=== PATIENT | male | born 1945 | race Caucasian/White ===

== ENCOUNTER 2020-09-27 09:02 | Outpatient (REF) | payer MEDICARE, SELFPAY ==
--- NOTE | 2020-09-27 09:57 | XR_ITS ---
EXAMINATION: XR SHOULDER, BILATERAL CLINICAL INFORMATION: Polymyalgia rheumatica COMPARISON: None TECHNIQUE: Four views each shoulder FINDINGS: RIGHT SHOULDER: There is no visible acute fracture, dislocation, or subluxation seen. There is mild reduction in the right AC joint with lateral acromial spurring. No loose bodies or joint effusion seen. There is calcific density seen lateral to the right greater tuberosity, ? calcific tendinitis. LEFT SHOULDER: There is no visible acute fracture, dislocation, or subluxation. There is loss of left AC joint space with lateral acetabular spurring. Small loose bodies are seen along the inferior glenohumeral joint likely degenerative changes. Soft tissue calcification also seen adjacent to the greater tuberosity. The soft tissues are unremarkable. XR/XR shoulder LT min 2V IMPRESSION: 1. Mild degenerative changes bilateral AC joints with lateral acetabular spurring. No acute fracture or dislocation seen. 2. There is soft tissue calcification lateral to bilateral greater tuberosity likely calcific tendinitis. 3. Small bone fragments inferior to left glenohumeral joint likely degenerative changes or spurring.
--- NOTE | 2020-09-27 09:57 | XR_ITS ---
EXAMINATION: XR SHOULDER, BILATERAL CLINICAL INFORMATION: Polymyalgia rheumatica COMPARISON: None TECHNIQUE: Four views each shoulder FINDINGS: RIGHT SHOULDER: There is no visible acute fracture, dislocation, or subluxation seen. There is mild reduction in the right AC joint with lateral acromial spurring. No loose bodies or joint effusion seen. There is calcific density seen lateral to the right greater tuberosity, ? calcific tendinitis. LEFT SHOULDER: There is no visible acute fracture, dislocation, or subluxation. There is loss of left AC joint space with lateral acetabular spurring. Small loose bodies are seen along the inferior glenohumeral joint likely degenerative changes. Soft tissue calcification also seen adjacent to the greater tuberosity. The soft tissues are unremarkable. XR/XR shoulder RT min 2V IMPRESSION: 1. Mild degenerative changes bilateral AC joints with lateral acetabular spurring. No acute fracture or dislocation seen. 2. There is soft tissue calcification lateral to bilateral greater tuberosity likely calcific tendinitis. 3. Small bone fragments inferior to left glenohumeral joint likely degenerative changes or spurring.
[2020-09-27 11:04] LABS: C Reactive Protein 1.74 mg/dL (< or = 0.50)
[2020-09-27 11:18] LABS: Erythrocyte Sedimentation Rate 19 MM/HR (0-15)
== END 2020-09-27 09:03 | disposition home or self-care (01) ==
LOC: HO.LAB 09:02
PROVIDERS: PCP Family Medicine; Referring Provider Family Medicine; Visit Provider Student in an Organized Health Care Education/Training Program
DX: M35.3 Polymyalgia rheumatica (principal); Z79.52 Long term (current) use of systemic steroids
CPT/HCPCS: 36415; 73030; 85652; 86140; 99212

== ENCOUNTER → 2020-12-07 11:07 | Outpatient (BNVA) | payer MEDICARE, SELFPAY | PROVIDERS: PCP Family Medicine; Referring Provider Family Medicine; Visit Provider Student in an Organized Health Care Education/Training Program | DX: M35.3 Polymyalgia rheumatica (principal); Z79.52 Long term (current) use of systemic steroids | CPT/HCPCS: 99212 ==

== ENCOUNTER 2021-02-16 09:05 | Outpatient (REF) | payer MEDICARE, MEDICAID, SELFPAY ==
[2021-02-16 10:11] LABS: MANUAL DIFF FLAG NO
[2021-02-16 10:20] LABS: Basophils Percent Auto 0.6 % (0-2); Eosinophils Absolute Auto 0.2 X10*3/uL (0.0-0.4); Eosinophils Percent Auto 2.4 % (0-4); Hematocrit 40.8 % (42-52); Hemoglobin 13.5 g/dl (14.0-18.0); Imm Gran Abs Auto 0.02 X10*3/uL (0.00-0.03); Imm Gran Pct Auto 0.3 % (0.0-0.4); Lymphocytes Absolute Auto 1.8 X10*3/uL (1.2-4.9); Lymphocytes Percent Auto 26.7 % (20-40); Mean Corpuscular HGB Conc 33.1 g/dl (31.0-36.0); Mean Corpuscular Hemoglobin 29.2 pg (27.0-33.0); Mean Corpuscular Volume 88.3 fL (80-98); Mean Platelet Volume 9.6 fL (9.4-12.4); Monocytes Absolute Auto 0.5 X10*3/uL (0.1-1.2); Monocytes Percent Auto 7.7 % (2-11); Neutrophils Absolute Auto 4.1 X10*3/uL (2.0-8.3); Neutrophils Percent Auto 62.3 % (45-73); Platelet Count 281 X10*3/uL (160-400); Red Blood Count 4.62 X10*6/uL (4.60-5.80); Red Cell Distribution Width 11.9 % (11.0-16.0); White Blood Count 6.6 X10*3/uL (4.8-10.8)
[2021-02-16 10:45] LABS: Alanine Aminotransferase 11 U/L (0-40); Albumin Level 3.8 g/dL (3.5-5.0); Alkaline Phosphatase 71 U/L (39-117); Anion Gap 11 (12-20); Aspartate Amino Transferase 14 U/L (5-37); Bilirubin Total 0.5 mg/dL (0.0-1.0); Blood Urea Nitrogen 10 mg/dL (9-16); C Reactive Protein 0.56 mg/dL (< or = 0.50); Calcium 8.8 mg/dL (8.4-10.2); Carbon Dioxide 28 mmol/L (22-29); Chloride 105 mmol/L (96-108); Estimated Glomerular Filt Rate > 60; Glucose Random 112 mg/dL (60-115); Potassium 3.7 mmol/L (3.3-5.1); Sodium 140 mmol/L (135-145); Total Protein 6.5 g/dL (6.5-8.0)
[2021-02-16 11:12] LABS: Erythrocyte Sedimentation Rate 18 MM/HR (0-15)
== END 2021-02-16 09:06 | disposition home or self-care (01) ==
LOC: HO.LAB 09:05
PROVIDERS: PCP Family Medicine; Visit Provider Student in an Organized Health Care Education/Training Program
DX: M35.3 Polymyalgia rheumatica (principal); Z79.52 Long term (current) use of systemic steroids
CPT/HCPCS: 36415; 80053; 85025; 85652; 86140; 99212

== ENCOUNTER 2021-03-29 10:47 | Observation (INO) | payer MEDICARE, MEDICAID, SELFPAY ==
[2021-03-29] VITALS (7 sets, daily range): BP systolic 161–182; BP diastolic 85–106; PULSE 70–100; RESP 16–20; TEMP 37–37.1; O2SAT 97–100; BMI 25.8
--- NOTE | ~2021-03-29 | MR_ITS ---
EXAMINATION: MR BRAIN WITHOUT CONTRAST CLINICAL INFORMATION: Episode of amnesia. Right vertebral artery stenosis. COMPARISON: CTA head and neck 03/29/2021. TECHNIQUE: Multiplanar, multisequence imaging of the brain was performed without intravenous contrast. FINDINGS: No definite infarct is seen. A small focus of elevated diffusivity is seen within the left anabell without corresponding ADC signal deficit, likely representing T2 shine through. There is no mass or extra-axial fluid collection. Mild scattered foci of T2/FLAIR hyperintensity are seen in the cerebral white matter presumably reflecting sequela of chronic microangiopathy. The ventricles are normal in size without hydrocephalus. The major arterial flow voids appear grossly preserved. There are bilateral lens replacements. The orbital contents appear normal. MR/MR head/brain wo con IMPRESSION: No acute infarct, mass lesion, intracranial hemorrhage, or evidence of hydrocephalus. Background changes of chronic microangiopathy. Small focus of T2 shine through seen within the left anabell likely representing sequela of chronic microangiopathy at this locale.
--- NOTE | ~2021-03-29 | CT_ITS ---
EXAMINATION: CT ANGIOGRAM NECK WITH CONTRAST CT ANGIOGRAM BRAIN WITH CONTRAST CLINICAL INFORMATION: 5 to 6 minutes of confusion. COMPARISON: None. TECHNIQUE: Test bolus sequences followed by intravenous administration 70 mL of Omnipaque 350. Helical imaging was performed in the axial plane from the thoracic inlet to the skull vertex. Delayed postcontrast imaging of the head was also performed. The data was processed at the mechatronics technologist workstation for generation of MIP sequences. Angled MIPs and volume rendered reformatted images were also generated at an offline 3D workstation. Stenoses are assessed in accordance with NASCET criteria unless otherwise indicated. This CT examination was performed using dose optimization techniques as appropriate, variously including the following: *Automated exposure control *Adjustment of mA and/or kV according to patient size (this includes techniques or standardized protocols for targeted exams where dose is matched to indication/reason for exam; i.e. extremities or head) *Use of iterative reconstruction technique DLP: 2195 mGy-cm FINDINGS: Head CT: There is no intracranial hemorrhage, large acute infarction, or mass lesion. The ventricles are normal in size and configuration without evidence of hydrocephalus. Mild hypoattenuation is seen in the cerebral white matter likely reflecting chronic microangiopathy. The ventricles and sulci appear commensurate. On the postcontrast images, no abnormal enhancement is seen. There is mild paranasal sinus mucosal thickening with layering fluid in the left maxillary sinus. Maxillary sinus fields appear hyperostotic likely reflecting sequela of chronic inflammation. Neck CTA: Atheromatous changes are seen within the aortic arch. The great vessel origins are patent. Mild atheromatous changes are seen at the left more than right carotid bifurcations resulting in less than 50% stenosis. Mild beaded morphology of the bilateral cervical internal carotid arteries likely represents fibromuscular dysplasia type changes. There is focal severe stenosis of the right vertebral artery origin with an additional tandem stenosis seen just distally. No additional significant stenosis is seen involving the cervical segment of the right vertebral artery. Mild amount of beading/dysplasia is seen in the distal V2 segment. The left vertebral artery originates directly from the aortic arch and is nondominant. The cervical segment of the left vertebral artery appears patent throughout the neck. Head CTA: No proximal vessel occlusion is seen. The anterior and posterior circulations appear patent. No significant arterial stenosis is seen. There is a small but tortuous left posterior communicating artery with an infundibular origin. There is no discrete aneurysm. Non-vascular findings: Background changes of emphysema are noted within the lungs. There is no consolidation. Multilevel degenerative changes are seen within the spine. There are bilateral palatine tonsilloliths. There is nonspecific asymmetric effacement of the right vallecula. No gross base of tongue lesion is seen. No enlarged lymph nodes are seen. CT/CT angio head neck IMPRESSION: CT head: No intracranial hemorrhage or large acute infarction. Changes of chronic microangiopathy. Layering fluid in the left maxillary sinus. CTA neck: Severe stenosis of the right vertebral artery origin. No significant stenosis at the carotid bifurcations. Beaded morphology seen involving the cervical segments of both internal carotid arteries and to lesser extent vertebral arteries likely reflecting fibromuscular dysplasia. CTA head: No large vessel occlusion or significant stenosis within the intracranial circulation.
--- NOTE | 2021-03-29 11:09 | ED_ITS ---
HPI - Altered Mental Status General Chief Complaint: Altered Mental Status Stated Complaint: AMS Time Seen by Provider: 03/29/21 11:08 Source: family Mode of arrival: ambulatory Limitations: no limitations History of Present Illness HPI narrative: Patient states that he started to forget events of this morning. He did not know members of his family. Lasted 5-6 minutes complaint: confusion Onset (ago): hour(s) Timing confirmed by: family member Severity: severe Associated symptoms: denies other symptoms Related Data Home Medications Medication Instructions Recorded Confirmed amlodipine 10 mg tablet 10 mg PO DAILY 09/27/20 03/29/21 aspirin 81 mg tablet,delayed 81 mg PO DAILY 09/27/20 03/29/21 release hydrochlorothiazide 25 mg tablet 25 mg PO DAILY 09/27/20 03/29/21 lisinopril 40 mg tablet 40 mg PO DAILY 09/27/20 03/29/21 omeprazole 20 mg capsule,delayed 20 mg PO DAILY 09/27/20 03/29/21 release brimonidine 1 drp OPHTHALMIC (EYE) Q12H 03/29/21 03/29/21 doxazosin 1 tab PO BEDTIME 03/29/21 03/29/21 Previous Rx's Medication Instructions Recorded prednisone 1 mg tablet 4 mg PO QAM #120 tab 12/27/20 prednisone 5 mg tablet 5 mg PO QAM #30 tab 03/27/21 atorvastatin [Lipitor] 40 mg PO BEDTIME 30 Days #30 tab 03/30/21 Allergies Allergy/AdvReac Type Severity Reaction Status Date / Time No Known Allergies Allergy Verified 02/16/21 09:09 [No Known Allergies*] Review of Systems Constitutional: Constitutional: Reports no additional constitutional complaints Eyes: Eyes: Reports no additional eye complaints ENT: Denies dizziness Cardiovascular: Cardiovascular: Reports no additional cardiovascular complaints Respiratory: Respiratory: Reports as per HPI Gastrointestinal: Gastrointestinal: Reports no additional gastrointestinal complaints Musculoskeletal: Musculoskeletal: Reports no additional musculoskeletal complaints Integumentary/Breasts: Skin/Breast: Denies rash Neurologic: Reports system reviewed and no additional complaints, except as documented, Denies dizziness and Denies Sensory deficit (Neuro) Psychiatric: Psychiatric: Denies anxiety PMFSH Past Medical History Medical History Family history of GERD History of pernicious anemia History of vitamin D deficiency Hx of essential hypertension Hx of polymyalgia rheumatica Polymyalgia rheumatica Family History Family History Father HTN (hypertension) Mother HTN (hypertension) Social History Social History (Updated 03/29/21 @ 17:59 by PHILLIP Lagos) Household Members: Spouse Alcohol intake: never Smoking Status: Never smoker Second Hand Smoke Exposure: No Use of substances other than those prescribed or required for medical reasons: No Advance Directives: Yes Advance Directives Information Provided: No Advance Directives on File: Yes Advance Directives Date on File: 03/29/21 service: No Physical Exam Vital Signs: Vital Signs: Last Vital Signs Temp 97.8 F 03/30/21 07:18 Pulse 87 03/30/21 07:18 Resp 20 03/30/21 07:18 BP 126/76 03/30/21 07:18 Pulse Ox 97 03/30/21 07:18 Body Mass Index 25.8 Const: General: healthy appearing Nutritional Appearance: average body habitus Orientation/consciousness: oriented to person and patient oriented x3 Limitations: no limitations HENMT: Head: Yes normal to inspection Ears: external ears normal General nose exam: Normal external nose present Mouth: Normal oral and palatal mucosa present and oropharynx normal Throat: Yes posterior oropharynx normal Eyes: General: appearance normal, both eyes and all related structures Neck: Other: supple Neck: Yes normal visual inspection Chest: Chest palpation & inspection: normal inspection of the chest Resp: Auscultation: clear to auscultation bilaterally Cardio: Jugular venous distension: no JVD Rate: regular rate Rhythm: regular rhythm Heart sounds: S1 normal heart sound present and S2 normal heart sound present GI: Inspection: Yes normal to inspection Palpation (GI): Soft to palpation, nontender and No hepatosplenomegaly present Auscultation: normal bowel sounds : General: Yes no CVA tenderness Back/Spine/Pelvis: Back: no CVA tenderness Skin: General skin exam: no rashes or lesions noted Neuro: General: oriented to person and patient oriented x3 Cranial nerves: Yes CN's II-XII intact bilaterally Motor exam (neuro): 5/5 motor strength present throughout Sensory Exam: No Sensory deficit (Neuro) Extrem: General: Yes normal to inspection Psych: Appearance: grossly normal NIH Stroke Scale Internal: Initial- Upon Arrival Level of Consciousness: Alert Level of Consciousness Questions: Answers both questions correctly Level of Consciousness Commands: Performs both tasks correctly Best Gaze: Normal Visual: No visual loss Facial Palsy: Normal Motor Arm (Right): No drift Motor Arm (Left): No drift Motor Leg (Right): No drift Motor Leg (Left): No drift Limb Ataxia: Absent Sensory: Normal Best Language: No aphasia Dysarthia: Normal Extinction and Inattention: No abnormality Score: 0 Course Course Course Narrative: Discussed case with Dr. Cerda, based on tight lesion in vertebral artery patient should treated as TIA vs seizure MDM - Altered Mental Status MDM Narrative Medical decision making narrative: TGA vs TIA Differential Diagnosis Differential diagnosis: Likely altered mental status, encephalopathy and seizures Lab Data Result diagrams: 03/29/21 12:13 03/29/21 12:13 Labs: Lab Results 03/29/21 03/29/21 03/29/21 Range/Units 12:13 12:13 12:13 WBC 7.0 (4.8-10.8) X10*3/uL RBC 4.68 (4.60-5.80) X10*6/uL Hgb 13.7 L (14.0-18.0) g/dl Hct 41.6 L (42-52) % MCV 88.9 (80-98) fL MCH 29.3 (27.0-33.0) pg MCHC 32.9 (31.0-36.0) g/dl RDW 12.3 (11.0-16.0) % Plt Count 273 (160-400) X10*3/uL MPV 9.4 (9.4-12.4) fL Immature Gran % (Auto) 0.3 (0.0-0.4) % Neut % (Auto) 62.8 (45-73) % Lymph % (Auto) 21.6 (20-40) % [place] % (Auto) 12.9 H (2-11) % Eos % (Auto) 2.0 (0-4) % Baso % (Auto) 0.4 (0-2) % Lymph # (Auto) 1.5 (1.2-4.9) X10*3/uL [place] # (Auto) 0.9 (0.1-1.2) X10*3/uL Eos # (Auto) 0.1 (0.0-0.4) X10*3/uL Baso # (Auto) 0.0 (0.0-0.2) X10*3/uL Abs Immat Gran (auto) 0.02 (0.00-0.03) X10*3/uL Absolute Neuts (auto) 4.4 (2.0-8.3) X10*3/uL Absolute Nucleated RBC 0.000 (0.0-0.012) X10*3/uL Nucleated RBC % (auto) 0.0 (0.0-0.2) /100WBC Sodium 142 (135-145) mmol/L Potassium 4.6 D (3.3-5.1) mmol/L Chloride 106 (96-108) mmol/L Carbon Dioxide 29 (22-29) mmol/L Anion Gap 12 (12-20) BUN 12 (9-16) mg/dL Creatinine 0.77 (0.5-1.4) mg/dL Estim Creat Clear Calc 77.7 Estimated GFR > 60 Random Glucose 102 (60-115) mg/dL Calcium 9.6 D (8.4-10.2) mg/dL Troponin I High Sens 10.6 (<3.5-35.0) ng/L Imaging Data CT scan - head: Radiologist's impression: CT Scan ReportSigned Patient: Rowdy Romero [facility]#: [id number]: 3Acct:[id number]/Sex: 75 / MADM Date: 03/29/21Loc: [email or web address] Dr: Ordering Physician: Jin Garcia MD Date of Service: 03/29/21 Procedure(s): CT angio head neck Accession Number(s): [id number] cc: Jin Garcia MD~ EXAMINATION: CT ANGIOGRAM NECK WITH CONTRAST CT ANGIOGRAM BRAIN WITH CONTRAST CLINICAL INFORMATION: 5 to 6 minutes of confusion. COMPARISON: None. TECHNIQUE: Test bolus sequences followed by intravenous administration 70 mL of Omnipaque 350. Helical imaging was performed in the axial plane from the thoracic inlet to the skull vertex. Delayed postcontrast imaging of the head was also performed. The data was processed at the special procedures technologist workstation for generation of MIP sequences. Angled MIPs and volume rendered reformatted images were also generated at an offline 3D workstation. Stenoses are assessed in accordance with NASCET criteria unless otherwise indicated. This CT examination was performed using dose optimization techniques as appropriate, variously including the following: *Automated exposure control *Adjustment of mA and/or kV according to patient size (this includes techniques or standardized protocols for targeted exams where dose is matched to indication/reason for exam; i.e. extremities or head) *Use of iterative reconstruction technique DLP: 2195 mGy-cm FINDINGS: Head CT: There is no intracranial hemorrhage, large acute infarction, or mass lesion. The ventricles are normal in size and configuration without evidence of hydrocephalus. Mild hypoattenuation is seen in the cerebral white matter likely reflecting chronic microangiopathy. The ventricles and sulci appear commensurate. On the postcontrast images, no abnormal enhancement is seen. There is mild paranasal sinus mucosal thickening with layering fluid in the left maxillary sinus. Maxillary sinus fields appear hyperostotic likely reflecting sequela of chronic inflammation. Neck CTA: Atheromatous changes are seen within the aortic arch. The great vessel origins are patent. Mild atheromatous changes are seen at the left more than right carotid bifurcations resulting in less than 50% stenosis. Mild beaded morphology of the bilateral cervical internal carotid arteries likely represents fibromuscular dysplasia type changes. There is focal severe stenosis of the right vertebral artery origin with an additional tandem stenosis seen just distally. No additional significant stenosis is seen involving the cervical segment of the right vertebral artery. Mild amount of beading/dysplasia is seen in the distal V2 segment. The left vertebral artery originates directly from the aortic arch and is nondominant. The cervical segment of the left vertebral artery appears patent throughout the neck. Head CTA: No proximal vessel occlusion is seen. The anterior and posterior circulations appear patent. No significant arterial stenosis is seen. There is a small but tortuous left posterior communicating artery with an infundibular origin. There is no discrete aneurysm. Non-vascular findings: Background changes of emphysema are noted within the lungs. There is no consolidation. Multilevel degenerative changes are seen within the spine. There are bilateral palatine tonsilloliths. There is nonspecific asymmetric effacement of the right vallecula. No gross base of tongue lesion is seen. No enlarged lymph nodes are seen. CT/CT angio head neck IMPRESSION: CT head: No intracranial hemorrhage or large acute infarction. Changes of chronic microangiopathy. Layering fluid in the left maxillary sinus. CTA neck: Severe stenosis of the right vertebral artery origin. No significant stenosis at the carotid bifurcations. Beaded morphology seen involving the cervical segments of both internal carotid arteries and to lesser extent vertebral arteries likely reflecting fibromuscular dysplasia. CTA head: No large vessel occlusion or significant stenosis within the intracranial circulation. ECG Data ECG #1: Attestation: I personally reviewed and interpreted this ECG as follows: Interpretation: normal sinus rate 77, no st or twave changes Discharge Plan Discharge Clinical Impression: Altered mental status, Transient ischemic attack (TIA), Transient global amnesia Patient Disposition: Admitted As Inpatient Interventions: Admission Worksheet (ED) Last Done: 03/29/21 23:10 Discharge Date/Time: 03/29/21 23:10
--- NOTE | 2021-03-29 11:14 | ECG_ITS ---
Test Reason : ALTERED MENTAL STATE Blood Pressure : / mmHG Vent. Rate : 077 BPM Atrial Rate : 077 BPM P-R Int : 146 ms QRS Dur : 078 ms QT Int : 382 ms P-R-T Axes : 069 -56 -03 degrees QTc Int : 432 ms Normal sinus rhythm Left axis deviation Minimal voltage criteria for LVH, may be normal variant Abnormal ECG When compared with ECG of 05-JUN-2019 09:49, Premature supraventricular complexes are no longer Present Referred By: Jin Garcia Electronically Signed By:TRACY BANDA MD
[2021-03-29 12:17] LABS: MANUAL DIFF FLAG NO
[2021-03-29 12:21] LABS: Basophils Percent Auto 0.4 % (0-2); Eosinophils Absolute Auto 0.1 X10*3/uL (0.0-0.4); Hematocrit 41.6 % (42-52); Hemoglobin 13.7 g/dl (14.0-18.0); Imm Gran Abs Auto 0.02 X10*3/uL (0.00-0.03); Imm Gran Pct Auto 0.3 % (0.0-0.4); Lymphocytes Absolute Auto 1.5 X10*3/uL (1.2-4.9); Lymphocytes Percent Auto 21.6 % (20-40); Mean Corpuscular HGB Conc 32.9 g/dl (31.0-36.0); Mean Corpuscular Hemoglobin 29.3 pg (27.0-33.0); Mean Corpuscular Volume 88.9 fL (80-98); Mean Platelet Volume 9.4 fL (9.4-12.4); Monocytes Absolute Auto 0.9 X10*3/uL (0.1-1.2); Monocytes Percent Auto 12.9 % (2-11); Neutrophils Absolute Auto 4.4 X10*3/uL (2.0-8.3); Neutrophils Percent Auto 62.8 % (45-73); Platelet Count 273 X10*3/uL (160-400); Red Blood Count 4.68 X10*6/uL (4.60-5.80); Red Cell Distribution Width 12.3 % (11.0-16.0)
[2021-03-29 12:47] LABS: Anion Gap 12 (12-20); Blood Urea Nitrogen 12 mg/dL (9-16); Calcium 9.6 mg/dL (8.4-10.2); Carbon Dioxide 29 mmol/L (22-29); Chloride 106 mmol/L (96-108); Creatinine Clr Calc Pharmacy 77.7; Estimated Glomerular Filt Rate > 60; Glucose Random 102 mg/dL (60-115); Potassium 4.6 mmol/L (3.3-5.1); Sodium 142 mmol/L (135-145)
[2021-03-29 12:53] LABS: Troponin-I High Sensitivity 10.6 ng/L (<3.5-35.0)
[2021-03-29] MEDS: iohexoL 350 MG/ML 100 ML INFUS..BTL IV (14:23)
--- NOTE | 2021-03-29 16:23 | P.CNNE_ITS ---
History of Present Illness Data of Consult Service Date: 03/29/21 Primary Care Provider: Alma Delia Altamirano MD 75 years old man with underlying history of hypertension came to hospital with few minutes episode of forgetfulness. Apparently he did not know where he was or forgot about everything for few minutes and then he was fine again. There was no associated discomfort. There was no focal weakness. In emergency room he was noted to be hypertensive. CTA was done that revealed some finding prompting this consultation. Review of Systems Review of Systems: No recent cold or flu-like illness or trauma. No seizure- like episode PMFSH Past Medical History Medical History Family history of GERD History of pernicious anemia History of vitamin D deficiency Hx of essential hypertension Hx of polymyalgia rheumatica Polymyalgia rheumatica Family History Family History Father HTN (hypertension) Mother HTN (hypertension) Social History Social History Alcohol intake: never Smoking Status: Former smoker Advance Directives: Yes Advance Directives Information Provided: No Advance Directives on File: No Meds Allergies Allergy/AdvReac Type Severity Reaction Status Date / Time No Known Allergies Allergy Verified 02/16/21 09:09 [No Known Allergies*] Home Medications Medication Instructions Recorded Confirmed Last Taken Type amlodipine 10 mg tablet 10 mg PO DAILY 09/27/20 03/29/21 Unknown History aspirin 81 mg tablet,delayed 81 mg PO DAILY 09/27/20 03/29/21 Unknown History release hydrochlorothiazide 25 mg tablet 25 mg PO DAILY 09/27/20 03/29/21 Unknown History lisinopril 40 mg tablet 40 mg PO DAILY 09/27/20 03/29/21 Unknown History omeprazole 20 mg capsule,delayed 20 mg PO DAILY 09/27/20 03/29/21 Unknown History release brimonidine 1 drp OPHTHALMIC (EYE) Q12H 03/29/21 03/29/21 Unknown History doxazosin 1 tab PO BEDTIME 03/29/21 03/29/21 Unknown History Physical Exam Vital Signs: Vital Signs: Last Vital Signs Temp 98.7 F 03/29/21 11:04 Pulse 72 03/29/21 14:11 Resp 17 03/29/21 14:11 BP 182/99 H 03/29/21 14:11 Pulse Ox 98 03/29/21 14:11 Body Mass Index 25.8 He was alert and awake with normal spontaneity of speech fluency comprehension and affect. He was able to name and repeat. Affect was normal. Face was symmetrical. There was no focal weakness. Deep tendon reflexes were trace to absent with flexor plantars. Results Labs CBC & Chem 7: 03/29/21 12:13 03/29/21 12:13 Labs: Short CBC 03/29/21 Range/Units 12:13 WBC 7.0 (4.8-10.8) X10*3/uL Hgb 13.7 L (14.0-18.0) g/dl Hct 41.6 L (42-52) % Plt Count 273 (160-400) X10*3/uL BMP 03/29/21 12:13 Sodium 142 Potassium 4.6 D Chloride 106 Carbon Dioxide 29 BUN 12 Creatinine 0.[address] head: No intracranial hemorrhage or large acute infarction. Changes of chronic microangiopathy. Layering fluid in the left maxillary sinus. CTA neck: Severe stenosis of the right vertebral artery origin. No significant stenosis at the carotid bifurcations. Beaded morphology seen involving the cervical segments of both internal carotid arteries and to lesser extent vertebral arteries likely reflecting fibromuscular dysplasia. CTA head: No large vessel occlusion or significant stenosis within the intracranial circulation. Assessment and Plan (1) Transient ischemic attack (TIA): Problem details: 75 years old man with underlying history of hypertension that was not well controlled presented with few minutes episode of forgetfulness. Examination at this time was nonfocal. His imaging revealed mild microvascular ischemic change s but no obvious acute lesion, right vertebrals artery stenosis and suggestion of fibromuscular dysplasia. Status: Acute My recommendation at this time is to obtain a noncontrast MRI of brain. Also his blood pressure should be better controlled, he should be treated with anti-platelet agent and statins. I would also recommend obtaining sed rate, antinuclear antibody titer, rheumatoid factor, and C ANCA and p-ANCA titers. (2) Vertebral artery stenosis: Status: Acute (3) Fibromuscular dysplasia: Status: Acute
[2021-03-29] MEDS: lisinopriL 40 MG TABLET PO (16:38)
[2021-03-29] MEDS: amLODIPine Besylate 10 MG TABLET PO (16:38)
--- NOTE | 2021-03-29 17:02 | PM.EVENT ---
Event Note Date of Service: 03/29/21 Event Note: Patient seen and examined independently and was present during zamudio portion of E/M service. Agree with midlevel's history, physical, assessment, and plan. 75M presented with amnesia tia mri neuro eval asa, statin
--- NOTE | 2021-03-29 17:52 | PM.IMHP ---
History of Present Illness Date of Service: 03/29/21 Chief Complaint: Memory loss This is a 75 year male who presents to the emergency department after an episode of memory loss. Patient was in his usual state of health this morning when he suddenly could not remember who he was, where he was or any other details. This episode lasted approximately 25 minutes. During this time he had no difficulty with vision, speech, ambulation. He had no focal weakness. He was brought to the emergency department for evaluation and gradually his memory returned. According to the patient and his family at the bedside he is back to his baseline. He underwent a brain CT which showed chronic microangiopathy. CTA of the head and neck showed severe stenosis of the right vertebral artery and beaded morphology involving cervical segments of both internal carotid arteries and to lesser extent vertebral arteries likely reflecting fibromuscular dysplasia. He was evaluated by the neurologist and the decision was made to keep him overnight for observation and further workup. Of note patient's states that he had a similar episode several months ago at with shorter in duration. He did not seek medical evaluation at that time. Lab work done in the emergency department was unremarkable. Review of Systems Review of Systems: Yes all other systems are reviewed and are negative Constitutional: Constitutional: Denies chills and Denies fever(s) Cardiovascular: Cardiovascular: Denies chest pain Respiratory: Respiratory: Denies cough Gastrointestinal: Gastrointestinal: Denies abdominal pain [facility] Medical History Family history of GERD History of pernicious anemia History of vitamin D deficiency Hx of essential hypertension Hx of polymyalgia rheumatica Polymyalgia rheumatica Functional capacity: independent ambulation Family History Father HTN (hypertension) Mother HTN (hypertension) Family history: reviewed and not pertinent Social History (Updated 03/29/21 @ 17:59 by PHILLIP Lagos) Household Members: Spouse Alcohol intake: never Smoking Status: Never smoker Use of substances other than those prescribed or required for medical reasons: No Advance Directives: Yes Advance Directives Information Provided: No Advance Directives on File: No Meds Allergies Allergy/AdvReac Type Severity Reaction Status Date / Time No Known Allergies Allergy Verified 02/16/21 09:09 [No Known Allergies*] Home Medications Medication Instructions Recorded Confirmed Last Taken Type amlodipine 10 mg tablet 10 mg PO DAILY 09/27/20 03/29/21 Unknown History aspirin 81 mg tablet,delayed 81 mg PO DAILY 09/27/20 03/29/21 Unknown History release hydrochlorothiazide 25 mg tablet 25 mg PO DAILY 09/27/20 03/29/21 Unknown History lisinopril 40 mg tablet 40 mg PO DAILY 09/27/20 03/29/21 Unknown History omeprazole 20 mg capsule,delayed 20 mg PO DAILY 09/27/20 03/29/21 Unknown History release brimonidine 1 drp OPHTHALMIC (EYE) Q12H 03/29/21 03/29/21 Unknown History doxazosin 1 tab PO BEDTIME 03/29/21 03/29/21 Unknown History Physical Exam Vital Signs and Narrative: Vital Signs: Last Vital Signs Temp 98.7 F 03/29/21 11:04 Pulse 70 03/29/21 16:38 Resp 16 03/29/21 16:35 BP 171/97 H 03/29/21 16:38 Pulse Ox 98 03/29/21 16:35 Body Mass Index 25.8 Const: General: comfortable, no acute distress, alert and awake Nutritional Appearance: well nourished Orientation/consciousness: patient oriented x3 HENMT: Head: Yes normocephalic and Yes atraumatic Eyes: Sclerae: sclerae normal Pupils: Equal, round and reactive pupils present Chest: Chest palpation & inspection: normal inspection of the chest Resp: Effort & Inspection: normal respiratory effort and no respiratory distress Auscultation: clear to auscultation bilaterally Cardio: Rate: regular rate Rhythm: regular rhythm GI: Palpation (GI): Soft to palpation and nontender Neuro: Other: hand grasp equal bilaterally, strength equal bilaterally General: patient oriented x3 Cranial nerves: Yes CN's II-XII intact bilaterally, Yes Equal, round and reactive pupils present, Yes Bilaterally intact EOM present, Yes Midline tongue present and Yes Ability to bilaterally elevate shoulders present Motor exam (neuro): Pronator motor function not present Results Labs CBC and Chem 7: 03/29/21 12:13 03/29/21 12:13 Labs: Laboratory Results - last 24 hr 03/29/21 03/29/21 03/29/21 12:13 12:13 12:13 MCV 88.9 MCH 29.3 MCHC 32.9 RDW 12.3 Plt Count 273 MPV 9.4 Immature Gran % (Auto) 0.3 Neut % (Auto) 62.8 Lymph % (Auto) 21.6 [place] % (Auto) 12.9 H Eos % (Auto) 2.0 Baso % (Auto) 0.4 Lymph # (Auto) 1.5 [place] # (Auto) 0.9 Eos # (Auto) 0.1 Baso # (Auto) 0.0 Abs Immat Gran (auto) 0.02 Absolute Neuts (auto) 4.4 Absolute Nucleated RBC 0.000 Nucleated RBC % (auto) 0.0 Anion Gap 12 Estim Creat Clear Calc 77.7 Estimated GFR > 60 Random Glucose 102 Calcium 9.6 D Troponin I High Sens 10.6 Imaging Radiologist's Impressions: Impressions Head/Neck CTA 03/29/21 11:14 IMPRESSION: CT head: No intracranial hemorrhage or large acute infarction. Changes of chronic microangiopathy. Layering fluid in the left maxillary sinus. CTA neck: Severe stenosis of the right vertebral artery origin. No significant stenosis at the carotid bifurcations. Beaded morphology seen involving the cervical segments of both internal carotid arteries and to lesser extent vertebral arteries likely reflecting fibromuscular dysplasia. CTA head: No large vessel occlusion or significant stenosis within the intracranial circulation. Assessment and Plan (1) Vertebral artery stenosis: Status: Acute This is a 75-year-old male with a history of polymyalgia rheumatica, hypertension who presents to the emergency department with 25 minutes episode of memory loss found to have right vertebral artery stenosis, now back to baseline. Episode of memory loss ? tia. Now back to baseline. no focal neuro deficits Brain with chronic microangiopathy. CTA with severe right vertebral artery stenosis -seen by Neurology, recommends checking ESR, ISAMAR, RF, C ANCA, p-ANCA -brain MRI -ASA, statin -neuro checks -no deficits, will hold off on PT/OT eval HTN. Continue home dose of Norvasc, HCTZ, lisinopril Polymyalgia rheumatica Continue home dose of prednisone DVT prophylaxis-Lovenox Code status-full code Attending-Dr. Ye
[2021-03-29 18:57] LABS: COVID-19 Test Negative (Negative)
--- NOTE | 2021-03-29 20:22 | PC.NURSE ---
PT RETURNED FROM MRI. PT IN NAD AT THIS TIME.
[2021-03-29] MEDS: diphenhydrAMINE HCL 50 MG/ML VIAL 25 MG IVPUSH (20:29)
--- NOTE | 2021-03-29 20:30 | PC.NURSE ---
FLOOR UNABLE TO TAKE REPORT.
--- NOTE | 2021-03-29 21:35 | PC.NURSE ---
FLOOR UNABLE TO TAKE REPORT.
[2021-03-29] MEDS: Enoxaparin Sodium 40 MG/0.4 ML SYRINGE SUBCUT (23:36)
[2021-03-29] MEDS: Atorvastatin Calcium 40 MG TABLET PO (23:37)
[2021-03-30 00:32] VITALS: BP 132/80; PULSE 70
[2021-03-30] MEDS: Doxazosin Mesylate 1 MG TABLET PO (00:32)
[2021-03-30] MEDS: 0.9 % Sodium Chloride Flush 3 ML SYRINGE IVFLUSH ×2 (01:22→07:59)
[2021-03-30 03:44] VITALS: BP 119/75; PULSE 101; RESP 18; TEMP 36.7; O2SAT 96
[2021-03-30 07:17] LABS: Rheumatoid Factor < 15.0 IU/mL (<15.0)
[2021-03-30 07:18] VITALS: BP 126/76; PULSE 87; RESP 20; TEMP 36.6; O2SAT 97
[2021-03-30 07:25] LABS: Cholesterol 167 mg/dL; HDL Cholesterol 40 mg/dL; LDL Cholesterol Calculated 107 mg/dl; Triglycerides 103 mg/dL
[2021-03-30] MEDS: amLODIPine Besylate 10 MG TABLET PO (07:59)
[2021-03-30] MEDS: predniSONE 1 MG TABLET 4 MG PO (07:59)
[2021-03-30] MEDS: Aspirin Enteric Coated 81 MG TABLET.DR PO (07:59)
[2021-03-30] MEDS: predniSONE 5 MG TABLET PO (07:59)
[2021-03-30] MEDS: hydroCHLOROthiazide 25 MG TABLET PO (07:59)
[2021-03-30] MEDS: lisinopriL 40 MG TABLET PO (07:59)
[2021-03-30] MEDS: Omeprazole 20 MG CAPSULE.DR PO (08:00)
[2021-03-30 08:41] LABS: Erythrocyte Sedimentation Rate 14 MM/HR (0-15)
--- NOTE | 2021-03-30 08:57 | PM.DS ---
DS: Providers Provider Date of Service: 03/30/21 Date of admission: 03/29/21 17:49 Primary care physician: Alma Delia Altamirano MD DS: Diagnosis Discharge Diagnosis (1) Vertebral artery stenosis: Status: Acute (2) Fibromuscular dysplasia: Status: Acute (3) Transient amnesia: Status: Acute DS: Medications Discharge Medications Home Medications: Home Medications Medication Instructions Recorded Confirmed amlodipine 10 mg tablet 10 mg PO DAILY 09/27/20 03/29/21 aspirin 81 mg tablet,delayed 81 mg PO DAILY 09/27/20 03/29/21 release hydrochlorothiazide 25 mg tablet 25 mg PO DAILY 09/27/20 03/29/21 lisinopril 40 mg tablet 40 mg PO DAILY 09/27/20 03/29/21 omeprazole 20 mg capsule,delayed 20 mg PO DAILY 09/27/20 03/29/21 release brimonidine 1 drp OPHTHALMIC (EYE) Q12H 03/29/21 03/29/21 doxazosin 1 tab PO BEDTIME 03/29/21 03/29/21 Previous Rx's Medication Instructions Recorded prednisone 1 mg tablet 4 mg PO QAM #120 tab 12/27/20 prednisone 5 mg tablet 5 mg PO QAM #30 tab 03/27/21 DS: Summary Hospital Course Hospital Course: This is a 75-year-old male who presented to the emergency department after an episode of memory loss. Patient had approximately 25 minutes where he could remember who he was or details it is about himself or his life. The symptoms resolved and he returned back to his baseline in the emergency department. He was not noted to have any focal neurological deficits. He underwent brain CT which showed no acute abnormalities but underlying chronic microangiopathy. Head and neck CTA was done and showed right vertebral artery stenosis and fibromuscular dysplasia of both internal carotid arteries and to a lesser extent vertebral arteries. He was seen in consultation by Neurology who recommended brain MRI as well as sed rate, ISAMAR, RF, C ANCA, p-ANCA titers as well as aspirin, statin. He underwent MRI of the brain which showed no acute infarct, mass lesion, intracranial hemorrhage or evidence of hydrocephalus. Rheumatoid factor was less than 15, ESR 14, ISAMAR, C Anca, p-ANCA titers pending the time of discharge. He was started on statin and continued on home aspirin. Neurology recommends outpatient follow-up. The patient is currently at his baseline and is eager to return home. Time Spent with Patient Time attestation: Total time spent providing and/or coordinating discharge services: Discharge coordination time: Greater than 30 minutes Physical Exam Vital Signs: Vital Signs: Last Vital Signs Temp 97.8 F 03/30/21 07:18 Pulse 87 03/30/21 07:18 Resp 20 03/30/21 07:18 BP 126/76 03/30/21 07:18 Pulse Ox 97 03/30/21 07:18 Body Mass Index 25.8 Const: General: comfortable, no acute distress, alert and awake Nutritional Appearance: well nourished Orientation/consciousness: patient oriented x3 HENMT: Head: Yes normocephalic and Yes atraumatic Eyes: Sclerae: sclerae normal Pupils: Equal, round and reactive pupils present Chest: Chest palpation & inspection: normal inspection of the chest Resp: Effort & Inspection: normal respiratory effort and no respiratory distress Auscultation: clear to auscultation bilaterally Cardio: Rate: regular rate Rhythm: regular rhythm GI: Palpation (GI): Soft to palpation and nontender Neuro: Other: hand grasp equal bilaterally, strength equal bilaterally General: patient oriented x3 Cranial nerves: Yes CN's II-XII intact bilaterally, Yes Equal, round and reactive pupils present, Yes Bilaterally intact EOM present, Yes Midline tongue present and Yes Ability to bilaterally elevate shoulders present Motor exam (neuro): Pronator motor function not present DS: Data Data Completed and Pending Labs on day of discharge: Laboratory Results - last 24 hr 03/29/21 03/29/21 03/29/21 12:13 12:13 12:13 WBC 7.0 RBC 4.68 Hgb 13.7 L Hct 41.6 L MCV 88.9 MCH 29.3 MCHC 32.9 RDW 12.3 Plt Count 273 MPV 9.4 Immature Gran % (Auto) 0.3 Neut % (Auto) 62.8 Lymph % (Auto) 21.6 Christian % (Auto) 12.9 H Eos % (Auto) 2.0 Baso % (Auto) 0.4 Lymph # (Auto) 1.5 Christian # (Auto) 0.9 Eos # (Auto) 0.1 Baso # (Auto) 0.0 Abs Immat Gran (auto) 0.02 Absolute Neuts (auto) 4.4 Absolute Nucleated RBC 0.000 Nucleated RBC % (auto) 0.0 ESR Sodium 142 Potassium 4.6 D Chloride 106 Carbon Dioxide 29 Anion Gap 12 BUN 12 Creatinine 0.77 Estim Creat Clear Calc 77.7 Estimated GFR > 60 Random Glucose 102 Calcium 9.6 D Troponin I High Sens 10.6 Triglycerides Cholesterol LDL Cholesterol, Calc HDL Cholesterol Rheumatoid Factor COVID-19 ([facility]) COVID-19 Clin Com 03/29/21 03/30/21 03/30/21 18:35 05:50 07:44 WBC RBC Hgb Hct MCV MCH MCHC RDW Plt Count MPV Immature Gran % (Auto) Neut % (Auto) Lymph % (Auto) Christian % (Auto) Eos % (Auto) Baso % (Auto) Lymph # (Auto) Christian # (Auto) Eos # (Auto) Baso # (Auto) Abs Immat Gran (auto) Absolute Neuts (auto) Absolute Nucleated RBC Nucleated RBC % (auto) ESR 14 Sodium Potassium Chloride Carbon Dioxide Anion Gap BUN Creatinine Estim Creat Clear Calc Estimated GFR Random Glucose Calcium Troponin I High Sens Triglycerides 103 Cholesterol 167 LDL Cholesterol, Calc 107 HDL Cholesterol 40 Rheumatoid Factor < 15.0 COVID-19 ([facility]) Negative COVID-19 Clin Com See Note Discharge Plan Discharge Patient Disposition: Home, Self-Care Discharge Diagnosis: Transient memory loss Stroke Ruled out Referrals: Jerson Cerda MD [Physician] - 1 Week Alma Delia Altamirano MD [Primary Care Provider] - 1 Week Discharge Medications: New atorvastatin [Lipitor] 40 mg tablet 40 mg PO BEDTIME 30 Days Qty: 30 RF: 0 Continued prednisone 1 mg tablet 4 mg PO QAM Qty: 120 RF: 3 prednisone 5 mg tablet 5 mg PO QAM Qty: 30 RF: 3 doxazosin 1 mg tablet 1 tab PO BEDTIME RF: 0 brimonidine 0.2 % drops 1 drp ophthalmic (eye) Q12H RF: 0 amlodipine 10 mg tablet 10 mg PO DAILY RF: 0 omeprazole 20 mg capsule,delayed release(DR/EC) 20 mg PO DAILY RF: 0 lisinopril 40 mg tablet 40 mg PO DAILY RF: 0 hydrochlorothiazide 25 mg tablet 25 mg PO DAILY RF: 0 aspirin 81 mg tablet,delayed release (DR/EC) 81 mg PO DAILY RF: 0 Discharge Orders: Discharge Order (Routine); Ordered 03/30/21 Ordered By: Alejandra Pinedo Activity on Discharge: As tolerated Stand Alone Forms: Patient Portal Discharge page Care Plan Goals: See below Health Concerns: Episode of memory loss, resolved. Stroke ruled out Vertebral Artery Stenosis Plan of Treatment: You have been started on a statin. Please call your PCP to schedule a follow up appointment Please call the neurologist and schedule an appointment for follow up Assessment: See discharge summary
--- NOTE | 2021-03-30 09:59 | MHC.CM.PN ---
with yessir met with pt who reports having a dialysis social worker nd a rn thru his ins who sees him every 3 months he says he has his won ride home kaiden garcia..filed hcp with pt naming his son rula as his agen t [phone]
--- NOTE | 2021-03-30 10:21 | MHC.CM.PN ---
pt home no sercveis no skilled aleena ordered by
[2021-03-31 12:46] LABS: Anti Nuclear Antibody Screen NEGATIVE (NEGATIVE)
[2021-04-02 13:12] LABS: Myeloperoxidase Antibody <1.0 AI; Proteinase 3 PR3 Antibodies <1.0 AI
== END 2021-03-30 11:03 | disposition home or self-care (01) ==
LOC: HO.ED 15:56 → HO.EDOVER 18:19 → HO.IMC 19:18
PROVIDERS: Admitting Provider Physician Assistant Medical; Emergency Provider Emergency Medicine; PCP Family Medicine; Visit Provider Physician Assistant Medical
DX: I65.01 Occlusion and stenosis of right vertebral artery (principal); I77.3 Arterial fibromuscular dysplasia; I77.1 Stricture of artery; I10 Essential (primary) hypertension; E55.9 Vitamin D deficiency, unspecified; M35.3 Polymyalgia rheumatica; R94.31 Abnormal electrocardiogram [ECG] [EKG]; Z87.891 Personal history of nicotine dependence; Z20.822 Contact with and (suspected) exposure to COVID-19; Z79.82 Long term (current) use of aspirin; Z79.52 Long term (current) use of systemic steroids; Z79.899 Other long term (current) drug therapy
CPT/HCPCS: 36415; 70496; 70498; 70551; 80048; 80061; 84484; 85025; 85652; 86021; 86038; 86039; 86431; 87635; 93005; 96372; 96374; 96375; 99219; 99285; J1200; J1650; Q9967

== ENCOUNTER 2021-08-10 08:11 | Outpatient (REF) | payer MEDICARE, MEDICAID, SELFPAY | END 2021-08-10 08:12 | disposition home or self-care (01) | LOC: HO.LAB 08:11 | PROVIDERS: Visit Provider Internal Medicine | DX: Z20.822 Contact with and (suspected) exposure to COVID-19 (principal) | CPT/HCPCS: C9803; U0003; U0005 ==

== ENCOUNTER 2021-08-13 11:02 | Outpatient (REF) | payer MEDICARE, MEDICAID, SELFPAY ==
[2021-08-13 14:01] LABS: Erythrocyte Sedimentation Rate 16 MM/HR (0-15)
== END 2021-08-13 11:03 | disposition home or self-care (01) ==
LOC: HO.LAB 11:02
PROVIDERS: PCP Family Medicine; Visit Provider Nurse Practitioner Family
DX: M35.3 Polymyalgia rheumatica (principal); Z79.899 Other long term (current) drug therapy; Z79.52 Long term (current) use of systemic steroids; Z87.891 Personal history of nicotine dependence
CPT/HCPCS: 36415; 85652; 86140; 99212

== ENCOUNTER 2021-08-21 11:04 | Observation (INO) | payer MEDICARE, MEDICAID, SELFPAY ==
--- NOTE | ~2021-08-21 | CT_ITS ---
EXAMINATION: CT ABDOMEN AND PELVIS WITH CONTRAST CLINICAL INFORMATION: Right-sided abdominal pain and constipation COMPARISON: None TECHNIQUE: Multidetector volumetric images were obtained from the superior aspect of the liver through the pubic symphysis following administration 85 mL of Omnipaque 350 intravenous contrast. Sagittal and coronal reformatted images were obtained on the technologist's workstation. Oral contrast: Yes This CT examination was performed using dose optimization techniques as appropriate, variously including the following: *Automated exposure control *Adjustment of mA and/or kV according to patient size (this includes techniques or standardized protocols for targeted exams where dose is matched to indication/reason for exam; i.e. extremities or head) *Use of iterative reconstruction technique DLP: 402 mGy-cm FINDINGS: LUNG BASES: There is atelectasis at the lung bases. LIVER, GALLBLADDER, AND BILIARY TREE: There are multiple low-attenuation liver lesions suggestive of cysts. Largest cysts measure 2 cm and the caudate lobe and 2.5 cm in the medial segment of the left lobe. The gallbladder is upper normal in size. No gallstones are seen. There is no intrahepatic or extrahepatic biliary duct dilatation. PANCREAS: The pancreas is abnormal appearing. There is low-attenuation mass seen in the body and tail of the pancreas. This is irregularly-shaped and extends into the peripancreatic fat and adjacent soft tissues. This involves the left adrenal gland, the left retroperitoneum the the left renal hilum involving the left renal artery and left renal vein and the splenic vein. The splenic vein appears occluded. This abuts the greater curvature of the stomach as well. More superiorly and laterally this is cystic appearing. There may be a thin rim of pancreatic tissue for example axial image 19 series 3 and this may represent dilatation of the main pancreatic duct in the tail of the pancreas. There is a separate 2 x 2.5 cm cyst or cystic lesion that abuts the greater curvature of the stomach axial image 18 series 3. This abuts the SMV. The celiac axis and SMA are patent. There is a low-attenuation peritoneal soft tissue mass in the left upper anterior abdomen measuring 3 x 6 cm axial image 25 series 3. There is a smaller 1 cm peritoneal mass in the right upper anterior abdomen axial image 43 series 3. There is a small amount of ascites seen in the pelvis. SPLEEN: Unremarkable. ADRENAL GLANDS: There is involvement of the left adrenal gland by the mass involving the body and tail of the pancreas. The right adrenal gland is normal-appearing. KIDNEYS AND URETERS: There are small bilateral renal cysts. There are varices in the left renal hilum. The left renal artery and left renal vein may be compromised by the pancreatic mass. BLADDER: There is focal thickening of the left superior lateral wall of the bladder axial image 71 series 3 and coronal reconstructed image 40. This is probably outside the bladder/peritoneal involvement as opposed to primary bladder wall thickening. GASTROINTESTINAL TRACT: There is stool in the colon. There is question of involvement of the proximal small bowel/jejunum by the mass centered in the body and tail the pancreas for example axial image 28 series 3. There is question of a peritoneal implant in the left pelvis near the sigmoid colon axial image 69 series 3. Small and large bowel is otherwise unremarkable. There is involvement of the greater curvature of the stomach by the mass as described above. There also appears to be focal wall thickening of the antrum of the stomach worrisome for neoplasm. ABDOMINAL WALL: No LYMPH NODES: There are small periportal lymph nodes. Large of the left upper abdominal retroperitoneal mass present adenopathy is uncertain. VASCULAR: There is evidence of atherosclerotic disease. There is compromise of the left renal artery and left renal vein as described above. There is occlusion and likely tumor thrombus in the splenic vein. There are left upper quadrant varices. PELVIC VISCERA: The prostate gland is enlarged. OSSEOUS STRUCTURES: There are degenerative changes of the spine. CT/CT abdomen pelvis w con IMPRESSION: Retroperitoneal soft tissue mass involving the body and tail the pancreas, left adrenal gland, left renal hilum including the left renal artery and left renal vein and greater curvature of the stomach. There is also questionable involvement of the antrum of the stomach. Peritoneal masses suggestive of peritoneal spread. Occluded splenic vein. Differential would include a primary pancreatic adenocarcinoma and lymphoma. Multiple low-attenuation liver lesions probably representing cysts. Upper normal-size gallbladder.
--- NOTE | ~2021-08-21 | XR_ITS ---
EXAMINATION: XR CHEST CLINICAL INFORMATION: Shortness of breath with exertion COMPARISON: Previous chest x-rays most recent October 2014 TECHNIQUE: Frontal view of the chest was obtained. FINDINGS: The cardiac and mediastinal contours are stable. The lungs are clear. There is no pleural effusion or pneumothorax. There are degenerative changes of the spine and at the shoulder joints. XR/XR chest 1V IMPRESSION: No evidence for acute disease in the chest.
--- NOTE | ~2021-08-21 | CT_ITS ---
PROCEDURE: CT GUIDED BIOPSY, ABDOMINAL MASS CLINICAL INFORMATION: Abdominal mass COMPARISON: Previous CT of the abdomen and pelvis from yesterday TECHNIQUE: Procedure and risks and benefits including bleeding, infection and injury to the bowel or adjacent organs were discussed with the patient through an american sign language interpreter and informed consent was obtained. The left upper quadrant was prepped and draped in the usual sterile fashion. The skin and soft tissues were anesthetized with 1% lidocaine plain. Using CT guidance and a coaxial system, access to the left-sided peritoneal mass was obtained. 4 20-gauge core biopsies were obtained. There is no complication. Patient received Versed 1.5 mg and fentanyl 25 mcg intravenously during the procedure. Total sedation time was [address] examination was performed using dose optimization techniques as appropriate, variously including the following: *Automated exposure control *Adjustment of mA and/or kV according to patient size (this includes techniques or standardized protocols for targeted exams where dose is matched to indication/reason for exam; i.e. extremities or head) *Use of iterative reconstruction technique DLP: 271 mGy-cm FINDINGS: There is a 3 x 6 cm soft tissue mass that was targeted for core biopsy. CT/CT biopsy abdomen percutaneous IMPRESSION: CT-guided left abdominal mass biopsy.
--- NOTE | ~2021-08-21 | US_ITS ---
EXAMINATION: US ABDOMEN LIMITED CLINICAL INFORMATION: Right upper quadrant pain. COMPARISON: None TECHNIQUE: Real-time imaging of the right upper quadrant abdominal viscera. FINDINGS: PANCREAS: There is a hypoechoic ill-defined mass involving the body and tail of the pancreas. The head of the pancreas is normal. LIVER: There are multiple liver cysts. The largest measures 3 cm in the right lobe of the liver. There is no biliary duct dilatation. GALLBLADDER: The gallbladder is upper normal in size. The gallbladder wall is normal. There are no gallstones. COMMON BILE DUCT: Normal in caliber measuring 0.7 cm in diameter. RIGHT KIDNEY: Normal. No hydronephrosis. No renal calculi or focal parenchymal lesions. The kidney measures 12.5 cm in maximum dimension. FREE FLUID: None. US/US abdomen limited IMPRESSION: Hypoechoic soft tissue mass in the body and tail of the pancreas. Multiple liver cysts. Upper normal-size gallbladder.
[2021-08-21 11:11] VITALS: BP 140/88; PULSE 99; RESP 18; TEMP 36.9; O2SAT 98; BMI 19.6
[2021-08-21 11:34] VITALS: BP 142/85; PULSE 84; RESP 18; TEMP 36.6; O2SAT 98
--- NOTE | 2021-08-21 11:36 | PC.NURSE ---
Patient and family Kinyarwanda speaking only. Party Host used. patient c/o abdominal pain. NO BM for 4 days. States he tried using Miralax and it did not help. States having increased abdominal pain. States he has lost 7 pounds since Friday. 6/10 pain. Resting safely.
--- NOTE | 2021-08-21 11:41 | ECG_ITS ---
Test Reason : ABD PAIN Blood Pressure : / mmHG Vent. Rate : 062 BPM Atrial Rate : 062 BPM P-R Int : 152 ms QRS Dur : 082 ms QT Int : 446 ms P-R-T Axes : 064 -52 -27 degrees QTc Int : 452 ms Normal sinus rhythm Left axis deviation Abnormal ECG When compared with ECG of 29-MAR-2021 12:00, No significant change was found Referred By: Karthik Shields Electronically Signed By:CA BENÍTEZ
--- NOTE | 2021-08-21 11:45 | ED.ABDPAIN ---
HPI - Abdominal Pain General Chief Complaint: Abdominal Pain Stated Complaint: upper abd pain, nausea, weight loss Time Seen by Provider: 08/21/21 11:41 Source: patient Limitations: no limitations History of Present Illness HPI narrative: This is a 75-year-old male who complains of pain in his right abdomen when he eats for about a month. The patient has been worse recently and has felt somewhat weak, not taking much in the way of p.o. food or fluids for the last few days. He has been urinating normally. He has been constipated, with the last bowel movement 4 days ago. He has tried MiraLax without relief. He denies any chest pain or cough. He does feel short of breath with exertion. Denies any prior abdominal surgery. Denies abdominal distension. He does have history of hypertension, hypercholesterolemia, hyperglycemia-prediabetic Related Data Home Medications Medication Instructions Recorded Confirmed amlodipine 10 mg tablet 10 mg PO DAILY 09/27/20 08/21/21 aspirin 81 mg tablet,delayed 81 mg PO DAILY 09/27/20 08/21/21 release hydrochlorothiazide 25 mg tablet 25 mg PO DAILY 09/27/20 08/21/21 lisinopril 40 mg tablet 40 mg PO DAILY 09/27/20 08/21/21 omeprazole 20 mg capsule,delayed 20 mg PO DAILY 09/27/20 08/21/21 release brimonidine 0.2 % eye drops 1 drp OPHTHALMIC (EYE) Q12H 03/29/21 08/21/21 cyanocobalamin (vitamin B-12) 1,000 mcg IM Q30D 08/21/21 08/21/21 1,000 mcg/mL injection solution loratadine 10 mg tablet 1 tab PO DAILY 08/21/21 08/21/21 prednisone 5 mg tablet 1 tab PO QAM 08/21/21 08/21/21 Previous Rx's Medication Instructions Recorded atorvastatin 40 mg tablet (Lipitor) 40 mg PO BEDTIME 30 Days #30 tab 03/30/21 Allergies Allergy/AdvReac Type Severity Reaction Status Date / Time No Known Allergies Allergy Verified 08/13/21 11:06 [No Known Allergies*] Review of Systems Review of Systems Yes all other systems are reviewed and are negative Constitutional: Reports as per HPI, Denies fever(s) and Reports weakness Eyes: Reports as per HPI and Reports no additional eye complaints Reports system reviewed and no additional complaints, except as documented, Reports as per HPI, Reports dizziness, Denies nasal congestion, Denies nasal discharge and Denies sore throat Cardiovascular: Reports as per HPI, Denies chest pain and Reports dyspnea (With exertion) Respiratory: Reports as per HPI, Denies cough and Reports dyspnea (With exertion) Gastrointestinal: Reports as per HPI, Reports abdominal pain, Reports constipation, Denies diarrhea, Reports nausea and Reports vomiting Genitourinary: Reports as per HPI, Denies hematuria, Denies dysuria and Denies urinary frequency Musculoskeletal: Reports no additional musculoskeletal complaints and Denies numbness Skin/Breast: Reports as per HPI and Denies rash Reports as per HPI, Reports dizziness, Denies focal weakness, Denies numbness, Denies Sensory deficit (Neuro) and Reports weakness Psychiatric: Reports no additional psychiatric complaints and Reports as per HPI Endocrine: Reports no additional endocrine complaints and Reports as per HPI Hematologic/Lymphatic: Reports no additional hematologic/lymphatic complaints, Reports as per HPI and Reports other (No peripheral edema) Physical Exam Vital Signs: Vital Signs: Last Vital Signs Temp 98 F 08/21/21 13:45 Pulse 65 08/21/21 13:45 Resp 18 08/21/21 13:45 BP 133/70 08/21/21 13:45 Pulse Ox 98 08/21/21 13:45 Body Mass Index 19.6 Const: General: cooperative, no acute distress and alert Orientation/consciousness: patient oriented x3 HENMT: Head: Yes normal to inspection Eyes: General: appearance normal, both eyes and all related structures Eyelids: Yes eyelids normal Conjunctivae: conjunctivae normal Pupils: Equal, round and reactive pupils present Neck: Neck: Yes normal visual inspection and Yes supple Chest: Chest palpation & inspection: normal inspection of the chest Resp: Effort & Inspection: normal respiratory effort Auscultation: clear to auscultation bilaterally Cardio: Rate: regular rate Rhythm: regular rhythm Heart sounds: S1 normal heart sound present, S2 normal heart sound present, no gallops, no murmurs and no rubs GI: Inspection: Yes normal to inspection Palpation (GI): Soft to palpation, Tenderness to palpation present (GI) (No lower quadrant tenderness) in the RUQ and Other GI palpation findings present (Non-distended) Skin: General skin exam: no rashes or lesions noted Neuro: General: patient oriented x3, no focal motor deficits and CN's II-XI intact bilaterally Cranial nerves: Yes Equal, round and reactive pupils present Cognition (Neuro): normal cognition Motor exam (neuro): 5/5 motor strength present throughout Sensory Exam: No Sensory deficit (Neuro) Extrem: General: Yes normal to inspection and Yes no pedal edema Psych: Appearance: grossly normal Affect: normal affect MDM - Abdominal Pain MDM Narrative Medical decision making narrative: Patient with progressive upper abdominal pain, pain with eating, vomiting, constipation. Patient had some tenderness to his right upper abdomen. Mildly elevated BUN to creatinine ratio suggesting dehydration. Ultrasound and CT did show concerning mass in the area of the pancreas, compressing the sphenoid vein also adrenal gland and stomach. Patient warrants admission for further evaluation, biopsy, rehydration, oncology consultation Lab Data Attestation: I reviewed the patient's lab results. Result diagrams: 08/21/21 11:56 08/21/21 11:56 Labs: Lab Results 08/21/21 08/21/21 08/21/21 Range/Units 11:56 11:56 12:02 WBC 7.4 (4.8-10.8) X10*3/uL RBC 4.74 (4.60-5.80) X10*6/uL Hgb 13.8 L (14.0-18.0) g/dl Hct 41.9 L (42-52) % MCV 88.4 (80-98) fL MCH 29.1 (27.0-33.0) pg MCHC 32.9 (31.0-36.0) g/dl RDW 12.2 (11.0-16.0) % Plt Count 355 D (160-400) X10*3/uL MPV 9.3 L (9.4-12.4) fL Immature Gran % (Auto) 0.4 (0.0-0.4) % Neut % (Auto) 57.2 (45-73) % Lymph % (Auto) 17.1 L (20-40) % [place] % (Auto) 15.4 H (2-11) % Eos % (Auto) 9.5 H (0-4) % Baso % (Auto) 0.4 (0-2) % Lymph # (Auto) 1.3 (1.2-4.9) X10*3/uL [place] # (Auto) 1.1 (0.1-1.2) X10*3/uL Eos # (Auto) 0.7 H (0.0-0.4) X10*3/uL Baso # (Auto) 0.0 (0.0-0.2) X10*3/uL Abs Immat Gran (auto) 0.03 (0.00-0.03) X10*3/uL Absolute Neuts (auto) 4.2 (2.0-8.3) X10*3/uL Absolute Nucleated RBC 0.000 (0.0-0.012) X10*3/uL Nucleated RBC % (auto) 0.0 (0.0-0.2) /100WBC Sodium 140 (135-145) mmol/L Potassium 4.4 (3.3-5.1) mmol/L Chloride 100 (96-108) mmol/L Carbon Dioxide 30 H (22-29) mmol/L Anion Gap 14 (12-20) BUN 32 H D (9-16) mg/dL Creatinine 0.99 (0.5-1.4) mg/dL Estim Creat Clear Calc 56.5 Estimated GFR > 60 Random Glucose 109 (60-115) mg/dL Calcium 9.9 (8.4-10.2) mg/dL Total Bilirubin 0.7 (0.0-1.0) mg/dL AST 64 H (5-37) U/L ALT 102 H (0-40) U/L Alkaline Phosphatase 268 H D (39-117) U/L Total Protein 7.4 (6.5-8.0) g/dL Albumin 3.8 (3.5-5.0) g/dL Lipase 21 (8-78) U/L Urine Color YELLOW Urine Appearance CLEAR Urine pH 6.0 (5.0-8.0) Ur Specific [place] 1.020 (1.005-1.025) Urine Protein 1+ H (NEG-TRACE) MG/DL Urine Glucose (UA) NEG (NEG) MG/DL Urine Ketones NEG (NEG) MG/DL Urine Blood TRACE (NEG) Urine Nitrite NEG (NEG) Ur Leukocyte Esterase NEG (NEG) Urine RBC 1-4 (0) /HPF Urine WBC 0 (0-4) /HPF Ur Squamous Epith Cells TRACE /LPF Urine Bacteria NONE /LPF Urine Mucus 2+ /LPF Imaging Data Chest x-ray: Radiologist's impression: IMPRESSION: No evidence for acute disease in the chest. ? CT scan of the abdomen and pelvis without contrast: Radiologist's impression: IMPRESSION: Retroperitoneal soft tissue mass involving the body and tail the pancreas, left adrenal gland, left renal hilum including the left renal artery and left renal vein and greater curvature of the stomach. There is also questionable involvement of the antrum of the stomach. Peritoneal masses suggestive of peritoneal spread. Occluded splenic vein. Differential would include a primary pancreatic adenocarcinoma and lymphoma. Multiple low-attenuation liver lesions probably representing cysts. Upper normal-size gallbladder. Right upper quadrant ultrasound: Radiologist's impression: IMPRESSION: Hypoechoic soft tissue mass in the body and tail of the pancreas. Multiple liver cysts. Upper normal-size gallbladder. Discharge Plan Discharge Clinical Impression: Pancreatic mass, Acute dehydration, Vomiting PMFSH Past Medical History Medical History (Updated 08/21/21 @ 17:14 by Karthik Shields MD) Family history of GERD Fibromuscular dysplasia High blood sugar History of pernicious anemia History of vitamin D deficiency Hx of essential hypertension Hx of polymyalgia rheumatica Hypertension Polymyalgia rheumatica Vertebral artery stenosis Family History Family History (Updated 08/21/21 @ 16:01 by Kira Alvarez NP) Father HTN (hypertension) Mother HTN (hypertension) Myocardial infarction Social History Social History Household Members: Spouse Alcohol intake: never Patient Tobacco Use Status: Former Tobacco user Tobacco use type: Cigarette Years Smoked: 30 Second Hand Smoke Exposure: No Advance Directives: Yes Advance Directives on File: Yes Advance Directives Date on File: 03/29/21 service: No
[2021-08-21 12:02] LABS: MANUAL DIFF FLAG NO
[2021-08-21] MEDS: 0.9 % Sodium Chloride 1,000 ML 999 ML IV ×2 (12:03→13:44)
[2021-08-21 12:05] LABS: Basophils Percent Auto 0.4 % (0-2); Eosinophils Absolute Auto 0.7 X10*3/uL (0.0-0.4); Eosinophils Percent Auto 9.5 % (0-4); Hematocrit 41.9 % (42-52); Hemoglobin 13.8 g/dl (14.0-18.0); Imm Gran Abs Auto 0.03 X10*3/uL (0.00-0.03); Imm Gran Pct Auto 0.4 % (0.0-0.4); Lymphocytes Absolute Auto 1.3 X10*3/uL (1.2-4.9); Lymphocytes Percent Auto 17.1 % (20-40); Mean Corpuscular HGB Conc 32.9 g/dl (31.0-36.0); Mean Corpuscular Hemoglobin 29.1 pg (27.0-33.0); Mean Corpuscular Volume 88.4 fL (80-98); Mean Platelet Volume 9.3 fL (9.4-12.4); Monocytes Absolute Auto 1.1 X10*3/uL (0.1-1.2); Monocytes Percent Auto 15.4 % (2-11); Neutrophils Absolute Auto 4.2 X10*3/uL (2.0-8.3); Neutrophils Percent Auto 57.2 % (45-73); Platelet Count 355 X10*3/uL (160-400); Red Blood Count 4.74 X10*6/uL (4.60-5.80); Red Cell Distribution Width 12.2 % (11.0-16.0); White Blood Count 7.4 X10*3/uL (4.8-10.8)
[2021-08-21 12:18] LABS: Appearance Urine CLEAR; Color Urine YELLOW; Glucose Urine UA NEG (NEG); Leukocyte Esterase Urine NEG (NEG); Nitrite Urine NEG (NEG); UACC Culture Trigger NO; Urine Blood TRACE (NEG); Urine Ketones NEG (NEG); Urine Protein 1+ MG/DL (NEG-TRACE)
[2021-08-21 12:23] LABS: Alanine Aminotransferase 102 U/L (0-40); Albumin Level 3.8 g/dL (3.5-5.0); Alkaline Phosphatase 268 U/L (39-117); Anion Gap 14 (12-20); Aspartate Amino Transferase 64 U/L (5-37); Bilirubin Total 0.7 mg/dL (0.0-1.0); Blood Urea Nitrogen 32 mg/dL (9-16); Calcium 9.9 mg/dL (8.4-10.2); Carbon Dioxide 30 mmol/L (22-29); Chloride 100 mmol/L (96-108); Creatinine Clr Calc Pharmacy 56.5; Estimated Glomerular Filt Rate > 60; Glucose Random 109 mg/dL (60-115); Lipase 21 U/L (8-78); Potassium 4.4 mmol/L (3.3-5.1); Sodium 140 mmol/L (135-145); Total Protein 7.4 g/dL (6.5-8.0)
[2021-08-21 12:49] LABS: Mucus Urine 2+ /LPF; Squamous Epithelial Cell Urine TRACE /LPF; WBC Urine 0 /HPF (0-4)
[2021-08-21] MEDS: iohexoL 350 MG/ML 100 ML INFUS..BTL IV (13:42)
[2021-08-21 13:45] VITALS: BP 133/70; PULSE 65; RESP 18; TEMP 36.6; O2SAT 98
--- NOTE | 2021-08-21 15:54 | PM.IMHP ---
History of Present Illness Date of Service: 08/21/21 Chief Complaint: Abdominal pain 75-year-old Lao-speaking male presented to the ER with complaints of diffuse abdominal pain and nausea especially after meals over the last month. He denies chest pain, shortness of breath, vomiting, diarrhea. He reports being in his usual state of health approximately 1 month ago. During the interview and examination he denied any pain. He was walking up to the bathroom with no assistance. His liver enzymes are noted to be elevated at 664 AST, 102 AST, 268 alkaline phosphatase. Unfortunately abdominal CT showed retroperitoneal soft tissue mass involving the body and tail of the pancreas, left adrenal gland, left renal hilum including the left renal artery and left renal vein and greater curvature of the stomach. There was also question for involvement of the antrum of the stomach with peritoneal masses suggestive of malignancy. Also noted was an occluded splenic vein. It appears that he may have some sort of malignancy which is new for him. In the ER he was given IV fluids. He will be placed on observation for intractable abdominal pain and nausea. Review of Systems Review of Systems: Denies any recent fever chills or decrease in appetite respiratory denies any shortness of breath coverage production cardiovascular denies chest pain gastrointestinal report diffuse abd pain with eating genitourinary denies any dysuria frequency or hematuria musculoskeletal denies any joint pain or swelling neuropsych denies any weakness or seizures all other systems reviewed are negative [facility] Medical History (Updated 08/21/21 @ 16:02 by Kira Alvarez NP) Family history of GERD Fibromuscular dysplasia High blood sugar History of pernicious anemia History of vitamin D deficiency Hx of essential hypertension Hx of polymyalgia rheumatica Hypertension Polymyalgia rheumatica Vertebral artery stenosis Family History (Updated 08/21/21 @ 16:01 by Kira Alvarez NP) Father HTN (hypertension) Mother HTN (hypertension) Myocardial infarction Pertinent family history: . Social History Household Members: Spouse Alcohol intake: never Patient Tobacco Use Status: Former Tobacco user Tobacco use type: Cigarette Years Smoked: 30 Second Hand Smoke Exposure: No Advance Directives: Yes Advance Directives on File: Yes Advance Directives Date on File: 03/29/21 service: No Meds Allergies Allergy/AdvReac Type Severity Reaction Status Date / Time No Known Allergies Allergy Verified 08/13/21 11:06 [No Known Allergies*] Active Medications: Current Medications Acetaminophen (Acetaminophen 325 Mg Tablet) 650 mg PO Q6H PRN PRN Reason: Pain, Mild (Pain Scale 1-3) Amlodipine Besylate (Amlodipine Besylate 10 Mg Tablet) 10 mg PO DAILY [facility]; Protocol Aspirin (Aspirin Enteric Coated 81 Mg Tablet.) 81 mg PO DAILY [facility] Atorvastatin Calcium (Atorvastatin Calcium 40 Mg Tablet) 40 mg PO BEDTIME [facility] Brimonidine Tartrate (Brimonidine Tartrate 0.2% Oph 5 Ml Bottle) 1 drop EYE-BOTH Q12H [facility] Cyanocobalamin (Cyanocobalamin (Vitamin B-12) 1,000 Mcg/Ml Vial) 1,000 mcg IM Q30D [facility] Hydrochlorothiazide (Hydrochlorothiazide 25 Mg Tablet) 25 mg PO DAILY [facility]; Protocol Lisinopril (Lisinopril 40 Mg Tablet) 40 mg PO DAILY [facility]; Protocol Loratadine (Loratadine 10 Mg Tablet) 10 mg PO DAILY [facility] Morphine Sulfate (Morphine Sulfate 4 Mg/Ml Cartridge) 2 mg IVPUSH Q4H PRN; Protocol PRN Reason: Pain, Severe (Pain Scale 7-10) Omeprazole (Omeprazole 20 Mg Capsule.) 20 mg PO DAILY [facility] Ondansetron HCl (Ondansetron Hcl 4 Mg/2 Ml Vial) 4 mg IVPUSH Q8H PRN PRN Reason: Nausea and Vomiting Oxycodone HCl (Oxycodone Hcl Immed Release 5 Mg Tablet) 5 mg PO Q6H PRN PRN Reason: Pain, Severe (Pain Scale 7-10) Pharmacy Consult (Consult Rx Perform Med Rec) 1 each MISCELLANE ONCE PRN PRN Reason: Consult order Prednisone (Prednisone 5 Mg Tablet) 5 mg PO QAM [facility] Sodium Chloride (0.9 % Sodium Chloride Flush 3 Ml Syringe) 3 ml IVFLUSH QSHIFT [facility] Home Medications Medication Instructions Recorded Confirmed Last Taken Type amlodipine 10 mg tablet 10 mg PO DAILY 09/27/20 08/21/21 Unknown History aspirin 81 mg tablet,delayed 81 mg PO DAILY 09/27/20 08/21/21 Unknown History release hydrochlorothiazide 25 mg tablet 25 mg PO DAILY 09/27/20 08/21/21 Unknown History lisinopril 40 mg tablet 40 mg PO DAILY 09/27/20 08/21/21 Unknown History omeprazole 20 mg capsule,delayed 20 mg PO DAILY 09/27/20 08/21/21 Unknown History release brimonidine 0.2 % eye drops 1 drp OPHTHALMIC (EYE) Q12H 03/29/21 08/21/21 Unknown History cyanocobalamin (vitamin B-12) 1,000 mcg IM Q30D 08/21/21 08/21/21 Unknown History 1,000 mcg/mL injection solution loratadine 10 mg tablet 1 tab PO DAILY 08/21/21 08/21/21 Unknown History prednisone 5 mg tablet 1 tab PO QAM 08/21/21 08/21/21 Unknown History Physical Exam Vital Signs and Narrative: Vital Signs: Last Vital Signs Temp 98 F 08/21/21 13:45 Pulse 65 08/21/21 13:45 Resp 18 08/21/21 13:45 BP 133/70 08/21/21 13:45 Pulse Ox 98 08/21/21 13:45 Body Mass Index 19.6 Appearing in no acute distress head is normocephalic atraumatic eyes pupils are PERRLA sclera is anicteric mouth throat mucous membranes are intact and moist neck is supple no lymphadenopathy, no JVD noted lung sounds are clear to auscultation heart regular rate rhythm, clear S1, S2 positive bowel sounds, abdomen is soft, nontender neuro patient is alert x3, no focal deficits Results Labs CBC and Chem 7: 08/21/21 11:56 08/21/21 11:56 Labs: Laboratory Results - last 24 hr 08/21/21 08/21/21 08/21/21 11:56 11:56 12:02 MCV 88.4 MCH 29.1 MCHC 32.9 RDW 12.2 Plt Count 355 D MPV 9.3 L Immature Gran % (Auto) 0.4 Neut % (Auto) 57.2 Lymph % (Auto) 17.1 L [place] % (Auto) 15.4 H Eos % (Auto) 9.5 H Baso % (Auto) 0.4 Lymph # (Auto) 1.3 [place] # (Auto) 1.1 Eos # (Auto) 0.7 H Baso # (Auto) 0.0 Abs Immat Gran (auto) 0.03 Absolute Neuts (auto) 4.2 Absolute Nucleated RBC 0.000 Nucleated RBC % (auto) 0.0 Anion Gap 14 Estim Creat Clear Calc 56.5 Estimated GFR > 60 Random Glucose 109 Calcium 9.9 Total Bilirubin 0.7 AST 64 H ALT 102 H Alkaline Phosphatase 268 H D Total Protein 7.4 Albumin 3.8 Lipase 21 Urine Color YELLOW Urine Appearance CLEAR Urine pH 6.0 Ur Specific [place] 1.020 Urine Protein 1+ H Urine Glucose (UA) NEG Urine Ketones NEG Urine Blood TRACE Urine Nitrite NEG Ur Leukocyte Esterase NEG Urine RBC 1-4 Urine WBC 0 Ur Squamous Epith Cells TRACE Urine Bacteria NONE Urine Mucus 2+ Imaging Radiologist's Impressions: Impressions Abdomen Ultrasound 08/21/21 11:41 IMPRESSION: Hypoechoic soft tissue mass in the body and tail of the pancreas. Multiple liver cysts. Upper normal-size gallbladder. Abdomen/Pelvis CT 08/21/21 11:41 IMPRESSION: Retroperitoneal soft tissue mass involving the body and tail the pancreas, left adrenal gland, left renal hilum including the left renal artery and left renal vein and greater curvature of the stomach. There is also questionable involvement of the antrum of the stomach. Peritoneal masses suggestive of peritoneal spread. Occluded splenic vein. Differential would include a primary pancreatic adenocarcinoma and lymphoma. Multiple low-attenuation liver lesions probably representing cysts. Upper normal-size gallbladder. Chest X-Ray 08/21/21 11:41 IMPRESSION: No evidence for acute disease in the chest. Assessment and Plan (1) Abdominal pain: Status: Acute 75 ugandan speaking man admitted to obs with abdominal pain and nausea possibly secondary to malignancy. Abdominal pain and nausea abd CT showing retroperitoneal soft tissue mass involving the body and tail the pancreas, left adrenal gland, left renal hilum including the left renal artery and left renal vein and greater curvature of the stomach. ? Lymphoma vs pancreatic cancer vs primary peritoneal malignancy pain management IR for ct guided biopsy NPO after midnight, PT/INR in the am zofran for nausea oncology consult Hypertension continue home medications HLD asa, statin DVT prophyalxis with with scd boots Attending Dr. Rahman Quality Stroke Does the patient have a stroke diagnosis?: No VTE Prior VTE?: No VTE Risk Level:: Medical - moderate - high VTE Device Contraindication: N/A - Device Ordered VTE Drug Contraindication: Treatment Not Indicated
--- NOTE | 2021-08-21 16:05 | PHA.MEDREC ---
Pharmacy Consult ? Medication Reconciliation Pharmacy has completed the medication reconciliation.
--- NOTE | 2021-08-21 16:12 | PM.EVENT ---
Event Note Date of Service: 08/21/21 Event Note: Attending Attestation: Patient seen and examined independently and I was present during zamudio portion of E/M service. Agree with Ana Alvarez NP's history, physical, assessment, and plan. 75 yo M presenting with worsening abodminal pain, nausea with oral intake. CT worrisome of malignancy. Will admit for pain control and further work up.
[2021-08-21 16:31] LABS: IDNOW Serial# 08D9AD1C
[2021-08-21 16:32] LABS: COVID-19 Test Negative (Negative)
[2021-08-21 20:00] VITALS: BP 135/75; PULSE 88; RESP 14; TEMP 36.5; O2SAT 97
[2021-08-21] MEDS: Atorvastatin Calcium 40 MG TABLET PO (22:07)
[2021-08-21] MEDS: 0.9 % Sodium Chloride Flush 3 ML SYRINGE IVFLUSH (22:08)
--- NOTE | 2021-08-21 22:22 | ED_ITS ---
HPI - Abdominal Pain General Chief Complaint: Abdominal Pain Stated Complaint: upper abd pain, nausea, weight loss Time Seen by Provider: 08/21/21 11:41 Source: patient Limitations: no limitations Related Data Home Medications Medication Instructions Recorded Confirmed amlodipine 10 mg tablet 10 mg PO DAILY 09/27/20 08/21/21 aspirin 81 mg tablet,delayed 81 mg PO DAILY 09/27/20 08/21/21 release hydrochlorothiazide 25 mg tablet 25 mg PO DAILY 09/27/20 08/21/21 lisinopril 40 mg tablet 40 mg PO DAILY 09/27/20 08/21/21 omeprazole 20 mg capsule,delayed 20 mg PO DAILY 09/27/20 08/21/21 release brimonidine 0.2 % eye drops 1 drp OPHTHALMIC (EYE) Q12H 03/29/21 08/21/21 cyanocobalamin (vitamin B-12) 1,000 mcg IM Q30D 08/21/21 08/21/21 1,000 mcg/mL injection solution loratadine 10 mg tablet 1 tab PO DAILY 08/21/21 08/21/21 prednisone 5 mg tablet 1 tab PO QAM 08/21/21 08/21/21 Previous Rx's Medication Instructions Recorded atorvastatin 40 mg tablet (Lipitor) 40 mg PO BEDTIME 30 Days #30 tab 03/30/21 Allergies Allergy/AdvReac Type Severity Reaction Status Date / Time No Known Allergies Allergy Verified 08/13/21 11:06 [No Known Allergies*] Physical Exam Vital Signs: Vital Signs: Last Vital Signs Temp 97.7 F 08/21/21 20:00 Pulse 88 08/21/21 20:00 Resp 14 08/21/21 20:00 BP 135/75 08/21/21 20:00 Pulse Ox 97 08/21/21 20:00 Body Mass Index 19.6 MDM - Abdominal Pain MDM Narrative Medical decision making narrative: This is an addendum to prior documented on this patient today. Lab Data Result diagrams: 08/21/21 11:56 08/21/21 11:56 Labs: Lab Results 08/21/21 08/21/21 08/21/21 Range/Units 11:56 11:56 12:02 WBC 7.4 (4.8-10.8) X10*3/uL RBC 4.74 (4.60-5.80) X10*6/uL Hgb 13.8 L (14.0-18.0) g/dl Hct 41.9 L (42-52) % MCV 88.4 (80-98) fL MCH 29.1 (27.0-33.0) pg MCHC 32.9 (31.0-36.0) g/dl RDW 12.2 (11.0-16.0) % Plt Count 355 D (160-400) X10*3/uL MPV 9.3 L (9.4-12.4) fL Immature Gran % (Auto) 0.4 (0.0-0.4) % Neut % (Auto) 57.2 (45-73) % Lymph % (Auto) 17.1 L (20-40) % [place] % (Auto) 15.4 H (2-11) % Eos % (Auto) 9.5 H (0-4) % Baso % (Auto) 0.4 (0-2) % Lymph # (Auto) 1.3 (1.2-4.9) X10*3/uL [place] # (Auto) 1.1 (0.1-1.2) X10*3/uL Eos # (Auto) 0.7 H (0.0-0.4) X10*3/uL Baso # (Auto) 0.0 (0.0-0.2) X10*3/uL Abs Immat Gran (auto) 0.03 (0.00-0.03) X10*3/uL Absolute Neuts (auto) 4.2 (2.0-8.3) X10*3/uL Absolute Nucleated RBC 0.000 (0.0-0.012) X10*3/uL Nucleated RBC % (auto) 0.0 (0.0-0.2) /100WBC Sodium 140 (135-145) mmol/L Potassium 4.4 (3.3-5.1) mmol/L Chloride 100 (96-108) mmol/L Carbon Dioxide 30 H (22-29) mmol/L Anion Gap 14 (12-20) BUN 32 H D (9-16) mg/dL Creatinine 0.99 (0.5-1.4) mg/dL Estim Creat Clear Calc 56.5 Estimated GFR > 60 Random Glucose 109 (60-115) mg/dL Calcium 9.9 (8.4-10.2) mg/dL Total Bilirubin 0.7 (0.0-1.0) mg/dL AST 64 H (5-37) U/L ALT 102 H (0-40) U/L Alkaline Phosphatase 268 H D (39-117) U/L Total Protein 7.4 (6.5-8.0) g/dL Albumin 3.8 (3.5-5.0) g/dL Lipase 21 (8-78) U/L Urine Color YELLOW Urine Appearance CLEAR Urine pH 6.0 (5.0-8.0) Ur Specific [place] 1.020 (1.005-1.025) Urine Protein 1+ H (NEG-TRACE) MG/DL Urine Glucose (UA) NEG (NEG) MG/DL Urine Ketones NEG (NEG) MG/DL Urine Blood TRACE (NEG) Urine Nitrite NEG (NEG) Ur Leukocyte Esterase NEG (NEG) Urine RBC 1-4 (0) /HPF Urine WBC 0 (0-4) /HPF Ur Squamous Epith Cells TRACE /LPF Urine Bacteria NONE /LPF Urine Mucus 2+ /LPF ECG Data Attestation: I personally reviewed and interpreted this ECG as follows: ECG interpretation date: 08/21/21 Interpretation: Sinus rhythm with a rate of 62. Left axis deviation. No ST elevation or depression. No ectopy. Discharge Plan Discharge Clinical Impression: Pancreatic mass, Acute dehydration, Vomiting Patient Disposition: Admitted As Inpatient Interventions: Admission Worksheet (ED) Last Done: 08/21/21 19:41 Discharge Date/Time: 08/21/21 19:41 FOR[facility]LY [facility] Past Medical History Medical History (Updated 08/21/21 @ 17:14 by Karthik Shields MD) Family history of GERD Fibromuscular dysplasia High blood sugar History of pernicious anemia History of vitamin D deficiency Hx of essential hypertension Hx of polymyalgia rheumatica Hypertension Polymyalgia rheumatica Vertebral artery stenosis Family History Family History (Updated 08/21/21 @ 16:01 by Kira Alvarez NP) Father HTN (hypertension) Mother HTN (hypertension) Myocardial infarction Social History Social History Household Members: Spouse Alcohol intake: never Patient Tobacco Use Status: Former Tobacco user Tobacco use type: Cigarette Years Smoked: 30 Smoked in Last 30 Days: No Patient Interested in Nicotine Replacement: No Patient Given Instructions on How to Stop Smoking: No Second Hand Smoke Exposure: No Advance Directives: Yes Advance Directives on File: Yes Advance Directives Date on File: 03/29/21 service: No
[2021-08-21 22:57] VITALS: BP 144/78; PULSE 82; RESP 18; TEMP 36.1; O2SAT 97
[2021-08-22] VITALS (8 sets, daily range): BP systolic 121–166; BP diastolic 75–90; PULSE 78–98; RESP 16–22; TEMP 36.1–36.9; O2SAT 96–98; BMI 19.6
[2021-08-22 05:42] LABS: MANUAL DIFF FLAG NO
[2021-08-22] MEDS: Omeprazole 20 MG CAPSULE.DR PO (05:49)
[2021-08-22 05:51] LABS: Basophils Percent Auto 0.3 % (0-2); Eosinophils Absolute Auto 0.6 X10*3/uL (0.0-0.4); Eosinophils Percent Auto 6.9 % (0-4); Hemoglobin 13.2 g/dl (14.0-18.0); Imm Gran Abs Auto 0.04 X10*3/uL (0.00-0.03); Imm Gran Pct Auto 0.4 % (0.0-0.4); Lymphocytes Absolute Auto 1.1 X10*3/uL (1.2-4.9); Lymphocytes Percent Auto 11.5 % (20-40); Mean Corpuscular HGB Conc 32.2 g/dl (31.0-36.0); Mean Corpuscular Hemoglobin 28.3 pg (27.0-33.0); Mean Platelet Volume 9.3 fL (9.4-12.4); Monocytes Absolute Auto 1.3 X10*3/uL (0.1-1.2); Monocytes Percent Auto 14.5 % (2-11); Neutrophils Absolute Auto 6.1 X10*3/uL (2.0-8.3); Neutrophils Percent Auto 66.4 % (45-73); Platelet Count 317 X10*3/uL (160-400); Red Blood Count 4.66 X10*6/uL (4.60-5.80); Red Cell Distribution Width 12.3 % (11.0-16.0); White Blood Count 9.1 X10*3/uL (4.8-10.8)
[2021-08-22 06:14] LABS: INTERNATIONAL NORM RATIO 1.1 (0.9-1.1)
[2021-08-22 06:34] LABS: Anion Gap 14 (12-20); Blood Urea Nitrogen 21 mg/dL (9-16); Calcium 9.2 mg/dL (8.4-10.2); Carbon Dioxide 27 mmol/L (22-29); Chloride 104 mmol/L (96-108); Creatinine Clr Calc Pharmacy 69.9; Estimated Glomerular Filt Rate > 60; Glucose Random 111 mg/dL (60-115); Potassium 4.8 mmol/L (3.3-5.1); Sodium 140 mmol/L (135-145)
[2021-08-22] MEDS: predniSONE 5 MG TABLET PO (10:20)
[2021-08-22] MEDS: hydroCHLOROthiazide 25 MG TABLET PO (10:20)
[2021-08-22] MEDS: lisinopriL 40 MG TABLET PO (10:20)
[2021-08-22] MEDS: Loratadine 10 MG TABLET PO (10:20)
[2021-08-22] MEDS: 0.9 % Sodium Chloride Flush 3 ML SYRINGE IVFLUSH ×2 (10:21→17:36)
[2021-08-22] MEDS: amLODIPine Besylate 10 MG TABLET PO (10:21)
[2021-08-22 10:47] LABS: Lactate Dehydrogenase 173 U/L (118-273); Uric Acid 5.2 mg/dL (3.4-7.0)
--- NOTE | 2021-08-22 11:13 | MHC.CM.PN ---
ANJANA 08/22/21, PT ADMITTED TO OBSERVATION FOR ABD PAIN/NAUSEA, CM MET W/PT VIA [facility] [employer]PER[employer], PT'S RADHA AT BEDSIDE, PT REPORTS HE WALKS W/CANE OR WALKER, HAS HOME MODIFICATIONS, PT HAS ASSISTANCE W/CARE FROM HIS DTR/ACID CORRECTION HAND THROUGH [facility] AND HAS 3 HRS DAILY, PT AND REQUESTING VNA FOR PT AND REFERRAL WILL BE MADE TO [facility], PER [facility] HOSPITALIST REPORTED PT WILL D/C HOME ON NEW [place] AND WILL NEED TEACHING PRIOR TO D/C, PT VERIFIES PCP MARILEE BROWN AND HCP IS MARIA L WANG [phone]. D/C PLAN: HOME W/NEW VNA FOR SN AND RESUMPTION OF ACID CORRECTION HAND HRS, FAMILY FOR TRANSPORT.
--- NOTE | 2021-08-22 15:17 | HO.RADPN ---
RADIOLOGY Narrative Narrative: CT guided LUQ peritoneal mass biopsy using coaxial system. 4 20g core biopsies obtained. No complication.
--- NOTE | 2021-08-22 16:00 | MHC.CLN ---
Addendum entered by Gisselle Killian RD 08/22/21 16:22: WEIGHT HISTORY SHOWS WEIGHT 02/17/21=73 KG. WEIGHT 08/21/21=63.96 KG. SIGNIFICANT, UNPLANNED WEIGHT LOSS X 6 MONTHS=-12.4%. Original Note: NUTRITION ADDED ENSURE CLEAR TID (740 KCAL, 24 G PROTEIN) TO CLEAR LIQUID DIET. PATIENT IS 82% IBW.
[2021-08-22] MEDS: polyethylene glycoL 3350 17 GM POWD.PACK PO (17:36)
[2021-08-22] MEDS: Atorvastatin Calcium 40 MG TABLET PO (21:22)
[2021-08-23 05:59] VITALS: BP 129/72; PULSE 98; RESP 14; TEMP 36.3; O2SAT 95
[2021-08-23] MEDS: Omeprazole 20 MG CAPSULE.DR PO (06:07)
[2021-08-23 08:00] VITALS: BP 147/86; PULSE 100; RESP 20; TEMP 36.3; O2SAT 98
--- NOTE | 2021-08-23 09:41 | PM.EVENT ---
Event Note Date of Service: 08/22/21 Event Note: Daily Note in brief -- late entry for 08/22 S Pt seen and examined. bedside Pt reports constipation. Pain improved with current regime Awaiting biopsy O vitals - stable Gen - NAD CVS - S1S2 Lungs - no distress Abd - soft, mild TTP without rebound Ext - no edema A/P 75 yo with abdominal pain, nausea and vomiting with CT concerning for metastatic cancer admitted for pain control -- continue the same regime biopsy today d/w Dr. Ross from Hematology -- will needearly outpatient f/u. LDH, CA 19-9, Uric acid ordered per her request. d/w the patient and about plan. anticipate d/c tomorrow if pain controlled.
--- NOTE | 2021-08-23 09:48 | PM.DS ---
DS: Providers Provider Date of Service: 08/23/21 Date of admission: 08/21/21 15:46 Primary care physician: Alma Delia Altamirano MD DS: Diagnosis Discharge Diagnosis (1) Pancreatic mass: Status: Acute (2) Acute dehydration: Status: Acute (3) Abdominal pain: Status: Acute DS: Summary Hospital Course Hospital Course: HPI: 75-year-old Luxembourgish-speaking male presented to the ER with complaints of diffuse abdominal pain and nausea especially after meals over the last month.? He denies chest pain, shortness of breath, vomiting, diarrhea.? He reports being in his usual state of health approximately 1 month ago.? During the interview and examination he denied any pain.? He was walking up to the bathroom with no assistance.? His liver enzymes are noted to be elevated at 664 AST, 102 AST, 268 alkaline phosphatase.? Unfortunately abdominal CT showed retroperitoneal soft tissue mass involving the body and tail of the pancreas, left adrenal gland, left renal hilum including the left renal artery and left renal vein and greater curvature of the stomach.? There was also question for involvement of the antrum of the stomach with peritoneal masses suggestive of malignancy.? Also noted was an occluded splenic vein.? It appears that he may have some sort of malignancy which is new for him.? In the ER he was given IV fluids.? He will be placed on observation for intractable abdominal pain and nausea. Hospital Course Patient was treated with IV fluids, IV antiemetics, IV pain control. He underwent CT-guided left upper quadrant peritoneal mass biopsy. Once his pain and abdominal symptoms were improved, he was discharged home with close follow-up with Oncology at [facility] with Dr. Ross early next week. Time Spent with Patient Time attestation: Total time spent providing and/or coordinating discharge services: Discharge coordination time: Less than 30 minutes Quality: Stroke Does the patient have a stroke diagnosis?: No Physical Exam Vital Signs: Vital Signs: Last Vital Signs Temp 97.3 F 08/23/21 08:00 Pulse 100 08/23/21 08:00 Resp 20 08/23/21 08:00 BP 147/86 H 08/23/21 08:00 Pulse Ox 98 08/23/21 08:00 Body Mass Index 19.6 Const: Other: General - no acute distress, appears comfortable Cardiovascular - regular rate and rhythm, S1-S2 Lungs - normal respiratory effort, clear to auscultation bilaterally, no wheezing Abdomen - soft, nontender, no rebound or guarding Extremities - no edema bilaterally Neuro - awake and alert, no focal deficits DS: Data Data Completed and Pending Pending studies at discharge: Pending at discharge 08/22/21 15:16 Surgical [PTH] Routine Labs on day of discharge: Laboratory Results - last 24 hr 08/22/21 05:26 Uric Acid 5.2 Lactate Dehydrogenase 173 Discharge Plan Discharge Patient Disposition: Home, Self-Care Discharge Diagnosis: Pancreatic Mass Referrals: Silvia Ross MD [Physician] - 1 Week Alma Delia Altamirano MD [Primary Care Provider] - 1 Week Discharge Medications: New oxycodone 5 mg tablet 5 mg PO TID PRN (Reason: pain) Qty: 30 RF: 0 polyethylene glycol 3350 [Miralax] 17 gram/dose powder 17 g PO DAILY Qty: 510 RF: 0 Continued brimonidine 0.2 % drops 1 drp ophthalmic (eye) Q12H RF: 0 atorvastatin [Lipitor] 40 mg tablet 40 mg PO BEDTIME 30 Days Qty: 30 RF: 0 prednisone 5 mg tablet 1 tab PO QAM RF: 0 cyanocobalamin (vitamin B-12) 1,000 mcg/mL solution 1,000 mcg IM Q30D RF: 0 loratadine 10 mg tablet 1 tab PO DAILY RF: 0 amlodipine 10 mg tablet 10 mg PO DAILY RF: 0 omeprazole 20 mg capsule,delayed release(DR/EC) 20 mg PO DAILY RF: 0 lisinopril 40 mg tablet 40 mg PO DAILY RF: 0 hydrochlorothiazide 25 mg tablet 25 mg PO DAILY RF: 0 aspirin 81 mg tablet,delayed release (DR/EC) 81 mg PO DAILY RF: 0 Discharge Orders: Discharge Order (Routine); Ordered 08/23/21 Ordered By: Kevin Rahman Diet: advance to usual diet Activity on Discharge: As tolerated Stand Alone Forms: Patient Portal Discharge page Care Plan Goals: To get work up for pancreatic Mass Health Concerns: Pancreatic Mass Plan of Treatment: To follow up with oncology for further treatment Assessment: 75 yo presented abdominal symptoms. CT showing pancreatic mass with spread. Concerning for Ca. Will follow up with oncology early next week for further treatment. Completed biopsy in the hospital.
--- NOTE | 2021-08-23 10:02 | W.MHC.F2F ---
Service Date Service Date: 08/23/21 Encounter Date of encounter: 08/23/21 Reasons for Services Reason for custodial: medication treatment Overseeing Care: Alma Delia Altamirano Homebound: Leaving the home is medically contraindicated at this time without the asist of a device and/or another person due th the listed conditions above and below. Certification: Based on the above findings, I certify that this patient is confined to the home and needs intermittent custodial care, physical therapy and/or speech therapy, or continues to need occupational therapy. The patient is under my care, and I have initiated the establishment of the plan of care. The patient will be followed by a physician who will periodically review the plan of care.
[2021-08-23] MEDS: hydroCHLOROthiazide 25 MG TABLET PO (10:11)
[2021-08-23] MEDS: Aspirin Enteric Coated 81 MG TABLET.DR PO (10:11)
[2021-08-23] MEDS: predniSONE 5 MG TABLET PO (10:11)
[2021-08-23] MEDS: lisinopriL 40 MG TABLET PO (10:11)
[2021-08-23] MEDS: Loratadine 10 MG TABLET PO (10:11)
--- NOTE | 2021-08-23 10:11 | MHC.CM.PN ---
PT DISCHARGING HOME W/NEW [facility] AND RESUMP OF SUPERINTENDENT LAUNDRY HRS AND FOLLOW-UP W/DR. AVILA, FAMILY FOR TRANSPORT
[2021-08-23] MEDS: amLODIPine Besylate 10 MG TABLET PO (10:12)
[2021-08-23] MEDS: polyethylene glycoL 3350 17 GM POWD.PACK PO (10:13)
[2021-08-24 13:26] LABS: Carbohydrate Antigen 19-9 6163 U/mL (<34)
== END 2021-08-23 11:06 | disposition home or self-care (01) ==
LOC: HO.ED 11:24 → HO.EDOVER 16:00 → HO.S3 16:02
PROVIDERS: Family Medicine; Radiology Diagnostic Radiology; Admitting Provider Nurse Practitioner Acute Care; Emergency Provider Emergency Medicine; PCP Family Medicine; Visit Provider Physician Assistant Medical
DX: K86.89 Other specified diseases of pancreas (principal); K76.89 Other specified diseases of liver; E27.9 Disorder of adrenal gland, unspecified; N28.89 Other specified disorders of kidney and ureter; K31.89 Other diseases of stomach and duodenum; R10.9 Unspecified abdominal pain; R63.4 Abnormal weight loss; E86.0 Dehydration; R11.0 Nausea; I10 Essential (primary) hypertension; E78.5 Hyperlipidemia, unspecified; E55.9 Vitamin D deficiency, unspecified; D51.0 Vitamin B12 deficiency anemia due to intrinsic factor deficiency; M35.3 Polymyalgia rheumatica; Z87.891 Personal history of nicotine dependence; Z20.822 Contact with and (suspected) exposure to COVID-19; Z83.79 Family history of other diseases of the digestive system; Z79.52 Long term (current) use of systemic steroids; Z79.82 Long term (current) use of aspirin; Z79.899 Other long term (current) drug therapy
CPT/HCPCS: 36415; 49180; 71045; 74177; 76705; 77012; 80048; 80053; 81001; 83615; 83690; 84550; 85025; 85610; 86301; 87635; 88305; 88333; 88341; 88342; 93005; 96361; 96374; 96375; 99218; 99285; Q9967

== ENCOUNTER → 2021-08-30 12:55 | Outpatient (BNVA) | payer MEDICARE, MEDICAID, SELFPAY | PROVIDERS: PCP Family Medicine; Referring Provider Family Medicine; Visit Provider Internal Medicine Gastroenterology | DX: C25.9 Malignant neoplasm of pancreas, unspecified (principal); C77.2 Secondary and unspecified malignant neoplasm of intra-abdominal lymph nodes | CPT/HCPCS: 99202 ==

== ENCOUNTER 2021-09-03 09:37 | Outpatient (REF) | payer MEDICARE, MEDICAID, SELFPAY ==
--- NOTE | ~2021-09-03 | CT_ITS ---
EXAMINATION: CT CHEST WITH CONTRAST CLINICAL INFORMATION: Staging. Pancreatic cancer. COMPARISON: Chest x-ray August 2021 and abdominal and pelvic CT scan August 2021 TECHNIQUE: Multidetector volumetric CT imaging of the chest was obtained after the administration of 65 mL of Omnipaque 350 intravenous contrast without immediate adverse reactions. Axial MIP volume rendering provided. Sagittal and coronal reformatted images were obtained. This CT examination was performed using dose optimization techniques as appropriate, variously including the following: *Automated exposure control *Adjustment of mA and/or kV according to patient size (this includes techniques or standardized protocols for targeted exams where dose is matched to indication/reason for exam; i.e. extremities or head) *Use of iterative reconstruction technique DLP: 81 mGy-cm FINDINGS: LUNGS: There is a 2 x 6 mm peripheral or subpleural right lower lobe nodule adjacent to the major fissure axial image 73 series 7. There are small clustered semisolid left upper lobe nodules, largest measuring 3 mm axial image 77 series 7. Clustered appearance favors an infectious or inflammatory process/tree-in-bud appearance or airways disease. There is a 4 mm right middle lobe nodule axial image 108 series 7. This may be related to bronchial soft tissue opacification. There is a 6 x 8 mm peripheral or subpleural left lower lobe nodule axial image 1 series 7. There is subsegmental atelectasis at the lung bases. MEDIASTINUM: There are small right cardiophrenic angle or anterior diaphragmatic lymph nodes, largest measuring 6 x 8 mm on the right axial image 43. There are small mediastinal nodes. There is a small right internal mammary lymph node measuring 4 x 6 mm axial image 16 series. No enlarged lymph nodes are seen. The heart does not appear enlarged. There is coronary artery and aortic valve calcification. The thoracic aorta is slightly tortuous and is upper normal in size. There is no pericardial effusion. PLEURA: There is no pleural effusion. No pleural mass or thickening. AXILLA: No lymphadenopathy. UPPER ABDOMEN: There are stable abdominal findings of mass centered in the body of the pancreas involving the stomach and left adrenal gland. There are multiple liver cysts. OSSEOUS STRUCTURES: There are degenerative changes of the spine. CT/CT chest w con IMPRESSION: Bilateral pulmonary nodules, largest a 6 x 8 mm peripheral or subpleural left lower lobe nodule. Small cardiophrenic angle, internal mammary and mediastinal lymph nodes. Coronary artery and aortic valve calcification. Tortuous upper normal-sized thoracic aorta. Stable abdominal findings.
[2021-09-03] MEDS: iohexoL 350 MG/ML 100 ML INFUS..BTL IV (10:56)
== END 2021-09-03 09:38 | disposition home or self-care (01) ==
LOC: HO.CT 09:37
PROVIDERS: Visit Provider Internal Medicine
DX: C25.9 Malignant neoplasm of pancreas, unspecified (principal)
CPT/HCPCS: 71260; Q9967

== ENCOUNTER 2021-09-06 08:27 | Day surgery (SDC) | payer MEDICARE, MEDICAID, SELFPAY ==
[2021-09-06] VITALS (8 sets, daily range): BP systolic 120–147; BP diastolic 72–85; PULSE 74–95; RESP 16–18; TEMP 36.8–37.1; O2SAT 97–99; BMI 27.7
--- NOTE | ~2021-09-06 | IR_ITS ---
EXAMINATION: IR FLUOROSCOPY AND ULTRASOUND-GUIDED RIGHT PORTACATHETER INSERTION CLINICAL INFORMATION: Metastatic pancreatic CA. COMPARISON: None TECHNIQUE: Following explaining ultrasound and fluoroscopy-guided placement of right Port-A-Cath procedure, benefits and risk via a lockstitch collar setter, a written consent was obtained. Patient was placed supine on fluoroscopy table and preliminary ultrasound imaging was obtained through the right neck and an optimal site selected. The right neck and the right anterior chest wall area was cleaned and draped in the usual sterile manner with 2% chlorhexidine solution. The marked site along the right anterior neck was infiltrated with 1% lidocaine. Under sterile ultrasound guidance, a single wall needle was advanced and right jugular vein was punctured. After obtaining venous return, a thin guidewire was advanced to the needle and needle withdrawn under fluoroscopy. A 5-Urdu dilator was then advanced over the guidewire and the entire thing was anchored to the patient's drape. Approximately 1 gauze length from the neck incision inferiorly in the right anterior chest wall, 1% lidocaine was infiltrated and a small skin incision was made. Blunt dissection was then performed and a small pocket created. The port connected to the catheter was anchored to the skin with 3-0 nonabsorbable sutures. 1% lidocaine was then inserted subcutaneously from the chest wall incision to the right neck incision. A blunt tunneler attached to the wire was then tunneled subcutaneously and pulled through the right anterior neck incision. The tunneler was severed, the catheter connected to 20 cm length. Saline was injected through the port catheter to check patency of the catheter. The guidewire through the 5-Urdu sheath was removed and a 0.35 J-wire was advanced through the sheath into the IVC under fluoroscopy. The sheath was removed, and a 10 inch dilator with sheath was advanced over the guidewire. The guidewire and the dilator were removed and the sized catheter was then inserted through the peel-away sheath. The peel-away sheath was removed as the catheter was held in position by the associate. The peel-away sheath was completely removed, and a single image was obtained documenting catheter position in the SVC and the port along the right anterior chest wall. The skin incisions along the right anterior neck were sutured with 4-0 and the right anterior chest wall was sutured with 3-0 absorbable sutures. Steri-Strips were placed at both the sites and sterile dressing placed over the incision site. Patient tolerated the procedure extremely well. Conscious sedation was utilized with 1 mg of Versed and 25 mcg of fentanyl. Patient was monitored by IR team for 27 minutes. FINDINGS: On preliminary ultrasound imaging, there is a widely patent right jugular vein. A 20 cm long Port-A-Cath was inserted under ultrasound and fluoroscopy guidance. IR/IR us guide venous access IMPRESSION: Successful ultrasound and fluoroscopy-guided placement of a right Port-A-Cath. Fluoroscopy time: 0.2 minutes. Dose area product: 26 cGy. Images: 2.
--- NOTE | ~2021-09-06 | IR_ITS ---
EXAMINATION: IR FLUOROSCOPY AND ULTRASOUND-GUIDED RIGHT PORTACATHETER INSERTION CLINICAL INFORMATION: Metastatic pancreatic CA. COMPARISON: None TECHNIQUE: Following explaining ultrasound and fluoroscopy-guided placement of right Port-A-Cath procedure, benefits and risk via a humane officer, a written consent was obtained. Patient was placed supine on fluoroscopy table and preliminary ultrasound imaging was obtained through the right neck and an optimal site selected. The right neck and the right anterior chest wall area was cleaned and draped in the usual sterile manner with 2% chlorhexidine solution. The marked site along the right anterior neck was infiltrated with 1% lidocaine. Under sterile ultrasound guidance, a single wall needle was advanced and right jugular vein was punctured. After obtaining venous return, a thin guidewire was advanced to the needle and needle withdrawn under fluoroscopy. A 5-Nepali dilator was then advanced over the guidewire and the entire thing was anchored to the patient's drape. Approximately 1 gauze length from the neck incision inferiorly in the right anterior chest wall, 1% lidocaine was infiltrated and a small skin incision was made. Blunt dissection was then performed and a small pocket created. The port connected to the catheter was anchored to the skin with 3-0 nonabsorbable sutures. 1% lidocaine was then inserted subcutaneously from the chest wall incision to the right neck incision. A blunt tunneler attached to the wire was then tunneled subcutaneously and pulled through the right anterior neck incision. The tunneler was severed, the catheter connected to 20 cm length. Saline was injected through the port catheter to check patency of the catheter. The guidewire through the 5-Nepali sheath was removed and a 0.35 J-wire was advanced through the sheath into the IVC under fluoroscopy. The sheath was removed, and a 10 inch dilator with sheath was advanced over the guidewire. The guidewire and the dilator were removed and the sized catheter was then inserted through the peel-away sheath. The peel-away sheath was removed as the catheter was held in position by the associate. The peel-away sheath was completely removed, and a single image was obtained documenting catheter position in the SVC and the port along the right anterior chest wall. The skin incisions along the right anterior neck were sutured with 4-0 and the right anterior chest wall was sutured with 3-0 absorbable sutures. Steri-Strips were placed at both the sites and sterile dressing placed over the incision site. Patient tolerated the procedure extremely well. Conscious sedation was utilized with 1 mg of Versed and 25 mcg of fentanyl. Patient was monitored by IR team for 27 minutes. FINDINGS: On preliminary ultrasound imaging, there is a widely patent right jugular vein. A 20 cm long Port-A-Cath was inserted under ultrasound and fluoroscopy guidance. IR/IR cvc insert tunnel w prt/mechanical press operator IMPRESSION: Successful ultrasound and fluoroscopy-guided placement of a right Port-A-Cath. Fluoroscopy time: 0.2 minutes. Dose area product: 26 cGy. Images: 2.
[2021-09-06] MEDS: Heparin Sodium,Porcine Flush 500 UNIT/5 ML SYRINGE IVFLUSH (12:46)
[2021-09-06] MEDS: Lidocaine HCl 1 % MPF 5 ML VIAL SUBCUT (12:51)
== END 2021-09-06 15:47 | disposition home or self-care (01) ==
PROVIDERS: Radiology Diagnostic Radiology; PCP Family Medicine; Visit Provider Radiology Diagnostic Radiology
DX: C25.9 Malignant neoplasm of pancreas, unspecified (principal); C77.2 Secondary and unspecified malignant neoplasm of intra-abdominal lymph nodes; R63.4 Abnormal weight loss; I10 Essential (primary) hypertension; R73.9 Hyperglycemia, unspecified; M35.3 Polymyalgia rheumatica; Z79.52 Long term (current) use of systemic steroids; Z79.82 Long term (current) use of aspirin; Z79.899 Other long term (current) drug therapy; Z87.891 Personal history of nicotine dependence
CPT/HCPCS: 36561; 36597; 76937; 99152; 99153; C1769; C1788; J0690; J1642; J2250; J3010

== ENCOUNTER 2021-09-07 12:52 | Day surgery (SDC) | payer MEDICARE, MEDICAID, SELFPAY ==
--- NOTE | 2021-09-06 09:21 | P.CONAN_ITS ---
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 (Acute) Polymyalgia rheumatica (Acute) Past Medical History Medical History Family history of GERD Fibromuscular dysplasia High blood sugar History of pernicious anemia History of vitamin D deficiency Hx of essential hypertension Hx of polymyalgia rheumatica Hypertension Polymyalgia rheumatica Vertebral artery stenosis Family History Family History Father HTN (hypertension) Mother HTN (hypertension) Myocardial infarction Surgical History Surgical History No history of previous surgery Social History Social History Household Members: Spouse Alcohol intake: former Patient Tobacco Use Status: Former Tobacco user Quit Date: 1983 Tobacco use type: Cigarette Cigarette Packs Per Day: 3 Years Smoked: 30 Second Hand Smoke Exposure: No Use of substances other than those prescribed or required for medical reasons: No Are you DNR?: No Advance Directives: Yes Advance Directives on File: Yes Advance Directives Date on File: 03/29/21 service: No Current occupational status: retired [employer] Allergies Allergy/AdvReac Type Severity Reaction Status Date / Time No Known Allergies Allergy Verified 08/30/21 13:00 [No Known Allergies*] Home Medications Medication Instructions Recorded Confirmed Last Taken Type aspirin 81 mg tablet,delayed 81 mg PO DAILY 09/27/20 08/30/21 08/20/21 History release hydrochlorothiazide 25 mg tablet 25 mg PO DAILY 09/27/20 08/30/21 08/20/21 History lisinopril 40 mg tablet 40 mg PO DAILY 09/27/20 08/30/21 08/20/21 History omeprazole 20 mg capsule,delayed 20 mg PO DAILY 10/08/30/21 08/20/21 History release brimonidine 0.2 % eye drops 1 drp OPHTHALMIC (EYE) Q12H 03/29/21 08/30/21 08/20/21 History cyanocobalamin (vitamin B-12) 1,000 mcg IM Q30D 08/21/21 08/30/21 Unknown History 1,000 mcg/mL injection solution loratadine 10 mg tablet 1 tab PO DAILY 08/21/21 08/30/21 08/20/21 History prednisone 5 mg tablet 1 tab PO QAM 08/21/21 08/30/21 08/20/21 History Exam Exam Date and Time: September 06, [id number] Pertinent Lab Results Pertinent Lab Results: Laboratory Tests 08/22/21 08/22/21 05:26 05:26 WBC 9.1 Hgb 13.2 L Hct 41.0 L Plt Count 317 Sodium 140 Potassium 4.8 Chloride 104 Carbon Dioxide 27 BUN 21 H Creatinine 0.80 Narrative Narrative: EKG 08/2021 Vent. Rate : 062 BPM ? ? Atrial Rate : 062 BPM ?? P-R Int : 152 ms? QRS Dur : 082 ms ? ? QT Int : 446 ms ? ? ? P-R-T Axes : 064 -52 -27 degrees ?? QTc Int : 452 ms ? Normal sinus rhythm Left axis deviation Abnormal ECG When compared with ECG of 29-MAR-2021 12:00, No significant change was found Assessment and Plan Assessment Anesthesia Assessment: Chart Reviewed Documented by User: Reena Stanley MD 09/07/21 13:32 [facility] Past Medical History Medical History Family history of GERD Fibromuscular dysplasia High blood sugar History of pernicious anemia History of vitamin D deficiency Hx of essential hypertension Hx of polymyalgia rheumatica Hypertension Polymyalgia rheumatica Vertebral artery stenosis Family History Family History Father HTN (hypertension) Mother HTN (hypertension) Myocardial infarction Family history of problems with anesthesia: No Surgical History Surgical History No history of previous surgery History of Problems with Anesthesia: No Social History Social History Household Members: Spouse Alcohol intake: former Patient Tobacco Use Status: Former Tobacco user Quit Date: 1983 Tobacco use type: Cigarette Cigarette Packs Per Day: 3 Years Smoked: 30 Second Hand Smoke Exposure: No Use of substances other than those prescribed or required for medical reasons: No Are you DNR?: No Advance Directives: Yes Advance Directives on File: Yes Advance Directives Date on File: 03/29/21 service: No Current occupational status: retired [employer] Allergies Allergy/AdvReac Type Severity Reaction Status Date / Time No Known Allergies Allergy Verified 08/30/21 13:00 [No Known Allergies*] Home Medications Medication Instructions Recorded Confirmed Last Taken Type aspirin 81 mg tablet,delayed 81 mg PO DAILY 09/27/20 08/30/21 08/20/21 History release hydrochlorothiazide 25 mg tablet 25 mg PO DAILY 09/27/20 08/30/21 08/20/21 History lisinopril 40 mg tablet 40 mg PO DAILY 09/27/20 08/30/21 08/20/21 History omeprazole 20 mg capsule,delayed 20 mg PO DAILY 09/27/20 08/30/21 08/20/21 History release brimonidine 0.2 % eye drops 1 drp OPHTHALMIC (EYE) Q12H 03/29/21 08/30/21 08/20/21 History cyanocobalamin (vitamin B-12) 1,000 mcg IM Q30D 08/21/21 08/30/21 Unknown History 1,000 mcg/mL injection solution loratadine 10 mg tablet 1 tab PO DAILY 08/21/21 08/30/21 08/20/21 History prednisone 5 mg tablet 1 tab PO QAM 08/21/21 08/30/21 08/20/21 History Exam Airway Mallampati Class: II TM Dist: >3cm Neck ROM: Limited Assessment and Plan Assessment Anesthesia Assessment: Anesthesia Plan Discussed Final Anesthetic Review Family History of Problems with Anesthesia: No History of Problems with Anesthesia: No NPO: Yes ASA Class: III Final Preanesthetic Review: No Changes in Pt Med Stat, Meds/Allgs Chart Reviewed, Consent Obtained/Reviewed and Anes Risks/Benef Reviewed Patient Risk: Intermediate Procedure Risk: Low Assessment/Block/Sedation in SS: Assess/Block/Sedation-SS Anesthetic Plan Anesthetic Plan: MAC: Disposition: Standard PACU
[2021-09-07 12:27] VITALS: BMI 21.6
[2021-09-07 13:03] VITALS: BP 136/85; PULSE 110; RESP 16; TEMP 36.1; O2SAT 97
[2021-09-07] MEDS: Lactated Ringers 1,000 ML 100 ML IVCONT (13:12)
--- NOTE | 2021-09-07 13:16 | MHC.SHP ---
Pre-Procedural Eval Section A Date of Service: 09/07/21 Changes since office visit: Yes Patient answered all questions; No Cold of Flu in the past 2 weeks, No New Medical Problems and No Changes in Medication The History & Physical has been completed within 30 days and I have reviewed it.: Yes Section B Chief Complaint: malignant neoplasm of pancreas Allergies: Allergies Allergy/AdvReac Type Severity Reaction Status Date / Time No Known Allergies Allergy Verified 08/30/21 13:00 [No Known Allergies*] Plan I have reviewed the history and physical and performed a pertinent physical examination on my patient. No changes have occurred unless specified.
--- NOTE | 2021-09-07 13:17 | P.OP_ITS ---
Operative Note Operative Note Date of Service: 09/07/21 Narrative: Pre-op diagnosis:?Weight loss, chronic constipation, pancreatic cancer with gastric and peritoneal mets Post-op diagnosis:?other (Gastric mass, Colon polyps, diverticulosis, hemorrhoids) Procedure:? FLEXIBLE TRANSORAL UPPER GASTROINTESTINAL ENDOSCOPY WITH BIOPSIES AND COLONOSCOPY TILL CECUM WITH BIOPSIES AND SNARE POLYPECTOMY UPPER ENDOSCOPY Consent:?Indications for the procedure and potential complications of bleeding, perforation, reaction to medications and missed diagnosis were discussed with the patient and informed consent was obtained. Instrument:?Olympus GIF H 190 mid size upper endoscope Monitoring: Vital signs and clinical assessment, continuous EKG monitoring, Pulse oximetry, Carbon Dioxide monitoring and blood pressure monitoring were done throughout the procedure. Procedure:?The patient was placed in the left lateral decubitis position and pre-procedure medications were administered and a bite block was placed. The endoscope was inserted into the mouth and advanced under direct vision to the third part of duodenum. A careful inspection was made as the upper endoscope was withdrawn including a retroflexed examination of the proximal stomach; Findings and interventions are described below. Findings: Larynx:? Normal Esophagus:?GE junction at 40 cms.? No esophagitis or Uriostegui's. Stomach:?Large 4-5 cms polypoidal mass in the antrum and distal body of the stomach - multiple biopsies were obtained.? Decreased distensibility of the stomach.? Prominent gastric folds in the gastric body - multiple biopsies were obtained. Grade 2 flap valve on retroflexed examination of the cardia. Duodenum:?Normal bulb and descending duodenum Intervention:?Biopsies as noted above COLONOSCOPY PROCEDURE NOTE Consent:?Indications for the procedure and potential complications of bleeding, perforation, reaction to medications and missed diagnosis were discussed with the patient and informed consent was obtained. Instrument:?Olympus PCF H 190 L variable stiffness pediatric colonoscope Monitoring:?Vital signs and clinical assessment, intermittent blood pressure monitoring, continuous EKG monitoring, Pulse oximetry and Carbon Dioxide monitoring were done throughout the procedure. Colon withdrawl time was 45 minutes. Procedure:?The patient was placed in the left lateral decubitis position and pre-procedure medications were administered. After a digital rectal examination of the ano-rectum, the video colonoscope was inserted into the rectum and advanced through the colon to the cecum. The colonoscope was slowly withdrawn in a retrograde panoramic fashion and the colon mucosa was carefully examined including a retroflexed view of the rectum. Findings and interventions are described below. Procedure Difficulty:?:? LLQ pressure applied to intubate the transverse colon Findings: Terminal Ileum: Not evaluated Cecum:? Normal Ascending Colon:??Two 10-15 mm sessile polyps removed with a hot snare Transverse Colon:??Two 12-18 mm sessile polyps removed with a hot snare Descending Colon:? Moderate diverticulosis Sigmoid Colon:? A 10 - 12 mm sessile polyp removed with a hot snare. Prominent and friable fold in the SC at 30 cms - biopsied. Severe diverticulosis with?luminal narrowing. Rectum:??Normal Ano-rectum:??Moderate internal hemorrhoids Colon preparation: Fair despite copious irrigation Impression and Post Procedure Diagnosis: Endoscopy Findings: STOMACH: Large > than 5 cms polypoidal mass in the antrum and distal body of the stomach (likely metastatic pancreatic ca) - multiple biopsies were obtained.? Decreased distensibility and extrinsic compression of the stomach noted in the area of the antrum.? Prominent gastric folds in the gastric body - multiple biopsies were obtained. Colonoscopy Findings: Five medium sized polyps removed Prominent and friable fold in the SC at 30 cms - biopsied. Moderate to severe diverticulosis seen in the left colon Moderate hemorrhoids on retroflexed exam. Plan: Await pathology results Patient has an appointment on 09/20/21 in the GI Clinic with Kash Wood M.D.. Repeat Colonoscopy is not indicated due to advanced age and limited life expectancy due to metastatic pancreatic cancer. Above findings were reviewed with the patient and colon polyps handout was given in the discharge area Surgeon:?Kash Wood MD Anesthesia:?MAC (Arias Lowe CRNA) Was an Coagulating Bath Operator used for this Procedure?:?Yes Coagulating Bath Operator:?Satish Betancourt Estimated blood loss (mL):?0 Pathology:?other (A- GASTRIC ANTRUM BXS? B- GASTRIC FOLD BXS? C- SIGMOID POLYP? D- ASCENDING COLON POLYPS? E- TRANSVERSE COLON POLYPS? F- SIGMOID FOLD AT 30CM) Condition:?stable Disposition:?PACU
--- NOTE | 2021-09-07 13:17 | P.BOP_ITS ---
Brief Operative Note Date of Service: 09/07/21 Pre-op diagnosis: Weight loss, chronic constipation, pancreatic cancer with gastric and peritoneal mets Post-op diagnosis: other (Gastric mass, Colon polyps, diverticulosis, hemorrhoids) Procedure: FLEXIBLE TRANSORAL UPPER GASTROINTESTINAL ENDOSCOPY WITH BIOPSIES AND COLONOSCOPY TILL CECUM WITH BIOPSIES AND SNARE POLYPECTOMY UPPER ENDOSCOPY Consent: Indications for the procedure and potential complications of bleeding, perforation, reaction to medications and missed diagnosis were discussed with the patient and informed consent was obtained. Instrument: Olympus GIF H 190 mid size upper endoscope Monitoring: Vital signs and clinical assessment, continuous EKG monitoring, Pulse oximetry, Carbon Dioxide monitoring and blood pressure monitoring were done throughout the procedure. Procedure: The patient was placed in the left lateral decubitis position and pre-procedure medications were administered and a bite block was placed. The endoscope was inserted into the mouth and advanced under direct vision to the third part of duodenum. A careful inspection was made as the upper endoscope was withdrawn including a retroflexed examination of the proximal stomach; Findings and interventions are described below. Findings: Larynx: Normal Esophagus: GE junction at 40 cms. No esophagitis or Uriostegui's. Stomach: Large 4-5 cms polypoidal mass in the antrum and distal body of the stomach - multiple biopsies were obtained. Decreased distensibility of the stomach. Prominent gastric folds in the gastric body - multiple biopsies were obtained. Grade 2 flap valve on retroflexed examination of the cardia. Duodenum: Normal bulb and descending duodenum Intervention: Biopsies as noted above COLONOSCOPY PROCEDURE NOTE Consent: Indications for the procedure and potential complications of bleeding, perforation, reaction to medications and missed diagnosis were discussed with the patient and informed consent was obtained. Instrument: Olympus PCF H 190 L variable stiffness pediatric colonoscope Monitoring: Vital signs and clinical assessment, intermittent blood pressure monitoring, continuous EKG monitoring, Pulse oximetry and Carbon Dioxide monitoring were done throughout the procedure. Colon withdrawl time was 45 minutes. Procedure: The patient was placed in the left lateral decubitis position and pre-procedure medications were administered. After a digital rectal examination of the ano-rectum, the video colonoscope was inserted into the rectum and advanced through the colon to the cecum. The colonoscope was slowly withdrawn in a retrograde panoramic fashion and the colon mucosa was carefully examined including a retroflexed view of the rectum. Findings and interventions are described below. Procedure Difficulty: : LLQ pressure applied to intubate the transverse colon Findings: Terminal Ileum: Not evaluated Cecum: Normal Ascending Colon: Two 10-15 mm sessile polyps removed with a hot snare Transverse Colon: Two 12-18 mm sessile polyps removed with a hot snare Descending Colon: Moderate diverticulosis Sigmoid Colon: A 10 - 12 mm sessile polyp removed with a hot snare. Prominent and friable fold in the SC at 30 cms - biopsied. Severe diverticulosis with luminal narrowing. Rectum: Normal Ano-rectum: Moderate internal hemorrhoids Colon preparation: Fair despite copious irrigation Impression and Post Procedure Diagnosis: Endoscopy Findings: STOMACH: Large > than 5 cms polypoidal mass in the antrum and distal body of the stomach (likely metastatic pancreatic ca) - multiple biopsies were obtained. Decreased distensibility of the stomach. Prominent gastric folds in the gastric body - multiple biopsies were obtained. Colonoscopy Findings: Five medium sized polyps removed Prominent and friable fold in the SC at 30 cms - biopsied. Moderate to severe diverticulosis seen in the left colon Moderate hemorrhoids on retroflexed exam. Plan: Await pathology results Patient has an appointment on 09/20/21 in the GI Clinic with Kash Wood M.D.. Repeat Colonoscopy is not indicated due to advanced age and limited life expectancy due to metastatic pancreatic cancer. Above findings were reviewed with the patient and colon polyps handout was given in the discharge area Surgeon: Kash Wood MD Anesthesia: MAC (Arias Lowe CRNA) Was an Entry Level Manufacturing Engineer used for this Procedure?: Yes Entry Level Manufacturing Engineer: Satish Betancourt Estimated blood loss (mL): 0 Pathology: other (A- GASTRIC ANTRUM BXS B- GASTRIC FOLD BXS C- SIGMOID POLYP D- ASCENDING COLON POLYPS E- TRANSVERSE COLON POLYPS F- SIGMOID FOLD AT 30CM) Condition: stable Disposition: PACU
[2021-09-07 14:50] VITALS: BP 142/89; PULSE 93; RESP 22; TEMP 36.6; O2SAT 100
[2021-09-07 15:05] VITALS: BP 151/72; PULSE 91; RESP 16; TEMP 36.6; O2SAT 99
== END 2021-09-07 15:27 | disposition home or self-care (01) ==
PROVIDERS: PCP Family Medicine; Visit Provider Internal Medicine Gastroenterology
PROC: (CPT 45385; principal; 2021-09-07 13:10)
DX: R63.4 Abnormal weight loss (principal); C25.9 Malignant neoplasm of pancreas, unspecified; C77.2 Secondary and unspecified malignant neoplasm of intra-abdominal lymph nodes; D12.2 Benign neoplasm of ascending colon; D12.3 Benign neoplasm of transverse colon; D12.5 Benign neoplasm of sigmoid colon; K57.30 Diverticulosis of large intestine without perforation or abscess without bleeding; K64.8 Other hemorrhoids; A04.8 Other specified bacterial intestinal infections; I10 Essential (primary) hypertension; K59.09 Other constipation
CPT/HCPCS: 45385; 45380; 43239; 88305; 88342

== ENCOUNTER 2021-09-11 13:26 | Emergency (ER) | payer MEDICARE, MEDICAID, SELFPAY ==
--- NOTE | ~2021-09-11 | CT_ITS ---
EXAMINATION: CT ABDOMEN AND PELVIS WITH CONTRAST CLINICAL INFORMATION: Abdominal pain post colonoscopy COMPARISON: Previous CT of the abdomen and pelvis 08/21/2021 TECHNIQUE: Multidetector volumetric images were obtained from the superior aspect of the liver through the pubic symphysis following administration 85 mL of Omnipaque 350 intravenous contrast. Sagittal and coronal reformatted images were obtained on the technologist's workstation. Oral contrast: Yes This CT examination was performed using dose optimization techniques as appropriate, variously including the following: *Automated exposure control *Adjustment of mA and/or kV according to patient size (this includes techniques or standardized protocols for targeted exams where dose is matched to indication/reason for exam; i.e. extremities or head) *Use of iterative reconstruction technique DLP: 256 mGy-cm FINDINGS: LUNG BASES: The visualized lung bases are unremarkable. There are small cardiophrenic angle or anterior diaphragmatic lymph nodes. LIVER, GALLBLADDER, AND BILIARY TREE: There are multiple liver cysts that are stable. No solid liver lesion is seen. There is a gallstone in the gallbladder. There is no biliary duct dilatation. PANCREAS: There is a mass in the body and tail of the pancreas. This extends into the peripancreatic soft tissues involving the stomach, left adrenal gland and retroperitoneal soft tissues/left side of the aorta and left renal hilum. This is similar to previous exams. There is dilatation of the main pancreatic duct in the tail of the pancreas. There are peritoneal soft tissue masses. The largest measures 3 x 0.3 cm just deep to the left anterior abdominal wall. There is a small peritoneal soft tissue mass just deep to the right anterior abdominal wall axial image 41 series 3. SPLEEN: Unremarkable. ADRENAL GLANDS: The right adrenal gland is normal. The left adrenal gland is encased by the mass. KIDNEYS AND URETERS: The kidneys are normal in size, shape, and attenuation. No hydronephrosis, hydroureter, or calculi seen. There are small bilateral low-attenuation renal lesions suggestive of cysts. These are stable. No imaging follow-up needed. BLADDER: There is wall thickening of the left superior bladder wall probably related to peritoneal disease. GASTROINTESTINAL TRACT: The small and large bowel are unremarkable. No free air is seen. No ascites is seen. ABDOMINAL WALL: No significant hernia is appreciated. LYMPH NODES: Normal. VASCULAR: There is evidence of atherosclerotic disease. No aneurysm is seen. The splenic vein is occluded. There are left upper quadrant varices. There is narrowing of the left renal artery and vein from the mass. PELVIC VISCERA: The prostate gland is slightly enlarged. There are small peritoneal nodules seen in the pelvis in the posterior cul-de-sac. OSSEOUS STRUCTURES: There are degenerative changes of the spine CT/CT abdomen pelvis w con IMPRESSION: No evidence of free air. Stable mass in the pancreas extending to the stomach, left adrenal gland and retroperitoneum and left renal hilum. Stable peritoneal disease. Small gallstone. Multiple liver and bilateral renal cysts.
[2021-09-11 13:50] VITALS: BP 152/103; PULSE 127; RESP 18; TEMP 36.8; O2SAT 98; BMI 21.6
--- NOTE | 2021-09-11 13:54 | ECG_ITS ---
Test Reason : TACHYCARDIA Blood Pressure : / mmHG Vent. Rate : 116 BPM Atrial Rate : 116 BPM P-R Int : 134 ms QRS Dur : 084 ms QT Int : 336 ms P-R-T Axes : 062 -56 081 degrees QTc Int : 467 ms Sinus tachycardia with occasional Premature ventricular complexes Left anterior fascicular block Nonspecific T wave abnormality Lateral leads Abnormal ECG When compared with ECG of 21-AUG-2021 14:42, Premature ventricular complexes are now Present Vent. rate has increased BY 54 BPM T wave inversion no longer evident in Inferior leads Referred By: Generic ED Physician Electronically Signed By:EDGARD QUIROZ MD
[2021-09-11 14:23] LABS: MANUAL DIFF FLAG NO
[2021-09-11 14:26] LABS: Basophils Percent Auto 0.3 % (0-2); Eosinophils Absolute Auto 1.2 X10*3/uL (0.0-0.4); Eosinophils Percent Auto 16.8 % (0-4); Hematocrit 35.8 % (42-52); Hemoglobin 11.7 g/dl (14.0-18.0); Imm Gran Abs Auto 0.02 X10*3/uL (0.00-0.03); Imm Gran Pct Auto 0.3 % (0.0-0.4); Lymphocytes Absolute Auto 1.2 X10*3/uL (1.2-4.9); Lymphocytes Percent Auto 16.9 % (20-40); Mean Corpuscular HGB Conc 32.7 g/dl (31.0-36.0); Mean Corpuscular Hemoglobin 28.8 pg (27.0-33.0); Mean Corpuscular Volume 88.2 fL (80-98); Mean Platelet Volume 9.3 fL (9.4-12.4); Monocytes Absolute Auto 0.7 X10*3/uL (0.1-1.2); Monocytes Percent Auto 9.4 % (2-11); Neutrophils Absolute Auto 4.1 X10*3/uL (2.0-8.3); Neutrophils Percent Auto 56.3 % (45-73); Platelet Count 379 X10*3/uL (160-400); Red Blood Count 4.06 X10*6/uL (4.60-5.80); Red Cell Distribution Width 13.7 % (11.0-16.0); White Blood Count 7.3 X10*3/uL (4.8-10.8)
[2021-09-11 14:40] LABS: Anion Gap 13 (12-20); Blood Urea Nitrogen 14 mg/dL (9-16); Calcium 9.3 mg/dL (8.4-10.2); Carbon Dioxide 28 mmol/L (22-29); Chloride 103 mmol/L (96-108); Creatinine Clr Calc Pharmacy 68.4; Estimated Glomerular Filt Rate > 60; Glucose Random 118 mg/dL (60-115); Potassium 4.8 mmol/L (3.3-5.1); Sodium 139 mmol/L (135-145)
[2021-09-11 14:46] LABS: Troponin-I High Sensitivity 9.4 ng/L (<3.5-35.0)
--- NOTE | 2021-09-11 19:24 | ED_ITS ---
HPI - General Adult General Chief complaint: General Medical Stated complaint: rectal pain Time Seen by Provider: 09/11/21 18:18 History of Present Illness HPI narrative: Patient is 76 years old with a history of pancreatic cancer. Had a colonoscopy done on September 07. Presents today with having abdominal pain is continuous. No bowel movement since. Positive passing gas. Patient had an endoscopy colonoscopy done. The endoscopy showed evidence for potential metastatic disease to the stomach. Patient's pain has been continuous. No cough no congestion or upper respiratory symptoms. No diaphoresis. Patient is able urinate without any difficulty. Related Data Home Medications Medication Instructions Recorded Confirmed aspirin 81 mg tablet,delayed 81 mg PO DAILY 09/27/20 08/30/21 release hydrochlorothiazide 25 mg tablet 25 mg PO DAILY 09/27/20 08/30/21 lisinopril 40 mg tablet 40 mg PO DAILY 09/27/20 08/30/21 omeprazole 20 mg capsule,delayed 20 mg PO DAILY 09/27/20 08/30/21 release brimonidine 0.2 % eye drops 1 drp OPHTHALMIC (EYE) Q12H 03/29/21 08/30/21 cyanocobalamin (vitamin B-12) 1,000 mcg IM Q30D 08/21/21 08/30/21 1,000 mcg/mL injection solution loratadine 10 mg tablet 1 tab PO DAILY 08/21/21 08/30/21 prednisone 5 mg tablet 1 tab PO QAM 08/21/21 08/30/21 Previous Rx's Medication Instructions Recorded atorvastatin 40 mg tablet (Lipitor) 40 mg PO BEDTIME 30 Days #30 tab 03/30/21 oxycodone 5 mg tablet 5 mg PO TID PRN #30 tab 08/23/21 polyethylene glycol 3350 17 17 g PO DAILY #510 g 08/23/21 gram/dose oral powder (Miralax) sennosides 8.6 mg-docusate sodium 2 tab-cap PO BEDTIME #60 tab 08/28/21 50 mg tablet (Senna with Docusate Sodium) Allergies Allergy/AdvReac Type Severity Reaction Status Date / Time No Known Allergies Allergy Verified 09/11/21 13:50 [No Known Allergies*] Review of Systems Review of Systems: No cough no congestion or upper respiratory symptoms No diaphoresis All systems reviewed otherwise negative Yes all other systems are reviewed and are negative PMFSH Past Medical History Attestation statement: The following information was validated with the patient. Medical History Family history of GERD Fibromuscular dysplasia High blood sugar History of pernicious anemia History of vitamin D deficiency Hx of essential hypertension Hx of polymyalgia rheumatica Hypertension Polymyalgia rheumatica Vertebral artery stenosis Surgical History No history of previous surgery Family History Family History Father HTN (hypertension) Mother HTN (hypertension) Myocardial infarction Social History Social History Household Members: Spouse Alcohol intake: never Patient Tobacco Use Status: Former Tobacco user Quit Date: 1983 Tobacco use type: Cigarette Cigarette Packs Per Day: 3 Years Smoked: 30 Second Hand Smoke Exposure: No Use of substances other than those prescribed or required for medical reasons: No Advance Directives: No Advance Directives Information Provided: Yes Advance Directives Date on File: 03/29/21 service: No Current occupational status: retired Physical Exam Vital Signs: Vital Signs: Last Vital Signs Temp 98.6 F 09/11/21 21:46 Pulse 109 H 09/11/21 21:46 Resp 17 09/11/21 21:46 BP 162/85 H 09/11/21 21:46 Pulse Ox 97 09/11/21 21:46 Body Mass Index 21.6 Appearance: Alert. Oriented X3. No acute distress. Eyes: Pupils equal, round and reactive to light. ENT: Pharynx normal. Neck: Normal inspection. Neck supple. No lymph nodes noted. No crepitus CVS: Normal heart rate and rhythm. Pulses normal. Normal S1 and S2 Respiratory: No respiratory distress. Breath sounds normal. No Wheezing. No rales Abdomen: Soft and nontender. No rigidity. No distention. good BS x4 Rectal exam done with tech Yumiko present. There is no impacted stool noted. A Fleet enema was inserted. Skin: Skin warm and dry. Normal skin color. Normal skin turgor. Extremities: No lower extremity edema. Neurovascular intact to all extremities. No Lacerations. No Rash Neuro: Oriented X 3. No motor deficit. No sensory deficit. Moving all extermities. No slurred speech Medical Decision Making MDM Narrative Medical decision making narrative: CT scan showed no evidence of obstruction, abscess, perforation. Positive pancreatic mass that is known. Patient given an enema in the emergency department with moderate results. Will discharge patient home. In stable condition. Lab Data Result diagrams: 09/11/21 14:14 09/11/21 14:14 Labs: Lab Results 09/11/21 09/11/21 09/11/21 Range/Units 14:14 14:14 14:14 WBC 7.3 (4.8-10.8) X10*3/uL RBC 4.06 L (4.60-5.80) X10*6/uL Hgb 11.7 L (14.0-18.0) g/dl Hct 35.8 L (42-52) % MCV 88.2 (80-98) fL MCH 28.8 (27.0-33.0) pg MCHC 32.7 (31.0-36.0) g/dl RDW 13.7 (11.0-16.0) % Plt Count 379 (160-400) X10*3/uL MPV 9.3 L (9.4-12.4) fL Immature Gran % (Auto) 0.3 (0.0-0.4) % Neut % (Auto) 56.3 (45-73) % Lymph % (Auto) 16.9 L (20-40) % Hudson % (Auto) 9.4 (2-11) % Eos % (Auto) 16.8 H (0-4) % Baso % (Auto) 0.3 (0-2) % Lymph # (Auto) 1.2 (1.2-4.9) X10*3/uL Hudson # (Auto) 0.7 (0.1-1.2) X10*3/uL Eos # (Auto) 1.2 H (0.0-0.4) X10*3/uL Baso # (Auto) 0.0 (0.0-0.2) X10*3/uL Abs Immat Gran (auto) 0.02 (0.00-0.03) X10*3/uL Absolute Neuts (auto) 4.1 (2.0-8.3) X10*3/uL Absolute Nucleated RBC 0.000 (0.0-0.012) X10*3/uL Nucleated RBC % (auto) 0.0 (0.0-0.2) /100WBC Sodium 139 (135-145) mmol/L Potassium 4.8 (3.3-5.1) mmol/L Chloride 103 (96-108) mmol/L Carbon Dioxide 28 (22-29) mmol/L Anion Gap 13 (12-20) BUN 14 (9-16) mg/dL Creatinine 0.81 (0.5-1.4) mg/dL Estim Creat Clear Calc 68.4 Estimated GFR > 60 Random Glucose 118 H (60-115) mg/dL Calcium 9.3 (8.4-10.2) mg/dL Troponin I High Sens 9.4 (<3.5-35.0) ng/L Discharge Plan Discharge Clinical Impression: Constipation, Abdominal pain Instructions: Abdominal Pain (ED), Constipation (ED) Prescriptions: No Action brimonidine 0.2 % drops 1 drp ophthalmic (eye) Q12H RF: 0 atorvastatin [Lipitor] 40 mg tablet 40 mg PO BEDTIME 30 Days Qty: 30 RF: 0 prednisone 5 mg tablet 1 tab PO QAM RF: 0 cyanocobalamin (vitamin B-12) 1,000 mcg/mL solution 1,000 mcg IM Q30D RF: 0 loratadine 10 mg tablet 1 tab PO DAILY RF: 0 oxycodone 5 mg tablet 5 mg PO TID PRN (Reason: pain) Qty: 30 RF: 0 polyethylene glycol 3350 [Miralax] 17 gram/dose powder 17 g PO DAILY Qty: 510 RF: 0 sennosides-docusate sodium [Senna with Docusate Sodium] 8.6-50 mg Tablet 2 tab-cap PO BEDTIME Qty: 60 RF: 2 omeprazole 20 mg capsule,delayed release(DR/EC) 20 mg PO DAILY RF: 0 lisinopril 40 mg tablet 40 mg PO DAILY RF: 0 hydrochlorothiazide 25 mg tablet 25 mg PO DAILY RF: 0 aspirin 81 mg tablet,delayed release (DR/EC) 81 mg PO DAILY RF: 0 Referrals: Alma Delia Altamirano MD [Primary Care Provider] - 2 days Print Language: Vincentian
[2021-09-11 20:07] VITALS: BP 146/82; PULSE 115; RESP 20; TEMP 37.5; O2SAT 98
[2021-09-11] MEDS: Sodium Phosphate,Mono-Dibasic 133 ML ENEMA PR (20:28)
--- NOTE | 2021-09-11 20:29 | PC.NURSE ---
PATIENT A&OX3, ENEMA ADMINISTERED BY PROVIDER, PT HAD BM, TECH IN ROOM WITH PATIENT, WILL CONTINUE TO MONITOR.
[2021-09-11] MEDS: iohexoL 350 MG/ML 100 ML INFUS..BTL IV (21:38)
[2021-09-11 21:46] VITALS: BP 162/85; PULSE 109; RESP 17; TEMP 37; O2SAT 97
--- NOTE | 2021-09-11 22:37 | PC.NURSE ---
patient continues to c/o 10/10 pain, provider notified, no new orders at this time, will continue to monitor.
== END 2021-09-11 23:11 | disposition home or self-care (01) ==
PROVIDERS: Emergency Provider Emergency Medicine Emergency Medical Services; PCP Family Medicine
DX: K59.00 Constipation, unspecified (principal); R10.9 Unspecified abdominal pain; F17.210 Nicotine dependence, cigarettes, uncomplicated; Z79.899 Other long term (current) drug therapy; Z71.6 Tobacco abuse counseling; Z79.82 Long term (current) use of aspirin
CPT/HCPCS: 36415; 74177; 80048; 84484; 85025; 93005; 99284; Q9967

== ENCOUNTER → 2021-09-14 11:01 | Outpatient (BNVA) | payer MEDICARE, MEDICAID, SELFPAY | PROVIDERS: PCP Family Medicine; Visit Provider Nurse Practitioner Family | DX: M35.3 Polymyalgia rheumatica (principal); Z79.52 Long term (current) use of systemic steroids | CPT/HCPCS: 99212 ==

== ENCOUNTER → 2021-09-20 13:09 | Outpatient (BNVA) | payer MEDICARE, MEDICAID, SELFPAY | PROVIDERS: PCP Family Medicine; Referring Provider Family Medicine; Visit Provider Internal Medicine Gastroenterology | DX: R10.9 Unspecified abdominal pain (principal); C25.9 Malignant neoplasm of pancreas, unspecified; C77.2 Secondary and unspecified malignant neoplasm of intra-abdominal lymph nodes | CPT/HCPCS: 99212 ==

== ENCOUNTER 2021-09-25 10:09 | Inpatient (IN) | payer MEDICARE, MEDICAID, SELFPAY ==
[2021-09-25] VITALS (9 sets, daily range): BP systolic 88–134; BP diastolic 54–71; PULSE 73–96; RESP 16–25; TEMP 36.6–37.2; O2SAT 95–98; BMI 20.7
--- NOTE | ~2021-09-25 | CT_ITS ---
EXAMINATION: CT ABDOMEN AND PELVIS WITHOUT CONTRAST CLINICAL INFORMATION: The gallbladder probably COMPARISON: Previous CT of the abdomen and pelvis most recent 09/11/2021 TECHNIQUE: Multidetector volumetric imaging was performed from the superior aspect of the liver through the pubic symphysis. Sagittal and coronal reformatted images were obtained on the technologist's workstation. This CT examination was performed using dose optimization techniques as appropriate, variously including the following: *Automated exposure control *Adjustment of mA and/or kV according to patient size (this includes techniques or standardized protocols for targeted exams where dose is matched to indication/reason for exam; i.e. extremities or head) *Use of iterative reconstruction technique DLP: 384 mGy-cm FINDINGS: LUNG BASES: There is subsegmental atelectasis at the lung bases. There are small cardiophrenic angle or anterior diaphragmatic lymph nodes that are stable. LIVER, GALLBLADDER, AND BILIARY TREE: There are multiple cysts in the liver. These are stable. The largest measures 2 x 2.5 cm in the medial segment of the left lobe of the liver. The gallbladder is contracted. There are small gallstones in the gallbladder. There is a small amount of fluid surrounding the gallbladder. There is no intra or extrahepatic biliary duct dilatation. PANCREAS: There is a soft tissue mass in the body/tail of the pancreas. This extends superiorly to the stomach and involves the left adrenal gland and left renal hilum are cystic changes or possible dilatation of the pancreatic duct in the tail of the pancreas. SPLEEN: Unremarkable. ADRENAL GLANDS: There is involvement of the left adrenal gland by the creatinine/retroperitoneal mass. The right adrenal gland is normal. KIDNEYS AND URETERS: There is a small subcentimeter hyperdense cyst in the upper pole of the left kidney. There is increased stranding of the left perinephric fat. Kidneys are otherwise unremarkable. BLADDER: Unremarkable. GASTROINTESTINAL TRACT: There is stool throughout the colon questionable for constipation. Small and large bowel is otherwise unremarkable. There is distention of abnormal soft tissue in the body/tail of pancreas the stomach. Unchanged. ABDOMINAL WALL: No significant hernia is appreciated. LYMPH NODES: There are is upper abdominal retroperitoneal lymphadenopathy and peripancreatic lymphadenopathy that appears unchanged. There is a new small amount of ascites seen adjacent to the gallbladder, liver and in the pelvis. There is evidence of peritoneal disease with a large peritoneal soft tissue mass just deep to the left abdominal wall. This measures 2.7 x 5.8 cm and does not appear appreciably changed. VASCULAR: There are upper abdominal varices. There is evidence of atherosclerotic disease and ectasia of the abdominal aorta and common iliac arteries. PELVIC VISCERA: The prostate gland is slightly enlarged. There are small peritoneal nodules in the posterior cul-de-sac appear unchanged. OSSEOUS STRUCTURES: There are degenerative changes of the spine CT/CT abdomen pelvis wo con IMPRESSION: Stable appearance to the mass in the pancreas extending to the stomach and involving the left adrenal gland and left retroperitoneal/renal hilum. Stable retroperitoneal and peripancreatic lymph nodes, and peritoneal nodules. New small amount of ascites adjacent to the liver, gallbladder and in the pelvis. Slight interval increase in left perinephric fat stranding. Contracted gallbladder and small gallstones. No biliary duct dilatation. Stable liver cysts.
--- NOTE | ~2021-09-25 | MR_ITS ---
EXAMINATION: MR ABDOMEN WITHOUT AND WITH CONTRAST CLINICAL INFORMATION: Elevated LFTs. History of pancreatic cancer. Abnormal HIDA scan. COMPARISON: Hepatobiliary nuclear medicine study dated from 09/26/[address] abdomen/pelvis dated from 09/25/2021. TECHNIQUE: MR abdomen was performed without and with use of 6 mL intravenous Gadavist gadolinium contrast. Postcontrast images are performed in multiphase dynamic sequences. Imaging was performed in 3 planes. FINDINGS: LUNG BASES: Mild atelectasis and trace amount of bilateral pleural fluid. LIVER, GALLBLADDER, AND BILIARY TREE: The liver is normal in size, shape and attenuation. There is no significant loss of signal in the out of phase gradient dual echo images to suspect hepatic steatosis. There is redemonstration of innumerable T2 bright avascular lesions, representing cysts the largest measuring 2.5 cm in the caudate lobe on image 37 and 2.6 cm in the right hepatic lobe on image 49 of series 100. No suspicious liver lesions. The gallbladder is contracted with a few small stones. The wall is mildly thickened measuring 4 mm and there is mild pericholecystic fat stranding. There is also a small amount of pericholecystic free fluid, which is indeterminate in the setting of ascites. The common bile duct measures 6-7 mm and although MRCP images are degraded by motion, there is no definite choledocholithiasis. There is no biliary ductal dilatation. PANCREAS: Redemonstration of a known pancreatic mass measuring 5.7 x 6.4 cm on image 53 of series 102. This mass is inseparable from the left adrenal gland, posterior wall of the stomach and left diaphragmatic crura. Downstream from this mass, the pancreatic duct is dilated and tortuous and the parenchyma is atrophic, similar to prior. The lesion extends into the retroperitoneum with a broad (greater than 2.5 cm) area of contact with the left aortic wall (image 57 of series 101). There is encasement of the celiac trunk (image 51 of series 101 and image 16 of series 5). The splenic vasculature is entirely encased and thrombosed. The main portal vein is patent. The portal SMV confluence is narrowed and encased. As well, the SMV is entirely encased by the mass as visualized on image 62 of series 601. The lesion also extends into the left renal hilum; the renal artery and veins are narrowed and encased. SPLEEN: Normal. ADRENAL GLANDS: As above, the pancreatic mass invades into the left adrenal gland. Normal appearance of the right adrenal gland. KIDNEYS AND URETERS: The kidneys are normal in size, shape, and enhance symmetrically. There are multiple subcentimeter bilateral renal cysts including a 9 mm hemorrhagic/proteinaceous cyst in the upper pole of left kidney. No hydronephrosis. No perinephric stranding. GASTROINTESTINAL TRACT: No bowel obstruction. ABDOMINAL WALL: No significant hernia is appreciated. LYMPH NODES: Similar periportal, perigastric, peripancreatic and upper retroperitoneal lymphadenopathy. 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 VASCULAR: The pancreatic mass encases multiple major vessels, described in detail above. OSSEOUS STRUCTURES: No aggressive appearing osseous lesions. MR/MR abdomen wo/w con IMPRESSION: There is gallbladder wall thickening and pericholecystic free fluid and fat stranding, concerning for acute cholecystitis in the appropriate clinical setting. There is no biliary ductal dilatation. Redemonstration of a large pancreatic mass invading several adjacent organs, including the left renal hilum, root of the mesentery and left diaphragmatic crura with also encasement of several vessels as above. Mesenteric lymphadenopathy and upper abdominal lymphadenopathy is again redemonstrated.
--- NOTE | ~2021-09-25 | XR_ITS ---
EXAMINATION: XR CHEST CLINICAL INFORMATION: Hypotension COMPARISON: None TECHNIQUE: Frontal view of the chest was obtained. FINDINGS: The cardiac and mediastinal contours are normal. There may be subsegmental atelectasis at the right lung base. The lungs are otherwise clear. There is no pleural effusion or pneumothorax. There is a right jugular port with tip projecting over the SVC. There are degenerative changes of the spine. XR/XR chest 1V IMPRESSION: Subsegmental atelectasis at the right lung base. No evidence for acute disease in the chest.
--- NOTE | ~2021-09-25 | US_ITS ---
EXAMINATION: US ABDOMEN LIMITED CLINICAL INFORMATION: Cholangitis. Elevated liver function tests.. COMPARISON: Previous CT of the abdomen and pelvis most recent from earlier the same day and abdominal ultrasound August 2021 TECHNIQUE: Real-time imaging of the right upper quadrant abdominal viscera. FINDINGS: PANCREAS: There is a hypoechoic lesion in the body and tail of the pancreas. The head of the pancreas is normal. LIVER: The liver is normal in size. There are multiple liver cysts, largest measuring 2.8 x 2.7 x 2.7 cm. There is no biliary duct dilatation. GALLBLADDER: The gallbladder is contracted. There are small gallstones in the gallbladder. Gallbladder wall appears thickened and edematous measuring 0.9 cm. Previous ultrasound exam 08/21/2021. COMMON BILE DUCT: Normal in caliber measuring 0.7 cm in diameter. RIGHT KIDNEY: Normal. No hydronephrosis. No renal calculi or focal parenchymal lesions. The kidney measures 12 cm in maximum dimension. FREE FLUID: There is a small amount of ascites adjacent to the liver. US/US abdomen limited IMPRESSION: Gallstones. Contracted gallbladder and thickened edematous gallbladder wall new from August 2021 exam. Differential would include cholecystitis, gallbladder wall changes related to liver disease, low albumin and cholangitis. If there is clinical concern of acute cholecystitis, HIDA scan would be recommended. No biliary duct dilatation. Multiple liver cysts. Small amount of ascites. Stable hypoechoic mass in the body/tail the pancreas.
--- NOTE | ~2021-09-25 | NM_ITS ---
EXAMINATION: NM HEPATOBILIARY SCAN CLINICAL INFORMATION: Cholecystitis. History of pancreatic cancer. COMPARISON: Previous CT scan of the abdomen and pelvis and limited abdominal ultrasound most recent 09/25/2021. TECHNIQUE: The patient was administered 5 mCi technetium 99m mebrofenin. Coronal images every minute for the first 120 minutes were obtained. Delayed 4-hour imaging in the anterior YAKUT and ARECHIGA projections were also performed. FINDINGS: There is liver uptake seen, however, persistent cardiac uptake seen questionable for evidence of hepatocellular disease. There is no activity seen in the bile ducts, gallbladder or bowel on 1, 2 and 4 hour imaging. Differential would include liver disease, severe cholestasis and obstruction. 24-hour imaging is recommended. MRCP may also be helpful. NM/NM hepatobiliary wo pharm IMPRESSION: No activity seen in the bile ducts, gallbladder or bowel. Differential would include liver disease, severe cholestasis and obstruction. 24 hour imaging is recommended.
--- NOTE | ~2021-09-25 | US_ITS ---
EXAMINATION: US ABDOMEN LIMITED/Liver Doppler exam CLINICAL INFORMATION: Worsening liver function tests. History of pancreatic cancer. COMPARISON: Previous abdominal MRI, HIDA scan, ultrasound and CT of the abdomen from earlier this month TECHNIQUE: Doppler color and grayscale evaluation of the hepatic portal vessels including waveform spectral analysis FINDINGS: The extrahepatic, main, right and left portal veins are patent with appropriate hepatopedal flow. The splenic vein is patent. The right, left and middle hepatic veins are patent with appropriate flow. The IVC is patent with appropriate flow. The main, right and left hepatic arteries are patent. Hepatic artery peak systolic velocity is normal measuring 135 cm/s. There is no ascites. No collateral vessels are seen. US/US duplex arterial venous comp IMPRESSION: Normal liver Doppler exam.
--- NOTE | 2021-09-25 10:11 | ECG_ITS ---
Test Reason : GENERAL MEDICINE Blood Pressure : / mmHG Vent. Rate : 086 BPM Atrial Rate : 086 BPM P-R Int : 142 ms QRS Dur : 078 ms QT Int : 352 ms P-R-T Axes : 073 -64 -89 degrees QTc Int : 421 ms Normal sinus rhythm Left anterior fascicular block T wave abnormality, consider inferolateral ischemia Abnormal ECG T-wave inversion in Inferior leads Lateral leads is new Heart rate has decreased Premature ventricular complexes is no longer Present Referred By: Paresh Guido Electronically Signed By:EDGARD QUIROZ MD
--- NOTE | 2021-09-25 10:22 | PHA.MEDREC ---
Pharmacy Consult ? Medication Reconciliation Pharmacy has completed the medication reconciliation.
--- NOTE | 2021-09-25 10:27 | ED.GENADULT ---
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 Patient emergency department is hypotensive, but able to provide full history, declined any chest pain or shortness of breath or coughing, mild abdominal pain only when he is having bowel movement. Related Data Home Medications Medication Instructions Recorded Confirmed aspirin 81 mg tablet,delayed 81 mg PO DAILY 09/27/20 09/25/21 release hydrochlorothiazide 25 mg tablet 25 mg PO DAILY 09/27/20 09/25/21 lisinopril 40 mg tablet 40 mg PO DAILY 09/27/20 09/25/21 omeprazole 20 mg capsule,delayed 20 mg PO DAILY 09/27/20 09/25/21 release brimonidine 0.2 % eye drops 1 drp OPHTHALMIC (EYE) Q12H 03/29/21 09/25/21 cyanocobalamin (vitamin B-12) 1,000 mcg IM Q30D 08/21/21 09/25/21 1,000 mcg/mL injection solution loratadine 10 mg tablet 1 tab PO DAILY 08/21/21 09/25/21 prednisone 5 mg tablet 1 tab PO QAM 08/21/21 09/25/21 Previous Rx's Medication Instructions Recorded atorvastatin 40 mg tablet (Lipitor) 40 mg PO BEDTIME 30 Days #30 tab 03/30/21 polyethylene glycol 3350 17 17 g PO DAILY #510 g 08/23/21 gram/dose oral powder (Miralax) sennosides 8.6 mg-docusate sodium 2 tab-cap PO BEDTIME #60 tab 08/28/21 50 mg tablet (Senna with Docusate Sodium) ondansetron HCl 4 mg tablet 4 mg PO Q6H PRN #30 tab 09/19/21 (Zofran) oxycodone 5 mg tablet 5 mg PO TID PRN #30 tab 09/20/21 Allergies Allergy/AdvReac Type Severity Reaction Status Date / Time No Known Allergies Allergy Verified 09/20/21 13:18 [No Known Allergies*] Review of Systems Review of Systems: All other systems are reviewed and are negative Constitutional: Reports as per HPI and Reports no additional constitutional complaints Eyes: Reports as per HPI and Reports no additional eye complaints Reports system reviewed and no additional complaints, except as documented Cardiovascular: Reports as per HPI and Reports no additional cardiovascular complaints Respiratory: Reports as per HPI and Reports no additional respiratory complaints Gastrointestinal: Reports as per HPI and Reports no additional gastrointestinal complaints Genitourinary: Reports no additional female genitourinary complaints Musculoskeletal: Reports no additional musculoskeletal complaints Skin/Breast: Reports system reviewed and no additional complaints, except as docu Psychiatric: Reports no additional psychiatric complaints Endocrine: Reports no additional endocrine complaints Hematologic/Lymphatic: Reports no additional hematologic/lymphatic complaints Allergic/Immunologic: Reports no additional allergic/immunologic complaints Reports system reviewed and no additional complaints, except as documented and Reports Abnormal speech present PMFSH Past Medical History Medical History Family history of GERD Fibromuscular dysplasia High blood sugar History of pernicious anemia History of vitamin D deficiency Hx of essential hypertension Hx of polymyalgia rheumatica Hypertension Polymyalgia rheumatica Vertebral artery stenosis Surgical History No history of previous surgery Family History Family History Father HTN (hypertension) Mother HTN (hypertension) Myocardial infarction Social History Social History Household Members: Spouse Alcohol intake: never Patient Tobacco Use Status: Former Tobacco user Quit Date: 1983 Tobacco use type: Cigarette Cigarette Packs Per Day: 3 Years Smoked: 30 Second Hand Smoke Exposure: No Advance Directives: Yes Advance Directives Information Provided: Yes Advance Directives on File: No Advance Directives Date on File: 03/29/21 service: No Current occupational status: retired Physical Exam Vital Signs: Vital Signs: Last Vital Signs Temp 98.9 F 09/25/21 13:31 Pulse 78 09/25/21 16:03 Resp 17 09/25/21 16:03 BP 111/61 09/25/21 16:03 Pulse Ox 97 09/25/21 16:03 Body Mass Index 20.7 Vital signs have been reviewed as appeared to be correct. Blood pressure normal. Heart rate normal. Respiration rate normal. Temperature normal. Oxygen saturation normal. Appearance: Alert. Oriented X3. No acute distress. Head: Normal external exam. Normocephalic. Atraumatic. No Chamorro signs noted. No raccoon eyes noted Eyes: PERRLA. EOMI. Conjunctiva and sclera normal. Eyelids normal. ENT: TM's Normal. Pharynx normal. Uvula midline. Moist mucous membranes. No trismus noted. No drooling noted. No muffled voice noted. Neck: Normal inspection. Neck supple. FROM. No adenopathy. Thyroid Normal. No meningeal signs. No neck mass noted. CVS: Normal heart rate and rhythm. Heart sound normal. No murmurs noted. Pulses normal throughout. Respiratory: No respiratory distress. Painless inspiration. Breath sounds normal. No wheezes/rales/rhonchi noted. Chest nontender. No accessory muscle usage noted or decreased air movement noted. Abdomen: Soft and nontender. Bowel sounds normal in all 4 quadrants. No distention noted. No organomegaly noted. No visible injury noted. Back: No CVA tenderness. Full range of motion noted. Skin: Skin warm and dry. Normal skin color. Normal skin turgor. No rashes/lesions/lacerations noted. Extremities: No lower extremity edema. Extremities exhibit normal range of motion. Extremities nontender. Neuro: Oriented X 3. Cranial nerve exam: II-XII are grossly intact No motor deficit. No sensory deficit. Reflexes normal. Course Reevaluation(s) Reevaluation #1: 76-year-old male with history of pancreatic cancer came in from oncologist office for subjective fever at home, patient was hypotensive at the office and initially when he came to the emergency department and leukocytosis, patient has no complain and initially abdominal exam showed no tenderness to suspect intra-abdominal infection, patient had a CT/ultrasound of the abdomen which just resulted showed acute cholecystitis. Patient initially received fluid 30 cc/kg/culture/lactic acid, since there was no source of infection antibiotic was held. Consider Zosyn as broad-spectrum antibiotic. Surgical consultation (Dr. Coe at the bedside examining the patient). GI consultation (Dr. Wood was consulted over the phone agreed on the above plan to manage the patient conservatively and trend the LFTs). Time: 15:55 Medical Decision Making Medical Records Medical records reviewed: Yes I reviewed the patient's medical records. Lab Data Lab results reviewed: Yes I reviewed the patient's lab results. Result diagrams: 09/25/21 10:55 09/25/21 10:55 Labs: Lab Results 09/25/21 09/25/21 09/25/21 Range/Units 10:55 10:55 10:55 WBC 15.8 H (4.8-10.8) X10*3/uL RBC 3.79 L (4.60-5.80) X10*6/uL Hgb 11.0 L (14.0-18.0) g/dl Hct 34.2 L (42-52) % MCV 90.2 (80-98) fL MCH 29.0 (27.0-33.0) pg MCHC 32.2 (31.0-36.0) g/dl RDW 14.5 (11.0-16.0) % Plt Count 400 (160-400) X10*3/uL MPV 9.9 (9.4-12.4) fL Immature Gran % (Auto) 1.3 H (0.0-0.4) % Neut % (Auto) 89.7 H (45-73) % Lymph % (Auto) 2.0 L (20-40) % Runnels % (Auto) 5.9 (2-11) % Eos % (Auto) 0.9 (0-4) % Baso % (Auto) 0.2 (0-2) % Lymph # (Auto) 0.3 L (1.2-4.9) X10*3/uL Runnels # (Auto) 0.9 (0.1-1.2) X10*3/uL Eos # (Auto) 0.2 (0.0-0.4) X10*3/uL Baso # (Auto) 0.0 (0.0-0.2) X10*3/uL Abs Immat Gran (auto) 0.20 H (0.00-0.03) X10*3/uL Absolute Neuts (auto) 14.2 H (2.0-8.3) X10*3/uL Absolute Nucleated RBC 0.000 (0.0-0.012) X10*3/uL Nucleated RBC % (auto) 0.0 (0.0-0.2) /100WBC Sodium 138 (135-145) mmol/L Potassium 3.9 (3.3-5.1) mmol/L Chloride 102 (96-108) mmol/L Carbon Dioxide 26 (22-29) mmol/L Anion Gap 14 (12-20) BUN 22 H (9-16) mg/dL Creatinine 1.16 (0.5-1.4) mg/dL Estim Creat Clear Calc 46.0 Estimated GFR > 60 Random Glucose 158 H (60-115) mg/dL Lactic Acid (0.5-2.0) mmol/L Lactic Acid Fup @ 2Hr (0.5-2.0) mmol/L Calcium 9.1 (8.4-10.2) mg/dL Total Bilirubin 3.3 H (0.0-1.0) mg/dL Direct Bilirubin 2.6 H (0.0-0.5) mg/dL AST 238 H (5-37) U/L ALT 147 H (0-40) U/L Alkaline Phosphatase 464 H (39-117) U/L Troponin I High Sens 5.7 (<3.5-35.0) ng/L B-Natriuretic Peptide 90 (<100) pg/mL Total Protein 6.5 (6.5-8.0) g/dL Albumin 3.2 L (3.5-5.0) g/dL Lipase 28 (8-78) U/L Urine Color Urine Appearance Urine pH (5.0-8.0) Ur Specific [place] (1.005-1.025) Urine Protein (NEG-TRACE) MG/DL Urine Glucose (UA) (NEG) MG/DL Urine Ketones (NEG) MG/DL Urine Blood (NEG) Urine Nitrite (NEG) Ur Leukocyte Esterase (NEG) Urine RBC (0) /HPF Urine WBC (0-4) /HPF Ur Squamous Epith Cells /LPF Urine Bacteria /LPF Granular Casts /LPF Coronavirus (PCR) (Negative) Influenza Type A (PCR) (Negative) Influenza Type B (PCR) (Negative) RSV RNA Qual (PCR) (Negative) 09/25/21 09/25/21 09/25/21 Range/Units 11:07 11:07 12:34 WBC (4.8-10.8) X10*3/uL RBC (4.60-5.80) X10*6/uL Hgb (14.0-18.0) g/dl Hct (42-52) % MCV (80-98) fL MCH (27.0-33.0) pg MCHC (31.0-36.0) g/dl RDW (11.0-16.0) % Plt Count (160-400) X10*3/uL MPV (9.4-12.4) fL Immature Gran % (Auto) (0.0-0.4) % Neut % (Auto) (45-73) % Lymph % (Auto) (20-40) % Runnels % (Auto) (2-11) % Eos % (Auto) (0-4) % Baso % (Auto) (0-2) % Lymph # (Auto) (1.2-4.9) X10*3/uL Runnels # (Auto) (0.1-1.2) X10*3/uL Eos # (Auto) (0.0-0.4) X10*3/uL Baso # (Auto) (0.0-0.2) X10*3/uL Abs Immat Gran (auto) (0.00-0.03) X10*3/uL Absolute Neuts (auto) (2.0-8.3) X10*3/uL Absolute Nucleated RBC (0.0-0.012) X10*3/uL Nucleated RBC % (auto) (0.0-0.2) /100WBC Sodium (135-145) mmol/L Potassium (3.3-5.1) mmol/L Chloride (96-108) mmol/L Carbon Dioxide (22-29) mmol/L Anion Gap (12-20) BUN (9-16) mg/dL Creatinine (0.5-1.4) mg/dL Estim Creat Clear Calc Estimated GFR Random Glucose (60-115) mg/dL Lactic Acid 2.9 H* (0.5-2.0) mmol/L Lactic Acid Fup @ 2Hr (0.5-2.0) mmol/L Calcium (8.4-10.2) mg/dL Total Bilirubin (0.0-1.0) mg/dL Direct Bilirubin (0.0-0.5) mg/dL AST (5-37) U/L ALT (0-40) U/L Alkaline Phosphatase (39-117) U/L Troponin I High Sens (<3.5-35.0) ng/L B-Natriuretic Peptide (<100) pg/mL Total Protein (6.5-8.0) g/dL Albumin (3.5-5.0) g/dL Lipase (8-78) U/L Urine Color DK YELLOW Urine Appearance CLEAR Urine pH 7.0 (5.0-8.0) Ur Specific [place] 1.015 (1.005-1.025) Urine Protein 1+ H (NEG-TRACE) MG/DL Urine Glucose (UA) 100 H (NEG) MG/DL Urine Ketones NEG (NEG) MG/DL Urine Blood NEG (NEG) Urine Nitrite NEG (NEG) Ur Leukocyte Esterase NEG (NEG) Urine RBC 0 (0) /HPF Urine WBC 0-2 (0-4) /HPF Ur Squamous Epith Cells 1+ /LPF Urine Bacteria NONE /LPF Granular Casts 0-2 /LPF Coronavirus (PCR) NEGATIVE (Negative) Influenza Type A (PCR) NEGATIVE (Negative) Influenza Type B (PCR) NEGATIVE (Negative) RSV RNA Qual (PCR) NEGATIVE (Negative) 09/25/21 Range/Units 13:38 WBC (4.8-10.8) X10*3/uL RBC (4.60-5.80) X10*6/uL Hgb (14.0-18.0) g/dl Hct (42-52) % MCV (80-98) fL MCH (27.0-33.0) pg MCHC (31.0-36.0) g/dl RDW (11.0-16.0) % Plt Count (160-400) X10*3/uL MPV (9.4-12.4) fL Immature Gran % (Auto) (0.0-0.4) % Neut % (Auto) (45-73) % Lymph % (Auto) (20-40) % Runnels % (Auto) (2-11) % Eos % (Auto) (0-4) % Baso % (Auto) (0-2) % Lymph # (Auto) (1.2-4.9) X10*3/uL R[place] # (Auto) (0.1-1.2) X10*3/uL Eos # (Auto) (0.0-0.4) X10*3/uL Baso # (Auto) (0.0-0.2) X10*3/uL Abs Immat Gran (auto) (0.00-0.03) X10*3/uL Absolute Neuts (auto) (2.0-8.3) X10*3/uL Absolute Nucleated RBC (0.0-0.012) X10*3/uL Nucleated RBC % (auto) (0.0-0.2) /100WBC Sodium (135-145) mmol/L Potassium (3.3-5.1) mmol/L Chloride (96-108) mmol/L Carbon Dioxide (22-29) mmol/L Anion Gap (12-20) BUN (9-16) mg/dL Creatinine (0.5-1.4) mg/dL Estim Creat Clear Calc Estimated GFR Random Glucose (60-115) mg/dL Lactic Acid (0.5-2.0) mmol/L Lactic Acid Fup @ 2Hr 1.9 (0.5-2.0) mmol/L Calcium (8.4-10.2) mg/dL Total Bilirubin (0.0-1.0) mg/dL Direct Bilirubin (0.0-0.5) mg/dL AST (5-37) U/L ALT (0-40) U/L Alkaline Phosphatase (39-117) U/L Troponin I High Sens (<3.5-35.0) ng/L B-Natriuretic Peptide (<100) pg/mL Total Protein (6.5-8.0) g/dL Albumin (3.5-5.0) g/dL Lipase (8-78) U/L Urine Color Urine Appearance Urine pH (5.0-8.0) Ur Specific [place] (1.005-1.025) Urine Protein (NEG-TRACE) MG/DL Urine Glucose (UA) (NEG) MG/DL Urine Ketones (NEG) MG/DL Urine Blood (NEG) Urine Nitrite (NEG) Ur Leukocyte Esterase (NEG) Urine RBC (0) /HPF Urine WBC (0-4) /HPF Ur Squamous Epith Cells /LPF Urine Bacteria /LPF Granular Casts /LPF Coronavirus (PCR) (Negative) Influenza Type A (PCR) (Negative) Influenza Type B (PCR) (Negative) RSV RNA Qual (PCR) (Negative) Imaging Data Chest x-ray: Radiologist's impression: Subsegmental atelectasis at the right lung base. No evidence for acute disease in the chest. ? CT scan - abdomen: Radiologist's impression: Stable appearance to the mass in the pancreas extending to the stomach and involving the left adrenal gland and left retroperitoneal/renal hilum. Stable retroperitoneal and peripancreatic lymph nodes, and peritoneal nodules. New small amount of ascites adjacent to the liver, gallbladder and in the pelvis. Slight interval increase in left perinephric fat stranding. Contracted gallbladder and small gallstones. No biliary duct dilatation. Stable liver cysts.? Abdominal ultrasound: Radiologist's impression: Gallstones. Contracted gallbladder and thickened edematous gallbladder wall new from August 2021 exam. Differential would include cholecystitis, gallbladder wall changes related to liver disease, low albumin and cholangitis. If there is clinical concern of acute cholecystitis, HIDA scan would be recommended. No biliary duct dilatation. Multiple liver cysts. Small amount of ascites. Stable hypoechoic mass in the body/tail the pancreas. Discharge Plan Discharge Clinical Impression: Abdominal pain, Pancreatic cancer metastasized to intra-abdominal lymph node, Sepsis Patient Disposition: Admitted As Inpatient
[2021-09-25] MEDS: 0.9 % Sodium Chloride 1,860 ML 1860 ML IV (11:00)
[2021-09-25 11:02] LABS: MANUAL DIFF FLAG NO
[2021-09-25 11:04] LABS: Basophils Percent Auto 0.2 % (0-2); Eosinophils Absolute Auto 0.2 X10*3/uL (0.0-0.4); Eosinophils Percent Auto 0.9 % (0-4); Hematocrit 34.2 % (42-52); Imm Gran Pct Auto 1.3 % (0.0-0.4); Lymphocytes Absolute Auto 0.3 X10*3/uL (1.2-4.9); Mean Corpuscular HGB Conc 32.2 g/dl (31.0-36.0); Mean Corpuscular Volume 90.2 fL (80-98); Mean Platelet Volume 9.9 fL (9.4-12.4); Monocytes Absolute Auto 0.9 X10*3/uL (0.1-1.2); Monocytes Percent Auto 5.9 % (2-11); Neutrophils Absolute Auto 14.2 X10*3/uL (2.0-8.3); Neutrophils Percent Auto 89.7 % (45-73); Platelet Count 400 X10*3/uL (160-400); Red Blood Count 3.79 X10*6/uL (4.60-5.80); Red Cell Distribution Width 14.5 % (11.0-16.0); White Blood Count 15.8 X10*3/uL (4.8-10.8)
[2021-09-25 11:22] LABS: Alanine Aminotransferase 147 U/L (0-40); Albumin Level 3.2 g/dL (3.5-5.0); Alkaline Phosphatase 464 U/L (39-117); Anion Gap 14 (12-20); Aspartate Amino Transferase 238 U/L (5-37); Bilirubin Direct 2.6 mg/dL (0.0-0.5); Bilirubin Total 3.3 mg/dL (0.0-1.0); Blood Urea Nitrogen 22 mg/dL (9-16); Calcium 9.1 mg/dL (8.4-10.2); Carbon Dioxide 26 mmol/L (22-29); Chloride 102 mmol/L (96-108); Estimated Glomerular Filt Rate > 60; Glucose Random 158 mg/dL (60-115); Lipase 28 U/L (8-78); Potassium 3.9 mmol/L (3.3-5.1); Sodium 138 mmol/L (135-145); Total Protein 6.5 g/dL (6.5-8.0)
[2021-09-25 11:26] LABS: B Type Natriuretic Peptide 90 pg/mL (<100); Troponin-I High Sensitivity 5.7 ng/L (<3.5-35.0)
[2021-09-25 11:46] LABS: Lactic Acid 2.9 mmol/L (0.5-2.0)
[2021-09-25 12:11] LABS: Influenza A PCR NEGATIVE (Negative); Influenza B PCR NEGATIVE (Negative); Resp Syncy Virus RNA Qual PCR NEGATIVE (Negative); SARS COV2 PCR INHOUSE NEGATIVE (Negative)
[2021-09-25 13:00] LABS: Appearance Urine CLEAR; Color Urine DK YELLOW; Glucose Urine UA 100 MG/DL (NEG); Leukocyte Esterase Urine NEG (NEG); Nitrite Urine NEG (NEG); Specific Gravity - Urine 1.015 (1.005-1.025); UACC Culture Trigger NO; Urine Blood NEG (NEG); Urine Ketones NEG (NEG); Urine Protein 1+ MG/DL (NEG-TRACE)
[2021-09-25 13:09] LABS: Granular Casts Urine 0-2 /LPF; RBC Urine 0 /HPF (0); Squamous Epithelial Cell Urine 1+ /LPF; WBC Urine 0-2 /HPF (0-4)
[2021-09-25 13:15] LABS: Reflex Lactate? Lactic Acid Added
[2021-09-25 14:08] LABS: ~Lactic Acid-LAB USE ONLY 1.9 mmol/L (0.5-2.0)
[2021-09-25] MEDS: Piperacillin Sodium/Tazobactam 3.375 GM in 0.9 % Sodium Chloride 50 ML IV ×2 (16:00→21:40)
--- NOTE | 2021-09-25 16:51 | PM.IMHP ---
History of Present Illness Date of Service: 09/25/21 <Kira Alvarez NP - Last Filed: 09/25/21 17:15> Attending physician on admission: Tonio Hanley <Kira Alvarez NP - Last Filed: 09/25/21 17:15> Chief Complaint: Hypotension <Kira Alvarez NP - Last Filed: 09/25/21 17:15> Year old [place]-speaking male presenting to the ER after being found hypotensive at his oncology office. He was recently diagnosed with pancreatic cancer and was to start his 1st chemotherapy treatment today when he was found to be hypotensive. According to his last night he had chills and fever. She also reported that he has been constipated over the last 4 days. She denied that he had any nausea, vomiting, chest pain, shortness of breath. In the ER, he was not noted to be febrile however he did have a white blood cell count of 15.8, total bili 3.3, AST 238, ALT 147, alkaline phosphatase 464. abdominal ultrasound showed gallstones with contracted gallbladder and thickened edematous gallbladder wall. Due to his history of recent pancreatic cancer diagnosis he may not be a good surgical candidate however will admit him for further management and treatment of acute cholecystitis. <Kira Alvarez NP - Last Filed: 09/25/21 17:15> 76 Year old [place]-speaking male presenting to the ER after being found hypotensive at his oncology office. He was recently diagnosed with pancreatic cancer and was to start his 1st chemotherapy treatment today when he was found to be hypotensive. According to his last night he had chills and fever. She also reported that he has been constipated over the last 4 days. She denied that he had any nausea, vomiting, chest pain, shortness of breath. In the ER, he was not noted to be febrile however he did have a white blood cell count of 15.8, total bili 3.3, AST 238, ALT 147, alkaline phosphatase 464. abdominal ultrasound showed gallstones with contracted gallbladder and thickened edematous gallbladder wall. Due to his history of recent pancreatic cancer diagnosis he may not be a good surgical candidate however will admit him for further management and treatment of acute cholecystitis. <Tonio Hanley MD - Last Filed: 09/29/21 16:59> Review of Systems Review of Systems: Denies any recent fever chills or decrease in appetite respiratory denies any shortness of breath coverage production cardiovascular denies chest pain gastrointestinal diffuse abdominal pain with constipation over the last 4 days genitourinary denies any dysuria frequency or hematuria musculoskeletal denies any joint pain or swelling neuropsych denies any weakness or seizures all other systems reviewed are negative <Kira Alvarez NP - Last Filed: 09/25/21 17:15> [facility] Medical History: Medical History (Updated 09/28/21 @ 18:02 by Kash Wood MD) Family history of GERD Fibromuscular dysplasia High blood sugar History of pernicious anemia History of vitamin D deficiency Hx of essential hypertension Hx of polymyalgia rheumatica Hypertension Polymyalgia rheumatica Vertebral artery stenosis <Kira Alvarez NP - Last Filed: 09/25/21 17:15> Family History: Family History Father HTN (hypertension) Mother HTN (hypertension) Myocardial infarction <Kira Alvarez NP - Last Filed: 09/25/21 17:15> Pertinent family history: . <Kira Alvarez NP - Last Filed: 09/25/21 17:15> Surgical History: Surgical History No history of previous surgery <Kira Alvarez NP - Last Filed: 09/25/21 17:15> Social History: Social History Household Members: Spouse Housing: House Do you presently have visiting nurse or other home services: Yes (crankshaft grinder services) Alcohol intake: never Patient Tobacco Use Status: Former Tobacco user Quit Date: 1983 Tobacco use type: Cigarette Cigarette Packs Per Day: 3 Years Smoked: 30 Second Hand Smoke Exposure: No Use of substances other than those prescribed or required for medical reasons: No Currently Displaying Signs/Symptoms of Drug Intoxication Withdrawal: No Have you been hit, kicked, punched, or otherwise hurt by someone within the past year? If so, by whom?: No Do you feel safe in your current relationship?: No Is there a partner from a previous relationship who is making you feel unsafe now?: No Are you made to feel afraid or neglected: No Advance Directives: Yes Advance Directives Information Provided: Yes Advance Directives on File: No Advance Directives Date on File: 09/25/21 Do you have thoughts of harming others: None Do you have a plan to hurt others: No Plan Recently lost weight without trying: Yes How much weight loss: 14-23 pounds Eating poorly because of decreased appetite: No Nutrition screen score: 4 Nutrition Risks: Poor intake 0-25% >4 days Poor oral hygiene: No service: No Current occupational status: retired <Kira Alvarez NP - Last Filed: 09/25/21 17:15> Meds Allergies/Adverse reactions: Allergies Allergy/AdvReac Type Severity Reaction Status Date / Time No Known Allergies Allergy Verified 09/20/21 13:18 [No Known Allergies*] <Kira Alavrez NP - Last Filed: 09/25/21 17:15> Active Medications: Current Medications Acetaminophen (Acetaminophen 325 Mg Tablet) 650 mg PO Q6H PRN PRN Reason: Pain, Mild (Pain Scale 1-3) Aspirin (Aspirin Enteric Coated 81 Mg Tablet.) 81 mg PO DAILY [facility] Atorvastatin Calcium (Atorvastatin Calcium 40 Mg Tablet) 40 mg PO BEDTIME [facility] Brimonidine Tartrate (Brimonidine Tartrate 0.2% Oph 5 Ml Bottle) 1 drop EYE-BOTH BID [facility] Cyanocobalamin (Cyanocobalamin (Vitamin B-12) 1,000 Mcg/Ml Vial) 1,000 mcg IM Q30D [facility] Hydrochlorothiazide (Hydrochlorothiazide 25 Mg Tablet) 25 mg PO DAILY [facility]; Protocol Lisinopril (Lisinopril 40 Mg Tablet) 40 mg PO DAILY [facility]; Protocol Loratadine (Loratadine 10 Mg Tablet) 10 mg PO DAILY [facility] Morphine Sulfate (Morphine Sulfate 2 Mg/Ml Cartridge) 2 mg IVPUSH Q4H PRN; Protocol PRN Reason: Pain, Mild (Pain Scale 1-3) Omeprazole (Omeprazole 20 Mg Capsule.) 20 mg PO DAILY@0630 [facility] Ondansetron HCl (Ondansetron Hcl 4 Mg/2 Ml Vial) 4 mg IVPUSH Q8H PRN PRN Reason: Nausea and Vomiting Oxycodone HCl (Oxycodone Hcl Immed Release 5 Mg Tablet) 5 mg PO TID PRN PRN Reason: pain Pharmacy Consult (Consult Rx Perform Med Rec) 1 each MISCELLANE ONCE PRN PRN Reason: Consult order Polyethylene Glycol (Polyethylene Glycol 3350 17 Gm Powd.Pack) 17 gm PO DAILY [facility] Prednisone (Prednisone 5 Mg Tablet) 5 mg PO QAM [facility] Senna/Docusate Sodium (Sennosides/Docusate Sodium Tablet) 2 tab PO BEDTIME [facility] Sodium Chloride (0.9 % Sodium Chloride Flush 3 Ml Syringe) 3 ml IVFLUSH QSHIFT HALEY <Kira Alvarez NP - Last Filed: 09/25/21 17:15> Home medications: Home Medications Medication Instructions Recorded Confirmed Last Taken Type aspirin 81 mg tablet,delayed 81 mg PO DAILY 09/27/20 09/25/21 08/20/21 History release hydrochlorothiazide 25 mg tablet 25 mg PO DAILY 09/27/20 09/25/21 08/20/21 History lisinopril 40 mg tablet 40 mg PO DAILY 09/27/20 09/25/21 08/20/21 History omeprazole 20 mg capsule,delayed 20 mg PO DAILY 09/27/20 09/25/21 08/20/21 History release brimonidine 0.2 % eye drops 1 drp OPHTHALMIC (EYE) Q12H 03/29/21 09/25/21 08/20/21 History cyanocobalamin (vitamin B-12) 1,000 mcg IM Q30D 08/21/21 09/25/21 Unknown History 1,000 mcg/mL injection solution loratadine 10 mg tablet 1 tab PO DAILY 08/21/21 09/25/21 08/20/21 History prednisone 5 mg tablet 1 tab PO QAM 08/21/21 09/25/21 08/20/21 History <Kira Alvarez NP - Last Filed: 09/25/21 17:15> Physical Exam Vital Signs and Narrative: Vital Signs: Last Vital Signs Temp 98.9 F 09/25/21 13:31 Pulse 78 09/25/21 16:03 Resp 17 09/25/21 16:03 BP 111/61 09/25/21 16:03 Pulse Ox 97 09/25/21 16:03 Body Mass Index 20.7 <Kira Alvarez NP - Last Filed: 09/25/21 17:15> Appearing in no acute distress head is normocephalic atraumatic eyes pupils are PERRLA sclera is anicteric mouth throat mucous membranes are intact and moist neck is supple no lymphadenopathy, no JVD noted lung sounds are clear to auscultation heart regular rate rhythm, clear S1, S2 positive bowel sounds, abdomen is soft, diffusely tender neuro patient is alert x3, no focal deficits <Kira Alvarez PUBLIC SPEAKING TEACHER - Last Filed: 09/25/21 17:15> Results Labs CBC and Chem 7: : 09/28/21 06:17 09/28/21 06:17 <Kira Alvarez PUBLIC SPEAKING TEACHER - Last Filed: 09/25/21 17:15> Labs: Laboratory Results - last 24 hr 09/25/21 09/25/21 09/25/21 10:55 10:55 10:55 MCV 90.2 MCH 29.0 MCHC 32.2 RDW 14.5 Plt Count 400 MPV 9.9 Immature Gran % (Auto) 1.3 H Neut % (Auto) 89.7 H Lymph % (Auto) 2.0 L [place] % (Auto) 5.9 Eos % (Auto) 0.9 Baso % (Auto) 0.2 Lymph # (Auto) 0.3 L [place] # (Auto) 0.9 Eos # (Auto) 0.2 Baso # (Auto) 0.0 Abs Immat Gran (auto) 0.20 H Absolute Neuts (auto) 14.2 H Absolute Nucleated RBC 0.000 Nucleated RBC % (auto) 0.0 Anion Gap 14 Estim Creat Clear Calc 46.0 Estimated GFR > 60 Random Glucose 158 H Lactic Acid Lactic Acid Fup @ 2Hr Calcium 9.1 Total Bilirubin 3.3 H Direct Bilirubin 2.6 H AST 238 H ALT 147 H Alkaline Phosphatase 464 H Troponin I High Sens 5.7 B-Natriuretic Peptide 90 Total Protein 6.5 Albumin 3.2 L Lipase 28 Urine Color Urine Appearance Urine pH Ur Specific [place] Urine Protein Urine Glucose (UA) Urine Ketones Urine Blood Urine Nitrite Ur Leukocyte Esterase Urine RBC Urine WBC Ur Squamous Epith Cells Urine Bacteria Granular Casts Coronavirus (PCR) Influenza Type A (PCR) Influenza Type B (PCR) RSV RNA Qual (PCR) 09/25/21 09/25/21 09/25/21 11:07 11:07 12:34 MCV MCH MCHC RDW Plt Count MPV Immature Gran % (Auto) Neut % (Auto) Lymph % (Auto) [place] % (Auto) Eos % (Auto) Baso % (Auto) Lymph # (Auto) [place] # (Auto) Eos # (Auto) Baso # (Auto) Abs Immat Gran (auto) Absolute Neuts (auto) Absolute Nucleated RBC Nucleated RBC % (auto) Anion Gap Estim Creat Clear Calc Estimated GFR Random Glucose Lactic Acid 2.9 H* Lactic Acid Fup @ 2Hr Calcium Total Bilirubin Direct Bilirubin AST ALT Alkaline Phosphatase Troponin I High Sens B-Natriuretic Peptide Total Protein Albumin Lipase Urine Color DK YELLOW Urine Appearance CLEAR Urine pH 7.0 Ur Specific [place] 1.015 Urine Protein 1+ H Urine Glucose (UA) 100 H Urine Ketones NEG Urine Blood NEG Urine Nitrite NEG Ur Leukocyte Esterase NEG Urine RBC 0 Urine WBC 0-2 Ur Squamous Epith Cells 1+ Urine Bacteria NONE Granular Casts 0-2 Coronavirus (PCR) NEGATIVE Influenza Type A (PCR) NEGATIVE Influenza Type B (PCR) NEGATIVE RSV RNA Qual (PCR) NEGATIVE 09/25/21 13:38 MCV MCH MCHC RDW Plt Count MPV Immature Gran % (Auto) Neut % (Auto) Lymph % (Auto) [place] % (Auto) Eos % (Auto) Baso % (Auto) Lymph # (Auto) [place] # (Auto) Eos # (Auto) Baso # (Auto) Abs Immat Gran (auto) Absolute Neuts (auto) Absolute Nucleated RBC Nucleated RBC % (auto) Anion Gap Estim Creat Clear Calc Estimated GFR Random Glucose Lactic Acid Lactic Acid Fup @ 2Hr 1.9 Calcium Total Bilirubin Direct Bilirubin AST ALT Alkaline Phosphatase Troponin I High Sens B-Natriuretic Peptide Total Protein Albumin Lipase Urine Color Urine Appearance Urine pH Ur Specific [place] Urine Protein Urine Glucose (UA) Urine Ketones Urine Blood Urine Nitrite Ur Leukocyte Esterase Urine RBC Urine WBC Ur Squamous Epith Cells Urine Bacteria Granular Casts Coronavirus (PCR) Influenza Type A (PCR) Influenza Type B (PCR) RSV RNA Qual (PCR) <Kira Alvarez, PUBLIC SPEAKING TEACHER - Last Filed: 09/25/21 17:15> Imaging Radiologist's Impressions: Impressions Chest X-Ray 09/25/21 10:10 IMPRESSION: Subsegmental atelectasis at the right lung base. No evidence for acute disease in the chest. Abdomen Ultrasound 09/25/21 13:20 IMPRESSION: Gallstones. Contracted gallbladder and thickened edematous gallbladder wall new from August 2021 exam. Differential would include cholecystitis, gallbladder wall changes related to liver disease, low albumin and cholangitis. If there is clinical concern of acute cholecystitis, HIDA scan would be recommended. No biliary duct dilatation. Multiple liver cysts. Small amount of ascites. Stable hypoechoic mass in the body/tail the pancreas. Abdomen/Pelvis CT 09/25/21 13:20 IMPRESSION: Stable appearance to the mass in the pancreas extending to the stomach and involving the left adrenal gland and left retroperitoneal/renal hilum. Stable retroperitoneal and peripancreatic lymph nodes, and peritoneal nodules. New small amount of ascites adjacent to the liver, gallbladder and in the pelvis. Slight interval increase in left perinephric fat stranding. Contracted gallbladder and small gallstones. No biliary duct dilatation. Stable liver cysts. <Kira Alvarez NP - Last Filed: 09/25/21 17:15> Assessment and Plan (1) Pancreatic cancer metastasized to intra-abdominal lymph node: Status: Acute <Kira Alvarez NP - Last Filed: 09/25/21 17:15> (2) Cholecystitis: Status: Acute <Kira Alvarez NP - Last Filed: 09/25/21 17:15> (3) Hypotension: Status: Acute <Kira Alvarez NP - Last Filed: 09/25/21 17:15> (4) Leukocytosis (leucocytosis): Status: Acute <Kira Alvarez NP - Last Filed: 09/25/21 17:15> (5) Transaminitis: Status: Inactive <Kira Alvarez NP - Last Filed: 09/25/21 17:15> 76-year-old man admitted cholecystectomy with history pancreatic cancer. He was at his oncologist's office about to received his 1st chemotherapy treatment when he became hypotensive was sent to the ER for further evaluation. Cholecystitis. Acute. History of pancreatic cancer, likely not a good surgical candidate as per General surgery Will continue IV Zosyn Pain management General surgery to followed Oncology to follow for discussion of surgical candidacy Hypotension. Resolved. Received 30 mL/kg IV fluid bolus Will hold lisinopril and hydrochlorothiazide Leukocytosis. Likely secondary to cholecystitis, no sepsis noted Continue antibiotics Transaminitis. Likely secondary to cholecystitis, istory of liver disease Follow liver enzymes History of pancreatic cancer Today was his 1st day of chemotherapy Consult oncologist for discussion of surgical candidacy DVT prophylaxis with Lovenox Attending Dr. Hanley <Kira Alvarez NP - Last Filed: 09/25/21 17:15> 76-year-old man admitted cholecystectomy with history pancreatic cancer. He was at his oncologist's office about to received his 1st chemotherapy treatment when he became hypotensive was sent to the ER for further evaluation. Cholecystitis. Acute. History of pancreatic cancer, likely not a good surgical candidate as per General surgery Will continue IV Zosyn Pain management General surgery to followed Oncology to follow for discussion of surgical candidacy Hypotension. Resolved. Received 30 mL/kg IV fluid bolus Will hold lisinopril and hydrochlorothiazide Leukocytosis. Likely secondary to cholecystitis, no sepsis noted Continue antibiotics Transaminitis. Likely secondary to cholecystitis, istory of liver disease Follow liver enzymes History of pancreatic cancer Today was his 1st day of chemotherapy Consult oncologist for discussion of surgical candidacy DVT prophylaxis with [place] Attending Dr. Hanley ATTENDING ADDENDUM: I saw and evaluated the patient .? The case was discussed with midlevel provider . I personally reviewed the HPI, PH, FH, SH, ROS and medications. I repeated pertinent portions of the examination and reviewed the relevant imaging and laboratory data. I agree with the findings, assessment and plan as documented. Jewell hanley MD <Tonio Hanley MD - Last Filed: 09/29/21 16:59> Quality Stroke Does the patient have a stroke diagnosis?: No <Kira Alvarez NP - Last Filed: 09/25/21 17:15> VTE Prior VTE?: No <Kira Alvarez NP - Last Filed: 09/25/21 17:15> VTE Risk Level:: Medical - moderate - high <Kira Alvarez NP - Last Filed: 09/25/21 17:15> VTE Device Contraindication: Treatment Not Indicated <Kira Alvarez NP - Last Filed: 09/25/21 17:15> VTE Drug Contraindication: N/A - Med Ordered <Kira Alvarez NP - Last Filed: 09/25/21 17:15>
--- NOTE | 2021-09-25 18:43 | PC.NURSE ---
Pt alert and oriented x4, clam and cooperative. Pt ambulated independently without issues, noted to be steady on his feet with stand by assist. Pt denies pain at this time. Pt voided without issues this shift. Right chest port remains intact, flushes without issues and blood return noted. Pt tolerated IV abx well. Vitals remain stable. Pt aware of being admitted. Report given to Philip Velásquez.
[2021-09-25] MEDS: Heparin Sodium,Porcine 5,000 UNIT/ML VIAL 5000 UNIT SUBCUT (20:00)
[2021-09-25] MEDS: Sennosides/Docusate Sodium TABLET 2 TAB PO (20:00)
[2021-09-25] MEDS: Atorvastatin Calcium 40 MG TABLET PO (20:02)
[2021-09-25] MEDS: Brimonidine Tartrate 0.2% Oph 5 ML BOTTLE 1 DROP EYE-BOTH (21:40)
[2021-09-25] MEDS: 0.9 % Sodium Chloride Flush 3 ML SYRINGE IVFLUSH (21:41)
[2021-09-26 03:45] VITALS: BP 138/76; PULSE 70; RESP 18; TEMP 36.8; O2SAT 96
[2021-09-26] MEDS: Piperacillin Sodium/Tazobactam 3.375 GM in 0.9 % Sodium Chloride 50 ML IV ×4 (04:30→21:42)
[2021-09-26] MEDS: Heparin Sodium,Porcine 5,000 UNIT/ML VIAL 5000 UNIT SUBCUT ×2 (06:03→17:41)
[2021-09-26] MEDS: Omeprazole 20 MG CAPSULE.DR PO (06:03)
[2021-09-26 06:36] LABS: MANUAL DIFF FLAG NO
[2021-09-26 06:42] LABS: Basophils Percent Auto 0.2 % (0-2); Eosinophils Absolute Auto 0.7 X10*3/uL (0.0-0.4); Eosinophils Percent Auto 7.8 % (0-4); Hemoglobin 10.5 g/dl (14.0-18.0); Imm Gran Abs Auto 0.06 X10*3/uL (0.00-0.03); Imm Gran Pct Auto 0.7 % (0.0-0.4); Lymphocytes Absolute Auto 0.6 X10*3/uL (1.2-4.9); Mean Corpuscular HGB Conc 32.8 g/dl (31.0-36.0); Mean Corpuscular Hemoglobin 28.8 pg (27.0-33.0); Mean Corpuscular Volume 87.9 fL (80-98); Mean Platelet Volume 10.3 fL (9.4-12.4); Monocytes Absolute Auto 0.6 X10*3/uL (0.1-1.2); Monocytes Percent Auto 6.8 % (2-11); Neutrophils Absolute Auto 7.1 X10*3/uL (2.0-8.3); Neutrophils Percent Auto 77.5 % (45-73); Platelet Count 342 X10*3/uL (160-400); Red Blood Count 3.64 X10*6/uL (4.60-5.80); Red Cell Distribution Width 14.8 % (11.0-16.0); White Blood Count 9.2 X10*3/uL (4.8-10.8)
[2021-09-26 07:05] LABS: Blood Urea Nitrogen 22 mg/dL (9-16); Estimated Glomerular Filt Rate > 60; Glucose Random 107 mg/dL (60-115)
[2021-09-26 07:16] LABS: Anion Gap 12 (12-20); Calcium 8.4 mg/dL (8.4-10.2); Carbon Dioxide 28 mmol/L (22-29); Chloride 105 mmol/L (96-108); Sodium 140 mmol/L (135-145)
[2021-09-26 07:27] VITALS: BP 151/72; PULSE 90; RESP 16; TEMP 37.6; O2SAT 97
[2021-09-26] MEDS: predniSONE 5 MG TABLET PO (07:30)
[2021-09-26] MEDS: Aspirin Enteric Coated 81 MG TABLET.DR PO (07:30)
[2021-09-26] MEDS: 0.9 % Sodium Chloride Flush 3 ML SYRINGE IVFLUSH ×2 (07:30→15:26)
[2021-09-26] MEDS: oxyCODONE HCl Immed Release 5 MG TABLET PO ×2 (07:30→12:10)
[2021-09-26] MEDS: Brimonidine Tartrate 0.2% Oph 5 ML BOTTLE 1 DROP EYE-BOTH ×2 (07:30→21:42)
[2021-09-26] MEDS: Loratadine 10 MG TABLET PO (07:30)
[2021-09-26] MEDS: polyethylene glycoL 3350 17 GM POWD.PACK PO (07:30)
--- NOTE | 2021-09-26 08:45 | PM.IMPN ---
Progress Note: A&P (1) Hypotension: Status: Acute <Kira Alvarez NP - Last Filed: 09/26/21 14:39> (2) Transaminitis: Status: Acute <Kira Alvarez NP - Last Filed: 09/26/21 14:39> (3) Pancreatic mass: Status: Acute <Kira Alvarez NP - Last Filed: 09/26/21 14:39> (4) Cholecystitis: Status: Acute <Kira Alvarez NP - Last Filed: 09/26/21 14:39> Assessment and Plan: 76-year-old man admitted cholecystectomy with history pancreatic cancer.? He was at his oncologist's office about to received his 1st chemotherapy treatment when he became hypotensive was sent to the ER for further evaluation. Cholecystitis.? Acute. History of pancreatic cancer, likely not a good surgical candidate as per General surgery Will continue IV Zosyn Pain management General surgery to followed Discussed case with his oncologist, patient not a good surgical candidate Will obtain HIDA scan and continue conservative measures for now Hypotension.? Resolved. Received 30 mL/kg IV fluid bolus Will hold lisinopril and hydrochlorothiazide Leukocytosis.? Likely secondary to cholecystitis, no sepsis noted Continue antibiotics Transaminitis.? Likely secondary to cholecystitis, history of liver disease trending up HIDA scan Follow liver enzymes History of pancreatic cancer Today was his 1st day of chemotherapy Consult oncologist for discussion of surgical candidacy DVT prophylaxis with heparin Attending Dr. Rahman <Kira Alvarez NP - Last Filed: 09/26/21 14:39> 76-year-old man admitted cholecystectomy with history pancreatic cancer.? He was at his oncologist's office about to received his 1st chemotherapy treatment when he became hypotensive was sent to the ER for further evaluation. Cholecystitis.? Acute. History of pancreatic cancer, likely not a good surgical candidate as per General surgery Will continue IV Zosyn Pain management General surgery to followed Discussed case with his oncologist, patient not a good surgical candidate Will obtain HIDA scan and continue conservative measures for now Hypotension.? Resolved. Received 30 mL/kg IV fluid bolus Will hold lisinopril and hydrochlorothiazide Leukocytosis.? Likely secondary to cholecystitis, no sepsis noted Continue antibiotics Transaminitis.? Likely secondary to cholecystitis, history of liver disease trending up HIDA scan Follow liver enzymes History of pancreatic cancer Today was his 1st day of chemotherapy Consult oncologist for discussion of surgical candidacy DVT prophylaxis with heparin Attending Dr. Rahman Attending Attestation: DOS: 09/26/21 Patient seen and examined. Case discussed with the mid-level provider. Agree with the assessment and plan as documented above. <Kevin Rahman MD - Last Filed: 09/27/21 16:12> Subjective Subjective Date of Service: 09/26/21 <Kira Alvarez NP - Last Filed: 09/26/21 14:39> 09/27/21 <Kevin Rahman MD - Last Filed: 09/27/21 16:12> Review of Systems Follow up Cholecystitis no abdominal pain no nausea or vomiting <Kira Alvarez NP - Last Filed: 09/26/21 14:39> Physical Exam Vital Signs: Vital Signs: Last Vital Signs Temp 99.6 F 09/26/21 07:27 Pulse 90 09/26/21 07:27 Resp 16 09/26/21 07:27 BP 151/72 H 09/26/21 07:27 Pulse Ox 97 09/26/21 07:27 Body Mass Index 20.7 <Kira Alvarez NP - Last Filed: 09/26/21 14:39> Appearing in no acute distress lung sounds are clear to auscultation heart regular rate rhythm, clear S1, S2 positive bowel sounds, abdomen is soft, nontender neuro patient is alert x3, no focal deficits <Kira Alvarez NP - Last Filed: 09/26/21 14:39> Objective Data Current Medications Acetaminophen (Acetaminophen 325 Mg Tablet) 650 mg PO Q6H PRN PRN Reason: Pain, Mild (Pain Scale 1-3) Aspirin (Aspirin Enteric Coated 81 Mg Tablet.) 81 mg PO DAILY [facility] Last Admin: 09/26/21 07:30 Dose: 81 mg Documented by: Atorvastatin Calcium (Atorvastatin Calcium 40 Mg Tablet) 40 mg PO BEDTIME [facility] Last Admin: 09/25/21 20:02 Dose: 40 mg Documented by: Brimonidine Tartrate (Brimonidine Tartrate 0.2% Oph 5 Ml Bottle) 1 drop EYE-BOTH BID [facility] Last Admin: 09/26/21 07:30 Dose: 1 drop Documented by: Cyanocobalamin (Cyanocobalamin (Vitamin B-12) 1,000 Mcg/Ml Vial) 1,000 mcg IM Q30D [facility] Heparin Sodium (Porcine) (Heparin Sodium,Porcine 5,000 Unit/Ml Vial) 5,000 unit SUBCUT Q12H [facility] Last Admin: 09/26/21 06:03 Dose: 5,000 unit Documented by: Piperacillin Sod/Tazobactam (Sod 3.375 gm/ Sodium Chloride) 50 mls @ 100 mls/hr IV Q6H [facility] Last Infusion: 09/26/21 05:33 Dose: Infused Documented by: Loratadine (Loratadine 10 Mg Tablet) 10 mg PO DAILY [facility] Last Admin: 09/26/21 07:30 Dose: 10 mg Documented by: Morphine Sulfate (Morphine Sulfate 2 Mg/Ml Cartridge) 2 mg IVPUSH Q4H PRN; Protocol PRN Reason: Pain, Mild (Pain Scale 1-3) Omeprazole (Omeprazole 20 Mg Capsule.Dr) 20 mg PO DAILY@0630 [facility] Last Admin: 09/26/21 06:03 Dose: 20 mg Documented by: Ondansetron HCl (Ondansetron Hcl 4 Mg/2 Ml Vial) 4 mg IVPUSH Q8H PRN PRN Reason: Nausea and Vomiting Oxycodone HCl (Oxycodone Hcl Immed Release 5 Mg Tablet) 5 mg PO TID PRN PRN Reason: pain Last Admin: 09/26/21 07:30 Dose: 5 mg Documented by: Pharmacy Consult (Consult Rx Perform Med Rec) 1 each MISCELLANE ONCE PRN PRN Reason: Consult order Polyethylene Glycol (Polyethylene Glycol 3350 17 Gm Powd.Pack) 17 gm PO DAILY [facility] Last Admin: 09/26/21 07:30 Dose: 17 gm Documented by: Prednisone (Prednisone 5 Mg Tablet) 5 mg PO DAILY [facility] Last Admin: 09/26/21 07:30 Dose: 5 mg Documented by: Senna/Docusate Sodium (Sennosides/Docusate Sodium Tablet) 2 tab PO BEDTIME [facility] Last Admin: 09/25/21 20:00 Dose: 2 tab Documented by: Sodium Chloride (0.9 % Sodium Chloride Flush 3 Ml Syringe) 3 ml IVFLUSH QSHIFT [facility] Last Admin: 09/26/21 07:30 Dose: 3 ml Documented by: <Kira Alvarez NP - Last Filed: 09/26/21 14:39> Labs CBC & Chem 7: : 09/26/21 05:50 09/27/21 05:42 <Kira Alvarez NP - Last Filed: 09/26/21 14:39> Labs: Laboratory Results - last 24 hr 09/25/21 09/25/21 09/25/21 10:55 10:55 10:55 MCV 90.2 MCH 29.0 MCHC 32.2 RDW 14.5 Plt Count 400 MPV 9.9 Immature Gran % (Auto) 1.3 H Neut % (Auto) 89.7 H Lymph % (Auto) 2.0 L Shelby % (Auto) 5.9 Eos % (Auto) 0.9 Baso % (Auto) 0.2 Lymph # (Auto) 0.3 L [place] # (Auto) 0.9 Eos # (Auto) 0.2 Baso # (Auto) 0.0 Abs Immat Gran (auto) 0.20 H Absolute Neuts (auto) 14.2 H Absolute Nucleated RBC 0.000 Nucleated RBC % (auto) 0.0 Anion Gap 14 Estim Creat Clear Calc 46.0 Estimated GFR > 60 Random Glucose 158 H Lactic Acid Lactic Acid Fup @ 2Hr Calcium 9.1 Total Bilirubin 3.3 H Direct Bilirubin 2.6 H AST 238 H ALT 147 H Alkaline Phosphatase 464 H Troponin I High Sens 5.7 B-Natriuretic Peptide 90 Total Protein 6.5 Albumin 3.2 L Lipase 28 Urine Color Urine Appearance Urine pH Ur Specific [place] Urine Protein Urine Glucose (UA) Urine Ketones Urine Blood Urine Nitrite Ur Leukocyte Esterase Urine RBC Urine WBC Ur Squamous Epith Cells Urine Bacteria Granular Casts Coronavirus (PCR) Influenza Type A (PCR) Influenza Type B (PCR) RSV RNA Qual (PCR) 09/25/21 09/25/21 09/25/21 11:07 11:07 12:34 MCV MCH MCHC RDW Plt Count MPV Immature Gran % (Auto) Neut % (Auto) Lymph % (Auto) [place] % (Auto) Eos % (Auto) Baso % (Auto) Lymph # (Auto) [place] # (Auto) Eos # (Auto) Baso # (Auto) Abs Immat Gran (auto) Absolute Neuts (auto) Absolute Nucleated RBC Nucleated RBC % (auto) Anion Gap Estim Creat Clear Calc Estimated GFR Random Glucose Lactic Acid 2.9 H* Lactic Acid Fup @ 2Hr Calcium Total Bilirubin Direct Bilirubin AST ALT Alkaline Phosphatase Troponin I High Sens B-Natriuretic Peptide Total Protein Albumin Lipase Urine Color DK YELLOW Urine Appearance CLEAR Urine pH 7.0 Ur Specific [place] 1.015 Urine Protein 1+ H Urine Glucose (UA) 100 H Urine Ketones NEG Urine Blood NEG Urine Nitrite NEG Ur Leukocyte Esterase NEG Urine RBC 0 Urine WBC 0-2 Ur Squamous Epith Cells 1+ Urine Bacteria NONE Granular Casts 0-2 Coronavirus (PCR) NEGATIVE Influenza Type A (PCR) NEGATIVE Influenza Type B (PCR) NEGATIVE RSV RNA Qual (PCR) NEGATIVE 09/25/21 09/26/21 09/26/21 13:38 05:50 05:50 MCV 87.9 MCH 28.8 MCHC 32.8 RDW 14.8 Plt Count 342 MPV 10.3 Immature Gran % (Auto) 0.7 H Neut % (Auto) 77.5 H Lymph % (Auto) 7.0 L [place] % (Auto) 6.8 Eos % (Auto) 7.8 H Baso % (Auto) 0.2 Lymph # (Auto) 0.6 L [place] # (Auto) 0.6 Eos # (Auto) 0.7 H Baso # (Auto) 0.0 Abs Immat Gran (auto) 0.06 H Absolute Neuts (auto) 7.1 Absolute Nucleated RBC 0.000 Nucleated RBC % (auto) 0.0 Anion Gap 12 Estim Creat Clear Calc 46.0 Estimated GFR > 60 Random Glucose 107 Lactic Acid Lactic Acid Fup @ 2Hr 1.9 Calcium 8.4 D Total Bilirubin Direct Bilirubin AST ALT Alkaline Phosphatase Troponin I High Sens B-Natriuretic Peptide Total Protein Albumin Lipase Urine Color Urine Appearance Urine pH Ur Specific [place] Urine Protein Urine Glucose (UA) Urine Ketones Urine Blood Urine Nitrite Ur Leukocyte Esterase Urine RBC Urine WBC Ur Squamous Epith Cells Urine Bacteria Granular Casts Coronavirus (PCR) Influenza Type A (PCR) Influenza Type B (PCR) RSV RNA Qual (PCR) <Kira Alvarez NP - Last Filed: 09/26/21 14:39> Quality Stroke Does the patient have a stroke diagnosis?: No <Kira Alvarez NP - Last Filed: 09/26/21 14:39> VTE Prior VTE?: No <Kira Alvarez NP - Last Filed: 09/26/21 14:39> VTE Risk Level:: Medical - moderate - high <Kira Alvarez NP - Last Filed: 09/26/21 14:39> VTE Device Contraindication: Treatment Not Indicated <Kira Alvarez NP - Last Filed: 09/26/21 14:39> VTE Drug Contraindication: N/A - Med Ordered <Kira Alvarez NP - Last Filed: 09/26/21 14:39>
[2021-09-26 09:25] LABS: Alanine Aminotransferase 142 U/L (0-40); Albumin Level 2.8 g/dL (3.5-5.0); Alkaline Phosphatase 372 U/L (39-117); Aspartate Amino Transferase 187 U/L (5-37); Bilirubin Direct 5.5 mg/dL (0.0-0.5); Bilirubin Total 6.6 mg/dL (0.0-1.0); Total Protein 5.9 g/dL (6.5-8.0)
--- NOTE | 2021-09-26 10:30 | P.CONGS_ITS ---
History of Present Illness Consult details Consult date: 09/26/21 Reason for consult: abdominal pain Narrative: 76-year-old male patient with a known history of metastatic pancreatic cancer, stage IV disease presenting from the medical oncology office yesterday with Low blood pressure. He was due to start chemotherapy but this was postponed he was subsequently sent to the emergency department for further evaluation. During his ED evaluation he was found to be tender in the abdomen in his blood pressure was hypotensive. Evaluation with CT of the abdomen and ultrasound indicated a thickened gallbladder wall with gallstones. The gallbladder was contracted however the appearance was felt to be possibly suggestive of acute cholecystitis. The patient has intraperitoneal masses, biopsy-proven metastatic pancreatic cancer. There is also a suspicion of ca rcinomatosis along the peritoneal surfaces. Review of Systems Review of Systems: Yes all other systems are reviewed and are negative Constitutional: Constitutional: Reports body ache(s), Reports poor appetite and Reports weight loss Cardiovascular: Cardiovascular: Reports Epigastric Pain, Denies irregular heart rhythm and Denies palpitations Respiratory: Respiratory: Denies chest congestion and Denies cough Gastrointestinal: Gastrointestinal: Reports as per HPI Genitourinary: Genitourinary: Reports no additional male genitourinary complaints Psychiatric: Psychiatric: Reports no additional psychiatric complaints Endocrine: Endocrine: Reports no additional endocrine complaints and Denies palpitations PMFSH Past Medical History Medical History Family history of GERD Fibromuscular dysplasia High blood sugar History of pernicious anemia History of vitamin D deficiency Hx of essential hypertension Hx of polymyalgia rheumatica Hypertension Polymyalgia rheumatica Vertebral artery stenosis Family History Family History Father HTN (hypertension) Mother HTN (hypertension) Myocardial infarction Surgical History Surgical History No history of previous surgery Social History Social History Household Members: Spouse Housing: House Do you presently have visiting nurse or other home services: Yes (lead [employer] services) Alcohol intake: never Patient Tobacco Use Status: Former Tobacco user Quit Date: 1983 Tobacco use type: Cigarette Cigarette Packs Per Day: 3 Years Smoked: 30 Second Hand Smoke Exposure: No Use of substances other than those prescribed or required for medical reasons: No Currently Displaying Signs/Symptoms of Drug Intoxication Withdrawal: No Have you been hit, kicked, punched, or otherwise hurt by someone within the past year? If so, by whom?: No Do you feel safe in your current relationship?: No Is there a partner from a previous relationship who is making you feel unsafe now?: No Are you made to feel afraid or neglected: No Advance Directives: Yes Advance Directives Information Provided: Yes Advance Directives on File: No Advance Directives Date on File: 09/25/21 Do you have thoughts of harming others: None Do you have a plan to hurt others: No Plan Recently lost weight without trying: Yes How much weight loss: 14-23 pounds Eating poorly because of decreased appetite: No Nutrition screen score: 4 Nutrition Risks: Poor intake 0-25% >4 days Poor oral hygiene: No service: No Current occupational status: retired [employer] Allergies Allergy/AdvReac Type Severity Reaction Status Date / Time No Known Allergies Allergy Verified 09/20/21 13:18 [No Known Allergies*] Active Medications: Current Medications Acetaminophen (Acetaminophen 325 Mg Tablet) 650 mg PO Q6H PRN PRN Reason: Pain, Mild (Pain Scale 1-3) Aspirin (Aspirin Enteric Coated 81 Mg Tablet.) 81 mg PO DAILY [facility] Last Admin: 09/26/21 07:30 Dose: 81 mg Documented by: Atorvastatin Calcium (Atorvastatin Calcium 40 Mg Tablet) 40 mg PO BEDTIME [facility] Last Admin: 09/25/21 20:02 Dose: 40 mg Documented by: Brimonidine Tartrate (Brimonidine Tartrate 0.2% Oph 5 Ml Bottle) 1 drop EYE- BOTH BID [facility] Last Admin: 09/26/21 07:30 Dose: 1 drop Documented by: Cyanocobalamin (Cyanocobalamin (Vitamin B-12) 1,000 Mcg/Ml Vial) 1,000 mcg IM Q30D [facility] Heparin Sodium (Porcine) (Heparin Sodium,Porcine 5,000 Unit/Ml Vial) 5,000 unit SUBCUT Q12H [facility] Last Admin: 09/26/21 06:03 Dose: 5,000 unit Documented by: Piperacillin Sod/Tazobactam (Sod 3.375 gm/ Sodium Chloride) 50 mls @ 100 mls/hr IV Q6H [facility] Last Infusion: 09/26/21 05:33 Dose: Infused Documented by: Loratadine (Loratadine 10 Mg Tablet) 10 mg PO DAILY [facility] Last Admin: 09/26/21 07:30 Dose: 10 mg Documented by: Morphine Sulfate (Morphine Sulfate 2 Mg/Ml Cartridge) 2 mg IVPUSH Q4H PRN; Protocol PRN Reason: Pain, Mild (Pain Scale 1-3) Omeprazole (Omeprazole 20 Mg Capsule.Dr) 20 mg PO DAILY@0630 [facility] Last Admin: 09/26/21 06:03 Dose: 20 mg Documented by: Ondansetron HCl (Ondansetron Hcl 4 Mg/2 Ml Vial) 4 mg IVPUSH Q8H PRN PRN Reason: Nausea and Vomiting Oxycodone HCl (Oxycodone Hcl Immed Release 5 Mg Tablet) 5 mg PO TID PRN PRN Reason: pain Last Admin: 09/26/21 07:30 Dose: 5 mg Documented by: Pharmacy Consult (Consult Rx Perform Med Rec) 1 each MISCELLANE ONCE PRN PRN Reason: Consult order Polyethylene Glycol (Polyethylene Glycol 3350 17 Gm Powd.Pack) 17 gm PO DAILY [facility] Last Admin: 09/26/21 07:30 Dose: 17 gm Documented by: Prednisone (Prednisone 5 Mg Tablet) 5 mg PO DAILY [facility] Last Admin: 09/26/21 07:30 Dose: 5 mg Documented by: Senna/Docusate Sodium (Sennosides/Docusate Sodium Tablet) 2 tab PO BEDTIME [facility] Last Admin: 09/25/21 20:00 Dose: 2 tab Documented by: Sodium Chloride (0.9 % Sodium Chloride Flush 3 Ml Syringe) 3 ml IVFLUSH QSHIFT [facility] Last Admin: 09/26/21 07:30 Dose: 3 ml Documented by: Home Medications Medication Instructions Recorded Confirmed Last Taken Type aspirin 81 mg tablet,delayed 81 mg PO DAILY 09/27/20 09/25/21 08/20/21 History release hydrochlorothiazide 25 mg tablet 25 mg PO DAILY 09/27/20 09/25/21 08/20/21 History lisinopril 40 mg tablet 40 mg PO DAILY 09/27/20 09/25/21 08/20/21 History omeprazole 20 mg capsule,delayed 20 mg PO DAILY 09/27/20 09/25/21 08/20/21 History release brimonidine 0.2 % eye drops 1 drp OPHTHALMIC (EYE) Q12H 03/29/21 09/25/21 08/20/21 History cyanocobalamin (vitamin B-12) 1,000 mcg IM Q30D 08/21/21 09/25/21 Unknown History 1,000 mcg/mL injection solution loratadine 10 mg tablet 1 tab PO DAILY 08/21/21 09/25/21 08/20/21 History prednisone 5 mg tablet 1 tab PO QAM 08/21/21 09/25/21 08/20/21 History Physical Exam Vital Signs: Vital Signs: Last Vital Signs Temp 99.6 F 09/26/21 07:27 Pulse 90 09/26/21 07:27 Resp 16 09/26/21 07:27 BP 151/72 H 09/26/21 07:27 Pulse Ox 97 09/26/21 07:27 Body Mass Index 20.7 Const: General: ill appearing Nutritional Appearance: malnourished Orientation/consciousness: patient oriented x3 Eyes: Sclerae: scleral abnormal (icteric) EOM: EOMs intact bilaterally Resp: Effort & Inspection: normal respiratory effort, no cough and no respiratory distress GI: Palpation (GI): Tenderness to palpation present (GI) in the RUQ, no guarding and not rigid Skin: General skin exam: no rashes or lesions noted Trauma: no lacerations or abrasions Neuro: General: patient oriented x3 Extrem: General: Yes no clubbing, cyanosis or edema Results Labs Result diagrams: 09/26/21 05:50 09/26/21 05:50 Labs: Abnormal lab results 09/25/21 09/25/21 09/25/21 Range/Units 10:55 10:55 11:07 WBC 15.8 H (4.8-10.8) X10*3/uL RBC 3.79 L (4.60-5.80) X10*6/uL Hgb 11.0 L (14.0-18.0) g/dl Hct 34.2 L (42-52) % Immature Gran % (Auto) 1.3 H (0.0-0.4) % Neut % (Auto) 89.7 H (45-73) % Lymph % (Auto) 2.0 L (20-40) % Eos % (Auto) (0-4) % Lymph # (Auto) 0.3 L (1.2-4.9) X10*3/uL Eos # (Auto) (0.0-0.4) X10*3/uL Abs Immat Gran (auto) 0.20 H (0.00-0.03) X10*3/uL Absolute Neuts (auto) 14.2 H (2.0-8.3) X10*3/uL BUN 22 H (9-16) mg/dL Random Glucose 158 H (60-115) mg/dL Lactic Acid 2.9 H* (0.5-2.0) mmol/L Total Bilirubin 3.3 H (0.0-1.0) mg/dL Direct Bilirubin 2.6 H (0.0-0.5) mg/dL AST 238 H (5-37) U/L ALT 147 H (0-40) U/L Alkaline Phosphatase 464 H (39-117) U/L Total Protein (6.5-8.0) g/dL Albumin 3.2 L (3.5-5.0) g/dL Urine Protein (NEG-TRACE) MG/DL Urine Glucose (UA) (NEG) MG/DL 09/25/21 09/26/21 09/26/21 Range/Units 12:34 05:50 05:50 WBC (4.8-10.8) X10*3/uL RBC 3.64 L (4.60-5.80) X10*6/uL Hgb 10.5 L (14.0-18.0) g/dl Hct 32.0 L (42-52) % Immature Gran % (Auto) 0.7 H (0.0-0.4) % Neut % (Auto) 77.5 H (45-73) % Lymph % (Auto) 7.0 L (20-40) % Eos % (Auto) 7.8 H (0-4) % Lymph # (Auto) 0.6 L (1.2-4.9) X10*3/uL Eos # (Auto) 0.7 H (0.0-0.4) X10*3/uL Abs Immat Gran (auto) 0.06 H (0.00-0.03) X10*3/uL Absolute Neuts (auto) (2.0-8.3) X10*3/uL BUN 22 H (9-16) mg/dL Random Glucose (60-115) mg/dL Lactic Acid (0.5-2.0) mmol/L Total Bilirubin 6.6 H (0.0-1.0) mg/dL Direct Bilirubin 5.5 H (0.0-0.5) mg/dL AST 187 H (5-37) U/L ALT 142 H (0-40) U/L Alkaline Phosphatase 372 H (39-117) U/L Total Protein 5.9 L (6.5-8.0) g/dL Albumin 2.8 L (3.5-5.0) g/dL Urine Protein 1+ H (NEG-TRACE) MG/DL Urine Glucose (UA) 100 H (NEG) MG/DL Short CBC 09/25/21 09/26/21 Range/Units 10:55 05:50 WBC 15.8 H 9.2 (4.8-10.8) X10*3/uL Hgb 11.0 L 10.5 L (14.0-18.0) g/dl Hct 34.2 L 32.0 L (42-52) % Plt Count 400 342 (160-400) X10*3/uL BMP 09/25/21 09/26/21 10:55 05:50 Sodium 138 140 Potassium 3.9 5.0 D Chloride 102 105 Carbon Dioxide 26 28 BUN 22 H 22 H Creatinine 1.16 1.16 Calcium 9.1 8.4 D Liver Function 09/25/21 09/26/21 Range/Units 10:55 05:50 Total Bilirubin 3.3 H 6.6 H (0.0-1.0) mg/dL Direct Bilirubin 2.6 H 5.5 H (0.0-0.5) mg/dL AST 238 H 187 H (5-37) U/L ALT 147 H 142 H (0-40) U/L Alkaline Phosphatase 464 H 372 H (39-117) U/L Albumin 3.2 L 2.8 L (3.5-5.0) g/dL Urine 09/25/21 Range/Units 12:34 Urine Color DK YELLOW Urine Appearance CLEAR Urine pH 7.0 (5.0-8.0) Ur Specific [place] 1.015 (1.005-1.025) Urine Protein 1+ H (NEG-TRACE) MG/DL Urine Glucose (UA) 100 H (NEG) MG/DL All other labs normal. Assessment and Plan (1) Leukocytosis (leucocytosis): Status: Acute (2) Hypotension: Status: Acute (3) Pancreatic cancer metastasized to intra-abdominal lymph node: Status: Acute (4) Cholecystitis: Status: Acute Patient with metastatic pancreatic cancer with an overall poor prognosis. Patient has evidence of extrapancreatic metastatic disease and probable carcinomatosis. The patient's gallbladder is thickened but contracted with gallstones within the gallbladder. Findings may be consistent with acute cholecystitis or carcinomatosis. Suggest further evaluation with a HIDA scan. If the gallbladder is nonvisualized, suggest IR cholecystostomy tube for palliation. Patient is not a optimal surgical candidate due to his metastatic disease. Procedures Date of Service Date of Service: 09/26/21
[2021-09-26 10:59] VITALS: BP 127/78; PULSE 86; RESP 17; TEMP 36.5; O2SAT 97
--- NOTE | 2021-09-26 11:01 | MHC.CM.PN ---
pt lives c his in their home. she cares for him in his current state and will provide transportation home at me. he amubulates c a walker as needed. pt denies the need for vna at dc but will be cont. o/p chemo. dc plan is home no svcs. cm to cont. to follow.
--- NOTE | 2021-09-26 12:28 | P.CNHO_ITS ---
Subjective - Subjective Chief complaint: Fever/chills Patient: known to practice within the last 3 years Consult date: 09/26/21 Primary Care Provider: Alma Delia Altamirano MD Medical Summary: Diagnosis: Metastatic pancreatic cancer, August 2021 Presented with abdominal pain/distension and weight loss. CT abdomen/pelvis in August 2021 revealed extensive intra-abdominal disease with mass in the body and tail of pancreas involving left adrenal gland, left retroperitoneum, left renal hilum, left renal artery, left renal vein and splenic vein. Splenic vein appears occluded. Mass abuts greater curvature of stomach. There is retroperitoneal lymphadenopathy, left upper anterior abdominal mass measuring 3 x 6 cm. Multiple smaller peritoneal masses. There is focal thickening of antrum of the stomach worrisome for neoplasm. He underwent CT-guided left upper quadrant peritoneal mass biopsy on 08/23/2021. Pathology revealed moderately differentiated adenocarcinoma consistent with pancreatic primary. HPI - Consult Narrative Reason for consult: Metastatic pancreatic cancer Narrative: Rowdy Romero is a 76 year old male who is known to oncology service because of recent diagnosis of metastatic pancreatic cancer. He came in yesterday to start 1st cycle of palliative chemotherapy when he was noted to be febrile and hypotensive. Family stated that he was experiencing these symptoms for about 2 days. He was not eating much. He did not have nausea or emesis. No severe abdominal pain. He was getting very weak and was bed-bound. Evaluation in oncology Office revealed his systolic blood pressure to be in the 50s, fever of about 100 degrees F. He was therefore referred to the emergency department. Patient is resting comfortably in bed and denies any abdominal pain at this time. Review of Systems - Constitutional Reports as per HPI, Reports no additional constitutional complaints - Cardiovascular Reports no additional cardiovascular complaints - Respiratory Reports no additional respiratory complaints Oncology Screenings - ECOG Performance Status ECOG Performance Status: 3 [facility] Medical History: Medical History (Last Reviewed 09/26/21 @ 10:35 by Devin Coe MD) Family history of GERD Fibromuscular dysplasia High blood sugar History of pernicious anemia History of vitamin D deficiency Hx of essential hypertension Hx of polymyalgia rheumatica Hypertension Polymyalgia rheumatica Vertebral artery stenosis Family History: Family History (Last Reviewed 09/26/21 @ 10:35 by Devin Coe MD) Father HTN (hypertension) Mother HTN (hypertension) Myocardial infarction Surgical History: Surgical History (Last Reviewed 09/26/21 @ 10:35 by Devin Coe MD) No history of previous surgery Social History: Social History (Last Reviewed 09/26/21 @ 10:35 by Devin Coe MD) Living Situation History: Household Members: Spouse Housing: House Do you presently have visiting nurse or other home services: Yes Do you presently have visiting nurse or other home services comment: [employer] Alcohol History: Alcohol intake: never Alcohol History Details: Alcohol intake frequency: does not drink Tobacco History: Patient Tobacco Use Status: Former Tobacco user Tobacco use type: Cigarette Cigarette Packs Per Day: 3 Years Smoked: 30 Smoke Quit Date: 1983 Second Hand Smoke Exposure: No Substance Use History: Use of substances other than those prescribed or required for medical reasons : No Currently Displaying Signs/Symptoms of Drug Intoxication Withdrawal: No Domestic Abuse History: Have you been hit, kicked, punched, or otherwise hurt by someone within the past year? If so, by whom?: No Do you feel safe in your current relationship?: No Is there a partner from a previous relationship who is making you feel unsafe now?: No Are you made to feel afraid or neglected: No Advance Directives: Advance Directives: Yes Advance Directives Information Provided: Yes Advance Directives on File: No Advance Directives Date on File: 09/25/21 Homicidal Assessment: Do you have thoughts of harming others: None Do you have a plan to hurt others: No Plan Nutrition Assessment: Recently lost weight without trying: Yes How much weight loss: 14-23 pounds Eating poorly because of decreased appetite: No Nutrition screen score: 4 Nutrition Risks: Poor intake 0-25% >4 days Poor oral hygiene: No Occupation Assessmet: service: No Current occupational status: retired Home Medications and Allergies Current Medications: Current Medications Acetaminophen (Acetaminophen 325 Mg Tablet) 650 mg PO Q6H PRN PRN Reason: Pain, Mild (Pain Scale 1-3) Aspirin (Aspirin Enteric Coated 81 Mg Tablet.) 81 mg PO DAILY [facility] Last Admin: 09/26/21 07:30 Dose: 81 mg Documented by: Atorvastatin Calcium (Atorvastatin Calcium 40 Mg Tablet) 40 mg PO BEDTIME [facility] Last Admin: 09/25/21 20:02 Dose: 40 mg Documented by: Brimonidine Tartrate (Brimonidine Tartrate 0.2% Oph 5 Ml Bottle) 1 drop EYE- BOTH BID [facility] Last Admin: 09/26/21 07:30 Dose: 1 drop Documented by: Cyanocobalamin (Cyanocobalamin (Vitamin B-12) 1,000 Mcg/Ml Vial) 1,000 mcg IM Q30D [facility] Heparin Sodium (Porcine) (Heparin Sodium,Porcine 5,000 Unit/Ml Vial) 5,000 unit SUBCUT Q12H [facility] Last Admin: 09/26/21 06:03 Dose: 5,000 unit Documented by: Piperacillin Sod/Tazobactam (Sod 3.375 gm/ Sodium Chloride) 50 mls @ 100 mls/hr IV Q6H [facility] Last Infusion: 09/26/21 12:12 Dose: Infused Documented by: Loratadine (Loratadine 10 Mg Tablet) 10 mg PO DAILY [facility] Last Admin: 09/26/21 07:30 Dose: 10 mg Documented by: Morphine Sulfate (Morphine Sulfate 2 Mg/Ml Cartridge) 2 mg IVPUSH Q4H PRN; Protocol PRN Reason: Pain, Mild (Pain Scale 1-3) Omeprazole (Omeprazole 20 Mg Capsule.Dr) 20 mg PO DAILY@0630 [facility] Last Admin: 09/26/21 06:03 Dose: 20 mg Documented by: Ondansetron HCl (Ondansetron Hcl 4 Mg/2 Ml Vial) 4 mg IVPUSH Q8H PRN PRN Reason: Nausea and Vomiting Oxycodone HCl (Oxycodone Hcl Immed Release 5 Mg Tablet) 5 mg PO TID PRN PRN Reason: pain Last Admin: 09/26/21 12:10 Dose: 5 mg Documented by: Pharmacy Consult (Consult Rx Perform Med Rec) 1 each MISCELLANE ONCE PRN PRN Reason: Consult order Polyethylene Glycol (Polyethylene Glycol 3350 17 Gm Powd.Pack) 17 gm PO DAILY [facility] Last Admin: 09/26/21 07:30 Dose: 17 gm Documented by: Prednisone (Prednisone 5 Mg Tablet) 5 mg PO DAILY [facility] Last Admin: 09/26/21 07:30 Dose: 5 mg Documented by: Senna/Docusate Sodium (Sennosides/Docusate Sodium Tablet) 2 tab PO BEDTIME [facility] Last Admin: 09/25/21 20:00 Dose: 2 tab Documented by: Sodium Chloride (0.9 % Sodium Chloride Flush 3 Ml Syringe) 3 ml IVFLUSH QSHIFT [facility] Last Admin: 09/26/21 07:30 Dose: 3 ml Documented by: Home Medications Medication Instructions Recorded Confirmed Type aspirin 81 mg tablet,delayed 81 mg PO DAILY 09/27/20 09/25/21 History release hydrochlorothiazide 25 mg tablet 25 mg PO DAILY 09/27/20 09/25/21 History lisinopril 40 mg tablet 40 mg PO DAILY 09/27/20 09/25/21 History omeprazole 20 mg capsule,delayed 20 mg PO DAILY 09/27/20 09/25/21 History release brimonidine 0.2 % eye drops 1 drp OPHTHALMIC (EYE) Q12H 03/29/21 09/25/21 History cyanocobalamin (vitamin B-12) 1,000 mcg IM Q30D 08/21/21 09/25/21 History 1,000 mcg/mL injection solution loratadine 10 mg tablet 1 tab PO DAILY 08/21/21 09/25/21 History prednisone 5 mg tablet 1 tab PO QAM 08/21/21 09/25/21 History Allergies Allergy/AdvReac Type Severity Reaction Status Date / Time No Known Allergies Allergy Verified 09/20/21 13:18 [No Known Allergies*] Physical Exam Vital signs: Vital Signs Temp 97.7 F 09/26/21 10:59 Pulse 86 09/26/21 10:59 Resp 17 09/26/21 10:59 BP 127/78 09/26/21 10:59 Pulse Ox 97 09/26/21 10:59 Intake & Output 09/25/21 09/26/21 09/26/21 18:59 06:59 18:59 Intake Total 1909 50 / 50 Output Total 0 / 0 Balance 1909 50 / 50 Urine Output (Average ml/kg/hr) 0.00 0.00 Intake: Intake, IV Amount 1909 50 / 50 0.9 % Sodium Chloride 1,860 ml 0 / 1860 @ 1860 mls/hr IV .Q1H ONE Rx#: [id number] Piperacillin Sodium/Tazobactam 50 / 150 100 / 150 50 / 50 3.375 gm In 0.9 % Sodium Chloride 50 ml @ 100 mls/hr IV Q6H [facility] Rx#:[id number] Output: Output, Urine Amount 0 / 0 Other: Number of Unmeasured Voids 2 Weight 62 kg 62 kg Weight in Grams 53910 Weight 62 kg - Constitutional Present: no acute distress, chronically ill appearing - Routine HEENT Exam Eye: Present: conjunctivae pale, scleral icterus - Routine Neck Exam Absent: lymphadenopathy - Routine Respiratory Exam Present: decreased breath sounds - Routine Cardiovascular Exam Cardiovascular: Present: S1, S2 - Routine Abdominal Exam Present: diminished bowel sounds, soft. Absent: guarding Hem/Onc Consult Result - Labs CBC & Chem 7: 09/26/21 05:50 09/26/21 05:50 Labs: Short CBC 09/26/21 Range/Units 05:50 WBC 9.2 (4.8-10.8) X10*3/uL Hgb 10.5 L (14.0-18.0) g/dl Hct 32.0 L (42-52) % Plt Count 342 (160-400) X10*3/uL BMP 09/26/21 05:50 Sodium 140 Potassium 5.0 D Chloride 105 Carbon Dioxide 28 BUN 22 H Creatinine 1.16 Calcium 8.4 D Liver Function 09/26/21 Range/Units 05:50 Total Bilirubin 6.6 H (0.0-1.0) mg/dL Direct Bilirubin 5.5 H (0.0-0.5) mg/dL AST 187 H (5-37) U/L ALT 142 H (0-40) U/L Alkaline Phosphatase 372 H (39-117) U/L Albumin 2.8 L (3.5-5.0) g/dL Urine 09/25/21 Range/Units 12:34 Urine Color DK YELLOW Urine Appearance CLEAR Urine pH 7.0 (5.0-8.0) Ur Specific [place] 1.015 (1.005-1.025) Urine Protein 1+ H (NEG-TRACE) MG/DL Urine Glucose (UA) 100 H (NEG) MG/DL Assessment and Plan Patient Active problem list reviewed?: Yes (1) Pancreatic cancer metastasized to intra-abdominal lymph node Status: Acute Assessment and plan: 1. This is a 68 year old male with metastatic pancreatic cancer admitted for fever and hypertension. He was found to have elevated bilirubin, predominantly conjugated hyperbilirubinemia with elevation in liver enzymes and alkaline phosphatase levels. Ultrasound showed gallstones with contracted gallbladder, thickened edematous gallbladder wall. Probable acute cholecystitis, HIDA scan recommended for further evaluation. He has been started on IV antibiotics and fluids. He has not been febrile, blood cultures so far are negative. His prognosis is poor based on extent of metastatic disease and patient's performance status. He is not a good surgical candidate. Await HIDA scan and conservative management for now. I thank you very much for this consultation, will follow with you. - Time Spent With Patient Time Spent with Patient (in minutes): 30
--- NOTE | 2021-09-26 15:11 | PC.NURSE ---
Nuclear Med mold technician ,Arpit communicated with the RN regarding nuc scan that was ordered STAT by the hospitalist. Per Nuc Med personal : there is a shortage of the nuc medication used for the test, medication will be ordered today for tomorrow and the scan will be done around 11 am . Pt will be NPO after MN. Kira Yu hospitalist was notified
[2021-09-26 15:32] VITALS: BP 122/73; PULSE 66; RESP 18; TEMP 36.9; O2SAT 98
[2021-09-26 15:40] VITALS: BMI 20.7
--- NOTE | 2021-09-26 15:54 | MHC.CLN ---
Addendum entered by Dayana Addison, DINESH 09/26/21 15:55: AGREE WITH PROVIDER'S ASSESSMENT BELOW SEE CLINICAL NUTRITION ASSESSMENT Original Note: PT IS SEVERELY MALNOURISHED IN THE CONTEXT OF CHRONIC ILLNESS R/T PANCREATIC CANCER PT EXPERIENCED A SIGNIFICANT 19.5% WT LOSS X 6 MONTHS, SEVERE MUSCLE WASTING OF CLAVICLE AND SEVERE MUSCLE WASTING OF TEMPLES POOR PO INTAKE WAS DOCUMENTED UPON ADMISSION RECOMMEND ENSURE PLUS SUPPLEMENT BID TO PROVIDE 700 KCALS AND 32 GRAMS PROTEIN MONITOR PO INTAKE AND SUPPLEMENT ACCEPTANCE
[2021-09-26 19:13] VITALS: BP 125/68; PULSE 66; RESP 18; TEMP 36.6; O2SAT 98
[2021-09-26] MEDS: Atorvastatin Calcium 40 MG TABLET PO (21:42)
[2021-09-26] MEDS: Sennosides/Docusate Sodium TABLET 2 TAB PO (21:42)
[2021-09-26 23:24] VITALS: BP 128/69; PULSE 75; RESP 16; TEMP 36.7; O2SAT 96
[2021-09-27 03:40] VITALS: BP 144/68; PULSE 83; RESP 17; TEMP 36.7; O2SAT 97
[2021-09-27] MEDS: Piperacillin Sodium/Tazobactam 3.375 GM in 0.9 % Sodium Chloride 50 ML IV ×4 (03:50→21:45)
[2021-09-27] MEDS: 0.9 % Sodium Chloride Flush 3 ML SYRINGE IVFLUSH ×3 (03:50→16:07)
[2021-09-27] MEDS: Heparin Sodium,Porcine 5,000 UNIT/ML VIAL 5000 UNIT SUBCUT ×2 (06:08→17:58)
[2021-09-27 06:34] LABS: Alanine Aminotransferase 158 U/L (0-40); Albumin Level 2.8 g/dL (3.5-5.0); Alkaline Phosphatase 376 U/L (39-117); Anion Gap 12 (12-20); Aspartate Amino Transferase 218 U/L (5-37); Bilirubin Direct 5.7 mg/dL (0.0-0.5); Bilirubin Total 6.8 mg/dL (0.0-1.0); Blood Urea Nitrogen 21 mg/dL (9-16); Calcium 8.5 mg/dL (8.4-10.2); Carbon Dioxide 27 mmol/L (22-29); Chloride 105 mmol/L (96-108); Creatinine Clr Calc Pharmacy 52.8; Estimated Glomerular Filt Rate > 60; Glucose Random 94 mg/dL (60-115); Potassium 4.3 mmol/L (3.3-5.1); Sodium 140 mmol/L (135-145)
[2021-09-27 07:43] VITALS: BP 150/76; PULSE 101; RESP 17; TEMP 37.3; O2SAT 96
[2021-09-27] MEDS: Aspirin Enteric Coated 81 MG TABLET.DR PO (10:48)
[2021-09-27] MEDS: predniSONE 5 MG TABLET PO (10:48)
[2021-09-27] MEDS: Loratadine 10 MG TABLET PO (10:48)
--- NOTE | 2021-09-27 14:08 | P.PNIM_ITS ---
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 follow up for possible cholecystitis, elevated LFTs denies abdominal pain, nausea or vomiting <PHILLIP Lagos - Last Filed: 09/27/21 14:57> Review of Systems Review of Systems: Yes all other systems are reviewed and are negative <PHILLIP Lagos - Last Filed: 09/27/21 14:57> Constitutional Constitutional: Denies chills and Denies fever(s) <PHILLIP Lagos - Last Filed: 09/27/21 14:57> Cardiovascular Cardiovascular: Denies chest pain <PHILLIP Lagos - Last Filed: 09/27/21 14:57> Respiratory Respiratory: Denies cough <PHILLIP Lagos - Last Filed: 09/27/21 14:57> Gastrointestinal Gastrointestinal: Denies abdominal pain <PHILLIP Lagos - Last Filed: 09/27/21 14:57> Physical Exam Vital Signs: Vital Signs: Last Vital Signs Temp 99.2 F 09/27/21 07:43 Pulse 101 H 09/27/21 07:43 Resp 17 09/27/21 07:43 BP 150/76 H 09/27/21 07:43 Pulse Ox 96 09/27/21 07:43 Body Mass Index 20.7 <PHILLIP Lagos - Last Filed: 09/27/21 14:57> Const: General: alert and awake <PHILLIP Lagos - Last Filed: 09/27/21 14:57> Nutritional Appearance: well nourished <PHILLIP Lagos - Last Filed: 09/27/21 14:57> HENMT: Head: Yes normocephalic and Yes atraumatic <PHILLIP Lagos - Last Filed: 09/27/21 14:57> Eyes: Sclerae: sclerae normal <PHILLIP Lagos - Last Filed: 09/27/21 14:57> Chest: Chest palpation & inspection: normal inspection of the chest <PHILLIP Lagos Last Filed: 09/27/21 14:57> Resp: Effort & Inspection: normal respiratory effort and no respiratory distress <PHILLIP Lagos - Last Filed: 09/27/21 14:57> Cardio: Rate: regular rate <PHILLIP Lagos Last Filed: 09/27/21 14:57> Rhythm: regular rhythm <PHILLIP Lagos Last Filed: 09/27/21 14:57> GI: Other: Abdomen is soft, nontender, nondistended, positive bowel sounds present <PHILLIP Lagos Last Filed: 09/27/21 14:57> Neuro: Cranial nerves: Yes CN's II-XII intact bilaterally and Yes Bilaterally intact EOM present <PHILLIP Lagos Last Filed: 09/27/21 14:57> Extrem: Other: no leg edema <PHILLIP Lagos Last Filed: 09/27/21 14:57> Objective Data Active Medications Acetaminophen (Acetaminophen 325 Mg Tablet) 650 mg PO Q6H PRN PRN Reason: Pain, Mild (Pain Scale 1-3) Aspirin (Aspirin Enteric Coated 81 Mg Tablet.) 81 mg PO DAILY [facility] Last Admin: 09/27/21 10:48 Dose: 81 mg Documented by: BECKA Atorvastatin Calcium (Atorvastatin Calcium 40 Mg Tablet) 40 mg PO BEDTIME [facility] Last Admin: 09/26/21 21:42 Dose: 40 mg Documented by: MARILY Brimonidine Tartrate (Brimonidine Tartrate 0.2% Oph 5 Ml Bottle) 1 drop EYE- BOTH BID [facility] Last Admin: 09/26/21 21:42 Dose: 1 drop Documented by: MARILY Cyanocobalamin (Cyanocobalamin (Vitamin B-12) 1,000 Mcg/Ml Vial) 1,000 mcg IM Q30D [facility] Heparin Sodium (Porcine) (Heparin Sodium,Porcine 5,000 Unit/Ml Vial) 5,000 unit SUBCUT Q12H [facility] Last Admin: 09/27/21 06:08 Dose: 5,000 unit Documented by: JEFF Piperacillin Sod/Tazobactam (Sod 3.375 gm/ Sodium Chloride) 50 mls @ 100 mls/hr IV Q6H [facility] Last Infusion: 09/27/21 12:18 Dose: 0 mls/hr Documented by: BECKA Loratadine (Loratadine 10 Mg Tablet) 10 mg PO DAILY [facility] Last Admin: 09/27/21 10:48 Dose: 10 mg Documented by: BECKA Morphine Sulfate (Morphine Sulfate 2 Mg/Ml Cartridge) 2 mg IVPUSH Q4H PRN; Protocol PRN Reason: Pain, Mild (Pain Scale 1-3) Omeprazole (Omeprazole 20 Mg Capsule.Dr) 20 mg PO DAILY@0630 [facility] Last Admin: 09/27/21 06:05 Dose: Not Given Documented by: JEFF Non-Admin Reason: NPO Ondansetron HCl (Ondansetron Hcl 4 Mg/2 Ml Vial) 4 mg IVPUSH Q8H PRN PRN Reason: Nausea and Vomiting Oxycodone HCl (Oxycodone Hcl Immed Release 5 Mg Tablet) 5 mg PO TID PRN PRN Reason: pain Last Admin: 09/26/21 12:10 Dose: 5 mg Documented by: TESSY Pharmacy Consult (Consult Rx Perform Med Rec) 1 each MISCELLANE ONCE PRN PRN Reason: Consult order Polyethylene Glycol (Polyethylene Glycol 3350 17 Gm Powd.Pack) 17 gm PO DAILY [facility] Last Admin: 09/27/21 12:54 Dose: Not Given Documented by: BECKA Non-Admin Reason: NPO Prednisone (Prednisone 5 Mg Tablet) 5 mg PO DAILY [facility] Last Admin: 09/27/21 10:48 Dose: 5 mg Documented by: BECKA Senna/Docusate Sodium (Sennosides/Docusate Sodium Tablet) 2 tab PO BEDTIME [facility] Last Admin: 09/26/21 21:42 Dose: 2 tab Documented by: MARILY Sodium Chloride (0.9 % Sodium Chloride Flush 3 Ml Syringe) 3 ml IVFLUSH QSHIFT [facility] Last Admin: 09/27/21 10:49 Dose: 3 ml Documented by: BECKA <PHILLIP Lagos - Last Filed: 09/27/21 14:57> Labs CBC & Chem 7: : 09/26/21 05:50 09/27/21 05:42 <PHILLIP Lagos - Last Filed: 09/27/21 14:57> Labs: Laboratory Results - last 24 hr 09/27/21 05:42 Anion Gap 12 Estim Creat Clear Calc 52.8 Estimated GFR > 60 Random Glucose 94 Calcium 8.5 Total Bilirubin 6.8 H Direct Bilirubin 5.7 H AST 218 H ALT 158 H Alkaline Phosphatase 376 H Total Protein 6.0 L Albumin 2.8 L <PHILLIP Lagos - Last Filed: 09/27/21 14:57> Microbiology Microbiology Results: Microbiology 09/25/21 11:07 Blood Culture - Preliminary Blood - Venous No growth after 48 hours. 09/25/21 10:55 Blood Culture - Preliminary Blood - Venous No growth after 48 hours. <PHILLIP Lagos - Last Filed: 09/27/21 14:57> Assessment and Plan (1) Transaminitis: Status: Acute <PHILLIP Lagos - Last Filed: 09/27/21 14:57> (2) Cholecystitis: Status: Acute <PHILLIP Lagos - Last Filed: 09/27/21 14:57> Assessment and Plan: 76-year-old man admitted cholecystectomy with history pancreatic cancer.? He was at his oncologist's office about to received his 1st chemotherapy treatment when he became hypotensive was sent to the ER for further evaluation. Cholecystitis.? Acute. no change in LFTs Discussed case with oncology, not a good surgical candidate due to underlying metastatic pancreatic cancer -HIDA scan pending -continue IV zosyn -general surgery following Transaminitis.? Likely secondary to cholecystitis, history of liver disease unchanged overnight HIDA scan Follow liver enzymes Metastatic pancreatic cancer has not yet received first dose of chemo, was set to start 09/25 but was hypotensive and febrile Hypotension.? Resolved. BP starting to rebound, will monitor closely. Received 30 mL/kg IV fluid bolus Will hold lisinopril and hydrochlorothiazide -consider resuming home meds as BP allows Leukocytosis.? Resolved. Likely secondary to cholecystitis, no sepsis noted Continue antibiotics Code status - full code DVT prophylaxis with heparin Attending Dr. Rahman <PHILLIP Lagos - Last Filed: 09/27/21 14:57> 76-year-old man admitted cholecystectomy with history pancreatic ca ncer.? He was at his oncologist's office about to received his 1st chemotherapy treatment when he became hypotensive was sent to the ER for further evaluation. Cholecystitis.? Acute. no change in LFTs Discussed case with oncology, not a good surgical candidate due to underlying metastatic pancreatic cancer -HIDA scan pending -continue IV zosyn -general surgery following Transaminitis.? Likely secondary to cholecystitis, history of liver disease unchanged overnight HIDA scan Follow liver enzymes Metastatic pancreatic cancer has not yet received first dose of chemo, was set to start 09/25 but was hypotensive and febrile Hypotension.? Resolved. BP starting to rebound, will monitor closely. Received 30 mL/kg IV fluid bolus Will hold lisinopril and hydrochlorothiazide -consider resuming home meds as BP allows Leukocytosis.? Resolved. Likely secondary to cholecystitis, no sepsis noted Continue antibiotics Code status - full code DVT prophylaxis with heparin Attending Dr. Rahman Attending Attestation: Patient seen and examined. Case discussed with the mid-level provider. Agree with the assessment and plan as documented above. <Kevin Rahman MD - Last Filed: 09/27/21 16:29> Quality Stroke Does the patient have a stroke diagnosis?: No <PHILLIP Lagos - Last Filed: 09/27/21 14:57> VTE Prior VTE?: No <PHILLIP Lagos - Last Filed: 09/27/21 14:57> VTE Risk Level:: Medical - moderate - high <PHILLIP Lagos - Last Filed: 09/27/21 14:57> VTE Device Contraindication: Treatment Not Indicated <PHILLIP Lagos - Last Filed: 09/27/21 14:57> VTE Drug Contraindication: N/A - Med Ordered <PHILLIP Lagos - Last Filed: 09/27/21 14:57>
[2021-09-27 15:30] VITALS: BP 126/68; PULSE 96; RESP 15; TEMP 36.9; O2SAT 99
[2021-09-27 20:00] VITALS: BP 150/80; PULSE 68; RESP 18; TEMP 37.3; O2SAT 98
[2021-09-27] MEDS: Atorvastatin Calcium 40 MG TABLET PO (20:31)
[2021-09-27] MEDS: Sennosides/Docusate Sodium TABLET 2 TAB PO (20:32)
[2021-09-27] MEDS: Brimonidine Tartrate 0.2% Oph 5 ML BOTTLE 1 DROP EYE-BOTH (20:34)
[2021-09-28] VITALS (7 sets, daily range): BP systolic 111–156; BP diastolic 63–80; PULSE 66–83; RESP 16–18; TEMP 36.5–37.7; O2SAT 97–98
[2021-09-28] MEDS: 0.9 % Sodium Chloride Flush 3 ML SYRINGE IVFLUSH ×4 (00:11→21:37)
[2021-09-28] MEDS: Piperacillin Sodium/Tazobactam 3.375 GM in 0.9 % Sodium Chloride 50 ML IV ×4 (05:01→21:31)
[2021-09-28] MEDS: Heparin Sodium,Porcine 5,000 UNIT/ML VIAL 5000 UNIT SUBCUT ×2 (05:02→16:21)
[2021-09-28] MEDS: Omeprazole 20 MG CAPSULE.DR PO (05:44)
[2021-09-28 06:39] LABS: MANUAL DIFF FLAG NO
[2021-09-28 06:54] LABS: Basophils Percent Auto 0.1 % (0-2); Eosinophils Absolute Auto 0.6 X10*3/uL (0.0-0.4); Eosinophils Percent Auto 8.6 % (0-4); Hematocrit 31.7 % (42-52); Hemoglobin 10.5 g/dl (14.0-18.0); Imm Gran Abs Auto 0.03 X10*3/uL (0.00-0.03); Imm Gran Pct Auto 0.4 % (0.0-0.4); Lymphocytes Absolute Auto 0.8 X10*3/uL (1.2-4.9); Lymphocytes Percent Auto 10.3 % (20-40); Mean Corpuscular HGB Conc 33.1 g/dl (31.0-36.0); Mean Corpuscular Hemoglobin 28.8 pg (27.0-33.0); Mean Corpuscular Volume 86.8 fL (80-98); Mean Platelet Volume 10.1 fL (9.4-12.4); Monocytes Absolute Auto 0.5 X10*3/uL (0.1-1.2); Neutrophils Absolute Auto 5.4 X10*3/uL (2.0-8.3); Neutrophils Percent Auto 73.6 % (45-73); Platelet Count 322 X10*3/uL (160-400); Red Blood Count 3.65 X10*6/uL (4.60-5.80); White Blood Count 7.3 X10*3/uL (4.8-10.8)
[2021-09-28 07:39] LABS: Alanine Aminotransferase 180 U/L (0-40); Albumin Level 2.8 g/dL (3.5-5.0); Alkaline Phosphatase 383 U/L (39-117); Anion Gap 11 (12-20); Aspartate Amino Transferase 268 U/L (5-37); Bilirubin Direct 5.4 mg/dL (0.0-0.5); Bilirubin Total 6.7 mg/dL (0.0-1.0); Blood Urea Nitrogen 21 mg/dL (9-16); Calcium 8.7 mg/dL (8.4-10.2); Carbon Dioxide 27 mmol/L (22-29); Chloride 106 mmol/L (96-108); Creatinine Clr Calc Pharmacy 57.4; Estimated Glomerular Filt Rate > 60; Glucose Random 113 mg/dL (60-115); Potassium 3.7 mmol/L (3.3-5.1); Sodium 140 mmol/L (135-145); Total Protein 5.9 g/dL (6.5-8.0)
[2021-09-28] MEDS: Brimonidine Tartrate 0.2% Oph 5 ML BOTTLE 1 DROP EYE-BOTH ×2 (09:39→21:37)
[2021-09-28] MEDS: Loratadine 10 MG TABLET PO (09:39)
[2021-09-28] MEDS: predniSONE 5 MG TABLET PO (09:39)
[2021-09-28] MEDS: Aspirin Enteric Coated 81 MG TABLET.DR PO (09:39)
--- NOTE | 2021-09-28 13:41 | PM.GICN ---
History of Present Illness Data of Consult Service Date: 09/28/21 Requesting physician: Alejandra Pinedo Primary Care Provider: Alma Delia Altamirano MD HPI Reason for consult: fever, elevated LFTs Unfortunate 76 YM with PMR, metastatic pancreatic cancer admitted to [facility] [place] on 09/25/21 with fever, hypotension, elevated LFTs and abnormal CT scan of GB. Pt is known to me from past evaluation in the GI clinic. Pt presented to [facility] [place] ED after being found hypotensive at his oncology office.? He was recently diagnosed with pancreatic cancer and was to start his 1st chemotherapy treatment on 09/25/21 when he was found to be hypotensive and reported a hx of chills and fever and 4 day hx of constipation.? Pt denied nausea, vomiting, chest pain, shortness of breath.? In the ER, he was not noted to be febrile however he did have a white blood cell count of 15.8, total bili 3.3, AST 238, ALT 147, alkaline phosphatase 464. abdominal ultrasound showed gallstones with contracted gallbladder and thickened edematous gallbladder wall.? Pt was seen by surgery and not considered to be a good surgical candidate due to recent pancreatic cancer. Pt was admitted for management of acute cholecystitis with IV antibiotics. LFTS remain elevated (Of note pt had normal LFTs in 08/2021) Hepatitis B and C serologies were negative. IMAGING STUDIES:? 09/26/21 HIDA SCAN SHOWED: No activity seen in the bile ducts, gallbladder or bowel. Differential would include liver disease, severe cholestasis and obstruction. 24 hour imaging is recommended. 09/25/[address] SCAN SHOWED (personally reviewed with Radiology) Stable appearance to the mass in the pancreas extending to the stomach and involving the left adrenal gland and left retroperitoneal/renal hilum. Stable retroperitoneal and peripancreatic lymph nodes, and peritoneal nodules. New small amount of ascites adjacent to the liver, gallbladder and in the pelvis. Slight interval increase in left perinephric fat stranding. Contracted gallbladder and small gallstones. No biliary duct dilatation. Stable liver cysts.? 08/23/21 CT GUIDED BX SHOWED: Mass, abdomen left upper quadrant, biopsy:??Moderately differentiated adenocarcinoma.? See description. COMMENT:? The findings are consistent with a primary pancreatic adenocarcinoma given the patient's pancreatic mass. Ancillary/molecular testing can be performed if desired. ENDOSCOPIC STUDIES: 01/2015 [address] GRAY: A 2-3 mm adenomatous polyp was removed from the distal TC. Review of Systems Constitutional: Constitutional: Reports chills, Reports fever(s), Denies headache(s), Reports weakness and Reports weight loss Eyes: Eyes: Denies eye discharge and Denies irritation ENT: Reports Normal hearing present, Denies dysphagia, Denies dizziness and Denies headache(s) Cardiovascular: Cardiovascular: Denies chest pain, Denies leg edema and Denies dyspnea on exertion Respiratory: Respiratory: Denies cough, Denies dyspnea on exertion and Denies wheezing Gastrointestinal: Gastrointestinal: Denies abdominal pain, Denies change in bowel habits, Denies dysphagia and Denies heartburn Genitourinary: Genitourinary: Denies dysuria Musculoskeletal: Musculoskeletal: Denies back pain and Denies arthralgias Integumentary/Breasts: Skin/Breast: Denies pruritus, Denies rash and Denies jaundice Neurologic: Reports Normal hearing present, Denies Abnormal speech present, Denies dizziness, Denies headache(s), Denies seizure-like activity and Reports weakness Psychiatric: Psychiatric: Denies anxiety, Denies depression and Denies panic attacks Endocrine: Endocrine: Denies cold intolerance, Denies flushing and Denies heat intolerance Hematologic/Lymphatic: Hematologic/Lymphatic: Denies easy bleeding and Denies easy bruising Allergic/Immunologic: Allergic/Immunologic: Denies wheezing PMFSH Past Medical History Medical History (Updated 10/03/21 @ 00:04 by Background Daemon) Family history of GERD Fibromuscular dysplasia High blood sugar History of pernicious anemia History of vitamin D deficiency Hx of essential hypertension Hx of polymyalgia rheumatica Hypertension Polymyalgia rheumatica Vertebral artery stenosis Family History Family History Father HTN (hypertension) Mother HTN (hypertension) Myocardial infarction Surgical History Surgical History No history of previous surgery Social History Social History Household Members: Spouse Housing: House Do you presently have visiting nurse or other home services: Yes (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 services) Alcohol intake: never Patient Tobacco Use Status: Former Tobacco user Quit Date: 1983 Tobacco use type: Cigarette Cigarette Packs Per Day: 3 Years Smoked: 30 Second Hand Smoke Exposure: No Use of substances other than those prescribed or required for medical reasons: No Advance Directives Date on File: 09/25/21 service: No Current occupational status: retired Meds Allergies Allergy/AdvReac Type Severity Reaction Status Date / Time No Known Allergies Allergy Verified 09/20/21 13:18 [No Known Allergies*] Active Medications: Current Medications Acetaminophen (Acetaminophen 325 Mg Tablet) 650 mg PO Q6H PRN PRN Reason: Pain, Mild (Pain Scale 1-3) Aspirin (Aspirin Enteric Coated 81 Mg Tablet.) 81 mg PO DAILY [facility] Last Admin: 09/28/21 09:39 Dose: 81 mg Documented by: Atorvastatin Calcium (Atorvastatin Calcium 40 Mg Tablet) 40 mg PO BEDTIME [facility] Last Admin: 09/27/21 20:31 Dose: 40 mg Documented by: Brimonidine Tartrate (Brimonidine Tartrate 0.2% Oph 5 Ml Bottle) 1 drop EYE-BOTH BID [facility] Last Admin: 09/28/21 09:39 Dose: 1 drop Documented by: Cyanocobalamin (Cyanocobalamin (Vitamin B-12) 1,000 Mcg/Ml Vial) 1,000 mcg IM Q30D [facility] Heparin Sodium (Porcine) (Heparin Sodium,Porcine 5,000 Unit/Ml Vial) 5,000 unit SUBCUT Q12H [facility] Last Admin: 09/28/21 05:02 Dose: 5,000 unit Documented by: Piperacillin Sod/Tazobactam (Sod 3.375 gm/ Sodium Chloride) 50 mls @ 100 mls/hr IV Q6H [facility] Last Infusion: 09/28/21 10:21 Dose: Infused Documented by: Loratadine (Loratadine 10 Mg Tablet) 10 mg PO DAILY [facility] Last Admin: 09/28/21 09:39 Dose: 10 mg Documented by: Morphine Sulfate (Morphine Sulfate 2 Mg/Ml Cartridge) 2 mg IVPUSH Q4H PRN; Protocol PRN Reason: Pain, Mild (Pain Scale 1-3) Omeprazole (Omeprazole 20 Mg Capsule.) 20 mg PO DAILY@0630 [facility] Last Admin: 09/28/21 05:44 Dose: 20 mg Documented by: Ondansetron HCl (Ondansetron Hcl 4 Mg/2 Ml Vial) 4 mg IVPUSH Q8H PRN PRN Reason: Nausea and Vomiting Oxycodone HCl (Oxycodone Hcl Immed Release 5 Mg Tablet) 5 mg PO TID PRN PRN Reason: pain Last Admin: 09/26/21 12:10 Dose: 5 mg Documented by: Pharmacy Consult (Consult Rx Perform Med Rec) 1 each MISCELLANE ONCE PRN PRN Reason: Consult order Polyethylene Glycol (Polyethylene Glycol 3350 17 Gm Powd.Pack) 17 gm PO DAILY [facility] Last Admin: 09/28/21 09:40 Dose: Not Given Documented by: Prednisone (Prednisone 5 Mg Tablet) 5 mg PO DAILY [facility] Last Admin: 09/28/21 09:39 Dose: 5 mg Documented by: Senna/Docusate Sodium (Sennosides/Docusate Sodium Tablet) 2 tab PO BEDTIME [facility] Last Admin: 09/27/21 20:32 Dose: 2 tab Documented by: Sodium Chloride (0.9 % Sodium Chloride Flush 3 Ml Syringe) 3 ml IVFLUSH QSHIFT [facility] Last Admin: 09/28/21 09:40 Dose: 3 ml Documented by: Home Medications Medication Instructions Recorded Confirmed Last Taken Type aspirin 81 mg tablet,delayed 81 mg PO DAILY 09/27/20 10/12/21 08/20/21 History release hydrochlorothiazide 25 mg tablet 25 mg PO DAILY 09/27/20 10/12/21 08/20/21 History lisinopril 40 mg tablet 40 mg PO DAILY 09/27/20 10/12/21 08/20/21 History omeprazole 20 mg capsule,delayed 20 mg PO DAILY 09/27/20 10/12/21 08/20/21 History release brimonidine 0.2 % eye drops 1 drp OPHTHALMIC (EYE) Q12H 03/29/21 10/12/21 08/20/21 History cyanocobalamin (vitamin B-12) 1,000 mcg IM Q30D 08/21/21 10/12/21 Unknown History 1,000 mcg/mL injection solution loratadine 10 mg tablet 1 tab PO DAILY 08/21/21 10/12/21 08/20/21 History prednisone 5 mg tablet 1 tab PO QAM 08/21/21 10/12/21 08/20/21 History Physical Exam Vital Signs: Vital Signs: Last Vital Signs Temp 97.7 F 09/28/21 11:09 Pulse 71 09/28/21 11:09 Resp 16 09/28/21 11:09 BP 111/63 09/28/21 11:09 Pulse Ox 98 09/28/21 11:09 Body Mass Index 20.7 Const: General: no acute distress Nutritional Appearance: average body habitus Orientation/consciousness: patient oriented x3 Limitations: no limitations and language barrier HENMT: Head: Yes normal to inspection Ears: hearing grossly normal bilaterally Mouth: Normal oral and palatal mucosa present Eyes: Sclerae: sclerae normal Pupils: Equal, round and reactive pupils present Neck: Neck: Yes normal visual inspection Chest: Chest palpation & inspection: normal inspection of the chest Resp: Effort & Inspection: normal respiratory effort Auscultation: clear to auscultation bilaterally Cardio: Palpation: normal PMI Rate: regular rate Rhythm: regular rhythm Heart sounds: S1 normal heart sound present, S2 normal heart sound present and no murmurs GI: Palpation (GI): Soft to palpation, Tenderness to palpation present (GI) (Mild to moderate RUQ and epigastric tenderness) and No hepatosplenomegaly present Auscultation: normal bowel sounds Rectal Exam - Male: Yes deferred Skin: General skin exam: no rashes or lesions noted Neuro: General: patient oriented x3, gait normal and moves all extremities Cranial nerves: Yes Equal, round and reactive pupils present and Yes Normal hearing present Speech: No Abnormal speech present Psych: Appearance: grossly normal Mental Status: mental status grossly normal Results Labs CBC & Chem 7: 10/01/21 06:12 10/01/21 06:12 Labs: Short CBC 09/28/21 Range/Units 06:17 WBC 7.3 (4.8-10.8) X10*3/uL Hgb 10.5 L (14.0-18.0) g/dl Hct 31.7 L (42-52) % Plt Count 322 (160-400) X10*3/uL BMP 09/28/21 06:17 Sodium 140 Potassium 3.7 Chloride 106 Carbon Dioxide 27 BUN 21 H Creatinine 0.93 Calcium 8.7 Liver Function 09/28/21 Range/Units 06:17 Total Bilirubin 6.7 H (0.0-1.0) mg/dL Direct Bilirubin 5.4 H (0.0-0.5) mg/dL AST 268 H (5-37) U/L ALT 180 H (0-40) U/L Alkaline Phosphatase 383 H (39-117) U/L Albumin 2.8 L (3.5-5.0) g/dL Microbiology Microbiology Results: Microbiology 09/25/21 11:07 Blood - Venous Blood Culture - Preliminary No growth after 48 hours. 09/25/21 10:55 Blood - Venous Blood Culture - Preliminary No growth after 48 hours. Assessment and Plan (1) Elevated LFTs: Status: Acute (2) Pancreatic cancer metastasized to intra-abdominal lymph node: Status: Acute 76 year old Indonesian-speaking male with hypertension polymyalgia rheumatica, metastatic pancreatic cancer admitted with hypotension, fever and chills with elevated LFTs. Etiology for elevated LFTs is unclear. Hepatitis B and C serologies were negative. Imaging studies showed multiple cysts in the liver (largest measures 2 x 2.5 cm in the medial segment of the left lobe of the liver), contracted GB with edematous and thick wall, small gallstones in the gallbladder. NO CBD or intra-hepatic dilation noted on US and CT scan. Elevated LFTs possibly due biliary obstruction from CBD stone or sludge, or Mirizzi's syndrome or Cholangitis Lente (cholestasis due to sepsis), paraneoplastic syndrome or drug induced liver injury (no obvious hepatotoxic drugs noted on patient's medication list) Metastatic liver disease can cause elevated LFTs (no obvious mets seen on CT scan) Rarely, certain liver metastases may appear as cystic lesions, usually due to the occurrence of central necrosis. These include metastases from ovarian carcinoma, pancreas, colon, kidney, and neuroendocrine tumors. RECOMMENDATIONS: 1. Continue IV antibiotics 2. Obtain MRCP to rule out CBD stone/sludge Dr Blunt is operational assistant over the weekend. Procedures Date of Service Date of Service: 09/28/21
--- NOTE | 2021-09-28 13:48 | MHC.CLN ---
Addendum entered by Dayana Addison, DINESH 09/28/21 14:51: AGREE WITH PROVIDER'S ASSESSMENT BELOW Original Note: F/U RESTART ENSURE PLUS SUPPLEMENT BID TO PROVIDE 700 KCALS AND 32 GRAMS PROTEIN PO INTAKE DOCUMENTED 100% X 2 MEALS MONITOR PO INTAKE AND SUPPLEMENT ACCEPTANCE
--- NOTE | 2021-09-28 14:30 | P.PNIM_ITS ---
Subjective Subjective Date of Service: 09/28/21 <PHILLIP Lagos - Last Filed: 09/28/21 15:03> 09/28/21 <Kevin Rahman MD - Last Filed: 09/28/21 16:51> Interval History: Seen and examined this morning Follow-up for elevated LFTs Patient denies any abdominal pain, nausea, vomiting. Reports he feels great. <PHILLIP Lagos - Last Filed: 09/28/21 15:03> Review of Systems Review of Systems: Yes all other systems are reviewed and are negative <PHILLIP Lagos - Last Filed: 09/28/21 15:03> Constitutional Constitutional: Denies chills and Denies fever(s) <PHILLIP Lagos - Last Filed: 09/28/21 15:03> Cardiovascular Cardiovascular: Denies chest pain <PHILLIP Lagos - Last Filed: 09/28/21 15:03> Respiratory Respiratory: Denies cough <PHILLIP Lagos - Last Filed: 09/28/21 15:03> Gastrointestinal Gastrointestinal: Denies abdominal pain <PHILLIP Lagos - Last Filed: 09/28/21 15:03> Physical Exam Vital Signs: Vital Signs: Last Vital Signs Temp 97.7 F 09/28/21 11:09 Pulse 71 09/28/21 11:09 Resp 16 09/28/21 11:09 BP 111/63 09/28/21 11:09 Pulse Ox 98 09/28/21 11:09 Body Mass Index 20.7 <PHILLIP Lagos - Last Filed: 09/28/21 15:03> Const: General: alert and awake <PHILLIP Lagos - Last Filed: 09/28/21 15:03> Nutritional Appearance: thin <PHILLIP Lagos - Last Filed: 09/28/21 15:03> HENMT: Head: Yes normocephalic and Yes atraumatic <PHILLIP Lagos - Last Filed: 09/28/21 15:03> Eyes: Sclerae: sclerae normal <PHILLIP Lagos - Last Filed: 09/28/21 15:03> Chest: Chest palpation & inspection: normal inspection of the chest <PHILLIP Deng - Last Filed: 09/28/21 15:03> Resp: Effort & Inspection: normal respiratory effort and no respiratory distress <PHILLIP Lagos - Last Filed: 09/28/21 15:03> Cardio: Rate: regular rate <PHILLIP Lagos - Last Filed: 09/28/21 15:03> Rhythm: regular rhythm <PHILLIP Lagos - Last Filed: 09/28/21 15:03> GI: Other: Abdomen is soft, nontender, nondistended, positive bowel sounds present <PHILLIP Lagos Last Filed: 09/28/21 15:03> Neuro: Cranial nerves: Yes CN's II-XII intact bilaterally and Yes Bilaterally intact EOM present <PHILLIP Lagos Last Filed: 09/28/21 15:03> Extrem: Other: no leg edema <PHILLIP Lagos Last Filed: 09/28/21 15:03> Objective Data Active Medications Acetaminophen (Acetaminophen 325 Mg Tablet) 650 mg PO Q6H PRN PRN Reason: Pain, Mild (Pain Scale 1-3) Aspirin (Aspirin Enteric Coated 81 Mg Tablet.) 81 mg PO DAILY [facility] Last Admin: 09/28/21 09:39 Dose: 81 mg Documented by: LANA Atorvastatin Calcium (Atorvastatin Calcium 40 Mg Tablet) 40 mg PO BEDTIME [facility] Last Admin: 09/27/21 20:31 Dose: 40 mg Documented by: MARILY Brimonidine Tartrate (Brimonidine Tartrate 0.2% Oph 5 Ml Bottle) 1 drop EYE- BOTH BID [facility] Last Admin: 09/28/21 09:39 Dose: 1 drop Documented by: LANA Cyanocobalamin (Cyanocobalamin (Vitamin B-12) 1,000 Mcg/Ml Vial) 1,000 mcg IM Q30D [facility] Heparin Sodium (Porcine) (Heparin Sodium,Porcine 5,000 Unit/Ml Vial) 5,000 unit SUBCUT Q12H [facility] Last Admin: 09/28/21 05:02 Dose: 5,000 unit Documented by: GARRET Piperacillin Sod/Tazobactam (Sod 3.375 gm/ Sodium Chloride) 50 mls @ 100 mls/hr IV Q6H [facility] Last Infusion: 09/28/21 10:21 Dose: 0 mls/hr Documented by: LANA Loratadine (Loratadine 10 Mg Tablet) 10 mg PO DAILY [facility] Last Admin: 09/28/21 09:39 Dose: 10 mg Documented by: LANA Morphine Sulfate (Morphine Sulfate 2 Mg/Ml Cartridge) 2 mg IVPUSH Q4H PRN; Protocol PRN Reason: Pain, Mild (Pain Scale 1-3) Omeprazole (Omeprazole 20 Mg Capsule.Dr) 20 mg PO DAILY@0630 [facility] Last Admin: 09/28/21 05:44 Dose: 20 mg Documented by: GARRET Ondansetron HCl (Ondansetron Hcl 4 Mg/2 Ml Vial) 4 mg IVPUSH Q8H PRN PRN Reason: Nausea and Vomiting Oxycodone HCl (Oxycodone Hcl Immed Release 5 Mg Tablet) 5 mg PO TID PRN PRN Reason: pain Last Admin: 09/26/21 12:10 Dose: 5 mg Documented by: TESSY Pharmacy Consult (Consult Rx Perform Med Rec) 1 each MISCELLANE ONCE PRN PRN Reason: Consult order Polyethylene Glycol (Polyethylene Glycol 3350 17 Gm Powd.Pack) 17 gm PO DAILY [facility] Last Admin: 09/28/21 09:40 Dose: Not Given Documented by: LANA Non-Admin Reason: Patient Refused Prednisone (Prednisone 5 Mg Tablet) 5 mg PO DAILY [facility] Last Admin: 09/28/21 09:39 Dose: 5 mg Documented by: LANA Senna/Docusate Sodium (Sennosides/Docusate Sodium Tablet) 2 tab PO BEDTIME [facility] Last Admin: 09/27/21 20:32 Dose: 2 tab Documented by: MARILY Sodium Chloride (0.9 % Sodium Chloride Flush 3 Ml Syringe) 3 ml IVFLUSH QSHIFT [facility] Last Admin: 09/28/21 09:40 Dose: 3 ml Documented by: LANA <Alejandra Pinedo PA - Last Filed: 09/28/21 15:03> Labs CBC & Chem 7: : 09/28/21 06:17 09/28/21 06:17 <PHILLIP Lagos - Last Filed: 09/28/21 15:03> Labs: Laboratory Results - last 24 hr 09/28/21 09/28/21 06:17 06:17 MCV 86.8 MCH 28.8 MCHC 33.1 RDW 15.0 Plt Count 322 MPV 10.1 Immature Gran % (Auto) 0.4 Neut % (Auto) 73.6 H Lymph % (Auto) 10.3 L [place] % (Auto) 7.0 Eos % (Auto) 8.6 H Baso % (Auto) 0.1 Lymph # (Auto) 0.8 L [place] # (Auto) 0.5 Eos # (Auto) 0.6 H Baso # (Auto) 0.0 Abs Immat Gran (auto) 0.03 Absolute Neuts (auto) 5.4 Absolute Nucleated RBC 0.000 Nucleated RBC % (auto) 0.0 Anion Gap 11 L Estim Creat Clear Calc 57.4 Estimated GFR > 60 Random Glucose 113 Calcium 8.7 Total Bilirubin 6.7 H Direct Bilirubin 5.4 H AST 268 H ALT 180 H Alkaline Phosphatase 383 H Total Protein 5.9 L Albumin 2.8 L <PHILLIP Lagos - Last Filed: 09/28/21 15:03> Microbiology Microbiology Results: Microbiology 09/25/21 11:07 Blood Culture - Preliminary Blood - Venous No growth after 48 hours. 09/25/21 10:55 Blood Culture - Preliminary Blood - Venous No growth after 48 hours. <PHILLIP Lagos - Last Filed: 09/28/21 15:03> Assessment and Plan (1) Transaminitis: Status: Acute <PHILLIP Lagos - Last Filed: 09/28/21 15:03> Assessment and Plan: 76-year-old man admitted cholecystectomy with history pancreatic cancer.? He was at his oncologist's office about to received his 1st chemotherapy treatment when he became hypotensive was sent to the ER for further evaluation. Elevated LFTs Initial imaging showed concern over acute cholecystitis- Discussed case with oncology, not a good surgical candidate due to underlying metastatic pancreatic cancer HIDA scan showing no activity seen in the bile ducts, gallbladder or bowel. Recommend 24 hour imaging, this has been completed but final results still pending -continue IV zosyn -general surgery following -GI consult -MRCP pending -trend LFTs Metastatic pancreatic cancer has not yet received first dose of chemo, was set to start 09/25 but was hypotensive and febrile so it was cancelled -oncology following Hypotension.? Resolved. BP starting to rebound, will monitor closely. Received 30 mL/kg IV fluid bolus Will hold lisinopril and hydrochlorothiazide -consider resuming home meds as BP allows Leukocytosis.? Resolved. Likely secondary to cholecystitis, no sepsis noted Continue antibiotics Polymyalgia rheumatica Continue home dose of prednisone Code status - full code DVT prophylaxis with heparin Attending Dr. Rahman <PHILLIP Lagos - Last Filed: 09/28/21 15:03> Quality Stroke Does the patient have a stroke diagnosis?: No <PHILLIP Lagos - Last Filed: 09/28/21 15:03> VTE Prior VTE?: No <PHILLIP Lagos - Last Filed: 09/28/21 15:03> VTE Risk Level:: Medical - moderate - high <PHILLIP Lagos - Last Filed: 09/28/21 15:03> VTE Device Contraindication: Treatment Not Indicated <PHILLIP Lagos - Last Filed: 09/28/21 15:03> VTE Drug Contraindication: N/A - Med Ordered <PHILLIP Lagos - Last Filed: 09/28/21 15:03>
--- NOTE | 2021-09-28 15:47 | P.PNHO_ITS ---
Medical Summary - Medical Summary Date of Service: 09/28/21 Chief complaint: None reported Medical Summary: Diagnosis: Metastatic pancreatic cancer, August 2021 Presented with abdominal pain/distension and weight loss. CT abdomen/pelvis in August 2021 revealed extensive intra-abdominal disease with mass in the body and tail of pancreas involving left adrenal gland, left retroperitoneum, left renal hilum, left renal artery, left renal vein and splenic vein. Splenic vein appears occluded. Mass abuts greater curvature of stomach. There is retroperitoneal lymphadenopathy, left upper anterior abdominal mass measuring 3 x 6 cm. Multiple smaller peritoneal masses. There is focal thickening of antrum of the stomach worrisome for neoplasm. He underwent CT-guided left upper quadrant peritoneal mass biopsy on 08/23/2021. Pathology revealed moderately differentiated adenocarcinoma consistent with pancreatic primary. Interval History Interval history: Patient states that he is doing well. He denies any abdominal pain fever or chills. His appetite is poor but he denies nausea or emesis. Review of Systems - Constitutional Reports as per HPI, Reports no additional constitutional complaints - Cardiovascular Reports no additional cardiovascular complaints - Respiratory Reports no additional respiratory complaints - Gastrointestinal Reports no additional gastrointestinal complaints [facility] Medical History: Medical History (Last Reviewed 09/26/21 @ 10:35 by Devin Coe MD) Family history of GERD Fibromuscular dysplasia High blood sugar History of pernicious anemia History of vitamin D deficiency Hx of essential hypertension Hx of polymyalgia rheumatica Hypertension Polymyalgia rheumatica Vertebral artery stenosis Family History: Family History (Last Reviewed 09/26/21 @ 10:35 by Devin Coe MD) Father HTN (hypertension) Mother HTN (hypertension) Myocardial infarction Surgical History: Surgical History (Last Reviewed 09/26/21 @ 10:35 by Devin Coe MD) No history of previous surgery Social History: Social History (Last Reviewed 09/26/21 @ 10:35 by Devin Coe MD) Living Situation History: Household Members: Spouse Housing: House Do you presently have visiting nurse or other home services: Yes Do you presently have visiting nurse or other home services comment: development geologist services Alcohol History: Alcohol intake: never Alcohol History Details: Alcohol intake frequency: does not drink Tobacco History: Patient Tobacco Use Status: Former Tobacco user Tobacco use type: Cigarette Cigarette Packs Per Day: 3 Years Smoked: 30 Smoke Quit Date: 1983 Second Hand Smoke Exposure: No Substance Use History: Use of substances other than those prescribed or required for medical reasons : No Currently Displaying Signs/Symptoms of Drug Intoxication Withdrawal: No Domestic Abuse History: Have you been hit, kicked, punched, or otherwise hurt by someone within the past year? If so, by whom?: No Do you feel safe in your current relationship?: No Is there a partner from a previous relationship who is making you feel unsafe now?: No Are you made to feel afraid or neglected: No Advance Directives: Advance Directives: Yes Advance Directives Information Provided: Yes Advance Directives on File: No Advance Directives Date on File: 09/25/21 Homicidal Assessment: Do you have thoughts of harming others: None Do you have a plan to hurt others: No Plan Nutrition Assessment: Recently lost weight without trying: Yes How much weight loss: 14-23 pounds Eating poorly because of decreased appetite: No Nutrition screen score: 4 Nutrition Risks: Poor intake 0-25% >4 days Poor oral hygiene: No Occupation Assessmet: service: No Current occupational status: retired Oncology Screenings - ECOG Performance Status ECOG Performance Status: 1 Home Medications and Allergies Current Medications: Current Medications Acetaminophen (Acetaminophen 325 Mg Tablet) 650 mg PO Q6H PRN PRN Reason: Pain, Mild (Pain Scale 1-3) Aspirin (Aspirin Enteric Coated 81 Mg Tablet.) 81 mg PO DAILY [facility] Last Admin: 09/28/21 09:39 Dose: 81 mg Documented by: Atorvastatin Calcium (Atorvastatin Calcium 40 Mg Tablet) 40 mg PO BEDTIME [facility] Last Admin: 09/27/21 20:31 Dose: 40 mg Documented by: Brimonidine Tartrate (Brimonidine Tartrate 0.2% Oph 5 Ml Bottle) 1 drop EYE- BOTH BID [facility] Last Admin: 09/28/21 09:39 Dose: 1 drop Documented by: Cyanocobalamin (Cyanocobalamin (Vitamin B-12) 1,000 Mcg/Ml Vial) 1,000 mcg IM Q30D [facility] Heparin Sodium (Porcine) (Heparin Sodium,Porcine 5,000 Unit/Ml Vial) 5,000 unit SUBCUT Q12H [facility] Last Admin: 09/28/21 05:02 Dose: 5,000 unit Documented by: Piperacillin Sod/Tazobactam (Sod 3.375 gm/ Sodium Chloride) 50 mls @ 100 mls/hr IV Q6H [facility] Last Infusion: 09/28/21 10:21 Dose: Infused Documented by: Loratadine (Loratadine 10 Mg Tablet) 10 mg PO DAILY [facility] Last Admin: 09/28/21 09:39 Dose: 10 mg Documented by: Omeprazole (Omeprazole 20 Mg Capsule.Dr) 20 mg PO DAILY@0630 [facility] Last Admin: 09/28/21 05:44 Dose: 20 mg Documented by: Ondansetron HCl (Ondansetron Hcl 4 Mg/2 Ml Vial) 4 mg IVPUSH Q8H PRN PRN Reason: Nausea and Vomiting Oxycodone HCl (Oxycodone Hcl Immed Release 5 Mg Tablet) 5 mg PO TID PRN PRN Reason: pain Last Admin: 09/26/21 12:10 Dose: 5 mg Documented by: Pharmacy Consult (Consult Rx Perform Med Rec) 1 each MISCELLANE ONCE PRN PRN Reason: Consult order Polyethylene Glycol (Polyethylene Glycol 3350 17 Gm Powd.Pack) 17 gm PO DAILY [facility] Last Admin: 09/28/21 09:40 Dose: Not Given Documented by: Prednisone (Prednisone 5 Mg Tablet) 5 mg PO DAILY [facility] Last Admin: 09/28/21 09:39 Dose: 5 mg Documented by: Senna/Docusate Sodium (Sennosides/Docusate Sodium Tablet) 2 tab PO BEDTIME [facility] Last Admin: 09/27/21 20:32 Dose: 2 tab Documented by: Sodium Chloride (0.9 % Sodium Chloride Flush 3 Ml Syringe) 3 ml IVFLUSH QSHIFT [facility] Last Admin: 09/28/21 09:40 Dose: 3 ml Documented by: Home Medications Medication Instructions Recorded Confirmed Type aspirin 81 mg tablet,delayed 81 mg PO DAILY 09/27/20 09/25/21 History release hydrochlorothiazide 25 mg tablet 25 mg PO DAILY 09/27/20 09/25/21 History lisinopril 40 mg tablet 40 mg PO DAILY 09/27/20 09/25/21 History omeprazole 20 mg capsule,delayed 20 mg PO DAILY 09/27/20 09/25/21 History release brimonidine 0.2 % eye drops 1 drp OPHTHALMIC (EYE) Q12H 03/29/21 09/25/21 History cyanocobalamin (vitamin B-12) 1,000 mcg IM Q30D 08/21/21 09/25/21 History 1,000 mcg/mL injection solution loratadine 10 mg tablet 1 tab PO DAILY 08/21/21 09/25/21 History prednisone 5 mg tablet 1 tab PO QAM 08/21/21 09/25/21 History Allergies Allergy/AdvReac Type Severity Reaction Status Date / Time No Known Allergies Allergy Verified 09/20/21 13:18 [No Known Allergies*] Exam Vital signs: Vital Signs Temp 97.7 F 09/28/21 11:09 Pulse 71 09/28/21 11:09 Resp 16 09/28/21 11:09 BP 111/63 09/28/21 11:09 Pulse Ox 98 09/28/21 11:09 Intake & Output 09/27/21 09/28/21 09/28/21 18:59 06:59 18:59 Intake Total 100 / 780 680 / 780 410 / 410 Output Total 3 / 3 Balance 97 / 777 680 / 777 410 / 410 Urine Output (Average ml/kg/hr) 0.00 0.00 0.00 Intake: Intake, Oral Amount 580 / 580 360 / 360 Intake, IV Amount 100 / 200 100 / 200 50 / 50 Piperacillin Sodium/Tazobactam 100 / 200 100 / 200 50 / 50 3.375 gm In 0.9 % Sodium Chloride 50 ml @ 100 mls/hr IV Q6H [facility] Rx#:[id number] Output: Output, Urine Amount 3 / 3 Other: Meal Refused No NPO Yes Breakfast % Eaten 50% Lunch % Eaten 100% Number of Unmeasured Voids 2 2 Number of Bowel Movements 1 1 Urine Bathroom Bathroom Bathroom Urine Color Yellow Yellow Last Bowel Movement 09/27/21 09/28/21 Stool Bathroom Bathroom Bathroom Stool Amount Small Scant Stool Color Brown Brown Stool Consistency Semi Formed Weight 62 kg Body Mass Index 20.7 - Constitutional Present: no acute distress, chronically ill appearing - Routine Respiratory Exam Present: decreased breath sounds - Routine Cardiovascular Exam Cardiovascular: Present: S1, S2 - Routine Abdominal Exam Present: diminished bowel sounds, soft. Absent: guarding Data - Labs CBC & Chem 7: 09/28/21 06:17 09/28/21 06:17 Labs: 09/25/21 10:10 XR chest 1V Stat 09/25/21 10:11 ECG 12 lead EKG Stat EKG Documentation DIRECTED 09/25/21 10:15 0.9 % Sodium Chloride [Ns] 1,000 ml IVCONT 999 mls/hr 09/25/21 10:33 0.9 % Sodium Chloride [Ns] 1,860 ml IV 1,860 mls/hr 09/25/21 10:55 B Type Natriuretic Peptide Stat Basic Metabolic Panel Stat Complete Blood Count Auto Diff Stat Lipase Stat Liver Panel Stat Troponin-I High Sensitivity Stat 09/25/21 11:07 Lactic Acid Stat SARS-CoV2/FLU/RSV Stat 09/25/21 13:20 CT abdomen pelvis wo con Stat US abdomen limited Stat 09/25/21 13:38 ~Lactic Acid-LAB USE ONLY Stat 09/25/21 15:54 Piperacillin Sodium/Tazobactam [Zosyn] 3.375 gm 0.9 % Sodium Chloride [Ns] 50 ml IV ONCE 09/25/21 15:58 Piperacillin Sodium/Tazobactam [Zosyn] 3.375 gm IV .STK-MED ONE 09/25/21 16:45 Regular Diet 09/25/21 17:26 ED Diet NOW 09/25/21 21:33 Piperacillin Sodium/Tazobactam [Zosyn] 3.375 gm IV .STK-MED ONE 09/26/21 NM hepatobiliary wo pharm Stat 09/26/21 04:24 Piperacillin Sodium/Tazobactam [Zosyn] 3.375 gm IV .STK-MED ONE 09/26/21 05:50 Basic Metabolic Panel AM Complete Blood Count Auto Diff AM Liver Panel Routine 09/26/21 08:49 Add Laboratory Test Routine Add Laboratory Test Stat 09/26/21 10:37 Piperacillin Sodium/Tazobactam [Zosyn] 3.375 gm IV .STK-MED ONE 09/26/21 15:20 Piperacillin Sodium/Tazobactam [Zosyn] 3.375 gm IV .STK-MED ONE 09/26/21 21:35 Piperacillin Sodium/Tazobactam [Zosyn] 3.375 gm IV .STK-MED ONE 09/27/21 00:01 NPO Diet 09/27/21 03:30 Piperacillin Sodium/Tazobactam [Zosyn] 3.375 gm IV .STK-MED ONE 09/27/21 05:42 Basic Metabolic Panel AM Liver Panel Routine 09/27/21 09:43 Piperacillin Sodium/Tazobactam [Zosyn] 3.375 gm IV .STK-MED ONE 09/27/21 15:27 Regular Diet 09/27/21 15:34 Piperacillin Sodium/Tazobactam [Zosyn] 3.375 gm IV .STK-MED ONE 09/27/21 21:36 Piperacillin Sodium/Tazobactam [Zosyn] 3.375 gm IV .STK-MED ONE 09/28/21 04:57 Piperacillin Sodium/Tazobactam [Zosyn] 3.375 gm IV .STK-MED ONE 09/28/21 06:17 Basic Metabolic Panel DAILY@0600 Complete Blood Count Auto Diff DAILY@0600 Liver Panel DAILY@0600 09/28/21 07:40 NPO Diet 09/28/21 09:37 Piperacillin Sodium/Tazobactam [Zosyn] 3.375 gm IV .STK-MED ONE Laboratory Last Values WBC 7.3 X10*3/uL (4.8-10.8) 09/28/21 06:17 RBC 3.65 X10*6/uL (4.60-5.80) L 09/28/21 06:17 Hgb 10.5 g/dl (14.0-18.0) L 09/28/21 06:17 Hct 31.7 % (42-52) L 09/28/21 06:17 MCV 86.8 fL (80-98) 09/28/21 06:17 MCH 28.8 pg (27.0-33.0) 09/28/21 06:17 MCHC 33.1 g/dl (31.0-36.0) 09/28/21 06:17 RDW 15.0 % (11.0-16.0) 09/28/21 06:17 Plt Count 322 X10*3/uL (160-400) 09/28/21 06:17 MPV 10.1 fL (9.4-12.4) 09/28/21 06:17 Immature Gran % (Auto) 0.4 % (0.0-0.4) 09/28/21 06:17 Neut % (Auto) 73.6 % (45-73) H 09/28/21 06:17 Lymph % (Auto) 10.3 % (20-40) L 09/28/21 06:17 Gem % (Auto) 7.0 % (2-11) 09/28/21 06:17 Eos % (Auto) 8.6 % (0-4) H 09/28/21 06:17 Baso % (Auto) 0.1 % (0-2) 09/28/21 06:17 Lymph # (Auto) 0.8 X10*3/uL (1.2-4.9) L 09/28/21 06:17 Gem # (Auto) 0.5 X10*3/uL (0.1-1.2) 09/28/21 06:17 Eos # (Auto) 0.6 X10*3/uL (0.0-0.4) H 09/28/21 06:17 Baso # (Auto) 0.0 X10*3/uL (0.0-0.2) 09/28/21 06:17 Abs Immat Gran (auto) 0.03 X10*3/uL (0.00-0.03) 09/28/21 06:17 Absolute Neuts (auto) 5.4 X10*3/uL (2.0-8.3) 09/28/21 06:17 Absolute Nucleated RBC 0.000 X10*3/uL (0.0-0.012) 09/28/21 06:17 Nucleated RBC % (auto) 0.0 /100WBC (0.0-0.2) 09/28/21 06:17 Sodium 140 mmol/L (135-145) 09/28/21 06:17 Potassium 3.7 mmol/L (3.3-5.1) 09/28/21 06:17 Chloride 106 mmol/L (96-108) 09/28/21 06:17 Carbon Dioxide 27 mmol/L (22-29) 09/28/21 06:17 Anion Gap 11 (12-20) L 09/28/21 06:17 BUN 21 mg/dL (9-16) H 09/28/21 06:17 Creatinine 0.93 mg/dL (0.5-1.4) 09/28/21 06:17 Estim Creat Clear Calc 57.4 09/28/21 06:17 Estimated GFR > 60 09/28/21 06:17 Random Glucose 113 mg/dL (60-115) 09/28/21 06:17 Lactic Acid 2.9 mmol/L (0.5-2.0) H* 09/25/21 11:07 Lactic Acid Fup @ 2Hr 1.9 mmol/L (0.5-2.0) 09/25/21 13:38 Calcium 8.7 mg/dL (8.4-10.2) 09/28/21 06:17 Total Bilirubin 6.7 mg/dL (0.0-1.0) H 09/28/21 06:17 Direct Bilirubin 5.4 mg/dL (0.0-0.5) H 09/28/21 06:17 AST 268 U/L (5-37) H 09/28/21 06:17 ALT 180 U/L (0-40) H 09/28/21 06:17 Alkaline Phosphatase 383 U/L (39-117) H 09/28/21 06:17 Troponin I High Sens 5.7 ng/L (<3.5-35.0) 09/25/21 10:55 B-Natriuretic Peptide 90 pg/mL (<100) 09/25/21 10:55 Total Protein 5.9 g/dL (6.5-8.0) L 09/28/21 06:17 Albumin 2.8 g/dL (3.5-5.0) L 09/28/21 06:17 Lipase 28 U/L (8-78) 09/25/21 10:55 Urine Color DK YELLOW 09/25/21 12:34 Urine Appearance CLEAR 09/25/21 12:34 Urine pH 7.0 (5.0-8.0) 09/25/21 12:34 Ur Specific [place] 1.015 (1.005-1.025) 09/25/21 12:34 Urine Protein 1+ MG/DL (NEG-TRACE) H 09/25/21 12:34 Urine Glucose (UA) 100 MG/DL (NEG) H 09/25/21 12:34 Urine Ketones NEG MG/DL (NEG) 09/25/21 12:34 Urine Blood NEG (NEG) 09/25/21 12:34 Urine Nitrite NEG (NEG) 09/25/21 12:34 Ur Leukocyte Esterase NEG (NEG) 09/25/21 12:34 Urine RBC 0 /HPF (0) 09/25/21 12:34 Urine WBC 0-2 /HPF (0-4) 09/25/21 12:34 Ur Squamous Epith Cells 1+ /LPF 09/25/21 12:34 Urine Bacteria NONE /LPF 09/25/21 12:34 Granular Casts 0-2 /LPF 09/25/21 12:34 Coronavirus (PCR) NEGATIVE (Negative) 09/25/21 11:07 Influenza Type A (PCR) NEGATIVE (Negative) 09/25/21 11:07 Influenza Type B (PCR) NEGATIVE (Negative) 09/25/21 11:07 RSV RNA Qual (PCR) NEGATIVE (Negative) 09/25/21 11:07 - Imaging Radiologist's impression: ITS Impressions Chest X-Ray 09/25/21 10:10 IMPRESSION: Subsegmental atelectasis at the right lung base. No evidence for acute disease in the chest. Abdomen Ultrasound 09/25/21 13:20 IMPRESSION: Gallstones. Contracted gallbladder and thickened edematous gallbladder wall new from August 2021 exam. Differential would include cholecystitis, gallbladder wall changes related to liver disease, low albumin and cholangitis. If there is clinical concern of acute cholecystitis, HIDA scan would be recommended. No biliary duct dilatation. Multiple liver cysts. Small amount of ascites. Stable hypoechoic mass in the body/tail the pancreas. Abdomen/Pelvis CT 09/25/21 13:20 IMPRESSION: Stable appearance to the mass in the pancreas extending to the stomach and involving the left adrenal gland and left retroperitoneal/renal hilum. Stable retroperitoneal and peripancreatic lymph nodes, and peritoneal nodules. New small amount of ascites adjacent to the liver, gallbladder and in the pelvis. Slight interval increase in left perinephric fat stranding. Contracted gallbladder and small gallstones. No biliary duct dilatation. Stable liver cysts. Hepatobiliary Scan [facility] 09/26/21 13:20 IMPRESSION: No activity seen in the bile ducts, gallbladder or bowel. Differential would include liver disease, severe cholestasis and obstruction. 24 hour imaging is recommended. Assessment and Plan Patient Active problem list reviewed?: Yes (1) Pancreatic cancer metastasized to intra-abdominal lymph node Status: Acute Assessment and plan: 1. This is a 76 year old male with metastatic pancreatic cancer admitted for fever and hypertension. He was found to have elevated bilirubin, predominantly conjugated hyperbilirubinemia with elevation in liver enzymes and alkaline phosphatase levels. Ultrasound showed gallstones with contracted gallbladder, thickened edematous gallbladder wall. Probable acute cholecystitis, HIDA scan recommended for further evaluation. He is on IV antibiotics and fluids. He has not been febrile, blood cultures so far are negative. He feels well and denies any abdominal pain, no further fever or chills. His blood pressure is now normal. He has a cholestatic picture with elevated bilirubin/conjugated hyperbilirubinemia. HIDA scan is inconclusive. He does not have liver metastasis. MRCP is awaited. Patient and family are interested in having this problem fixed so he can receive palliative chemotherapy. Appreciate surgical, GI and hospitalist input. - Time Spent With Patient Time Spent with Patient (in minutes): 15
[2021-09-28] MEDS: Sennosides/Docusate Sodium TABLET 2 TAB PO (21:31)
[2021-09-28] MEDS: Atorvastatin Calcium 40 MG TABLET PO (21:31)
[2021-09-29 03:54] VITALS: BP 159/77; PULSE 71; RESP 18; TEMP 36.4; O2SAT 97
[2021-09-29] MEDS: Piperacillin Sodium/Tazobactam 3.375 GM in 0.9 % Sodium Chloride 50 ML IV ×4 (04:09→22:30)
[2021-09-29] MEDS: Omeprazole 20 MG CAPSULE.DR PO (05:41)
[2021-09-29] MEDS: Heparin Sodium,Porcine 5,000 UNIT/ML VIAL 5000 UNIT SUBCUT ×2 (05:41→17:02)
[2021-09-29 07:31] LABS: Alanine Aminotransferase 205 U/L (0-40); Albumin Level 2.7 g/dL (3.5-5.0); Alkaline Phosphatase 452 U/L (39-117); Aspartate Amino Transferase 327 U/L (5-37); Bilirubin Direct 5.6 mg/dL (0.0-0.5); Bilirubin Total 7.1 mg/dL (0.0-1.0)
[2021-09-29 07:58] VITALS: BP 159/80; PULSE 91; RESP 17; TEMP 37; O2SAT 98
[2021-09-29] MEDS: polyethylene glycoL 3350 17 GM POWD.PACK PO (10:35)
[2021-09-29] MEDS: Aspirin Enteric Coated 81 MG TABLET.DR PO (10:36)
[2021-09-29] MEDS: 0.9 % Sodium Chloride Flush 3 ML SYRINGE IVFLUSH ×2 (10:36→22:35)
[2021-09-29] MEDS: Brimonidine Tartrate 0.2% Oph 5 ML BOTTLE 1 DROP EYE-BOTH ×2 (10:36→22:30)
[2021-09-29] MEDS: Loratadine 10 MG TABLET PO (10:36)
[2021-09-29] MEDS: predniSONE 5 MG TABLET PO (10:37)
--- NOTE | 2021-09-29 11:24 | PM.IMPN ---
Progress Note: A&P (1) Elevated LFTs: Status: Acute <Kira Alvarez NP - Last Filed: 09/29/21 15:15> (2) Pancreatic mass: Status: Acute <Kira Alvarez NP - Last Filed: 09/29/21 15:15> Assessment and Plan: 76-year-old man admitted with possible cholecystitis with history pancreatic cancer.? He was at his oncologist's office about to received his 1st chemotherapy treatment when he became hypotensive was sent to the ER for further evaluation. Transaminitis Initial imaging showed concern over acute cholecystitis- Discussed case with oncology, not a good surgical candidate due to underlying metastatic pancreatic cancer continue IV zosyn can switch to ceftin as outpatient general surgery following, stated that patient is not a surgical candidate at this time. GI following, will discuss elevated LFT's, trend MRCP showed no gallstones Metastatic pancreatic cancer has not yet received first dose of chemo, was set to start 10/ but was hypotensive and febrile so it was cancelled oncology following Hypotension.? Resolved. BP starting to rebound, will monitor closely. Received 30 mL/kg IV fluid bolus Will hold lisinopril and hydrochlorothiazide consider resuming home meds as BP allows Leukocytosis.? Resolved. Likely secondary to cholecystitis, no sepsis noted Continue antibiotics Polymyalgia rheumatica Continue home dose of prednisone Code status - full code DVT prophylaxis with heparin Attending Dr. Hanley <Kira Alvarez NP - Last Filed: 09/29/21 15:15> 76-year-old man admitted with possible cholecystitis with history pancreatic cancer.? He was at his oncologist's office about to received his 1st chemotherapy treatment when he became hypotensive was sent to the ER for further evaluation. Transaminitis Initial imaging showed concern over acute cholecystitis- Discussed case with oncology, not a good surgical candidate due to underlying metastatic pancreatic cancer continue IV zosyn can switch to ceftin as outpatient general surgery following, stated that patient is not a surgical candidate at this time. GI following, will discuss elevated LFT's, trend MRCP showed no gallstones Metastatic pancreatic cancer has not yet received first dose of chemo, was set to start 10/ but was hypotensive and febrile so it was cancelled oncology following Hypotension.? Resolved. BP starting to rebound, will monitor closely. Received 30 mL/kg IV fluid bolus Will hold lisinopril and hydrochlorothiazide consider resuming home meds as BP allows Leukocytosis.? Resolved. Likely secondary to cholecystitis, no sepsis noted Continue antibiotics Polymyalgia rheumatica Continue home dose of prednisone Code status - full code DVT prophylaxis with heparin Attending Dr. Hanley I saw and evaluated the patient and discussed the care with (name of TRIP FOLLOWER or PA) above on (date). I agree with the findings and plan as documented in the note above. Concerning rising LFTS, would avoid tyenol , to to reeval <Tonio Hanley MD - Last Filed: 09/29/21 16:31> Subjective Subjective Date of Service: 09/29/21 <Kira Alvarez NP - Last Filed: 09/29/21 15:15> 09/29/21 <Tonio Hanley MD - Last Filed: 09/29/21 16:31> Review of Systems Follow up Acute hollie No pain had BM today after feeling constipated <Kira Alvarez NP - Last Filed: 09/29/21 15:15> Physical Exam Vital Signs: Vital Signs: Last Vital Signs Temp 98.6 F 09/29/21 07:58 Pulse 91 09/29/21 07:58 Resp 17 09/29/21 07:58 BP 159/80 H 09/29/21 07:58 Pulse Ox 98 09/29/21 07:58 Body Mass Index 20.7 <Kira Alvaerz NP - Last Filed: 09/29/21 15:15> Appearing in no acute distress lung sounds are clear to auscultation heart regular rate rhythm, clear S1, S2 positive bowel sounds, abdomen is soft, nontender neuro patient is alert x3, no focal deficits <Kira Alvarez NP - Last Filed: 09/29/21 15:15> Objective Data Current Medications Acetaminophen (Acetaminophen 325 Mg Tablet) 650 mg PO Q6H PRN PRN Reason: Pain, Mild (Pain Scale 1-3) Aspirin (Aspirin Enteric Coated 81 Mg Tablet.) 81 mg PO DAILY [facility] Last Admin: 09/29/21 10:36 Dose: 81 mg Documented by: Atorvastatin Calcium (Atorvastatin Calcium 40 Mg Tablet) 40 mg PO BEDTIME [facility] Last Admin: 09/28/21 21:31 Dose: 40 mg Documented by: Brimonidine Tartrate (Brimonidine Tartrate 0.2% Oph 5 Ml Bottle) 1 drop EYE-BOTH BID [facility] Last Admin: 09/29/21 10:36 Dose: 1 drop Documented by: Cyanocobalamin (Cyanocobalamin (Vitamin B-12) 1,000 Mcg/Ml Vial) 1,000 mcg IM Q30D [facility] Heparin Sodium (Porcine) (Heparin Sodium,Porcine 5,000 Unit/Ml Vial) 5,000 unit SUBCUT Q12H [facility] Last Admin: 09/29/21 05:41 Dose: 5,000 unit Documented by: Piperacillin Sod/Tazobactam (Sod 3.375 gm/ Sodium Chloride) 50 mls @ 100 mls/hr IV Q6H [facility] Last Admin: 09/29/21 10:35 Dose: 100 mls/hr Documented by: Loratadine (Loratadine 10 Mg Tablet) 10 mg PO DAILY [facility] Last Admin: 09/29/21 10:36 Dose: 10 mg Documented by: Omeprazole (Omeprazole 20 Mg Capsule.Dr) 20 mg PO DAILY@0630 [facility] Last Admin: 09/29/21 05:41 Dose: 20 mg Documented by: Ondansetron HCl (Ondansetron Hcl 4 Mg/2 Ml Vial) 4 mg IVPUSH Q8H PRN PRN Reason: Nausea and Vomiting Oxycodone HCl (Oxycodone Hcl Immed Release 5 Mg Tablet) 5 mg PO TID PRN PRN Reason: pain Last Admin: 09/26/21 12:10 Dose: 5 mg Documented by: Pharmacy Consult (Consult Rx Perform Med Rec) 1 each MISCELLANE ONCE PRN PRN Reason: Consult order Polyethylene Glycol (Polyethylene Glycol 3350 17 Gm Powd.Pack) 17 gm PO DAILY [facility] Last Admin: 09/29/21 10:35 Dose: 17 gm Documented by: Prednisone (Prednisone 5 Mg Tablet) 5 mg PO DAILY [facility] Last Admin: 09/29/21 10:37 Dose: 5 mg Documented by: Senna/Docusate Sodium (Sennosides/Docusate Sodium Tablet) 2 tab PO BEDTIME [facility] Last Admin: 09/28/21 21:31 Dose: 2 tab Documented by: Sodium Chloride (0.9 % Sodium Chloride Flush 3 Ml Syringe) 3 ml IVFLUSH QSHIFT [facility] Last Admin: 09/29/21 10:36 Dose: 3 ml Documented by: Enedina Alvarez NP - Last Filed: 09/29/21 15:15> Labs CBC & Chem 7: : 09/28/21 06:17 09/28/21 06:17 <iKra Alvarez NP - Last Filed: 09/29/21 15:15> Labs: Laboratory Results - last 24 hr 09/29/21 06:24 Total Bilirubin 7.1 H Direct Bilirubin 5.6 H AST 327 H ALT 205 H Alkaline Phosphatase 452 H Total Protein 6.0 L Albumin 2.7 L <Kira Alvarez NP - Last Filed: 09/29/21 15:15> Microbiology Microbiology Results: Microbiology 09/25/21 11:07 Blood - Venous Blood Culture - Preliminary No growth after 48 hours. 09/25/21 10:55 Blood - Venous Blood Culture - Preliminary No growth after 48 hours. <Kira Alvarez NP - Last Filed: 09/29/21 15:15> Quality Stroke Does the patient have a stroke diagnosis?: No <Kira Alvarez NP - Last Filed: 09/29/21 15:15> VTE Prior VTE?: No <Kira Alvarez NP - Last Filed: 09/29/21 15:15> VTE Risk Level:: Medical - moderate - high <Kira Alvarez NP - Last Filed: 09/29/21 15:15> VTE Device Contraindication: Treatment Not Indicated <Kira Alvarez NP - Last Filed: 09/29/21 15:15> VTE Drug Contraindication: N/A - Med Ordered <Kira Alvarez NP - Last Filed: 09/29/21 15:15>
[2021-09-29 11:52] VITALS: BP 118/68; PULSE 83; RESP 18; TEMP 37.3; O2SAT 97
--- NOTE | 2021-09-29 12:48 | PM.EVENT ---
Labs and imaging studies reviewed. Pt continues to have cholestatic picture with no obvious cause. No liver disease/metastases. Possible cause could be a rare condition, Lance's syndrome, paraneoplastic syndrome seen with sold tumors. More common with prostate cancer, but can be seen with any solid tumor and pancreatic cancer. Treatment of underlying malignancy may reverse hepatic failure. Administering chemotherapy with this degree of hepatic dysfunction is going to be difficult. Single agent Gemzar may be tried. I will discuss with GI and family/pt further.
[2021-09-29 15:29] VITALS: BP 133/76; PULSE 80; RESP 16; TEMP 36.9; O2SAT 98
--- NOTE | 2021-09-29 18:32 | PM.GIPN ---
Subjective Subjective Date of Service: 09/29/21 Interval History: Patient feeling well. Denies abdominal pain, N/V, diarrhea. Eating OK. Afebrile Critical Care Time (minutes): 0 Physical Exam Vital Signs: Vital Signs: Last Vital Signs Temp 98.4 F 09/29/21 15:29 Pulse 80 09/29/21 15:29 Resp 16 09/29/21 15:29 BP 133/76 09/29/21 15:29 Pulse Ox 98 09/29/21 15:29 Body Mass Index 20.7 Const: General: cooperative, healthy appearing, comfortable, no acute distress, well developed and alert Eyes: Other: Slightly icteric GI: Other: Abd-soft, nondistended, +BS, NT Objective Data Labs CBC & Chem 7: 09/28/21 06:17 09/28/21 06:17 Labs: Laboratory Results - last 24 hr 09/29/21 06:24 Total Bilirubin 7.1 H Direct Bilirubin 5.6 H AST 327 H ALT 205 H Alkaline Phosphatase 452 H Total Protein 6.0 L Albumin 2.7 L Imaging MRI - abdomen: Radiologist's impression: No sign of choledocholithiasis, biliary obstruction, nor metastatic disease to liver Microbiology Microbiology Results: Microbiology 09/25/21 11:07 Blood - Venous Blood Culture - Preliminary No growth after 48 hours. 09/25/21 10:55 Blood - Venous Blood Culture - Preliminary No growth after 48 hours. Procedures Date of Service Date of Service: 09/29/21 Progress Note: A&P Assessment and plan (1) Elevated LFTs: Status: Acute Assessment and Plan: Imp: The patient appears well from a clinical standpoint and his abdominal exam is benign. His w/u does not seem to reflect biliary obstruction nor definite cholecystitis based on the imaging studies. The etiology of the elevated LFT's and jaundice is not clear at this time. Rec: D/C any potentially hepatotoxic meds such as his statin and Tylenol. Check PT/INR, F/U LFT's, and recheck Hep C Antibody to see if by chance it has converted to +, as compared to the previous negative study. If the Hep C Ab is now positive I would then check a Hep C viral load to R/O an acute Hep C infection. Check Doppler U/S of portal and hepatic veins to R/O thrombus. Check autoimmune studies as well. Thanks (2) Jaundice: Status: Acute Fall Risk Details Current Medications: Current Medications Aspirin (Aspirin Enteric Coated 81 Mg Tablet.) 81 mg PO DAILY [facility] Last Admin: 09/29/21 10:36 Dose: 81 mg Documented by: Brimonidine Tartrate (Brimonidine Tartrate 0.2% Oph 5 Ml Bottle) 1 drop EYE-BOTH BID [facility] Last Admin: 09/29/21 10:36 Dose: 1 drop Documented by: Cyanocobalamin (Cyanocobalamin (Vitamin B-12) 1,000 Mcg/Ml Vial) 1,000 mcg IM Q30D [facility] Heparin Sodium (Porcine) (Heparin Sodium,Porcine 5,000 Unit/Ml Vial) 5,000 unit SUBCUT Q12H [facility] Last Admin: 09/29/21 17:02 Dose: 5,000 unit Documented by: Piperacillin Sod/Tazobactam (Sod 3.375 gm/ Sodium Chloride) 50 mls @ 100 mls/hr IV Q6H [facility] Last Infusion: 09/29/21 15:57 Dose: Infused Documented by: Loratadine (Loratadine 10 Mg Tablet) 10 mg PO DAILY [facility] Last Admin: 09/29/21 10:36 Dose: 10 mg Documented by: Omeprazole (Omeprazole 20 Mg Capsule.) 20 mg PO DAILY@0630 [facility] Last Admin: 09/29/21 05:41 Dose: 20 mg Documented by: Ondansetron HCl (Ondansetron Hcl 4 Mg/2 Ml Vial) 4 mg IVPUSH Q8H PRN PRN Reason: Nausea and Vomiting Oxycodone HCl (Oxycodone Hcl Immed Release 5 Mg Tablet) 5 mg PO TID PRN PRN Reason: pain Last Admin: 09/26/21 12:10 Dose: 5 mg Documented by: Pharmacy Consult (Consult Rx Perform Med Rec) 1 each MISCELLANE ONCE PRN PRN Reason: Consult order Polyethylene Glycol (Polyethylene Glycol 3350 17 Gm Powd.Pack) 17 gm PO DAILY [facility] Last Admin: 09/29/21 10:35 Dose: 17 gm Documented by: Prednisone (Prednisone 5 Mg Tablet) 5 mg PO DAILY [facility] Last Admin: 09/29/21 10:37 Dose: 5 mg Documented by: Senna/Docusate Sodium (Sennosides/Docusate Sodium Tablet) 2 tab PO BEDTIME [facility] Last Admin: 09/28/21 21:31 Dose: 2 tab Documented by: Sodium Chloride (0.9 % Sodium Chloride Flush 3 Ml Syringe) 3 ml IVFLUSH QSHIFT [facility] Last Admin: 09/29/21 12:56 Dose: Not Given Documented by: Time Spent With Patient Time: Total time spent is greater than 50% in coordination of care (as documented) at patient's floor/unit and/or counseling patient: Time with patient: 15 - 24 minutes Quality Stroke Does the patient have a stroke diagnosis?: No VTE Prior VTE?: No VTE Risk Level:: Medical - moderate - high VTE Device Contraindication: Treatment Not Indicated VTE Drug Contraindication: N/A - Med Ordered
[2021-09-29 19:10] VITALS: BP 148/79; PULSE 78; RESP 20; TEMP 37.3; O2SAT 98
[2021-09-29] MEDS: Sennosides/Docusate Sodium TABLET 2 TAB PO (22:30)
[2021-09-29 23:54] VITALS: BP 136/73; PULSE 65; RESP 18; TEMP 36.2; O2SAT 97
[2021-09-30 03:36] VITALS: BP 148/72; PULSE 60; RESP 18; TEMP 36.8; O2SAT 98
[2021-09-30] MEDS: Piperacillin Sodium/Tazobactam 3.375 GM in 0.9 % Sodium Chloride 50 ML IV ×4 (04:39→22:37)
[2021-09-30] MEDS: Heparin Sodium,Porcine 5,000 UNIT/ML VIAL 5000 UNIT SUBCUT ×2 (05:46→16:53)
[2021-09-30] MEDS: Omeprazole 20 MG CAPSULE.DR PO (05:46)
[2021-09-30 07:18] LABS: INTERNATIONAL NORM RATIO 1.3 (0.9-1.1); Prothrombin Time 14.3 SEC (9.9-13.0)
[2021-09-30 08:00] VITALS: BP 135/81; PULSE 98; RESP 18; TEMP 36.6; O2SAT 98
[2021-09-30 08:13] LABS: Alanine Aminotransferase 218 U/L (0-40); Albumin Level 2.6 g/dL (3.5-5.0); Alkaline Phosphatase 521 U/L (39-117); Aspartate Amino Transferase 371 U/L (5-37); Bilirubin Direct 5.8 mg/dL (0.0-0.5); Bilirubin Total 7.4 mg/dL (0.0-1.0); Total Protein 6.1 g/dL (6.5-8.0)
[2021-09-30] MEDS: Brimonidine Tartrate 0.2% Oph 5 ML BOTTLE 1 DROP EYE-BOTH ×2 (10:34→22:43)
[2021-09-30] MEDS: polyethylene glycoL 3350 17 GM POWD.PACK PO (10:35)
[2021-09-30] MEDS: Aspirin Enteric Coated 81 MG TABLET.DR PO (10:35)
[2021-09-30] MEDS: predniSONE 5 MG TABLET PO (10:35)
[2021-09-30] MEDS: 0.9 % Sodium Chloride Flush 3 ML SYRINGE IVFLUSH ×3 (10:35→22:38)
[2021-09-30] MEDS: Loratadine 10 MG TABLET PO (10:35)
--- NOTE | 2021-09-30 10:56 | P.PNIM_ITS ---
Progress Note: A&P (1) Pancreatic mass: Status: Acute <Kira Alvarez NP - Last Filed: 09/30/21 11:14> (2) Elevated LFTs: Status: Acute <Kira Alvarez NP - Last Filed: 09/30/21 11:14> Assessment and Plan: 76-year-old man admitted? with possible cholecystitis with history pancreatic cancer.? He was at his oncologist's office about to received his 1st chemotherapy treatment when he became hypotensive was sent to the ER for further evaluation. Transaminitis Initial imaging showed concern over acute cholecystitis- Discussed case with oncology, not a good surgical candidate due to underlying metastatic pancreatic cancer continue IV zosyn can switch to ceftin as outpatient general surgery following, stated that patient is not a surgical candidate at this time. GI following, recchecking for acute hep c,as well as doppler u/s of portal and hepatic veins, Which was negative ISAMAR pending MRCP showed no gallstones No obvious cause found at this time. May be secondary to rare condition according to Oncology, treatment of underlying malignancy may reverse the hepatic failure Metastatic pancreatic cancer has not yet received first dose of chemo, was set to start 09/25 but was hypotensive and febrile so it was cancelled oncology following Hypotension.? Resolved. BP starting to rebound, will monitor closely. Received 30 mL/kg IV fluid bolus Will hold lisinopril and hydrochlorothiazide consider resuming home meds as BP allows Leukocytosis.? Resolved. Likely secondary to cholecystitis, no sepsis noted Continue antibiotics Polymyalgia rheumatica Continue home dose of prednisone Code status - full code DVT prophylaxis with heparin Attending Dr. Hanley? <Kira Alvarez NP - Last Filed: 09/30/21 11:14> 76-year-old man admitted? with possible cholecystitis with history pancreatic cancer.? He was at his oncologist's office about to received his 1st chemotherapy treatment when he became hypotensive was sent to the ER for further evaluation. Transaminitis Initial imaging showed concern over acute cholecystitis- Discussed case with oncology, not a good surgical candidate due to underlying metastatic pancreatic cancer continue IV zosyn can switch to ceftin as outpatient general surgery following, stated that patient is not a surgical candidate at this time. GI following, recchecking for acute hep c,as well as doppler u/s of portal and hepatic veins, Which was negative ISAMAR pending MRCP showed no gallstones No obvious cause found at this time. May be secondary to rare condition according to Oncology, treatment of underlying malignancy may reverse the hepatic failure Metastatic pancreatic cancer has not yet received first dose of chemo, was set to start 09/25 but was hypotensive and febrile so it was cancelled oncology following Hypotension.? Resolved. BP starting to rebound, will monitor closely. Received 30 mL/kg IV fluid bolus Will hold lisinopril and hydrochlorothiazide consider resuming home meds as BP allows Leukocytosis.? Resolved. Likely secondary to cholecystitis, no sepsis noted Continue antibiotics Polymyalgia rheumatica Continue home dose of prednisone Code status - full code DVT prophylaxis with heparin Attending Dr. Hanley? I saw and evaluated the patient and discussed the care with Ana AGUILAR above. I agree with the findings and plan as documented in the note above, we are keeping aye on LFTS as they continue to rise <Tonio Hanley MD - Last Filed: 09/30/21 14:23> Subjective Subjective Date of Service: 09/30/21 <Kira Alvarez NP - Last Filed: 09/30/21 11:14> 09/30/21 <Tonio Hanley MD - Last Filed: 09/30/21 14:23> Review of Systems Follow up Acute hollie No pain had BM today after feeling constipated <Kira Alvarez NP - Last Filed: 09/30/21 11:14> Physical Exam Vital Signs: Vital Signs: Last Vital Signs Temp 97.9 F 09/30/21 08:00 Pulse 98 09/30/21 08:00 Resp 18 09/30/21 08:00 BP 135/81 09/30/21 08:00 Pulse Ox 98 09/30/21 08:00 Body Mass Index 20.7 <Kira Alvarez NP - Last Filed: 09/30/21 11:14> Appearing in no acute distress lung sounds are clear to auscultation heart regular rate rhythm, clear S1, S2 positive bowel sounds, abdomen is soft, nontender neuro patient is alert x3, no focal deficits <Kira Alvarez NP - Last Filed: 09/30/21 11:14> Objective Data Current Medications Aspirin (Aspirin Enteric Coated 81 Mg Tablet.) 81 mg PO DAILY [facility] Last Admin: 09/30/21 10:35 Dose: 81 mg Documented by: Brimonidine Tartrate (Brimonidine Tartrate 0.2% Oph 5 Ml Bottle) 1 drop EYE- BOTH BID [facility] Last Admin: 09/30/21 10:34 Dose: 1 drop Documented by: Cyanocobalamin (Cyanocobalamin (Vitamin B-12) 1,000 Mcg/Ml Vial) 1,000 mcg IM Q30D [facility] Heparin Sodium (Porcine) (Heparin Sodium,Porcine 5,000 Unit/Ml Vial) 5,000 unit SUBCUT Q12H [facility] Last Admin: 09/30/21 05:46 Dose: 5,000 unit Documented by: Piperacillin Sod/Tazobactam (Sod 3.375 gm/ Sodium Chloride) 50 mls @ 100 mls/hr IV Q6H [facility] Last Admin: 09/30/21 10:35 Dose: 100 mls/hr Documented by: Loratadine (Loratadine 10 Mg Tablet) 10 mg PO DAILY [facility] Last Admin: 09/30/21 10:35 Dose: 10 mg Documented by: Omeprazole (Omeprazole 20 Mg Capsule.Dr) 20 mg PO DAILY@0630 [facility] Last Admin: 09/30/21 05:46 Dose: 20 mg Documented by: Ondansetron HCl (Ondansetron Hcl 4 Mg/2 Ml Vial) 4 mg IVPUSH Q8H PRN PRN Reason: Nausea and Vomiting Oxycodone HCl (Oxycodone Hcl Immed Release 5 Mg Tablet) 5 mg PO TID PRN PRN Reason: pain Last Admin: 09/26/21 12:10 Dose: 5 mg Documented by: Pharmacy Consult (Consult Rx Perform Med Rec) 1 each MISCELLANE ONCE PRN PRN Reason: Consult order Polyethylene Glycol (Polyethylene Glycol 3350 17 Gm Powd.Pack) 17 gm PO DAILY [facility] Last Admin: 09/30/21 10:35 Dose: 17 gm Documented by: Prednisone (Prednisone 5 Mg Tablet) 5 mg PO DAILY [facility] Last Admin: 09/30/21 10:35 Dose: 5 mg Documented by: Senna/Docusate Sodium (Sennosides/Docusate Sodium Tablet) 2 tab PO BEDTIME [facility] Last Admin: 09/29/21 22:30 Dose: 2 tab Documented by: Sodium Chloride (0.9 % Sodium Chloride Flush 3 Ml Syringe) 3 ml IVFLUSH QSHIFT [facility] Last Admin: 09/30/21 10:35 Dose: 3 ml Documented by: <Kira Alvarez NP - Last Filed: 09/30/21 11:14> Labs CBC & Chem 7: : 09/28/21 06:17 09/28/21 06:17 <Kira Alvarez NP - Last Filed: 09/30/21 11:14> Labs: Laboratory Results - last 24 hr 09/30/21 09/30/21 06:24 06:24 PT 14.3 H INR 1.3 H Total Bilirubin 7.4 H Direct Bilirubin 5.8 H AST 371 H ALT 218 H Alkaline Phosphatase 521 H Total Protein 6.1 L Albumin 2.6 L <Kira Alvarez NP - Last Filed: 09/30/21 11:14> Microbiology Microbiology Results: Microbiology 09/25/21 11:07 Blood - Venous Blood Culture - Preliminary No growth after 48 hours. 09/25/21 10:55 Blood - Venous Blood Culture - Preliminary No growth after 48 hours. <Kira Alvarez NP - Last Filed: 09/30/21 11:14> Quality Stroke Does the patient have a stroke diagnosis?: No <Kira Alvarez NP - Last Filed: 09/30/21 11:14> VTE Prior VTE?: No <Kira Alvarez NP - Last Filed: 09/30/21 11:14> VTE Risk Level:: Medical - moderate - high <Kira Alvarez NP - Last Filed: 09/30/21 11 :14> VTE Device Contraindication: Treatment Not Indicated <Kira Alvarez NP - Last Filed: 09/30/21 11:14> VTE Drug Contraindication: N/A - Med Ordered <Kira Alvarez NP - Last Filed: 09/30/21 11:14>
[2021-09-30 11:49] VITALS: BP 140/81; PULSE 74; RESP 18; TEMP 36.2; O2SAT 98
--- NOTE | 2021-09-30 14:49 | P.PNGI_ITS ---
Subjective Subjective Date of Service: 09/30/21 Interval History: He continues to feel well. Eating OK. Denies abdominal pain, N/V, nor diarrhea. is present at bedside. Critical Care Time (minutes): 0 Physical Exam Vital Signs: Vital Signs: Last Vital Signs Temp 97.1 F 09/30/21 11:49 Pulse 74 09/30/21 11:49 Resp 18 09/30/21 11:49 BP 140/81 H 09/30/21 11:49 Pulse Ox 98 09/30/21 11:49 Body Mass Index 20.7 Const: General: cooperative, healthy appearing, comfortable and no acute distress Eyes: Other: Slightly icteric GI: Other: Soft, NT, Nondistended, +BS Objective Data Labs CBC & Chem 7: 09/28/21 06:17 09/28/21 06:17 Labs: Laboratory Results - last 24 hr 09/30/21 09/30/21 06:24 06:24 PT 14.3 H INR 1.3 H Total Bilirubin 7.4 H Direct Bilirubin 5.8 H AST 371 H ALT 218 H Alkaline Phosphatase 521 H Total Protein 6.1 L Albumin 2.6 L Imaging US - abdomen: Radiologist's impression: Doppler studies of portal and hepatic veins revealed normal flow and no sign of thrombus Microbiology Microbiology Results: Microbiology 09/25/21 11:07 Blood - Venous Blood Culture - Final No growth after 5 days. 09/25/21 10:55 Blood - Venous Blood Culture - Final No growth after 5 days. Procedures Date of Service Date of Service: 09/30/21 Progress Note: A&P Assessment and plan (1) Jaundice: Status: Acute Assessment and Plan: Imp: His LFT's continue to rise, although his INR is OK, he has no signs of ascites nor encephalopathy, he denies abdominal pain, and his abdominal exam is benign. The etiology remains unclear. Autoimmune studies, Hep A IgM, and repeat Hep C Ab are pending. Rec: Continue to follow up pending labs and F/U LFT's. Consider U/S-guided liver biopsy if the LFT's do not improve and the w/u remains negative. Trial of chemotherapy as per Dr. Ross. Thanks (2) Elevated LFTs: Status: Acute Fall Risk Details Current Medications: Current Medications Aspirin (Aspirin Enteric Coated 81 Mg Tablet.) 81 mg PO DAILY [facility] Last Admin: 09/30/21 10:35 Dose: 81 mg Documented by: Brimonidine Tartrate (Brimonidine Tartrate 0.2% Oph 5 Ml Bottle) 1 drop EYE- BOTH BID [facility] Last Admin: 09/30/21 10:34 Dose: 1 drop Documented by: Cyanocobalamin (Cyanocobalamin (Vitamin B-12) 1,000 Mcg/Ml Vial) 1,000 mcg IM Q30D [facility] Heparin Sodium (Porcine) (Heparin Sodium,Porcine 5,000 Unit/Ml Vial) 5,000 unit SUBCUT Q12H [facility] Last Admin: 09/30/21 05:46 Dose: 5,000 unit Documented by: Piperacillin Sod/Tazobactam (Sod 3.375 gm/ Sodium Chloride) 50 mls @ 100 mls/hr IV Q6H [facility] Last Infusion: 09/30/21 11:23 Dose: Infused Documented by: Loratadine (Loratadine 10 Mg Tablet) 10 mg PO DAILY [facility] Last Admin: 09/30/21 10:35 Dose: 10 mg Documented by: Omeprazole (Omeprazole 20 Mg Capsule.Dr) 20 mg PO DAILY@0630 [facility] Last Admin: 09/30/21 05:46 Dose: 20 mg Documented by: Ondansetron HCl (Ondansetron Hcl 4 Mg/2 Ml Vial) 4 mg IVPUSH Q8H PRN PRN Reason: Nausea and Vomiting Oxycodone HCl (Oxycodone Hcl Immed Release 5 Mg Tablet) 5 mg PO TID PRN PRN Reason: pain Last Admin: 09/26/21 12:10 Dose: 5 mg Documented by: Pharmacy Consult (Consult Rx Perform Med Rec) 1 each MISCELLANE ONCE PRN PRN Reason: Consult order Polyethylene Glycol (Polyethylene Glycol 3350 17 Gm Powd.Pack) 17 gm PO DAILY [facility] Last Admin: 09/30/21 10:35 Dose: 17 gm Documented by: Prednisone (Prednisone 5 Mg Tablet) 5 mg PO DAILY [facility] Last Admin: 09/30/21 10:35 Dose: 5 mg Documented by: Senna/Docusate Sodium (Sennosides/Docusate Sodium Tablet) 2 tab PO BEDTIME [facility] Last Admin: 09/29/21 22:30 Dose: 2 tab Documented by: Sodium Chloride (0.9 % Sodium Chloride Flush 3 Ml Syringe) 3 ml IVFLUSH QSHIFT [facility] Last Admin: 09/30/21 10:35 Dose: 3 ml Documented by: Time Spent With Patient Time: Total time spent is greater than 50% in coordination of care (as documented) at patient's floor/unit and/or counseling patient: Time with patient: 15 - 24 minutes Quality Stroke Does the patient have a stroke diagnosis?: No VTE Prior VTE?: No VTE Risk Level:: Medical - moderate - high VTE Device Contraindication: Treatment Not Indicated VTE Drug Contraindication: N/A - Med Ordered
[2021-09-30 15:07] VITALS: BP 147/73; PULSE 75; RESP 20; TEMP 36.7; O2SAT 98
[2021-09-30 19:03] VITALS: BP 150/80; PULSE 77; RESP 20; TEMP 36.4; O2SAT 99
[2021-09-30] MEDS: Sennosides/Docusate Sodium TABLET 2 TAB PO (22:37)
[2021-09-30 23:15] VITALS: BP 150/77; PULSE 59; RESP 20; TEMP 36.1; O2SAT 98
[2021-10-01 03:04] VITALS: BP 140/73; PULSE 66; RESP 20; TEMP 36.2; O2SAT 99
[2021-10-01 03:36] LABS: ~HepC Num1 0.16 S/CO (0.00-0.79); ~Hepatitis C Antibody Nonreactive (Nonreactive)
[2021-10-01] MEDS: Piperacillin Sodium/Tazobactam 3.375 GM in 0.9 % Sodium Chloride 50 ML IV ×2 (04:03→09:27)
[2021-10-01] MEDS: Heparin Sodium,Porcine 5,000 UNIT/ML VIAL 5000 UNIT SUBCUT (04:04)
[2021-10-01] MEDS: Omeprazole 20 MG CAPSULE.DR PO (04:04)
[2021-10-01 06:26] LABS: MANUAL DIFF FLAG NO
[2021-10-01 06:45] LABS: Basophils Percent Auto 0.3 % (0-2); Eosinophils Absolute Auto 0.4 X10*3/uL (0.0-0.4); Eosinophils Percent Auto 4.5 % (0-4); Hematocrit 31.4 % (42.0-52.0); Hemoglobin 10.5 g/dl (14.0-18.0); Imm Gran Abs Auto 0.08 X10*3/uL (0.00-0.03); Imm Gran Pct Auto 0.9 % (0.0-0.4); Lymphocytes Absolute Auto 1.3 X10*3/uL (1.2-4.9); Lymphocytes Percent Auto 13.9 % (20-40); Mean Corpuscular HGB Conc 33.4 g/dl (31.0-36.0); Mean Corpuscular Hemoglobin 28.8 pg (27.0-33.0); Mean Corpuscular Volume 86.3 fL (80.0-98.0); Mean Platelet Volume 10.4 fL (9.4-12.4); Monocytes Absolute Auto 0.8 X10*3/uL (0.1-1.2); Monocytes Percent Auto 8.6 % (2-11); Neutrophils Percent Auto 71.8 % (45-73); Platelet Count 337 X10*3/uL (160-400); Red Blood Count 3.64 X10*6/uL (4.60-5.80); Red Cell Distribution Width 15.4 % (11.0-16.0); White Blood Count 9.2 X10*3/uL (4.8-10.8)
[2021-10-01 06:50] LABS: Anion Gap 13 (12-20); Blood Urea Nitrogen 17 mg/dL (9-16); Calcium 8.2 mg/dL (8.4-10.2); Carbon Dioxide 25 mmol/L (22-29); Chloride 106 mmol/L (96-108); Creatinine Clr Calc Pharmacy 59.9; Estimated Glomerular Filt Rate > 60; Glucose Random 90 mg/dL (60-115); Potassium 3.8 mmol/L (3.3-5.1); Sodium 140 mmol/L (135-145)
[2021-10-01 06:56] LABS: Alanine Aminotransferase 191 U/L (0-40); Albumin Level 2.5 g/dL (3.5-5.0); Alkaline Phosphatase 540 U/L (39-117); Aspartate Amino Transferase 315 U/L (5-37); Bilirubin Direct 5.6 mg/dL (0.0-0.5); Bilirubin Total 7.1 mg/dL (0.0-1.0); Total Protein 5.8 g/dL (6.5-8.0)
[2021-10-01 07:16] VITALS: BP 150/78; PULSE 66; RESP 18; TEMP 36.3; O2SAT 97
--- NOTE | 2021-10-01 07:18 | P.CDIC_ITS ---
CDI Concurrent Query Documentation Clarification: PHYSICIAN'S DOCUMENTATION REQUEST Date of Query: 10/01/21 0719 Patient Name: Rowdy Romero Admit Date: 09/25/21 Dear Doctor, A review of the medical record indicates additional documentation may be needed. Please review below and update the documentation accordingly. Risk Factors/Clinical Indicators/Treatments Per MD Progress note 09/30/21: Transaminitis Initial imaging showed concern over acute cholecystitis- Discussed case with oncology, not a good surgical candidate due to underlying metastatic pancreatic cancer continue IV zosyn can switch to ceftin as outpatient general surgery following, stated that patient is not a surgical candidate at this time. GI following, recchecking for acute hep c,as well as doppler u/s of portal and hepatic veins, Which was negative ISAMAR pending MRCP showed no gallstones No obvious cause found at this time.? May be secondary to rare condition according to Oncology, treatment of underlying malignancy may reverse the hepatic failure Based on the above, could you clarify in the Progress Notes the appropriate patric gnosis, if significant, that supports the above abnormalities and additional evaluation, monitoring, and/or treatment rendered: * Based on the above documentation, please specify Hepatic Failure (Acute and chronic, Acute or subacute, Chronic) * Other (please specify) * Unable to determine Use of terms such as suspected, likely, concern for, or probable (associated with a specific diagnosis that is being evaluated, monitored, or treated as if it exists) are acceptable and can be coded in the inpatient setting, when documented at the time of discharge. Thank you, Kierra Okeefe RN Extension: [phone] Please use your independent medical judgment in providing your response. THIS QUERY IS PART OF THE PERMANENT MEDICAL RECORD Provider Response: Other Other Diagnosis: please send to the correct provider
[2021-10-01] MEDS: predniSONE 5 MG TABLET PO (09:08)
[2021-10-01] MEDS: Loratadine 10 MG TABLET PO (09:08)
[2021-10-01] MEDS: Aspirin Enteric Coated 81 MG TABLET.DR PO (09:08)
[2021-10-01] MEDS: 0.9 % Sodium Chloride Flush 3 ML SYRINGE IVFLUSH (09:08)
[2021-10-01] MEDS: Brimonidine Tartrate 0.2% Oph 5 ML BOTTLE 1 DROP EYE-BOTH (09:09)
[2021-10-01] MEDS: polyethylene glycoL 3350 17 GM POWD.PACK PO (09:09)
--- NOTE | 2021-10-01 09:41 | MHC.CM.PN ---
dc plan is home no svcs. cm to cont. to follow.
[2021-10-01 11:06] VITALS: BP 120/72; PULSE 80; RESP 18; TEMP 36.4; O2SAT 98
--- NOTE | 2021-10-01 11:07 | P.DS_ITS ---
DS: Providers Provider Date of Service: 10/01/21 Date of admission: 09/25/21 16:43 Primary care physician: Alma Delia Altamirano MD Consults: 09/25/21 16:50 Consult to General Surgery Routine Consulting Provider: Devin Coe Reason for consultation: acute choly Has provider been notified: Yes Consult to Hematology / Oncology Routine Consulting Provider: Silvia Ross Reason for consultation: hypotension, acute hollie. ? surgical candidate Has provider been notified: No 09/27/21 17:35 Consult to Gastroenterology Routine Consulting Provider: Adan Blunt Reason for consultation: elevated LFTs, abnormal HIDA scan Has provider been notified: No Attending physician on discharge: Parth Ye Discharging clinician: Kira Alvarez DS: Diagnosis Discharge Diagnosis (1) Jaundice: Status: Acute (2) Elevated LFTs: Status: Acute DS: Summary Hospital Course Hospital Course: 76 Year old Malay-speaking male presenting to the ER after being found hypotensive at his oncology office.? He was recently diagnosed with pancreatic cancer and was to start his 1st chemotherapy treatment today when he was found to be hypotensive.? According to his last night he had chills and fever.? She also reported that he has been constipated over the last 4 days.? She denied that he had any nausea, vomiting, chest pain, shortness of breath.? In the ER, he was not noted to be febrile however he did have a white blood cell count of 15.8, total bili 3.3, AST 238, ALT 147, alkaline phosphatase 464. abdominal ultr asound showed gallstones with contracted gallbladder and thickened edematous gallbladder wall.? Due to his history of recent pancreatic cancer diagnosis he may not be a good surgical candidate however will admit him for further management and treatment of acute cholecystitis. Transaminitis Initial imaging showed concern over acute cholecystitis- Discussed case with oncology, not a good surgical candidate due to underlying metastatic pancreatic cancer Not a surgical candidate at this time. MRCP showed no gallstones. Treated with IV zosyn, changed to ceftin for 4 more days as outpatient. Seen by Gastroenterology, hepatitis c,as well as doppler u/s of portal and hepatic veins negative ISAMAR still pending Seen and examined by Oncology, plan is for chemotherapy as this may treat the underlying hepatic failure Recheck LFTs and 2 days Metastatic pancreatic cancer has not yet received first dose of chemo, was set to start 09/25 but was hypotensive and febrile so it was cancelled. He will follow-up with oncology as outpatient for schedule of chemotherapy. Hypotension.? Resolved Fairly quickly on admission. He was treated with 30 mL/kg IV fluid bolus, lisinopril and hydrochlorothiazide were held. Can be restarted on discharge. Time Spent with Patient Time attestation: Total time spent providing and/or coordinating discharge services: Discharge coordination time: Greater than 30 minutes Quality: Stroke Does the patient have a stroke diagnosis?: No Physical Exam Vital Signs: Vital Signs: Last Vital Signs Temp 97.3 F 10/01/21 07:16 Pulse 66 10/01/21 07:16 Resp 18 10/01/21 07:16 BP 150/78 H 10/01/21 07:16 Pulse Ox 97 10/01/21 07:16 Body Mass Index 20.7 DS: Data Data Completed and Pending Labs on day of discharge: Laboratory Results - last 24 hr 09/30/21 10/01/21 10/01/21 06:24 06:12 06:12 WBC 9.2 RBC 3.64 L Hgb 10.5 L Hct 31.4 L MCV 86.3 MCH 28.8 MCHC 33.4 RDW 15.4 Plt Count 337 MPV 10.4 Immature Gran % (Auto) 0.9 H Neut % (Auto) 71.8 Lymph % (Auto) 13.9 L [place] % (Auto) 8.6 Eos % (Auto) 4.5 H Baso % (Auto) 0.3 Lymph # (Auto) 1.3 [place] # (Auto) 0.8 Eos # (Auto) 0.4 Baso # (Auto) 0.0 Abs Immat Gran (auto) 0.08 H Absolute Neuts (auto) 6.60 Absolute Nucleated RBC 0.000 Nucleated RBC % (auto) 0.0 Sodium 140 Potassium 3.8 Chloride 106 Carbon Dioxide 25 Anion Gap 13 BUN 17 H Creatinine 0.89 Estim Creat Clear Calc 59.9 Estimated GFR > 60 Random Glucose 90 Calcium 8.2 L Total Bilirubin Direct Bilirubin AST ALT Alkaline Phosphatase Total Protein Albumin Hepatitis C Ab (EIA) Nonreactive 10/01/21 06:12 WBC RBC Hgb Hct MCV MCH MCHC RDW Plt Count MPV Immature Gran % (Auto) Neut % (Auto) Lymph % (Auto) [place] % (Auto) Eos % (Auto) Baso % (Auto) Lymph # (Auto) [place] # (Auto) Eos # (Auto) Baso # (Auto) Abs Immat Gran (auto) Absolute Neuts (auto) Absolute Nucleated RBC Nucleated RBC % (auto) Sodium Potassium Chloride Carbon Dioxide Anion Gap BUN Creatinine Estim Creat Clear Calc Estimated GFR Random Glucose Calcium Total Bilirubin 7.1 H Direct Bilirubin 5.6 H AST 315 H ALT 191 H Alkaline Phosphatase 540 H Total Protein 5.8 L Albumin 2.5 L Hepatitis C Ab (EIA) Discharge Plan Discharge Anticipated Discharge Date/Time: 10/01/21 10:59 Patient Disposition: Home, Self-Care Discharge Diagnosis: Transaminitis Metastatic pancreatic cancer Hypotension Cholecystitis Referrals: Silvia Ross MD [Physician] - 1 Week Alma Delia Altamirano MD [Primary Care Provider] - 1 Week Discharge Medications: New cefuroxime axetil 500 mg tablet 500 mg PO BID Qty: 8 RF: 0 Continued brimonidine 0.2 % drops 1 drp ophthalmic (eye) Q12H RF: 0 atorvastatin [Lipitor] 40 mg tablet 40 mg PO BEDTIME 30 Days Qty: 30 RF: 0 prednisone 5 mg tablet 1 tab PO QAM RF: 0 cyanocobalamin (vitamin B-12) 1,000 mcg/mL solution 1,000 mcg IM Q30D RF: 0 loratadine 10 mg tablet 1 tab PO DAILY RF: 0 polyethylene glycol 3350 [Miralax] 17 gram/dose powder 17 g PO DAILY Qty: 510 RF: 0 sennosides-docusate sodium [Senna with Docusate Sodium] 8.6-50 mg Tablet 2 tab-cap PO BEDTIME Qty: 60 RF: 2 ondansetron HCl [Zofran] 4 mg Tablet 4 mg PO Q6H PRN (Reason: Nausea) Qty: 30 RF: 3 omeprazole 20 mg capsule,delayed release(DR/EC) 20 mg PO DAILY RF: 0 lisinopril 40 mg tablet 40 mg PO DAILY RF: 0 hydrochlorothiazide 25 mg tablet 25 mg PO DAILY RF: 0 aspirin 81 mg tablet,delayed release (DR/EC) 81 mg PO DAILY RF: 0 oxycodone 5 mg tablet 5 mg PO TID PRN (Reason: pain) Qty: 30 RF: 0 Diet: advance to usual diet Activity on Discharge: As tolerated Stand Alone Forms: Patient Portal Discharge page Other Ambulatory Orders: Fibrinogen (Routine) Timeframe: 20210929 Facility: [facility] - Location: Laboratory Ordered By: Silvia Ross Liver Panel (Routine) Timeframe: 20211003 Facility: [facility] - Location: Laboratory Ordered By: Kira Alvarez Prothrombin Time INR (Routine) Timeframe: 20210929 Facility: [facility] - Location: Laboratory Ordered By: Silvia Ross Partial Thromboplastin Time (Routine) Timeframe: 20210929 Facility: [facility] - Location: Laboratory Ordered By: Silvia Ross Care Plan Goals: Start of chemotherapy treatment Health Concerns: Transaminitis Metastatic pancreatic cancer Hypotension Cholecystitis Plan of Treatment: Follow up with Dr. Ross for outpatient chemotherapy Assessment: See discharge summary
[2021-10-01 17:31] LABS: Anti Nuclear Antibody Screen NEGATIVE (NEGATIVE)
[2021-10-03 09:08] LABS: Hepatitis A Antibody IgM 0.33 Index (0-0.79); ~Hepatitis A Antibody IgM Nonreactive (Nonreactive)
[2021-10-04 11:26] LABS: Smooth Muscle Antibody 41 U (<20)
--- NOTE | 2021-11-09 09:44 | P.CDIR_ITS ---
Documented by User: Keirra Okeefe RN 11/09/21 09:47 Retrospective Query PHYSICIAN'S DOCUMENTATION REQUEST Date of Query: 11/09/2198 Patient Name: Rowdy Romero Admit Date: 09/25/21 Dear Doctor, A review of the medical record indicates additional documentation may be needed. Please review below and update the documentation accordingly. Risk Factors/Clinical Indicators/Treatments Per MD Progress note 09/30/21: Transaminitis Initial imaging showed concern over acute cholecystitis- Discussed case with oncology, not a good surgical candidate due to underlying metastatic pancreatic cancer continue IV zosyn can switch to ceftin as outpatient general surgery following, stated that patient is not a surgical candidate at this time. GI following, recchecking for acute hep c,as well as doppler u/s of portal and hepatic veins, Which was negative ISAMAR pending MRCP showed no gallstones No obvious cause found at this time.? May be secondary to rare condition according to Oncology, treatment of underlying malignancy may reverse the hepatic failure Based on the above, could you clarify in the Progress Notes the appropriate diagnosis, if significant, that supports the above abnormalities and additional evaluation, monitoring, and/or treatment rendered: * Based on the above documentation, please specify Hepatic Failure (Acute and chronic, Acute or subacute, Chronic) * Other (please specify) * Unable to determine Use of terms such as suspected, likely, concern for, or probable (associated with a specific diagnosis that is being evaluated, monitored, or treated as if it exists) are acceptable and can be coded in the inpatient setting, when documented at the time of discharge. Thank you, Kierra Okeefe RN Extension: [phone] Please use your independent medical judgment in providing your response. THIS QUERY IS PART OF THE PERMANENT MEDICAL RECORD Documented by User: Parth Ye MD 11/09/21 10:09 Retrospective Query Provider Response: Other (acute hepatic failure )
== END 2021-10-01 13:50 | disposition home or self-care (01) | DRG 444 ==
LOC: HO.ED 16:10 → HO.EDOVER 17:07 → HO.IMC 17:36
PROVIDERS: Family Medicine; Internal Medicine; Internal Medicine Gastroenterology; Physician Assistant Medical; Admitting Provider Nurse Practitioner Acute Care; Emergency Provider Emergency Medicine; PCP Family Medicine; Visit Provider Nurse Practitioner Acute Care
DX: K81.0 Acute cholecystitis (principal); K72.00 Acute and subacute hepatic failure without coma; C77.2 Secondary and unspecified malignant neoplasm of intra-abdominal lymph nodes; C80.0 Disseminated malignant neoplasm, unspecified; C25.8 Malignant neoplasm of overlapping sites of pancreas; C79.72 Secondary malignant neoplasm of left adrenal gland; D72.829 Elevated white blood cell count, unspecified; I95.9 Hypotension, unspecified; M35.3 Polymyalgia rheumatica; Z20.822 Contact with and (suspected) exposure to COVID-19; Z87.891 Personal history of nicotine dependence; Z79.52 Long term (current) use of systemic steroids; Z79.82 Long term (current) use of aspirin; Z79.899 Other long term (current) drug therapy
CPT/HCPCS: 0241U; 36415; 71045; 74176; 74183; 76705; 78226; 80048; 80076; 81001; 81003; 83605; 83690; 83880; 84484; 85025; 85610; 86038; 86039; 86255; 86709; 86803; 87040; 93005; 93975; 96361; 96365; 99285; A9537; A9585; J2543

== ENCOUNTER → 2021-11-06 13:16 | Outpatient (BNVA) | payer MEDICARE, MEDICAID, SELFPAY | PROVIDERS: PCP Family Medicine; Referring Provider Registered Nurse Community Health; Visit Provider Internal Medicine Cardiovascular Disease | DX: Z86.79 Personal history of other diseases of the circulatory system (principal) | CPT/HCPCS: 99202 ==

== ENCOUNTER 2021-11-29 13:47 | Outpatient (REF) | payer MEDICARE, MEDICAID, SELFPAY ==
[2021-11-29 14:59] LABS: Binax Internal Control QC Valid; Binax Lot number: 9864; Binax Now Covid-19 Ag Negative (Negative)
== END 2021-11-29 13:48 | disposition home or self-care (01) ==
LOC: HO.LAB 13:47
PROVIDERS: Visit Provider Internal Medicine
DX: Z20.822 Contact with and (suspected) exposure to COVID-19 (principal)
CPT/HCPCS: 36415; C9803

== ENCOUNTER 2022-01-18 12:55 | Outpatient (REF) | payer MEDICARE, MEDICAID, SELFPAY ==
--- NOTE | ~2022-01-18 | US_ITS ---
EXAMINATION: US VENOUS ULTRASOUND WITH DOPPLER LOWER EXTREMITY, LEFT CLINICAL INFORMATION: Leg pain and swelling COMPARISON: None TECHNIQUE: Ultrasound of the deep veins is performed from the hip to the calf with compression sonography and color and pulse Doppler assessment. Spectral analysis with color-flow imaging is performed. FINDINGS: There is normal venous compression and respiratory variation and augmented flow. The visualized common femoral vein, superficial femoral vein, profunda femoral vein, popliteal vein, and the trifurcation region shows no evidence of deep venous thrombosis. There is no significant popliteal fossa cyst. No popliteal artery aneurysm. US/US venous duplex LE LT IMPRESSION: No acute DVT demonstrated in the left lower extremity.
== END 2022-01-18 12:56 | disposition home or self-care (01) ==
LOC: HO.US 12:55
PROVIDERS: Visit Provider Internal Medicine
DX: R60.9 Edema, unspecified (principal); C25.9 Malignant neoplasm of pancreas, unspecified; C77.2 Secondary and unspecified malignant neoplasm of intra-abdominal lymph nodes
CPT/HCPCS: 93971

== ENCOUNTER 2022-02-18 10:04 | Outpatient (REF) | payer MEDICARE, MEDICAID, SELFPAY ==
--- NOTE | ~2022-02-18 | CT_ITS ---
EXAMINATION: CT ABDOMEN AND PELVIS WITHOUT CONTRAST CLINICAL INFORMATION: History of pancreatic cancer. Assess response to treatment COMPARISON: Previous CT, ultrasound and MR of the abdomen August 2021 TECHNIQUE: Multidetector volumetric imaging was performed from the superior aspect of the liver through the pubic symphysis. Sagittal and coronal reformatted images were obtained on the technologist's workstation. This CT examination was performed using dose optimization techniques as appropriate, variously including the following: *Automated exposure control *Adjustment of mA and/or kV according to patient size (this includes techniques or standardized protocols for targeted exams where dose is matched to indication/reason for exam; i.e. extremities or head) *Use of iterative reconstruction technique DLP: 387 mGy-cm FINDINGS: Exam is limited due to lack of oral and IV contrast and motion artifact. LUNG BASES: There is atelectasis at the lung bases. There is question of the left lower lobe nodule measuring 1.1 cm versus atelectasis. LIVER, GALLBLADDER, AND BILIARY TREE: There are multiple low-attenuation liver lesions found to represent cysts on MRI. These do not appear changed. Largest measures 2.5 cm in the caudate lobe and medial segment of the left lobe. No new liver lesion is seen. There is no biliary duct dilatation. There is a small gallstone in the gallbladder. PANCREAS: The mass in the body/tail the pancreas is not appear appreciably changed. This measures 5.2 x 4.5 cm in transverse and AP dimension. This involves the left adrenal gland. There is interval decrease in more superior cystic component adjacent to the greater curvature of the stomach. There is dilatation of the main pancreatic duct in the body and tail of the pancreas. This does not appear appreciably changed. SPLEEN: Unremarkable. ADRENAL GLANDS: Unremarkable. KIDNEYS AND URETERS: There is increasing infiltration of the left perinephric fat and fat in the left renal hilum. There is abnormal soft tissue seen in the left retroperitoneum encasing the left renal vessels. This may be slightly decreased in size. This measures 1.7 x 3.8 cm in AP and transverse dimension compared to 2 x 4 cm on previous exam.. There is a subcentimeter high attenuation lesion in the upper pole the left kidney that is stable and probably represents a hyperdense cyst or BLADDER: Unremarkable. GASTROINTESTINAL TRACT: The small and large bowel are unremarkable. The appendix is is not seen. ABDOMINAL WALL: No significant hernia is appreciated. LYMPH NODES: There is a retroperitoneal lymphadenopathy in soft tissue. Largest discrete retroperitoneal lymph node is a left periaortic lymph node just inferior to the left renal hilum measuring 1.2 cm. There is a interval decrease in the peritoneal soft tissue mass just deep to the left anterior abdominal wall. This measures 1.6 x 3.6 cm compared to 2.6 x 5.6 cm August 2021 exam. VASCULAR: There is evidence of atherosclerotic disease. PELVIC VISCERA: There is trace ascites in the pelvis. The prostate gland is slightly enlarged.. OSSEOUS STRUCTURES: There are degenerative changes of the spine. CT/CT abdomen pelvis wo con IMPRESSION: No appreciable change in size in the soft tissue mass in the pancreas. There is interval decrease in the more superior cystic component that abuts the stomach. There is interval decrease in the peritoneal soft tissue mass just deep to the left anterior abdominal wall. Interval decrease in retroperitoneal soft tissue surrounding the left renal hilum. Interval increase in left perinephric and perihilar fat stranding. Stable retroperitoneal lymph nodes. Stable liver cysts. Small gallstones in the gallbladder. Small amount of ascites in the pelvis. Fleischner guidelines were followed.
== END 2022-02-18 10:05 | disposition home or self-care (01) ==
LOC: HO.CT 10:04
PROVIDERS: Visit Provider Internal Medicine
DX: C25.9 Malignant neoplasm of pancreas, unspecified (principal); C77.2 Secondary and unspecified malignant neoplasm of intra-abdominal lymph nodes
CPT/HCPCS: 74176

== ENCOUNTER 2022-02-25 21:03 | Emergency (ER) | payer MEDICARE, MEDICAID, SELFPAY ==
--- NOTE | ~2022-02-25 | XR_ITS ---
EXAMINATION: XR CHEST CLINICAL INFORMATION: Cough and fever. COMPARISON: Chest radiograph dated from 09/25/2021. TECHNIQUE: 2 views of the chest were obtained. FINDINGS: Stable appearance of the cardiomediastinal silhouette with a tortuous and atherosclerotic aortic arch. A CT compatible right-sided chest port terminates at the level of the cavoatrial junction. No focal airspace opacities, pleural effusions or pneumothorax. No acute osseous abnormalities. Thoracic spondylosis. XR/XR chest 2V IMPRESSION: No acute cardiopulmonary findings.
--- NOTE | 2022-02-25 21:14 | ED.FEVER ---
HPI - Fever General Chief Complaint: Upper Respiratory Symptoms Stated Complaint: SOB Time Seen by Provider: 02/25/22 21:14 Source: EMS Mode of arrival: EMS Limitations: language barrier History of Present Illness HPI Narrative: Patient undergoing chemo for pancreatic cancer, on Friday he had chemo and since then has had weakness and fever. MD elicited complaint: fever and weakness Pertinent past history: immunosuppression Onset (ago): day(s) Exacerbating factors: other (coughing) Associated symptoms: chills, rigors, myalgias, cough and shortness of breath Related Data Home Medications Medication Instructions Recorded Confirmed aspirin 81 mg tablet,delayed 81 mg PO 2XW 09/27/20 02/08/22 release lisinopril 40 mg tablet 40 mg PO DAILY 09/27/20 02/08/22 brimonidine 0.2 % eye drops 1 drp OPHTHALMIC (EYE) Q12H 03/29/21 02/08/22 cyanocobalamin (vitamin B-12) 1,000 mcg IM Q30D 08/21/21 01/18/22 1,000 mcg/mL injection solution prednisone 1 mg tablet 4 mg PO QWEEK 01/18/22 02/08/22 Previous Rx's Medication Instructions Recorded ondansetron HCl 4 mg tablet 4 mg PO Q6H PRN #30 tab 09/19/21 (Zofran) ammonium lactate 5 % lotion 1 appl TOPICAL BID #45 g 01/04/22 (Lac-Hydrin Five) prochlorperazine maleate 10 mg 10 mg PO Q8H PRN #50 tab 01/04/22 tablet (Compazine) azithromycin 500 mg tablet 500 mg PO DAILY #5 tab 02/15/22 (Zithromax) Allergies Allergy/AdvReac Type Severity Reaction Status Date / Time No Known Allergies Allergy Verified 01/18/22 14:49 [No Known Allergies*] Review of Systems Constitutional: Constitutional: Reports no additional constitutional complaints Eyes: Eyes: Reports no additional eye complaints ENT: Denies dizziness Cardiovascular: Cardiovascular: Reports no additional cardiovascular complaints Respiratory: Respiratory: Reports as per HPI Gastrointestinal: Gastrointestinal: Reports no additional gastrointestinal complaints Musculoskeletal: Musculoskeletal: Reports no additional musculoskeletal complaints Integumentary/Breasts: Skin/Breast: Denies rash Neurologic: Reports system reviewed and no additional complaints, except as documented, Denies dizziness and Denies Sensory deficit (Neuro) Psychiatric: Psychiatric: Denies anxiety [facility] Past Medical History Medical History Family history of GERD Fibromuscular dysplasia High blood sugar History of pernicious anemia History of vitamin D deficiency Hx of essential hypertension Hx of polymyalgia rheumatica Hypertension Polymyalgia rheumatica Vertebral artery stenosis Surgical History No history of previous surgery Family History Family History Father HTN (hypertension) Mother HTN (hypertension) Myocardial infarction Social History Social History Household Members: Spouse Housing: House Do you presently have visiting nurse or other home services: Yes (lead recreation assistant services) Alcohol intake: never Patient Tobacco Use Status: Former Tobacco user Quit Date: 1983 Tobacco use type: Cigarette Cigarette Packs Per Day: 3 Years Smoked: 30 Second Hand Smoke Exposure: No Advance Directives: Yes Advance Directives on File: Yes Advance Directives Date on File: 09/25/21 service: No Current occupational status: retired Physical Exam Vital Signs: Vital Signs: Last Vital Signs Temp 102.4 F H 02/25/22 21:53 Pulse 79 02/26/22 00:00 Resp 14 02/26/22 00:00 BP 94/35 L 02/26/22 00:00 Pulse Ox 100 02/26/22 00:00 BMI result Body Mass Index 22.1 Const: Other: thin cachectic male coughing Orientation/consciousness: oriented to person and patient oriented x3 Limitations: no limitations HEENT: Head: Yes normal to inspection Ears: external ears normal General nose exam: Normal external nose present Mouth: Normal oral and palatal mucosa present and oropharynx normal Throat: Yes posterior oropharynx normal Eyes: General: appearance normal, both eyes and all related structures Neck: Other: supple Neck: Yes normal visual inspection Chest: Chest palpation & inspection: normal inspection of the chest Resp: Auscultation: clear to auscultation bilaterally Cardio: Jugular venous distension: no JVD Rate: regular rate Rhythm: regular rhythm Heart sounds: S1 normal heart sound present and S2 normal heart sound present GI: Other: scaphoid abdomen Palpation (GI): Soft to palpation, nontender and No hepatosplenomegaly present Auscultation: normal bowel sounds : General: Yes no CVA tenderness Back/Spine/Pelvis: Back: no CVA tenderness Skin: General skin exam: no rashes or lesions noted Neuro: General: oriented to person and patient oriented x3 Cranial nerves: Yes CN's II-XII intact bilaterally Motor exam (neuro): 5/5 motor strength present throughout Sensory Exam: No Sensory deficit (Neuro) Extrem: General: Yes normal to inspection Psych: Appearance: grossly normal Course Reevaluation(s) Reevaluation #1: no evidence of sepsis, neutropenia, or pneumonia. Patient looking well will dc home Time: 01:04 MDM - Fever Lab Data Result diagrams: 02/25/22 22:07 02/25/22 22:07 Labs: Lab Results 02/25/22 02/25/22 02/25/22 Range/Units 22:07 22:07 22:07 WBC 10.3 (4.8-10.8) X10*3/uL RBC 3.23 L (4.60-5.80) X10*6/uL Hgb 10.0 L (14.0-18.0) g/dl Hct 30.2 L (42.0-52.0) % MCV 93.5 (80.0-98.0) fL MCH 31.0 (27.0-33.0) pg MCHC 33.1 (31.0-36.0) g/dl RDW 15.7 (11.0-16.0) % Plt Count 182 D (160-400) X10*3/uL MPV 10.9 (9.4-12.4) fL Immature Gran % (Auto) 0.6 H (0.0-0.4) % Neut % (Auto) 96.2 H (45-73) % Lymph % (Auto) 2.0 L (20-40) % [place] % (Auto) 0.7 L (2-11) % Eos % (Auto) 0.1 (0-4) % Baso % (Auto) 0.4 (0-2) % Lymph # (Auto) 0.2 L (1.2-4.9) X10*3/uL [place] # (Auto) 0.1 (0.1-1.2) X10*3/uL Eos # (Auto) 0.0 (0.0-0.4) X10*3/uL Baso # (Auto) 0.0 (0.0-0.2) X10*3/uL Abs Immat Gran (auto) 0.06 H (0.00-0.03) X10*3/uL Absolute Neuts (auto) 9.9 H (2.0-8.3) x10*3/uL Absolute Nucleated RBC 0.000 (0.0-0.012) X10*3/uL Nucleated RBC % (auto) 0.0 (0.0-0.2) /100WBC Smear Tech's Comments VERIFIED PT 15.9 H (9.9-13.0) SEC INR 1.4 H (0.9-1.1) APTT 33.0 (24.1-38.0) SEC Sodium (135-145) mmol/L Potassium (3.3-5.1) mmol/L Chloride (96-108) mmol/L Carbon Dioxide (22-29) mmol/L Anion Gap (12-20) BUN (9-16) mg/dL Creatinine (0.5-1.4) mg/dL Estim Creat Clear Calc Estimated GFR Random Glucose (60-115) mg/dL Lactic Acid 1.0 (0.5-2.0) mmol/L Calcium (8.4-10.2) mg/dL Total Bilirubin (0.0-1.0) mg/dL Urine Color Urine Appearance Urine pH (5.0-8.0) Ur Specific [place] (1.005-1.025) Urine Protein (NEG-TRACE) MG/DL Urine Glucose (UA) (NEG) MG/DL Urine Ketones (NEG) MG/DL Urine Blood (NEG) Urine Nitrite (NEG) Ur Leukocyte Esterase (NEG) Influenza Type A (PCR) (Negative) Influenza Type B (PCR) (Negative) RSV RNA Qual (PCR) (Negative) SARS-CoV-2 RNA (RT-PCR) (Negative) 02/25/22 02/25/22 02/26/22 Range/Units 22:07 22:07 00:42 WBC (4.8-10.8) X10*3/uL RBC (4.60-5.80) X10*6/uL Hgb (14.0-18.0) g/dl Hct (42.0-52.0) % MCV (80.0-98.0) fL MCH (27.0-33.0) pg MCHC (31.0-36.0) g/dl RDW (11.0-16.0) % Plt Count (160-400) X10*3/uL MPV (9.4-12.4) fL Immature Gran % (Auto) (0.0-0.4) % Neut % (Auto) (45-73) % Lymph % (Auto) (20-40) % [place] % (Auto) (2-11) % Eos % (Auto) (0-4) % Baso % (Auto) (0-2) % Lymph # (Auto) (1.2-4.9) X10*3/uL [place] # (Auto) (0.1-1.2) X10*3/uL Eos # (Auto) (0.0-0.4) X10*3/uL Baso # (Auto) (0.0-0.2) X10*3/uL Abs Immat Gran (auto) (0.00-0.03) X10*3/uL Absolute Neuts (auto) (2.0-8.3) x10*3/uL Absolute Nucleated RBC (0.0-0.012) X10*3/uL Nucleated RBC % (auto) (0.0-0.2) /100WBC Smear Tech's Comments PT (9.9-13.0) SEC INR (0.9-1.1) APTT (24.1-38.0) SEC Sodium 136 (135-145) mmol/L Potassium 4.1 (3.3-5.1) mmol/L Chloride 101 (96-108) mmol/L Carbon Dioxide 26 (22-29) mmol/L Anion Gap 13 (12-20) BUN 21 H (9-16) mg/dL Creatinine 1.27 (0.5-1.4) mg/dL Estim Creat Clear Calc 44.9 Estimated GFR 55 Random Glucose 100 (60-115) mg/dL Lactic Acid (0.5-2.0) mmol/L Calcium 8.7 (8.4-10.2) mg/dL Total Bilirubin 1.5 H (0.0-1.0) mg/dL Urine Color YELLOW Urine Appearance CLEAR Urine pH 7.0 (5.0-8.0) Ur Specific [place] 1.015 (1.005-1.025) Urine Protein TRACE (NEG-TRACE) MG/DL Urine Glucose (UA) NEG (NEG) MG/DL Urine Ketones NEG (NEG) MG/DL Urine Blood NEG (NEG) Urine Nitrite NEG (NEG) Ur Leukocyte Esterase NEG (NEG) Influenza Type A (PCR) NEGATIVE (Negative) Influenza Type B (PCR) NEGATIVE (Negative) RSV RNA Qual (PCR) NEGATIVE (Negative) SARS-CoV-2 RNA (RT-PCR) NEGATIVE (Negative) Imaging Data Chest x-ray: Radiologist's impression: FINDINGS: Stable appearance of the cardiomediastinal silhouette with a tortuous and atherosclerotic aortic arch. A CT compatible right-sided chest port terminates at the level of the cavoatrial junction. No focal airspace opacities, pleural effusions or pneumothorax. No acute osseous abnormalities. Thoracic spondylosis. XR/XR chest 2V IMPRESSION: No acute cardiopulmonary findings. Discharge Plan Discharge Clinical Impression: Upper respiratory infection Patient Disposition: Home, Self-Care Instructions: Upper Respiratory Infection (ED) Prescriptions: No Action brimonidine 0.2 % drops 1 drp ophthalmic (eye) Q12H 0RF cyanocobalamin (vitamin B-12) 1,000 mcg/mL solution 1,000 mcg IM Q30D 0RF Rx Instructions: due 09/27 ondansetron HCl [Zofran] 4 mg Tablet 4 mg PO Q6H PRN (Reason: Nausea) Qty: 30 3RF prochlorperazine maleate [Compazine] 10 mg Tablet 10 mg PO Q8H PRN (Reason: Nausea) Qty: 50 4RF Lac-Hydrin Five 5 % Lotion 1 appl TOPICAL BID Qty: 45 3RF prednisone 1 mg tablet 4 mg PO QWEEK 0RF azithromycin [Zithromax] 500 mg Tablet 500 mg PO DAILY Qty: 5 0RF lisinopril 40 mg tablet 40 mg PO DAILY 0RF aspirin 81 mg tablet,delayed release (DR/EC) 81 mg PO 2XW 0RF Referrals: Alma Delia Altamirano MD [Primary Care Provider] - 3 days
[2022-02-25 21:21] VITALS: BP 170/80; BP 176/91; PULSE 103; PULSE 132; RESP 22; TEMP 37.7; O2SAT 99; BMI 22.1
[2022-02-25 21:53] VITALS: TEMP 39.1
[2022-02-25 22:00] VITALS: BP 155/81; PULSE 104; O2SAT 100
[2022-02-25] MEDS: SODIUM CHLORIDE 1986.72 ML IV (22:13)
[2022-02-25 22:25] LABS: Basophils Percent Auto 0.4 % (0-2); Eosinophils Percent Auto 0.1 % (0-4); Hematocrit 30.2 % (42.0-52.0); INTERNATIONAL NORM RATIO 1.4 (0.9-1.1); Imm Gran Abs Auto 0.06 X10*3/uL (0.00-0.03); Imm Gran Pct Auto 0.6 % (0.0-0.4); Lymphocytes Absolute Auto 0.2 X10*3/uL (1.2-4.9); MANUAL DIFF FLAG SCAN; Mean Corpuscular HGB Conc 33.1 g/dl (31.0-36.0); Mean Corpuscular Volume 93.5 fL (80.0-98.0); Mean Platelet Volume 10.9 fL (9.4-12.4); Monocytes Absolute Auto 0.1 X10*3/uL (0.1-1.2); Monocytes Percent Auto 0.7 % (2-11); Neutrophils Absolute Auto 9.9 x10*3/uL (2.0-8.3); Neutrophils Percent Auto 96.2 % (45-73); Platelet Count 182 X10*3/uL (160-400); Prothrombin Time 15.9 SEC (9.9-13.0); Red Blood Count 3.23 X10*6/uL (4.60-5.80); Red Cell Distribution Width 15.7 % (11.0-16.0); SCAN SMEAR FLAG 1; White Blood Count 10.3 X10*3/uL (4.8-10.8)
[2022-02-25 22:32] LABS: Anion Gap 13 (12-20); Bilirubin Total 1.5 mg/dL (0.0-1.0); Blood Urea Nitrogen 21 mg/dL (9-16); Calcium 8.7 mg/dL (8.4-10.2); Carbon Dioxide 26 mmol/L (22-29); Chloride 101 mmol/L (96-108); Creatinine Clr Calc Pharmacy 44.9; Estimated Glomerular Filt Rate 55; Glucose Random 100 mg/dL (60-115); Potassium 4.1 mmol/L (3.3-5.1); Sodium 136 mmol/L (135-145)
[2022-02-25 22:47] LABS: SLIDE REVIEW VERIFIED
[2022-02-25 23:00] LABS: Influenza A PCR NEGATIVE (Negative); Influenza B PCR NEGATIVE (Negative); Resp Syncy Virus RNA Qual PCR NEGATIVE (Negative); SARS COV2 PCR INHOUSE NEGATIVE (Negative)
[2022-02-26] VITALS: BP 94/35; PULSE 79; RESP 14; O2SAT 100
[2022-02-26 00:59] LABS: Appearance Urine CLEAR; Color Urine YELLOW; Glucose Urine UA NEG (NEG); Leukocyte Esterase Urine NEG (NEG); Nitrite Urine NEG (NEG); Specific Gravity - Urine 1.015 (1.005-1.025); Urine Blood NEG (NEG); Urine Ketones NEG (NEG); Urine Protein TRACE MG/DL (NEG-TRACE)
== END 2022-02-26 01:27 | disposition home or self-care (01) ==
PROVIDERS: Emergency Provider Emergency Medicine; PCP Family Medicine
DX: J06.9 Acute upper respiratory infection, unspecified (principal); Z20.822 Contact with and (suspected) exposure to COVID-19; R50.9 Fever, unspecified; I10 Essential (primary) hypertension; C25.9 Malignant neoplasm of pancreas, unspecified; C79.89 Secondary malignant neoplasm of other specified sites; Z79.52 Long term (current) use of systemic steroids; Z87.891 Personal history of nicotine dependence; Z79.82 Long term (current) use of aspirin
CPT/HCPCS: 0241U; 36415; 71046; 80048; 81003; 82247; 83605; 85025; 85610; 85730; 87040; 87086; 96360; 99284

== ENCOUNTER 2022-05-09 08:38 | Outpatient (REF) | payer MEDICARE, MEDICAID, SELFPAY ==
--- NOTE | ~2022-05-09 | CT_ITS ---
EXAMINATION: CT CHEST WITHOUT IV CONTRAST CT ABDOMEN AND PELVIS WITHOUT IV CONTRAST CLINICAL INFORMATION: Metastatic pancreatic cancer. COMPARISON: Previous chest CT August 2021 and abdominal and pelvic CT January 2022. TECHNIQUE: Axial images through the chest, abdomen and pelvis following oral contrast and no IV contrast. Sagittal and coronal reconstructions on the technologist workstation were performed. This CT examination was performed using dose optimization techniques as appropriate, variously including the following: *Automated exposure control *Adjustment of mA and/or kV according to patient size (this includes techniques or standardized protocols for targeted exams where dose is matched to indication/reason for exam; i.e. extremities or head) *Use of iterative reconstruction technique DLP: 305 mGy-cm FINDINGS: CHEST: There is evidence of emphysema. The small pulmonary nodules are stable. There is scarring or subsegmental atelectasis at the lung bases that is similar to previous exam. The heart does not appear enlarged. There is a small pericardial effusion. There is coronary artery and aortic valve calcification. The thoracic aorta is upper normal in size. There are no enlarged hilar or mediastinal lymph nodes. There is a right jugular port with tip projecting over the SVC. The visualized thyroid gland is unremarkable. There is no pleural effusion or pleural thickening. No chest wall mass or enlarged axillary lymph nodes are seen. Review at bone windows demonstrates degenerative changes of the spine. ABDOMEN AND PELVIS: There are multiple low-attenuation liver lesions that are stable. Largest lesions measure 2.5 cm in the caudate lobe and medial segment of the left lobe. These are found to represent cysts on MRI. The liver is otherwise unremarkable. The gallbladder is contracted. There are gallstones. There is a soft tissue mass in the body of the pancreas. This is continuous with the left adrenal gland, soft tissues surrounding the left renal artery and posterior wall of the body of the stomach. This appears partially cystic adjacent to the stomach and involving the tail of the pancreas. This does not appear appreciably changed in size or shape from January 2022 exam. The spleen is normal. The right adrenal gland is normal. The right kidney is normal. There is mild right hydronephrosis and proximal ureteral dilatation. There is infiltration of the fat seen in the left renal hilum and retroperitoneum. Does not appear appreciably changed. There is a hyperdense cyst in the upper pole the left kidney that is unchanged. There may be a small amount of left perinephric fluid. The bladder is not optimally distended. The prostate gland is slightly enlarged. Small large bowel is unremarkable. The appendix is unremarkable. Peritoneal mass in the left upper quadrant may be in size measuring 2.2 x 4.3 cm in AP and transverse dimension axial image 22 series 3 compared to 1.6 x 3.6 cm January 2022 exam. There is retroperitoneal lymphadenopathy that does not appear appreciably changed. Largest lymph node is a left periaortic lymph node measuring 1.2 cm axial image 25 series 3. No new adenopathy is seen. There is trace ascites in the left upper quadrant adjacent to the spleen. There is evidence of atherosclerotic disease. There is dilatation of the right common iliac artery measuring up to 1.7 cm. There are varices upper abdomen. There is no hernia. There are degenerative changes of the spine and hip joints. CT/CT abdomen pelvis wo con IMPRESSION: CHEST: New small pericardial effusion. Stable pulmonary nodules. ABDOMEN AND PELVIS: Stable appearance to the mass in the body of the pancreas involving the left adrenal gland and retroperitoneal soft tissues surrounding the left renal artery and extending to the stomach. Question slight interval increase in peritoneal mass in the left upper quadrant just deep to the anterior abdominal wall. Stable mild left hydronephrosis and proximal ureteral dilatation. Stable infiltration of the fat in the left renal hilum and upper abdominal retroperitoneum and small retroperitoneal lymph nodes.
[2022-05-09] MEDS: Barium Sulfate Oral (Mocha) 450 ML ORAL.SUSP PO (11:24)
== END 2022-05-09 08:39 | disposition home or self-care (01) ==
LOC: HO.CT 08:38
PROVIDERS: Visit Provider Internal Medicine
DX: C25.9 Malignant neoplasm of pancreas, unspecified (principal); C77.2 Secondary and unspecified malignant neoplasm of intra-abdominal lymph nodes
CPT/HCPCS: 71250; 74176

== ENCOUNTER 2022-06-13 11:54 | Day surgery (SDC) | payer OTHER, MEDICAID, SELFPAY ==
[2022-06-13] VITALS (7 sets, daily range): BP systolic 157–189; BP diastolic 76–104; PULSE 59–97; RESP 14–24; TEMP 36.6–36.8; O2SAT 97–99; BMI 21.7
--- NOTE | ~2022-06-13 | CT_ITS ---
PROCEDURE: CT GUIDED BIOPSY, ABDOMINAL MASS CLINICAL INFORMATION: Metastatic pancreatic cancer with large left peritoneal mass, left mid quadrant. Repeat CT biopsy for molecular testing. COMPARISON: CT abdomen 05/09/2022. CT peritoneal biopsy 08/22/2021. TECHNIQUE: Following explaining CT fluoroscopy-guided left peritoneal mass biopsy procedure, benefits and risk, a written consent was obtained. Patient was placed supine on CT table and preliminary CT imaging was obtained through the mid abdomen. Markers were placed along the left upper mid abdomen repeat CT imaging was performed. An optimal site was selected, marked on the skin. The area marked was cleaned and draped in usual sterile manner. 1% lidocaine was injected at the puncture site. Through a small skin incision a 20-gauge density along the guide needle was advanced obliquely from right to left to the outer border of the left peritoneal mass. Coaxially a 20-gauge needle was advanced and 3 pass core biopsy was performed. Postprocedure needle was withdrawn and complete hemostasis achieved. However, patient had significant left shoulder pain secondary to arthritis and did not want to proceed anymore. No conscious sedation was utilized as the patient had food and drinks prior to the biopsy. The entire biopsy was performed under local anesthesia. This CT examination was performed using dose optimization techniques as appropriate, variously including the following: *Automated exposure control *Adjustment of mA and/or kV according to patient size (this includes techniques or standardized protocols for targeted exams where dose is matched to indication/reason for exam; i.e. extremities or head) *Use of iterative reconstruction technique DLP: 420 mGy-cm FINDINGS: On preliminary CT imaging again visualized there is atelectatic changes in the lingula and bilateral lung bases. The heart size is normal. There is a left peritoneal metastatic mass seen on axial image 29/4. There are hypodense liver lesions, likely simple cysts. Again visualized is a soft tissue mass in the body the pancreas. Postprocedure there was no abdominal pain, complaints or bleeding. CT/CT biopsy abdomen percutaneous IMPRESSION: Successful CT fluoroscopy-guided left peritoneal mass biopsy performed under local anesthesia.
[2022-06-13 12:57] LABS: MANUAL DIFF FLAG NO
[2022-06-13 13:00] LABS: Basophils Percent Auto 0.5 % (0-2); Eosinophils Absolute Auto 0.4 X10*3/uL (0.0-0.4); Eosinophils Percent Auto 10.5 % (0-4); Hematocrit 27.9 % (42.0-52.0); Hemoglobin 8.8 g/dl (14.0-18.0); Imm Gran Abs Auto 0.01 X10*3/uL (0.00-0.03); Imm Gran Pct Auto 0.2 % (0.0-0.4); Lymphocytes Absolute Auto 0.9 X10*3/uL (1.2-4.9); Lymphocytes Percent Auto 21.4 % (20-40); Mean Corpuscular HGB Conc 31.5 g/dl (31.0-36.0); Mean Corpuscular Hemoglobin 28.9 pg (27.0-33.0); Mean Corpuscular Volume 91.8 fL (80.0-98.0); Mean Platelet Volume 9.2 fL (9.4-12.4); Monocytes Absolute Auto 0.6 X10*3/uL (0.1-1.2); Monocytes Percent Auto 14.6 % (2-11); Neutrophils Absolute Auto 2.2 x10*3/uL (2.0-8.3); Neutrophils Percent Auto 52.8 % (45-73); Platelet Count 284 X10*3/uL (160-400); Red Blood Count 3.04 X10*6/uL (4.60-5.80); White Blood Count 4.1 X10*3/uL (4.8-10.8)
[2022-06-13 13:09] LABS: INTERNATIONAL NORM RATIO 1.2 (0.9-1.1); Prothrombin Time 13.5 SEC (10.0-13.1)
[2022-06-13 13:11] LABS: Partial Thromboplastin Time 32.2 SEC (24.1-38.0)
--- NOTE | 2022-06-13 14:04 | PC.NURSE ---
1340 pt admits to eating breakfast. toast and coffee with milk and cream, Dr. segal aware, plan changed to local anesthesia, pt agrees with plan.
[2022-06-13] MEDS: oxyCODONE HCl Immed Release 5 MG TABLET PO (15:19)
[2022-06-13] MEDS: Acetaminophen 325 MG TABLET 650 MG PO (15:19)
[2022-06-13 15:57] LABS: Glucose, Whole Blood 67 mg/dL (60-115)
== END 2022-06-13 17:00 | disposition home or self-care (01) ==
PROVIDERS: Internal Medicine; Radiology Diagnostic Radiology; Visit Provider Radiology Diagnostic Radiology
DX: C77.2 Secondary and unspecified malignant neoplasm of intra-abdominal lymph nodes (principal); C25.9 Malignant neoplasm of pancreas, unspecified; Z79.899 Other long term (current) drug therapy; D64.9 Anemia, unspecified; Z87.891 Personal history of nicotine dependence
CPT/HCPCS: 36415; 49180; 77012; 80053; 82947; 85025; 85610; 85730; 88305; 88342; 88360; 88377; J2250; J3010

== ENCOUNTER 2022-09-12 10:44 | Outpatient (REF) | payer OTHER, MEDICAID, SELFPAY ==
--- NOTE | ~2022-09-12 | CT_ITS ---
EXAMINATION: CT CHEST WITH CONTRAST CLINICAL INFORMATION: Metastatic pancreatic cancer. COMPARISON: CT chest 05/09/2022 TECHNIQUE: Multidetector volumetric CT imaging of the chest was obtained after the administration of 50 mL of Omnipaque 350 intravenous contrast without immediate adverse reactions. Axial MIP volume rendering provided. Sagittal and coronal reformatted images were obtained. This CT examination was performed using dose optimization techniques as appropriate, variously including the following: *Automated exposure control *Adjustment of mA and/or kV according to patient size (this includes techniques or standardized protocols for targeted exams where dose is matched to indication/reason for exam; i.e. extremities or head) *Use of iterative reconstruction technique DLP: 348 mGy-cm FINDINGS: FINE PATCHER: Unremarkable. LUNGS: There is centrilobular emphysema with multiple small pulmonary nodules which are stable. New mild atelectatic changes are seen in the lingula adjacent to the major fissure. Subsegmental atelectasis visualized in bilateral lower lobe, stable. MEDIASTINUM: The thyroid lobes are symmetric and normal. Central trachea and the bronchi are widely patent. Heart size and the great vessels are normal caliber. No abnormal size mediastinal lymph nodes seen. There is no pericardial effusion. CORONARY ARTERY CALCIFICATION: Mild coronary artery calcifications are present. PLEURA: There is no pleural effusion. No pleural mass or thickening. AXILLA: No lymphadenopathy. UPPER ABDOMEN: There are multiple low-density liver lesions which are likely cysts and stable. No solid lesions seen. A normal spleen and prominent left adrenal gland is noted. Right adrenal gland is normal. OSSEOUS STRUCTURES: No aggressive lytic or sclerotic process seen. There is moderate ventral spondylosis mid and lower dorsal spine. CT/CT chest w IV con IMPRESSION: 1. Centrilobular emphysema with small pulmonary nodules are stable. 2. No abnormal mediastinal or axillary lymphadenopathy seen. Multiple low-density liver lesions likely cysts and a prominent left adrenal gland is noted and unchanged to previous study. Fleischner guidelines were followed.
--- NOTE | ~2022-09-12 | CT_ITS ---
EXAMINATION: CT ABDOMEN AND PELVIS WITH CONTRAST CLINICAL INFORMATION: Pancreatic cancer. COMPARISON: CT of the abdomen and pelvis 05/09/2022. TECHNIQUE: Multidetector volumetric images were obtained from the superior aspect of the liver through the pubic symphysis following administration 85 mL of Omnipaque 350 intravenous contrast. Sagittal and coronal reformatted images were obtained on the technologist's workstation. Oral contrast: No This CT examination was performed using dose optimization techniques as appropriate, variously including the following: *Automated exposure control *Adjustment of mA and/or kV according to patient size (this includes techniques or standardized protocols for targeted exams where dose is matched to indication/reason for exam; i.e. extremities or head) *Use of iterative reconstruction technique DLP: 348 mGy-cm FINDINGS: LUNG BASES: There is minimal atelectatic changes in both lung bases. Heart size is normal. LIVER, GALLBLADDER, AND BILIARY TREE: The liver is normal in size, shape, and attenuation there are multiple low-density liver cysts. No solid lesions seen. There is no intrahepatic ductal dilatation. The gallbladder is unremarkable with no evidence of radiopaque gallstones, gallbladder wall thickening, or obvious pericholecystic inflammatory changes. PANCREAS: There is a dilated pancreatic duct in body and the tail of the pancreas. Adjacent to the body and the tail of pancreas is a low-density lesion measuring 3.2 x 1.5 x 2.4 cm. In addition there is a diffuse peripancreatic soft tissue density anterior and posterior to the body of the pancreas on axial image 20/3. SPLEEN: Unremarkable. ADRENAL GLANDS: There is a soft tissue density adjacent to the left adrenal gland likely emanating of the pancreas or a peripancreatic lymph node similar to previous study. However the size of the lesion has increased and is best visualized on axial image 20/3. KIDNEYS AND URETERS: The kidneys are normal in size, shape, and attenuation. No hydronephrosis, hydroureter, or calculi seen. There is peripancreatic fat stranding more so on the left then right. BLADDER: Unremarkable. GASTROINTESTINAL TRACT: Again visualized is a left upper quadrant peritoneal mass measuring 5.7 x 2.0 cm on axial image 34/3. On the last exam it measured 2.2 x 4.3. A 2nd left lateral mass measuring 3.6 cm is seen on axial image 31/3. There is moderate stool in the colon without distention. The small bowel loops are unremarkable. The stomach is nondistended. ABDOMINAL WALL: No significant hernia is appreciated. LYMPH NODES: There are small nodular lymph nodes in the level of the left renal hilum which appear similar to the previous study with a maximum dimension of 1.2 cm on axial image 26/3. VASCULAR: Atherosclerotic calcification of abdominal aorta is noted without aneurysmal dilatation. PELVIC VISCERA: There is moderate stool seen throughout the colon without significant distention. Mural thickening involving a small segment of the sigmoid colon is seen on axial image 60/3. The prostate gland is enlarged and heterogeneous. OSSEOUS STRUCTURES: No aggressive lytic or sclerotic process is seen. There are degenerative disc changes at L5-S1 and L2-L3 disc levels. CT/CT abdomen pelvis w IV con IMPRESSION: Solid mass in the body and the tail of the pancreas, Ductal dilatation and a cystic lesion in the superior body of the pancreas are again noted. This cyst appears larger probably due to IV contrast. Mass adjacent to left adrenal gland is slightly larger, however this could be secondary to contrast injection. Left retroperitoneal lymphadenopathy, left upper quadrant peritoneal mass are again present. The left upper peritoneal mass may be slightly larger. There is a 2nd peritoneal mass just adjacent to it measuring 3.6 cm. Mild mural thickening involving a vertical segment of sigmoid colon, question spasm versus annular lesion on axial image 60/3, recommend colonoscopy. No change in multiple liver lesions. Overall the findings are suspicious for progression in view of a new left upper quadrant peritoneal mass and slight enlargement of some of the pancreatic and peripancreatic density and lesions. Fleischner guidelines were followed.
[2022-09-12] MEDS: iohexoL 350 MG/ML 100 ML INFUS..BTL IV (14:23)
[2022-09-12] MEDS: Barium Sulfate Oral (Berry) 450 ML ORAL.SUSP 900 ML PO (14:23)
== END 2022-09-12 10:45 | disposition home or self-care (01) ==
LOC: HO.CT 10:44
PROVIDERS: Visit Provider Internal Medicine
DX: C25.9 Malignant neoplasm of pancreas, unspecified (principal)
CPT/HCPCS: 71260; 74177; Q9967

== ENCOUNTER 2023-01-24 14:52 | Inpatient (IN) | payer OTHER, SELFPAY ==
--- NOTE | ~2023-01-24 | XR_ITS ---
EXAMINATION: XR ABDOMEN KUB CLINICAL INDICATION: Constipation COMPARISON: 09/12/2022 CT TECHNIQUE: AP view of the abdomen. FINDINGS: Nonobstructive bowel gas pattern. No dilated loops of bowel. Gas and stool throughout the colon. Moderate stool burden involving the left hemicolon. The lung bases are clear. Degenerative changes throughout the spine. XR/XR KUB IMPRESSION: Moderate stool burden involving the left hemicolon.
--- NOTE | ~2023-01-24 | CT_ITS ---
EXAMINATION: CT ABDOMEN AND PELVIS WITHOUT CONTRAST CLINICAL INFORMATION: Abdominal distention and constipation COMPARISON: CT abdomen pelvis 09/12/2022 TECHNIQUE: Multidetector volumetric imaging was performed from the superior aspect of the liver through the pubic symphysis. Sagittal and coronal reformatted images were obtained on the technologist's workstation. This CT examination was performed using dose optimization techniques as appropriate, variously including the following: *Automated exposure control *Adjustment of mA and/or kV according to patient size (this includes techniques or standardized protocols for targeted exams where dose is matched to indication/reason for exam; i.e. extremities or head) *Use of iterative reconstruction technique DLP: 334 mGy-cm FINDINGS: LUNG BASES: New trace left pleural effusion. Minimal bibasilar atelectasis. LIVER, GALLBLADDER, AND BILIARY TREE: Multiple hypodense hepatic lesions consistent with cysts redemonstrated. Normal hepatic attenuation. High-density material in the gallbladder which may represent vicarious excretion of prior contrast administration versus sludge or less likely hemorrhage. No calcified gallstone. No intrahepatic biliary ductal dilation. Extra hepatic bile duct not clearly seen. PANCREAS: Low-density cyst or mass in the pancreatic body/tail junction with some dilation of the proximal pancreatic duct as on prior. The posterior stomach appears tethered to the pancreas similar to prior. SPLEEN: Unremarkable. ADRENAL GLANDS: Unremarkable. KIDNEYS AND URETERS: Mild bilateral hydronephrosis and mild proximal ureterectasis. No renal calculi. No appreciable renal lesion. No perinephric fluid collection. BLADDER: Diffusely thick-walled appearance favored due to lack of distention. GASTROINTESTINAL TRACT: Irregular thickening/luminal narrowing of the distal sigmoid colon redemonstrated, better seen on prior, series 2 image 60 of the current study. Moderate to large amount of stool in the transverse descending and proximal sigmoid colon. No dilated small bowel loops. No other bowel wall thickening. Appendix not visualized. No intra-abdominal free air. Development of large volume ascites. Mesenteric edema. ABDOMINAL WALL: No significant hernia is appreciated. LYMPH NODES: New 2.4 cm low-density lesion or fluid collection the jimenez hepatis series 2 image 21. The ill-defined mass adjacent to the left aspect of the adrenal gland is grossly unchanged but better seen on prior contrast enhanced study, series 2 image 26 of the current exam. No appreciable retroperitoneal or mesenteric lymphadenopathy. No pelvic lymphadenopathy. VASCULAR: Normal caliber abdominal aorta. Extensive vascular calcifications. PELVIC VISCERA: Slightly prominent prostate gland. Pronounced presacral/pelvic soft tissue edema, increased since prior. OSSEOUS STRUCTURES: No acute fracture or suspicious appearing osseous lesion. Mild multilevel degenerative disc disease. CT/CT abdomen pelvis wo IV con IMPRESSION: 1. Interval development of large volume ascites and mesenteric edema in this patient with known peritoneal carcinomatosis/metastasis. 2. No evidence of small bowel obstruction. 3. Irregular thickening/luminal narrowing of the distal sigmoid colon redemonstrated, better seen on prior exam and concerning for possible stricture underlying annular mass lesion. Suggest direct visualization if not already performed. There is a relatively large amount of formed stool in the more proximal colon. Developing colonic obstruction a consideration. 4. New mild bilateral hydronephrosis. 5. New trace left pleural effusion. 6. Grossly unchanged pancreatic tail lesion. 7. Additional ancillary findings as described.
[2023-01-24 15:08] VITALS: BP 137/97; PULSE 86; RESP 14; TEMP 36.4; O2SAT 94; BMI 19.6
--- NOTE | 2023-01-24 16:40 | ED_ITS ---
HPI - General Adult General Chief complaint: General Medical Stated complaint: Bowel obstruction per EMS Time Seen by Provider: 01/24/23 16:09 Source: patient and family Mode of arrival: EMS Limitations: no limitations History of Present Illness HPI narrative: This is a 77-year-old male history of hypertension, transaminitis, long-term systemic steroid use, transient amnesia, pancreatic mass and cancer with metas tasis to the intra-abdominal lymph nodes, polymyalgia rheumatica, currently on hospice presenting to the emergency department for nausea, vomiting, constiaption, poor p.o. intake, abdominal discomfort and distension times about a month worsening over the past few days. According to family who is at the bedside patient has not been eating much at all, only has this few spoonfuls of food a day. They tell me that patient's abdomen is hard and has been becoming progressively larger over time. They tell me he is followed by hematology oncology here at [facility] , he was on chemotherapy however stopped chemotherapy due to adverse effects. Related Data Home Medications Medication Instructions Recorded Confirmed lisinopril 40 mg tablet 40 mg PO DAILY 09/27/20 01/24/23 ondansetron HCl 4 mg tablet 1 tab PO Q8H PRN nausea/vomiting 05/08/22 01/24/23 morphine concentrate 100 mg/5 mL 0.25 ml PO Q1H PRN Severe Pain 01/24/23 01/24/23 (20 mg/mL) oral solution (Scale Score 7-10) oxycodone 5 mg tablet 1 tab PO TID PRN Pain 01/24/23 01/24/23 polyethylene glycol 3350 17 17 g PO DAILY 01/24/23 01/24/23 gram/dose oral powder (Miralax) prednisone 5 mg tablet 5 mg PO DAILY 01/24/23 01/24/23 sennosides 8.6 mg-docusate sodium 1 - 2 tab PO DAILY PRN Constipation 01/24/23 01/24/23 50 mg tablet (Senna with Docusate Sodium) Previous Rx's Medication Instructions Recorded tramadol 50 mg tablet 50 mg PO Q8H PRN Pain #30 tabs 12/31/22 Allergies Allergy/AdvReac Type Severity Reaction Status Date / Time No Known Allergies Allergy Verified 07/29/22 10:10 [No Known Allergies*] Review of Systems Review of Systems: Constitutional : + Weight loss, No Fever, No Chills, + Fatigue, + Malaise ENT/Mouth : No sore throat, No Rhinorrhea Eyes: No Eye Pain, No Swelling, No Redness Cardiovascular : No Chest Pain, No SOB, No Dyspnea on Exertion, No Orthopnea, No Edema, No Palpitations Respiratory : No Cough, No Sputum, No Wheezing Gastrointestinal : + Nausea, + Vomiting, No Diarrhea, + Constipation, + abdominal Pain, No Hematochezia, No Melena Genitourinary : No Dysuria, No Urinary Frequency, No Hematuria, Musculoskeletal : No joint pain, No Myalgias, No Joint Swelling Skin : No Skin Lesions, No rash Neuro : No Weakness, No Numbness, No Dizziness, No Headache Psych : No Anxiety/Panic, No Depression All other systems reviewed and are negative Yes all other systems are reviewed and are negative [facility] Past Medical History Attestation statement: The following information was validated with the patient. Source: old records reviewed and nursing notes reviewed Medical History Family history of GERD Fibromuscular dysplasia High blood sugar History of pernicious anemia History of vitamin D deficiency Hx of essential hypertension Hx of polymyalgia rheumatica Hypertension Polymyalgia rheumatica Vertebral artery stenosis Surgical History No history of previous surgery Family History Family History Father HTN (hypertension) Mother Myocardial infarction HTN (hypertension) Sister Cancer Social History Social History Household Members: Spouse Housing: House Are you a primary resident caregiver to a significant other at home: No Do you presently have visiting nurse or other home services: Yes (energy auditor services) Alcohol intake: never Patient Tobacco Use Status: Former Tobacco user Quit Date: 1983 Tobacco use type: Cigarette Cigarette Packs Per Day: 3 Years Smoked: 30 Second Hand Smoke Exposure: No Advance Directives: Yes Advance Directives on File: Yes Advance Directives Date on File: 09/25/21 service: No Current occupational status: retired Physical Exam ED Vital Signs: Vital Signs - 24 hr 01/24/23 15:08 Temperature 97.5 F Pulse Rate 86 Respiratory Rate 14 Blood Pressure 137/97 H Pulse Oximetry 94 Oxygen Delivery Method Room Air BMI result Body Mass Index 19.6 vss Appearance: Alert.? Oriented X3.? No acute distress.? Head: Normocephalic, atraumatic, no step-offs or deformities Eyes: Pupils equal, round and reactive to light.? ENT: Pharynx normal.? Neck: Normal inspection.? Neck supple.? CVS: Normal heart rate and rhythm.? Pulses normal.? Respiratory: No respiratory distress.? Breath sounds normal.? Abdomen: Soft and nontender.?Distended abdomen & indurated. Hypoactive bowel sounds throughout. Skin: Skin warm and dry.? Normal skin color.? Normal skin turgor.? Extremities: No lower extremity edema.? No calf ttp. 5/5 strength to bilateral upper and lower extremities Back: No midline tenderness, no C-spine tenderness, full range of motion, no CVA tenderness bilaterally Neuro: Oriented X 3.? No motor deficit.? No sensory deficit. CN 2-12 intact Course Reevaluation(s) Reevaluation #1: Patient's CBC appears to be around baseline with a normocytic anemia. Chemistry with elevated potassium 5.6, I spoke to patient patient's family about their wishes, they would like treatment for hyperkalemia with Lokelma, he is on hospice however he does have the right for treatment, will treat with 10 mg of Lokelma. Patient also noted to have an acute kidney injury likely secondary to dehydration, patient with decreased p.o. intake at home. Will hydrate with IV fluids per patient's request. COVID negative. KUB with moderate stool burden involving the left hemicolon. CT of the abdomen pelvis was obtained to rule out obstruction, interval development of large volume ascites and mesenteric edema is noted likely secondary to peritoneal carcinomatosis and metastasis, explained this finding to patient. Patient not complaining of shortness of breath or pain, low suspicion for SBP, no need for paracentesis at this time. No evidence of small-bowel obstruction. Irregular thickening and luminal narrowing of the distal sigmoid colon however redemonstrated, concerning for stricture. New mild bilateral hydronephrosis. Patient without urinary complaints. New trace left pleural effusion. Grossly unchanged pancreatic tail lesion. I did have case management also CT to patient and speak to patient's hospice facility, patient can receive treatment for hyperkalemia and acute kidney injury without being disqualified from hospice. His suggest that if pain is u ncontrolled to admit patient to the hospital and he should also be admitted for IV hydration. I did discuss this case with hospitalist who agrees to admission. Time: 21:19 Medications Administered Discontinued Medications Generic Name Dose Route Start Last Admin Trade Name Freq PRN Reason Stop Dose Admin Morphine Sulfate 15 mg 01/24/23 16:29 01/24/23 16:58 Morphine Sulfate Er 15 Mg Tablet.Er PO 01/24/23 16:30 Not Given ONCE ONE Medical Decision Making Medical Decision Making [facility] Narrative: 1615 77 year old male hx of metastatic pancreatic cancer currently on hospice, not receiving chemotherapy presenting with nausea, vomiting, constipation, weight loss, abdominal distension and discomfort times a month worsening over the past few days. Physical exam with hypoactive bowel sounds, distended abdomen, indurated abdomen, nontender tender. Likely small or large bowel obstruction, due to history of malignancy this is likely large bowel obstruction. Unlikely ascites. No signs of acute abdomen, SBP. Will rule out electrolyte abnormalities infection. Plan at this time labs, KUB, fluids and pain medicine. Differential Diagnosis Differential Diagnoses: The differential diagnosis associated with the presentation includes Likely small or large bowel obstruction, due to history of malignancy this is likely large bowel obstruction. Unlikely ascites. No signs of acute abdomen, SBP. Will rule out electrolyte abnormalities infection. Admission/Observation Consideration of admission/observation: Escalation of care including admission/observation considered Likely for pain contorl Consult Healthcare Provider Management of the patient was discussed with: Hospitalist Lab Data [facility] Lab Attestation statement: I reviewed the patient's lab results. 01/24/23 16:56 01/24/23 16:56 Labs: Lab Results 01/24/23 01/24/23 01/24/23 Range/Units 16:56 16:56 16:56 WBC 6.1 (4.8-10.8) X10*3/uL RBC 4.13 L D (4.60-5.80) X10*6/uL Hgb 11.7 L (14.0-18.0) g/dl Hct 36.3 L (42.0-52.0) % MCV 87.9 (80.0-98.0) fL MCH 28.3 (27.0-33.0) pg MCHC 32.2 (31.0-36.0) g/dl RDW 13.8 (11.0-16.0) % Plt Count 332 D (160-400) X10*3/uL MPV 9.2 L (9.4-12.4) fL Immature Gran % (Auto) 0.2 (0.0-0.4) % Neut % (Auto) 73.9 H (45-73) % Lymph % (Auto) 13.7 L (20-40) % [place] % (Auto) 8.7 (2-11) % Eos % (Auto) 2.8 (0-4) % Baso % (Auto) 0.7 (0-2) % Lymph # (Auto) 0.8 L (1.2-4.9) X10*3/uL [place] # (Auto) 0.5 (0.1-1.2) X10*3/uL Eos # (Auto) 0.2 (0.0-0.4) X10*3/uL Baso # (Auto) 0.0 (0.0-0.2) X10*3/uL Abs Immat Gran (auto) 0.01 (0.00-0.03) X10*3/uL Absolute Neuts (auto) 4.5 (2.0-8.3) x10*3/uL Absolute Nucleated RBC 0.000 (0.0-0.012) X10*3/uL Nucleated RBC % (auto) 0.0 (0.0-0.2) /100WBC Sodium 140 (135-145) mmol/L Potassium 5.6 H (3.3-5.1) mmol/L Chloride 102 (96-108) mmol/L Carbon Dioxide 29 (22-29) mmol/L Anion Gap 15 (12-20) BUN 65 H (9-16) mg/dL Creatinine 2.80 H (0.5-1.4) mg/dL Estim Creat Clear Calc 17.7 Estimated GFR 22 Random Glucose 123 H (60-115) mg/dL Calcium 9.9 D (8.4-10.2) mg/dL Magnesium 2.2 (1.6-2.6) mg/dL Total Bilirubin 0.7 (0.0-1.0) mg/dL AST 20 (5-37) U/L ALT 8 (0-40) U/L Alkaline Phosphatase 68 (39-117) U/L Total Protein 7.1 (6.5-8.0) g/dL Albumin 3.5 (3.5-5.0) g/dL COVID-19 ([facility]MES) Negative (Negative) COVID-19 Clin Com See Note Radiology Impression Discussion of test interpretation with radiology: I have reviewed the radiologist's reading. Core Measures AMI core measures followed: Yes Measure exclusions: not indicated Critical Care Time Critical Care Time Critical Care Time: Yes Total Critical Care Time: 35 Attestation: I attest to this time spent taking care of the patient, obtaining history, physical, reviewing labs, imaging, speaking to my attending, speaking to specialist. Discharge Plan Discharge Clinical Impression: Acute hyperkalemia, DAVID (acute kidney injury), Abdominal distension, Constipation Patient Disposition: Still a Patient Prescriptions: No Action ondansetron HCl 4 mg tablet 1 tab PO Q8H PRN (Reason: nausea/vomiting) tramadol 50 mg Tablet 50 mg PO Q8H PRN (Reason: Pain) Qty: 30 0RF morphine concentrate 100 mg/5 mL (20 mg/mL) solution 0.25 ml PO Q1H PRN (Reason: Severe Pain (Scale Score 7-10)) prednisone 5 mg tablet 5 mg PO DAILY polyethylene glycol 3350 [Miralax] 17 gram/dose powder 17 g PO DAILY oxycodone 5 mg tablet 1 tab PO TID PRN (Reason: Pain) sennosides-docusate sodium [Senna with Docusate Sodium] 8.6-50 mg tablet 1 - 2 tab PO DAILY PRN (Reason: Constipation) lisinopril 40 mg tablet 40 mg PO DAILY
[2023-01-24 17:00] LABS: MANUAL DIFF FLAG NO
[2023-01-24 17:03] LABS: Basophils Percent Auto 0.7 % (0-2); Eosinophils Absolute Auto 0.2 X10*3/uL (0.0-0.4); Eosinophils Percent Auto 2.8 % (0-4); Hematocrit 36.3 % (42.0-52.0); Hemoglobin 11.7 g/dl (14.0-18.0); Imm Gran Abs Auto 0.01 X10*3/uL (0.00-0.03); Imm Gran Pct Auto 0.2 % (0.0-0.4); Lymphocytes Absolute Auto 0.8 X10*3/uL (1.2-4.9); Lymphocytes Percent Auto 13.7 % (20-40); Mean Corpuscular HGB Conc 32.2 g/dl (31.0-36.0); Mean Corpuscular Hemoglobin 28.3 pg (27.0-33.0); Mean Corpuscular Volume 87.9 fL (80.0-98.0); Mean Platelet Volume 9.2 fL (9.4-12.4); Monocytes Absolute Auto 0.5 X10*3/uL (0.1-1.2); Monocytes Percent Auto 8.7 % (2-11); Neutrophils Absolute Auto 4.5 x10*3/uL (2.0-8.3); Neutrophils Percent Auto 73.9 % (45-73); Platelet Count 332 X10*3/uL (160-400); Red Blood Count 4.13 X10*6/uL (4.60-5.80); Red Cell Distribution Width 13.8 % (11.0-16.0); White Blood Count 6.1 X10*3/uL (4.8-10.8)
[2023-01-24 17:17] LABS: COVID-19 Test Negative (Negative); IDNOW Serial# 16C4AD1C
[2023-01-24 17:22] LABS: Alanine Aminotransferase 8 U/L (0-40); Albumin Level 3.5 g/dL (3.5-5.0); Alkaline Phosphatase 68 U/L (39-117); Anion Gap 15 (12-20); Aspartate Amino Transferase 20 U/L (5-37); Bilirubin Total 0.7 mg/dL (0.0-1.0); Blood Urea Nitrogen 65 mg/dL (9-16); Calcium 9.9 mg/dL (8.4-10.2); Carbon Dioxide 29 mmol/L (22-29); Chloride 102 mmol/L (96-108); Creatinine Clr Calc Pharmacy 17.7; Estimated Glomerular Filt Rate 22; Glucose Random 123 mg/dL (60-115); Magnesium 2.2 mg/dL (1.6-2.6); Potassium 5.6 mmol/L (3.3-5.1); Sodium 140 mmol/L (135-145); Total Protein 7.1 g/dL (6.5-8.0)
--- NOTE | 2023-01-24 18:52 | PC.NURSE ---
discussion with pa and case management- okay to hold off on medications order d/t hospice status. case management to discuss with pt and family with mushroom cutter.
--- NOTE | 2023-01-24 19:37 | PHA.MEDREC ---
Pharmacy Consult ? Medication Reconciliation Pharmacy has completed the medication reconciliation. med rec completed. used an parts interpreter to speak with patient's spouse. she did not know what he was taking but had a phone number for the hospice facility. the hospice facility provided his current medications.
--- NOTE | 2023-01-24 20:54 | MHC.CM.ED ---
Addendum entered by Mary Jean 01/24/23 21:14: HCP/son Saqib Romero [phone], and HCP #2 Risa Romero [phone] Original Note: CM met with patient at the request of Christina FISHER. Pt is on hospice and provider concerned that does not understand hospice. hand printed circuit board assembler used as pt. is Brazilian speaking. is aware that patient has cancer and is very ill. [facility] hospice came in and met with her and she signed many papers. Explained to patient and that the goal of hospice is comfort when patients are faced with illness or diseases that are life ending. Patients forego treatment and focus on comfort and peaceful end of life. was concerned because hospice nurse talked about them not coming to hospital. CM explained that sometimes patients may come to the hospital for comfort, but that she should always speak with hospice first. aware that care would not be to treat his cancer. is agreeable, and understandably upset and emotional. CM explained that the provider would speak to her when all of the testing is complete. is questioning if patient will stay in the hospital. CM again explained that the medical workup is not yet complete, that some interventions may be acceptable to hospice and that the patient would then go home on hospice. is concerned that patient is not eating and his drinking very little. CM explained that is part of the dying process and is normal at this stage of life. Enc to offer foods/drink, but not force.Christina FISHER aware. Requests CM call hospice to verify what interventions can be done and not interfere with patients hospice standing. CM called [facility]. Spoke with Brenda. Brenda tells CM that patient may have meds for comfort by any route, IV fluids, can be tapped for ascites for comfort and can have elevated potassium treatment within reason. Brenda called her carpenters supervisor Windy Tracey who agreed and stated that Patient could get these measures in the ED and go home, or if need be, could be admitted. Pt should be admitted under [facility] hospice. Windy would like to be called if admitted ([phone]). Brenda would like to be called if pt is discharged home so home services can be arranged. [phone]. Treatment options per hospice shared with Christina. Pt lives at home with . Daughter is CHIEF EMBALMER. They provide all care. Pt has advanced metastatic pancreatic cancer. He is total care. He is emaciated. He is being treated for pain. D/C plan: admit under [facility] hospice for agreed upon treatment, with hospice at home when able or d/c home with hospice. Pt will need transportation. HCP on file. CM following for discharge planning.
--- NOTE | 2023-01-24 22:29 | MHC.CM.PN ---
IMM 01/24. Pt will be admitted. Dr. Boyle aware of [facility] need. Reviewed with her hospice agreement for tap for ascites for comfort, Medication management any route and treatment the hyperkalemia with medication and IV. CM notified Hospice hammer shop supervisor Windy Tracey regarding patient admission. They will see patient tomorrow in the hospital. IMM reviewed with patient's and medical assistant float. Copy given. Enc patient to ask questions of hospice and providers and to request medical assistant float. CM will follow for d/c needs.
[2023-01-24] MEDS: 0.9 % Sodium Chloride 1,000 ML 999 ML IV (23:00)
[2023-01-24] MEDS: Sodium Zirconium Cyclosilicate 10 GM POWD.PACK PO (23:00)
[2023-01-24 23:18] VITALS: BP 147/86; PULSE 99; RESP 12; TEMP 36.6; O2SAT 98
[2023-01-24] MEDS: Morphine Sulfate 4 MG/ML CARTRIDGE IM (23:25)
[2023-01-24] MEDS: ondansetron HCL 4 MG/2 ML VIAL IVPUSH (23:25)
[2023-01-25] MEDS: Lactated Ringers 1,000 ML 100 ML IVCONT ×2 (00:37→09:44)
[2023-01-25 00:40] VITALS: BP 128/81; PULSE 96; RESP 12; TEMP 36.8; O2SAT 99
[2023-01-25 02:31] VITALS: BP 125/82; PULSE 89; RESP 12; TEMP 36.4; O2SAT 97
[2023-01-25 02:32] LABS: Appearance Urine Clear; Color Urine Dark Yellow; Glucose Urine UA Negative (Negative); Leukocyte Esterase Urine Small (1+) (Negative); Nitrite Urine Negative (Negative); UMIC TRIGGER UACC YES; Urine Blood Negative (Negative); Urine Ketones Negative (Negative); Urine Protein Trace mg/dL (Neg-Trace)
[2023-01-25 02:41] LABS: Bacteria Urine None Seen (None Seen); Hyaline Casts Urine 0-2 /LPF (0-2); Squamous Epithelial Cell Urine 0-2 /HPF (0-2); UACC Culture Trigger YES; WBC Urine 0-5 /HPF (0-5)
--- NOTE | 2023-01-25 06:41 | P.HPHOSP_ITS ---
History of Present Illness Date of Service: 01/24/23 Chief Complaint: Dehydration, abdominal distension, pain [place]-speaking, history is obtained with the help of an spanish interpreter A 77-year-old male with past medical history of HTN, fibromyalgia or rheumatica, pancreatic cancer metastasized to intra-abdominal lymph nodes, currently under hospice care who comes into the hospital after hospice service recommended he comes in for pain control. It seems that the patient has been having increased abdominal distension, significant pain in the abdomen not relieved with morphine, therefore hospice nurse recommended patient come to the hospital. Patient is also noted that he has not been eating or drinking for the past week and is very concerned. He reports abdominal pain control after receiving IV analgesics. He reports no shortness of breath, no chest pain, no urinary symptoms and no lower extremity edema. On arrival to the ED patient hemodynamically stable with no significant abnormal vitals There was a prolonged discussion about patient's admission with hospice as well as case management. Hospice states that given patient's poorly controlled abdominal pain as well as dehydration, he can be admitted for IV hydration, analgesics as well as paracentesis for comfort if needed and this will not disqualify him from hospice patient himself and his well as his at bedside 1 patient to get IV fluids as well as possible paracentesis if needed They also are very concerned about him not having any appetite and not eating, they want to think about gastric tube Patient will be admitted under GI IP care Review of Systems Review of Systems: Yes all other systems are reviewed and are negative [facility] Medical History (Updated 01/25/23 @ 06:47 by Ayala Ahn MD) Family history of GERD Fibromuscular dysplasia High blood sugar History of pernicious anemia History of vitamin D deficiency Hx of essential hypertension Hx of polymyalgia rheumatica Hypertension Pancreatic cancer metastasized to intra-abdominal lymph node Pancreatic mass Polymyalgia rheumatica Vertebral artery stenosis Family History Father HTN (hypertension) Mother Myocardial infarction HTN (hypertension) Sister Cancer Surgical History No history of previous surgery Social History Household Members: Spouse Housing: House Are you a primary coronary care unit nurse to a significant other at home: No Do you presently have visiting nurse or other home services: 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) Alcohol intake: never Patient Tobacco Use Status: Former Tobacco user Quit Date: 1983 Tobacco use type: Cigarette Cigarette Packs Per Day: 3 Years Smoked: 30 Second Hand Smoke Exposure: No Advance Directives: Yes Advance Directives on File: Yes Advance Directives Date on File: 09/25/21 service: No Current occupational status: retired Meds Allergies Allergy/AdvReac Type Severity Reaction Status Date / Time No Known Allergies Allergy Verified 07/29/22 10:10 [No Known Allergies*] Active Medications: Current Medications Lactated Ringer's (Lr) 1,000 mls @ 100 mls/hr IVCONT .Q10H [facility] Last Admin: 01/25/23 00:37 Dose: 100 mls/hr Lorazepam (Lorazepam 0.5 Mg Tablet) 0.5 mg SUBLINGUAL Q4H PRN PRN Reason: anxiety/restlessness Morphine Sulfate (Morphine Sulfate 4 Mg/Ml Cartridge) 4 mg IM Q4H PRN PRN Reason: Discomfort/Shortness of breath Last Admin: 01/24/23 23:25 Dose: 4 mg Ondansetron HCl (Ondansetron Hcl 4 Mg/2 Ml Vial) 4 mg IVPUSH Q8H PRN PRN Reason: Nausea and Vomiting Last Admin: 01/24/23 23:25 Dose: 4 mg Pharmacy Consult (Consult Rx Perform Med Rec) 1 each MISCELLANE ONCE PRN PRN Reason: Consult order Home Medications Medication Instructions Recorded Confirmed Last Taken Type lisinopril 40 mg tablet 40 mg PO DAILY 09/27/20 01/24/23 08/20/21 History ondansetron HCl 4 mg tablet 1 tab PO Q8H PRN nausea/vomiting 05/08/22 01/24/23 Unknown History morphine concentrate 100 mg/5 mL 0.25 ml PO Q1H PRN Severe Pain 01/24/23 01/24/23 Unknown History (20 mg/mL) oral solution (Scale Score 7-10) oxycodone 5 mg tablet 1 tab PO TID PRN Pain 01/24/23 01/24/23 Unknown History polyethylene glycol 3350 17 17 g PO DAILY 01/24/23 01/24/23 Unknown History gram/dose oral powder (Miralax) prednisone 5 mg tablet 5 mg PO DAILY 01/24/23 01/24/23 Unknown History sennosides 8.6 mg-docusate sodium 1 - 2 tab PO DAILY PRN Constipation 01/24/23 01/24/23 Unknown History 50 mg tablet (Senna with Docusate Sodium) Physical Exam Vital Signs and Narrative: Vital Signs: Last Vital Signs Temp 97.6 F 01/25/23 02:31 Pulse 89 01/25/23 02:31 Resp 12 01/25/23 02:31 BP 125/82 01/25/23 02:31 Pulse Ox 97 01/25/23 02:31 O2 Del Method 01/25/23 02:31 BMI result Body Mass Index 19.6 Const: Other: Very frail and cachectic General: cooperative and no acute distress Orientation/consciousness: patient oriented x3 Eyes: General: appearance normal, both eyes and all related structures Resp: Effort & Inspection: normal respiratory effort Auscultation: clear to auscultation bilaterally Cardio: Rate: regular rate Rhythm: regular rhythm GI: Other: Abdomen is slightly distended, no rebound or guarding Palpation (GI): Soft to palpation Auscultation: normal bowel sounds Skin: General skin exam: no rashes or lesions noted Neuro: General: patient oriented x3 Cognition (Neuro): normal cognition Extrem: General: Yes normal to inspection and Yes no pedal edema Results Labs 01/24/23 16:56 01/24/23 16:56 Labs: Laboratory Results - last 24 hr 01/24/23 01/24/23 01/24/23 16:56 16:56 16:56 MCV 87.9 MCH 28.3 MCHC 32.2 RDW 13.8 Plt Count 332 D MPV 9.2 L Immature Gran % (Auto) 0.2 Neut % (Auto) 73.9 H Lymph % (Auto) 13.7 L [place] % (Auto) 8.7 Eos % (Auto) 2.8 Baso % (Auto) 0.7 Lymph # (Auto) 0.8 L [place] # (Auto) 0.5 Eos # (Auto) 0.2 Baso # (Auto) 0.0 Abs Immat Gran (auto) 0.01 Absolute Neuts (auto) 4.5 Absolute Nucleated RBC 0.000 Nucleated RBC % (auto) 0.0 Anion Gap 15 Estim Creat Clear Calc 17.7 Estimated GFR 22 Random Glucose 123 H Calcium 9.9 D Magnesium 2.2 Total Bilirubin 0.7 AST 20 ALT 8 Alkaline Phosphatase 68 Total Protein 7.1 Albumin 3.5 Urine Color Urine Appearance Urine pH Ur Specific [place] Urine Protein Urine Glucose (UA) Urine Ketones Urine Blood Urine Nitrite Ur Leukocyte Esterase Urine RBC Urine WBC Ur Squamous Epith Cells Urine Bacteria Hyaline Casts COVID-19 ([facility]) Negative COVID-19 Clin Com See Note 01/25/23 02:24 MCV MCH MCHC RDW Plt Count MPV Immature Gran % (Auto) Neut % (Auto) Lymph % (Auto) [place] % (Auto) Eos % (Auto) Baso % (Auto) Lymph # (Auto) [place] # (Auto) Eos # (Auto) Baso # (Auto) Abs Immat Gran (auto) Absolute Neuts (auto) Absolute Nucleated RBC Nucleated RBC % (auto) Anion Gap Estim Creat Clear Calc Estimated GFR Random Glucose Calcium Magnesium Total Bilirubin AST ALT Alkaline Phosphatase Total Protein Albumin Urine Color Dark Yellow Urine Appearance Clear Urine pH 5.0 Ur Specific [place] 1.020 Urine Protein Trace Urine Glucose (UA) Negative Urine Ketones Negative Urine Blood Negative Urine Nitrite Negative Ur Leukocyte Esterase Small (1+) H Urine RBC 3-5 H Urine WBC 0-5 Ur Squamous Epith Cells 0-2 Urine Bacteria None Seen Hyaline Casts 0-2 COVID-19 ([facility]) COVID-19 Clin Com Imaging Radiologist's Impressions: Impressions KUB X-Ray 01/24/23 16:32 IMPRESSION: Moderate stool burden involving the left hemicolon. Abdomen/Pelvis CT 01/24/23 17:42 IMPRESSION: 1. Interval development of large volume ascites and mesenteric edema in this patient with known peritoneal carcinomatosis/metastasis. 2. No evidence of small bowel obstruction. 3. Irregular thickening/luminal narrowing of the distal sigmoid colon redemonstrated, better seen on prior exam and concerning for possible stricture underlying annular mass lesion. Suggest direct visualization if not already performed. There is a relatively large amount of formed stool in the more proximal colon. Developing colonic obstruction a consideration. 4. New mild bilateral hydronephrosis. 5. New trace left pleural effusion. 6. Grossly unchanged pancreatic tail lesion. 7. Additional ancillary findings as described. Assessment and Plan (1) Abdominal distension: Status: Acute (2) Constipation: Status: Acute (3) DAVID (acute kidney injury): Status: Acute (4) Acute hyperkalemia: Status: Acute (5) Dehydration: Status: Acute (6) Pancreatic cancer metastasized to intra-abdominal lymph node: Status: Acute Plan This is a 77-year-old male with past medical history of metastatic pancreatic cancer presents to the hospital comes in with abdominal distension as well as pain and dehydration being admitted under GI IP hospice # abdominal distension - likely secondary to edema in the setting of peritoneal carcinomatosis/metast asis - causing significant pain - hospice wants patient to be admitted for pain control and possible paracentesis for comfort if necessary - at this time will treat with IV analgesics - hospice will have a further discussion with family in a.m. # DAVID - secondary to dehydration - will treat with IV fluids - follow BMP # acute dehydration - no oral intake - IVF # constipation - reports severe constipation - regimen Time Spent With Patient Time: Total time managing care of this patient today ____ minutes. Quality Stroke Does the patient have a stroke diagnosis?: No VTE Prior VTE?: No VTE Risk Level:: Medical - moderate - high VTE Device Contraindication: Treatment Not Indicated VTE Drug Contraindication: Treatment Not Indicated
[2023-01-25 07:22] VITALS: RESP 16
--- NOTE | 2023-01-25 07:33 | PC.NURSE ---
call made to pharmacy to change scheduling of milk of mag to 9am to cluster care.
[2023-01-25 07:39] LABS: Anion Gap 14 (12-20); Blood Urea Nitrogen 61 mg/dL (9-16); Calcium 9.4 mg/dL (8.4-10.2); Carbon Dioxide 28 mmol/L (22-29); Chloride 104 mmol/L (96-108); Creatinine Clr Calc Pharmacy 18.4; Estimated Glomerular Filt Rate 23; Glucose Random 98 mg/dL (60-115); Potassium 5.2 mmol/L (3.3-5.1); Sodium 141 mmol/L (135-145)
--- NOTE | 2023-01-25 07:42 | PC.NURSE ---
Contact made by Windy Turner [facility] [phone], to confirm location for Hospice Nurses. Plan to call if pt gets room/status change
[2023-01-25 08:00] VITALS: RESP 14
[2023-01-25] MEDS: Milk of Magnesia 30 ML ORAL.SUSP PO (09:44)
[2023-01-25] MEDS: polyethylene glycoL 3350 17 GM POWD.PACK PO (09:47)
[2023-01-25 10:00] VITALS: RESP 18
[2023-01-25] MEDS: ondansetron HCL 4 MG/2 ML VIAL IVPUSH (13:06)
[2023-01-25] MEDS: Morphine Sulfate 4 MG/ML CARTRIDGE IM (13:08)
[2023-01-25] MEDS: LORazepam 0.5 MG TABLET SUBLINGUAL (13:10)
[2023-01-25 14:21] VITALS: BP 150/85; PULSE 90; RESP 18; O2SAT 98
--- NOTE | 2023-01-25 15:02 | P.PNIM_ITS ---
Subjective Subjective Date of Service: 01/25/23 Interval History: admitted to [facility] hospice. Pain control adequate at this time Review of Systems denies chest pain Denies shortness of breath Denies nausea vomiting diarrhea Physical Exam Vital Signs: Vital Signs: Last Vital Signs Temp 97.6 F 01/25/23 02:31 Pulse 90 01/25/23 14:21 Resp 18 01/25/23 14:21 BP 150/85 H 01/25/23 14:21 Pulse Ox 98 01/25/23 14:21 O2 Del Method 01/25/23 02:31 BMI result Body Mass Index 19.6 Const: Other: resting comfortably on gurney HEENT: Other: membranes dry Resp: Other: clear to auscultation bilaterally no rales rhonchi wheezes Cardio: Other: no S4; positive S1-S2; no S3 murmurs rubs gallops GI: Other: soft nontender nondistended normoactive bowel sounds Extrem: Other: no edema bilaterally Objective Data Active Medications Lactated Ringer's (Lr) 1,000 mls @ 100 mls/hr IVCONT .Q10H [facility] Last Admin: 01/25/23 09:44 Dose: 100 mls/hr Documented By: EVANS Lorazepam (Lorazepam 0.5 Mg Tablet) 0.5 mg SUBLINGUAL Q4H PRN PRN Reason: anxiety/restlessness Last Admin: 01/25/23 13:10 Dose: 0.5 mg Documented By: EVANS Morphine Sulfate (Morphine Sulfate 4 Mg/Ml Cartridge) 4 mg IM Q4H PRN PRN Reason: Discomfort/Shortness of breath Last Admin: 01/25/23 13:08 Dose: 4 mg Documented By: EVANS Ondansetron HCl (Ondansetron Hcl 4 Mg/2 Ml Vial) 4 mg IVPUSH Q8H PRN PRN Reason: Nausea and Vomiting Last Admin: 01/25/23 13:06 Dose: 4 mg Documented By: EVANS Pharmacy Consult (Consult Rx Perform Med Rec) 1 each MISCELLANE ONCE PRN PRN Reason: Consult order Polyethylene Glycol (Polyethylene Glycol 3350 17 Gm Powd.Pack) 17 gm PO DAILY [facility] Last Admin: 01/25/23 09:47 Dose: 17 gm Documented By: EVANS Labs 01/24/23 16:56 01/25/23 06:39 Labs: Laboratory Results - last 24 hr 01/24/23 01/24/23 01/24/23 16:56 16:56 16:56 MCV 87.9 MCH 28.3 MCHC 32.2 RDW 13.8 Plt Count 332 D MPV 9.2 L Immature Gran % (Auto) 0.2 Neut % (Auto) 73.9 H Lymph % (Auto) 13.7 L [place] % (Auto) 8.7 Eos % (Auto) 2.8 Baso % (Auto) 0.7 Lymph # (Auto) 0.8 L [place] # (Auto) 0.5 Eos # (Auto) 0.2 Baso # (Auto) 0.0 Abs Immat Gran (auto) 0.01 Absolute Neuts (auto) 4.5 Absolute Nucleated RBC 0.000 Nucleated RBC % (auto) 0.0 Anion Gap 15 Estim Creat Clear Calc 17.7 Estimated GFR 22 Random Glucose 123 H Calcium 9.9 D Magnesium 2.2 Total Bilirubin 0.7 AST 20 ALT 8 Alkaline Phosphatase 68 Total Protein 7.1 Albumin 3.5 Urine Color Urine Appearance Urine pH Ur Specific [place] Urine Protein Urine Glucose (UA) Urine Ketones Urine Blood Urine Nitrite Ur Leukocyte Esterase Urine RBC Urine WBC Ur Squamous Epith Cells Urine Bacteria Hyaline Casts COVID-19 ([facility]) Negative COVID-19 Clin Com See Note 01/25/23 01/25/23 02:24 06:39 MCV MCH MCHC RDW Plt Count MPV Immature Gran % (Auto) Neut % (Auto) Lymph % (Auto) [place] % (Auto) Eos % (Auto) Baso % (Auto) Lymph # (Auto) [place] # (Auto) Eos # (Auto) Baso # (Auto) Abs Immat Gran (auto) Absolute Neuts (auto) Absolute Nucleated RBC Nucleated RBC % (auto) Anion Gap 14 Estim Creat Clear Calc 18.4 Estimated GFR 23 Random Glucose 98 Calcium 9.4 Magnesium Total Bilirubin AST ALT Alkaline Phosphatase Total Protein Albumin Urine Color Dark Yellow Urine Appearance Clear Urine pH 5.0 Ur Specific [place] 1.020 Urine Protein Trace Urine Glucose (UA) Negative Urine Ketones Negative Urine Blood Negative Urine Nitrite Negative Ur Leukocyte Esterase Small (1+) H Urine RBC 3-5 H Urine WBC 0-5 Ur Squamous Epith Cells 0-2 Urine Bacteria None Seen Hyaline Casts 0-2 COVID-19 ([facility]) COVID-19 Clin Com Assessment and Plan (1) Pancreatic cancer metastasized to intra-abdominal lymph node: Status: Acute Plan This is a 77-year-old male with past medical history of metastatic pancreatic cancer presents to the hospital comes in with abdominal distension as well as pain and dehydration being admitted under GI IP hospice 1.Peritoneal carcinomatosis/metastasis - long discussion with and daughter (diplomatic interpreter/translator present). Hospice/comfort measures explained in great detail. All in agreement that comfort is the zamudio. IV fluids will be D/C's .Patient will be treated with standard morphine and Ativan. If pulse dosing is not acceptable for pain control; will start morphine drip. Time Spent With Patient Time: Total time managing care of this patient today ____ minutes. Quality Stroke Does the patient have a stroke diagnosis?: No VTE Prior VTE?: No VTE Risk Level:: Medical - moderate - high VTE Device Contraindication: Treatment Not Indicated VTE Drug Contraindication: Treatment Not Indicated
--- NOTE | 2023-01-25 17:45 | PC.NURSE ---
flds discontinued per verbal provider order, pt resting quietly, RN-RN report called into med surg.
[2023-01-26] MEDS: Morphine Sulfate 4 MG/ML CARTRIDGE IM (04:34)
[2023-01-26 08:00] VITALS: BP 143/86
[2023-01-26] MEDS: Morphine Sulfate 4 MG/ML CARTRIDGE IVPUSH ×2 (09:42→12:40)
[2023-01-26] MEDS: polyethylene glycoL 3350 17 GM POWD.PACK PO (09:43)
--- NOTE | 2023-01-26 11:25 | MHC.CM.PN ---
PT WILL DC HOME TODAY WITH RESUMPTION OF [facility] AND [facility] CM SPOKE WITH BLAKE FROM [facility] SHE CONFIRMS THEY USE [facility] FOR TRANSPORT SHE SAYS A HOSPICE NURSE WILL SEE HIM LATER TODAY AT HOME TRANSPORT ARRANGED FOR 1300 HOURS
--- NOTE | 2023-01-26 11:43 | PM.DS ---
DS: Providers Provider Date of Service: 01/26/23 Date of admission: 01/24/23 23:11 Date of discharge: 01/26/23 Primary care physician: Evelia Cerrato MD DS: Diagnosis Discharge Diagnosis (1) Pancreatic cancer metastasized to intra-abdominal lymph node: Status: Acute DS: Summary Hospital Course Hospital Course: 77-year-old male with past medical history of metastatic pancreatic cancer presents to the hospital comes in with abdominal distension as well as pain and dehydration being admitted under GI IP hospice; family initially under the impression that they had to transfer patient to hospital. In-hospital patient awake alert taking p.o.. At this point in time family wishes to take him home. Per family pain control was not an issue at home. He will be discharged to home with hospice care Time Spent with Patient Time attestation: Total time managing care of this patient today ____ minutes. Discharge coordination time: Greater than 30 minutes Quality: Safe Use of Opioids Does Pt have an Active Cancer Diagnosis on the Problem List?: No Quality: Stroke Does the patient have a stroke diagnosis?: No Physical Exam Vital Signs: Vital Signs: Last Vital Signs Temp 97.6 F 01/25/23 02:31 Pulse 90 01/25/23 14:21 Resp 18 01/25/23 14:21 BP 143/86 H 01/26/23 08:00 Pulse Ox 98 01/25/23 14:21 O2 Del Method 01/25/23 02:31 BMI result Body Mass Index 19.6 Const: Other: resting comfortably on gurney HEENT: Other: membranes dry Resp: Other: clear to auscultation bilaterally no rales rhonchi wheezes Cardio: Other: no S4; positive S1-S2; no S3 murmurs rubs gallops GI: Other: soft nontender nondistended normoactive bowel sounds Extrem: Other: no edema bilaterally Discharge Plan Discharge Anticipated Discharge Date/Time: 01/26/23 11:41 Patient Disposition: Hospice - Home Discharge Diagnosis: metastatic pancreatic cancer Referrals: [facility] [Other] (NURSE WILL VISIT AT HOME LATER TODAY ) Evelia Cerrato MD [Primary Care Provider] - 1 Week Discharge Medications: Continued ondansetron HCl 4 mg tablet 1 tab PO Q8H PRN (Reason: nausea/vomiting) tramadol 50 mg Tablet 50 mg PO Q8H PRN (Reason: Pain) Qty: 30 0RF morphine concentrate 100 mg/5 mL (20 mg/mL) solution 0.25 ml PO Q1H PRN (Reason: Severe Pain (Scale Score 7-10)) prednisone 5 mg tablet 5 mg PO DAILY polyethylene glycol 3350 [Miralax] 17 gram/dose powder 17 g PO DAILY oxycodone 5 mg tablet 1 tab PO TID PRN (Reason: Pain) sennosides-docusate sodium [Senna with Docusate Sodium] 8.6-50 mg tablet 1 - 2 tab PO DAILY PRN (Reason: Constipation) lisinopril 40 mg tablet 40 mg PO DAILY Discharge Orders: Discharge Order (Routine); Ordered 01/26/23 Ordered By: Xander Lewis Diet: Advance to usual diet Activity on Discharge: As tolerated Stand Alone Forms: Patient Portal Discharge page Care Plan Goals: resume hospice care at home Health Concerns: as per hospice Plan of Treatment: hospice care Assessment: see discharge summary
== END 2023-01-26 13:44 | disposition hospice, home (50) | DRG 951 ==
LOC: HO.ED 21:04 → HO.EDOVER 01-25 03:46 → HO.S3 01-25 17:10
PROVIDERS: Physician Assistant; Admitting Provider Internal Medicine; Emergency Provider Emergency Medicine Emergency Medical Services; PCP Internal Medicine Transplant Hepatology; Visit Provider Hospitalist
DX: Z51.5 Encounter for palliative care (principal); C25.9 Malignant neoplasm of pancreas, unspecified; C77.2 Secondary and unspecified malignant neoplasm of intra-abdominal lymph nodes; N17.9 Acute kidney failure, unspecified; C78.6 Secondary malignant neoplasm of retroperitoneum and peritoneum; G89.3 Neoplasm related pain (acute) (chronic); K59.00 Constipation, unspecified; E86.0 Dehydration; E87.5 Hyperkalemia; M35.3 Polymyalgia rheumatica; Z20.822 Contact with and (suspected) exposure to COVID-19; Z87.891 Personal history of nicotine dependence; Z79.899 Other long term (current) drug therapy
CPT/HCPCS: 36415; 74018; 74176; 80048; 80053; 81001; 83735; 85025; 87086; 87635; 99285; J2270; J2405